=== PATIENT | male | born 1990 | race Caucasian/White ===

== ENCOUNTER 2017-08-06 03:19 | Inpatient (IN) | payer SELFPAY ==
[2017-08-06] MEDS ORDERED: METOPROLOL TARTRATE 5 MG/5 ML INJ IV ONE (04:04)
[2017-08-06] MEDS ORDERED: NA CHLORIDE 0.9% 1,000 ML ONE (04:05)
[2017-08-06 04:20] LABS: Protime INR 1.01
[2017-08-06 04:28] LABS: Potassium 3.9 mEq/L (3.6-5.0)
[2017-08-06 04:34] LABS: Albumin 3.7 g/dL (3.2-5.5); Bilirubin Direct 0.1 mg/dL (0-0.2); Bilirubin Total 0.8 mg/dL (0.3-1.2); Magnesium 2.1 mg/dL (1.8-2.5); Protein, Total 7.2 g/dL (6.0-8.3)
[2017-08-06 04:37] LABS: CKMB Creatine Kinase MB 1.9 ng/ml (0.3-4.0)
[2017-08-06 04:41] LABS: Absolute Lymphocytes (CBC) 1.6 K/uL (0.7-4.9); Absolute Monocytes 0.8 K/uL (0.1-1.3); Absolute Neutrophil 7.6 K/uL (1.8-8.0); Basophils % 0.6 % (0-1.3); Eosinophils % 5.2 % (0-4.4); Hematocrit 36.5 % (39.6-49.0); MCH 26.6 pg (27.0-35.0); MPV 7.9 fL (7.6-11.3); Monocytes % 7.2 % (3.3-12.3); RBC Red Blood Cell Count 4.62 M/uL (4.33-5.43)
--- NOTE | 2017-08-06 05:33 | ER ---
Nurse's Notes [facility] Name: Melvin Maguire Age: 26 yrs Sex: Male : 1990 Arrival Date: 08/06/2017 Time: 03:24 Bed 14 Private MD: Diagnosis: Chest pain. [place] right lung. Acute renal failure. Elevated Troponin Presentation: 08/06 03:50 Presenting complaint: Patient states: "I have been feeling a heaviness in my chest all bs1 day yesterday but about an hour ago I started having chest pain that starts underneath my left breast to the middle of my chest, it was a sharp shooting pain, and I started feeling short of breath.". Transition of care: patient was not received from another setting of care. Onset of symptoms was August 06, 2017 at 02:30. Initial Sepsis Screen: Does the patient meet any 2 criteria? HR > 90 bpm. No. Patient's initial sepsis screen is negative. Does the patient have a suspected source of infection? No. Patient's initial sepsis screen is negative. Care prior to arrival: None. 03:50 Method Of Arrival: Ambulatory bs1 03:50 Acuity: SAKSHI 3 bs1 Triage Assessment: 04:01 General: Appears. bs1 Historical: - Allergies: 03:55 No Known Allergies; bs1 - Home Meds: 03:55 Claritin Oral [Active]; bs1 - PMHx: 03:55 Asthma; blood pressure issues in high school; bs1 - PSHx: 03:55 None; bs1 - Immunization history:: Adult Immunizations up to date. - Social history:: Smoking status: Patient/guardian denies using tobacco. Screenin:57 Abuse screen: Denies threats or abuse. Denies injuries from another. Nutritional bs1 screening: No deficits noted. Tuberculosis screening: No symptoms or risk factors identified. Fall Risk None identified. Assessment: 03:55 General: Appears uncomfortable, Behavior is cooperative, anxious. Pain: Complains of bs1 pain in underneath left breast Pain radiates to center of chest Pain currently is 7 out of 10 on a pain scale. Quality of pain is described as sharp, shooting, Pain began 2 hours ago. Neuro: Level of Consciousness is awake, alert, obeys commands, Oriented to person, place, time, situation, Appropriate for age Marketing Director are equal bilaterally Moves all extremities. Cardiovascular: Reports chest pain, shortness of breath, Heart tones S1 S2 present Capillary refill < 3 seconds Patient's skin is warm and dry. Respiratory: Reports shortness of breath at rest on exertion cough that is non-productive, Airway is patent Trachea midline Respiratory effort is even, unlabored, Respiratory pattern is regular, symmetrical, Breath sounds are clear bilaterally. GI: No deficits noted. No signs and/or symptoms were reported involving the gastrointestinal system. : No deficits noted. No signs and/or symptoms were reported regarding the genitourinary system. EENT: No deficits noted. No signs and/or symptoms were reported regarding the EENT system. Derm: Skin is intact, Skin is pink, warm \\T\\ dry. Musculoskeletal: Circulation, motion, and sensation intact. Capillary refill < 3 seconds, Range of motion: intact in all extremities. 04:30 Reassessment: Patient appears in no apparent distress at this time. Patient and/or bs1 family updated on plan of care and expected duration. Pain level reassessed. Patient is alert, oriented x 3, equal unlabored respirations, skin warm/dry/pink. 05:23 Reassessment: Patient appears in no apparent distress at this time. Patient and/or bs1 family updated on plan of care and expected duration. Pain level reassessed. Patient is alert, oriented x 3, equal unlabored respirations, skin warm/dry/pink. Patient states feeling better. 06:23 Reassessment: Patient appears in no apparent distress at this time. Patient and/or bs1 family updated on plan of care and expected duration. Pain level reassessed. Patient is alert, oriented x 3, equal unlabored respirations, skin warm/dry/pink. Denies chest pain at this time. 06:30 Reassessment: Decreased fluids to 75ml/hr per verbal order from Dr Watkins. bs1 07:00 General: Appears uncomfortable, obese, Behavior is cooperative, anxious. Neuro: Level rb1 of Consciousness is awake, alert, obeys commands, Oriented to person, place, time, situation. Cardiovascular: Capillary refill < 3 seconds is brisk in bilateral fingers. Respiratory: Airway is patent Respiratory effort is even, unlabored, Respiratory pattern is regular, symmetrical. Derm: Skin is pink, warm \\T\\ dry. 07:54 Reassessment: Called Dr. Mcintosh regarding BP 161/123, P 68. Received order for rb1 Hydralazine 10 mg IVP Q8H PRN SBP > 160. 100% telephone read back. 08:00 Reassessment: Patient appears in no apparent distress at this time. No changes from rb1 previously documented assessment. called report to Wade Remy RN. Information from the [facility] was given. All questions asked and answered. Vital Signs: 03:45 BP 167 / 125; Pulse 120; Resp 20; Temp 98.2(O); Pulse Ox 98% on R/A; Weight 136.08 kg; bs1 Height 5 ft. 11 in. (180.34 cm); Pain 7/10; 04:08 BP 185 / 111; Pulse 124; bs1 04:13 BP 144 / 130; Pulse 105; bs1 04:18 BP 153 / 129; Pulse 108; bs1 04:21 BP 159 / 118; Pulse 95; Resp 22; Pulse Ox 100% on R/A; mt 05:22 BP 138 / 85; Pulse 88; Resp 20; Pulse Ox 99% on 3 lpm NC; bs1 05:36 BP 150 / 109; Pulse 98; Resp 20; Pulse Ox 98% on R/A; mt 06:51 BP 157 / 113; Pulse 105; Resp 19; Pulse Ox 99% on R/A; Pain 0/10; bs1 07:50 BP 161 / 123; Pulse 68; Resp 22; Pulse Ox 99% on R/A; rb1 03:45 Body Mass Index 41.84 (136.08 kg, 180.34 cm) bs1 07:[address] Mcintosh. Received order via telephone for Hydralazine 10 mg IVP Q8H PRN for rb1 SBP > 160. ED Course: 03:24 Patient arrived in ED. al2 03:35 Sofy Poon, EVETTE is Primary Nurse. bs1 03:36 Prasanna Watkins MD is Attending Physician. pkl 03:53 Triage completed. bs1 04:01 Inserted saline lock: 20 gauge in left antecubital area, using aseptic technique. bs1 Oxygen administration via nasal cannula \\T\\ 2L/min. 04:24 X-ray completed. Portable x-ray completed in exam room. Patient tolerated procedure kw well. 04:26 XRAY Chest (1 view) In Process Unspecified. EDMS 05:14 Patient has correct armband on for positive identification. Bed in low position. Call bs1 light in reach. Side rails up X 1. quality assurance monitor chassis on. Pulse ox on. NIBP on. 05:14 Arm band placed on placed. EKG completed in triage. Results shown to MD. bs1 05:15 No provider procedures requiring assistance completed. bs1 05:31 Michael Ernst MD is Hospitalizing Provider. pkl 07:00 Report given to EVETTE Wills. bs1 07:14 Patient taken to ultrasound. via wheelchair. hr 08:19 Patient admitted, IV remains in place. rb1 08:22 Ultrasound completed. Patient tolerated well. Patient moved back from ultrasound. hr Administered Medications: 04:08 Drug: NS 0.9% 1000 ml Route: IV; Rate: 125 ml/hr; Site: left antecubital; bs1 04:08 Drug: Metoprolol 5 mg {Note: blood pressure 185/111 heart rate 124 prior blood pressure bs1 144/130 heart rate 105 after med.} Route: IVP; Site: left antecubital; 04:13 Drug: Metoprolol 5 mg {Note: blood pressure 153/129 hear rate 108 prior to 2nd dose bs1 blood pressure 160/115 heart rate 99 after 2nd dose.} Route: IVP; Site: left antecubital; 04:18 Drug: Metoprolol 5 mg {Note: blood pressure 158/118 heart rate 98 prior to 3rd dose bs1 blood pressure 160/117, heart rate 93 after 3rd dose, MD aware.} Route: IVP; Site: left antecubital; 06:21 Follow up: Response: No adverse reaction bs1 Outcome: 05:33 Decision to Hospitalize by Provider. pkl 08:19 Patient left the ED. rb1 08:19 Admitted to Med/surg accompanied by tech, family with patient, via wheelchair, room rb1 221, with chart, Report called to Wade Remy RN. Information from [facility] was given. All questions asked and answered. 08:19 Condition: stable 08:19 Instructed on the need for admit. Signatures: Dispatcher [employer] EDMS Prasanna Watkins MD MD pkl Viki Valle Kimberlee kw Barber, Rebecca, RN RN rb1 Sejal Graham mt, Brittany, RN RN bs1 Nevaeh Diaz Corrections: (The following items were deleted from the chart) 08:40 08:00 Reassessment: Patient appears in no apparent distress at this time. No changes rb1 from previously documented assessment. rb1 08:41 08:28 Patient left the ED. rb1 rb1 08:47 07:54 Reassessment: Called Dr. Mcintosh regarding BP 161/123, P 68. Received order for rb1 Hydralazine 10 mg IVP Q8H PRN. 100% telephone read back. rb1
--- NOTE | 2017-08-06 05:33 | EDPHYS ---
Physician Documentation [facility] Name: Melvin Maguire Age: 26 yrs Sex: Male : 1990 Arrival Date: 08/06/2017 Time: 03:24 Bed 14 Private MD: ED Physician Prasanna Watkins HPI: 08/06 04:02 This 26 yrs old Male presents to ER via Ambulatory with complaints of Chest pkl Pain, Cough. 04:02 The patient or guardian reports chest pain that is located primarily in the substernal pkl area. The pain does not radiate. Associated signs and symptoms: Pertinent positives: cough. The chest pain is described as dull. Historical: - Allergies: 03:55 No Known Allergies; bs1 - Home Meds: 03:55 Claritin Oral [Active]; bs1 - PMHx: 03:55 Asthma; blood pressure issues in high school; bs1 - PSHx: 03:55 None; bs1 - Immunization history:: Adult Immunizations up to date. - Social history:: Smoking status: Patient/guardian denies using tobacco. ROS: 04:02 Eyes: Negative for injury, pain, redness, and discharge, ENT: Negative for injury, pkl pain, and discharge, Neck: Negative for injury, pain, and swelling. 04:02 Cardiovascular: Positive for chest pain, with cough. 04:02 Respiratory: Positive for cough, blood stain. 04:02 Abdomen/GI: Negative for abdominal pain, nausea, vomiting, and diarrhea. 04:02 Back: Negative for acute changes. 04:02 : Negative for urinary symptoms. 04:02 MS/extremity: Negative for acute changes. 04:02 Skin: Negative for rash. 04:02 Neuro: Negative for altered mental status. Exam: 04:02 Head/Face: Normocephalic, atraumatic. pkl 04:02 Head/face: Exam is negative for acute changes. 04:02 Eyes: Exam is negative for acute changes. 04:02 ENT: Exam is negative for acute changes. 04:02 Neck: Exam negative for nuchal rigidity. 04:02 Chest/axilla: Exam negative for acute changes. 04:02 Cardiovascular: Rate: tachycardic, actual rate is 120 bpm, Rhythm: regular. 04:02 ECG was reviewed by the Attending Physician. 04:02 Respiratory: the patient does not display signs of respiratory distress, Respirations: normal, Breath sounds: are clear throughout. 04:02 Abdomen/GI: Exam negative for acute changes. 04:02 Back: Exam negative for acute changes. 04:02 : Exam negative for acute changes. 04:02 Musculoskeletal/extremity: Exam is negative for acute changes. 04:02 Skin: Exam negative for rash. 04:02 Neuro: Orientation: is normal, Mentation: is normal, Cranial nerves: grossly normal, Motor: is normal. Vital Signs: 03:45 BP 167 / 125; Pulse 120; Resp 20; Temp 98.2(O); Pulse Ox 98% on R/A; Weight 136.08 kg; bs1 Height 5 ft. 11 in. (180.34 cm); Pain 7/10; 04:08 BP 185 / 111; Pulse 124; bs1 04:13 BP 144 / 130; Pulse 105; bs1 04:18 BP 153 / 129; Pulse 108; bs1 04:21 BP 159 / 118; Pulse 95; Resp 22; Pulse Ox 100% on R/A; mt 05:22 BP 138 / 85; Pulse 88; Resp 20; Pulse Ox 99% on 3 lpm NC; bs1 05:36 BP 150 / 109; Pulse 98; Resp 20; Pulse Ox 98% on R/A; mt 06:51 BP 157 / 113; Pulse 105; Resp 19; Pulse Ox 99% on R/A; Pain 0/10; bs1 07:50 BP 161 / 123; Pulse 68; Resp 22; Pulse Ox 99% on R/A; rb1 03:45 Body Mass Index 41.84 (136.08 kg, 180.34 cm) bs1 07:[address] Mcintosh. Received order via telephone for Hydralazine 10 mg IVP Q8H PRN for rb1 SBP > 160. MDM: 03:36 Patient medically screened. pkl 05:22 Data reviewed: vital signs, nurses notes, lab test result(s), EKG, radiologic studies, pkl plain films. 08/06 03:59 Order name: Basic Metabolic Panel bs1 08/06 03:59 Order name: BNP; Complete Time: 05:22 bs1 08/06 03:59 Order name: CBC with Diff; Complete Time: 05:22 bs1 08/06 03:59 Order name: Ckmb; Complete Time: 05:22 bs1 08/06 03:59 Order name: CPK; Complete Time: 05:22 bs1 08/06 03:59 Order name: LFT's; Complete Time: 05:22 bs1 08/06 03:59 Order name: Magnesium; Complete Time: 05:22 bs1 08/06 03:59 Order name: PT-INR; Complete Time: 05:22 bs1 08/06 03:59 Order name: Ptt, Activated; Complete Time: 05:22 bs1 08/06 03:59 Order name: Troponin (emerg Dept Use Only); Complete Time: 05:22 bs1 08/06 04:00 Order name: Basic Metabolic Panel; Complete Time: 05:22 EDMS 08/06 04:01 Order name: UDS pkl 08/06 04:34 Order name: D-Dimer; Complete Time: 05:22 EDMS 08/06 03:59 Order name: XRAY Chest (1 view) bs1 08/06 03:59 Order name: EKG; Complete Time: 04:00 bs1 08/06 03:59 Order name: Cardiac monitoring; Complete Time: 04:00 bs1 08/06 03:59 Order name: EKG - Nurse/Tech; Complete Time: 04:00 bs1 08/06 03:59 Order name: IV Saline Lock; Complete Time: 04:00 bs1 08/06 03:59 Order name: Labs collected and sent; Complete Time: 06:50 bs1 08/06 03:59 Order name: O2 Per Protocol; Complete Time: 04:00 bs1 08/06 05:27 Order name: Blood Culture Adult (2) pkl 08/06 05:27 Order name: Lactate; Complete Time: 06:33 pkl 08/06 05:27 Order name: Procalcitonin; Complete Time: 06:33 pkl 08/06 05:39 Order name: ABG; Complete Time: 06:33 pkl 08/06 06:51 Order name: Urine Dipstick--Ancillary (enter results) em1 08/06 07:10 Order name: Urine Dipstick-Ancillary EDMS 08/06 08:23 Order name: VAS EDMS 08/06 03:59 Order name: O2 Sat Monitoring; Complete Time: 04:00 bs1 08/06 03:59 Order name: Urine Dipstick-Ancillary (obtain specimen); Complete Time: 06:49 bs1 Administered Medications: 04:08 Drug: NS 0.9% 1000 ml Route: IV; Rate: 125 ml/hr; Site: left antecubital; bs1 04:08 Drug: Metoprolol 5 mg {Note: blood pressure 185/111 heart rate 124 prior blood pressure bs1 144/130 heart rate 105 after med.} Route: IVP; Site: left antecubital; 04:13 Drug: Metoprolol 5 mg {Note: blood pressure 153/129 hear rate 108 prior to 2nd dose bs1 blood pressure 160/115 heart rate 99 after 2nd dose.} Route: IVP; Site: left antecubital; 04:18 Drug: Metoprolol 5 mg {Note: blood pressure 158/118 heart rate 98 prior to 3rd dose bs1 blood pressure 160/117, heart rate 93 after 3rd dose, aware.} Route: IVP; Site: left antecubital; 06:21 Follow up: Response: No adverse reaction bs1 Disposition: 08/06/17 05:33 Hospitalization ordered by Michael Ernst for Inpatient Admission. Preliminary diagnosis is Chest pain. [place] right lung. Acute renal failure. Elevated Troponin. - Bed requested for Telemetry/MedSurg (Inpatient). - Status is Inpatient Admission. rb1 - Condition is Stable. - Problem is new. - Symptoms are unchanged. UTI on Admission? No Signatures: Dispatcher [employer] EDMS Zonia Salas RN RN mw Lam, Pin, MD MD pkl Barber, Rebecca, RN RN rb1 Sofy Poon RN RN bs1 Corrections: (The following items were deleted from the chart) 04:10 04:06 D-DIMER+COAG.LAB.BRZ ordered. EDMS EDMS
[2017-08-06 06:28] LABS: Arterial Blood Carboxyhemoglob 1.4 % (0-1.5); Blood Gas Oxyhemoglobin 93.6 % (94-97); Blood O2 Saturation 95.5 % (92-98.5)
--- NOTE | 2017-08-06 06:51 | P.HP ---
Certification for Inpatient Patient admitted to: Inpatient With expected LOS: >2 Midnights Practitioner: I am a practitioner with admitting privileges, knowledge of patient current condition, hospital course, and medical plan of care. Services: Services provided to patient in accordance with Admission requirements found in Title 42 Section 412.3 of the Code of Federal Regulations Patient History Date of Service: 08/06/17 Reason for admission: dyspnea, acute renal injury History of Present Illness: Mr Maguire is a 26 years old male with history of obesity, who start about 2 weeks ago with cold symptoms. However, yesterday, he start feeling weakness, SOB , and had cough with bloody secretions. He denied any fever or chills. He also has had chest pain on his left side, come and go, worsening with deep breathing. In ER lab work was significantly abnormal, creatinine 5.06, GFR 14, trop I elevated, D-dimer 3136. He denied any recent trip, but he recognized that some days he only spent time watching TV on the couch for several hours without standing up. At presentation is tachycardic 120bpm, dyspneic, however, O2 Sat is 98% on RA, no fever. Allergies No Known Allergies Allergy (Unverified 03/27/14 02:39) - Past Medical/Surgical History -: obesity Past Surgical History: Reviewed- Non-Contributory - Family History Father -: Heart disease - Social History Smoking Status: Never smoker CD- Drugs: No Place of Residence: Home Review of Systems 10-point ROS is otherwise unremarkable Physical Examination - Physical Exam General: Alert, In no apparent distress HEENT: Atraumatic, PERRLA, Mucous membr. moist/pink, EOMI, Sclerae nonicteric Neck: Supple, 2+ carotid pulse no bruit, No LAD, Without JVD or thyroid abnormality Respiratory: Clear to auscultation bilaterally, Normal air movement Cardiovascular: Regular rate/rhythm, Normal S1 S2 Gastrointestinal: Normal bowel sounds, No tenderness Musculoskeletal: No tenderness Integumentary: No rashes Neurological: Normal speech, Normal strength at 5/5 x4 extr, Normal tone, Normal affect Lymphatics: No axilla or inguinal lymphadenopathy - Studies Laboratory Data (last 24 hrs) 08/06/17 03:45: PT 11.9, INR 1.01, APTT 31.3 08/06/17 03:45: WBC 10.6, Hgb 12.3 L, Hct 36.5 L, Plt Count 331 08/06/17 03:45: B-Natriuretic Peptide 615 H 08/06/17 03:45: Sodium 136, Potassium 3.9, BUN 45 H, Creatinine 5.06 H*, Glucose 104, Magnesium 2.1, Total Bilirubin 0.8, AST 17, ALT 13, Alkaline Phosphatase 46 Assessment and Plan - Problems (Diagnosis) (1) Dyspnea Current Visit: Yes Status: Acute Qualifiers: Dyspnea type: shortness of breath Qualified Code(s): R06.02 - Shortness of breath; R06.00 - Dyspnea, unspecified; R06.01 - Orthopnea (2) Cough with hemoptysis Current Visit: Yes Status: Acute (3) Obesity Current Visit: Yes Status: Acute Qualifiers: Obesity type: unspecified obesity type Obesity classification: unspecified obesity classification Serious obesity comorbidity presence: unspecified whether serious comorbidity present Qualified Code(s): E66.9 - Obesity, unspecified (4) Acute renal injury Current Visit: Yes Status: Acute - Plan #1 dyspnea: due to clinical presentation plus the significant elevation of D- dimre, this is highly suspicious for PE. Will order Lovenox full dose adjusted to his renal function. Order also V/Q scan since he can not have a CTA of chest due to renal failure #2 acute renal injury:possible pre-renal in context of PE if is confirmed. Will consult [facility]. - Advance Directives Does patient have a Living Will: No Does patient have a Durable POA for Healthcare: No - Code Status/Comfort Care Code Status Assessed: Yes Code Status: Full Code
[2017-08-06] MEDS ORDERED: ENOXAPARIN 100 MG/ML SYR SQ SCH (07:00)
[2017-08-06 07:10] LABS: Urine Blood 2+ (NEG); Urine Glucose NEGATIVE (NEG); Urine Protein 3+ (NEG); Urine Specific Gravity 1.025 (1.005-1.030); Urine pH 5.5 (5.0-7.0)
[2017-08-06] MEDS ORDERED: HYDRALAZINE HCL 20 MG/ML VIAL ONE (07:52)
[2017-08-06] MEDS ORDERED: HYDRALAZINE HCL 20 MG/ML VIAL IV PRN ×2 (07:55→14:01)
[2017-08-06 07:58] LABS: Barbiturates NEGATIVE; Benzodiazepines NEGATIVE; Cocaine NEGATIVE; METHAMPHETAM NEGATIVE; Opiates NEGATIVE; Phencyclidine NEGATIVE; THC Cannibis NEGATIVE
[2017-08-06] MEDS ORDERED: ENOXAPARIN 100 MG/ML SYR SQ ONE (08:08)
--- NOTE | 2017-08-06 08:22 | RAD REPORT ---
EXAM DESCRIPTION: VAS - Extrem Venous W Compress Mao - 08/06/2017 7:23 am CLINICAL HISTORY: Elevated D-dimer COMPARISON: None. TECHNIQUE: Real-time sonographic evaluation of the bilateral lower extremity deep venous systems was performed. FINDINGS: Normal compressibility, flow augmentation, phasic flow and spontaneous flow are identified in the left and right lower extremity deep venous systems. No intraluminal filling defects seen. IMPRESSION: No DVT in either lower extremity.
[2017-08-06] MEDS ORDERED: ONDANSETRON 4 MG/2 ML VIAL IV PRN (08:51)
[2017-08-06] MEDS: NA CHLORIDE 0.9% 1,000 ML IV SCH ×2 (08:51→20:31)
--- NOTE | 2017-08-06 09:03 | RAD REPORT ---
EXAM DESCRIPTION: RAD - Chest Single View - 08/06/2017 4:25 am CLINICAL HISTORY: Chest pain, shortness of breath COMPARISON: August 2014 TECHNIQUE: AP portable chest image was obtained 0419 hours . FINDINGS: Interstitial and airspace opacification is present in the right lower lung field and to a lesser degree the left lower lung field. Central vasculature and lung markings increased slightly fro m prior imaging. Trachea is midline. Borderline cardiomegaly is present. No measurable pleural effusi on and no pneumothorax. No gross bony abnormality seen. No acute aortic findings suspected. IMPRESSION: Patient shows a mild CHF/ volume overload pattern. Asymmetric prominence of airspace opacification in the lower right lung field suspicious for concurre nt pneumonia.
[2017-08-06 09:16] VITALS: BMI 41.8
[2017-08-06 09:39] LABS: Potassium 4.2 mEq/L (3.6-5.0)
--- NOTE | 2017-08-06 12:44 | RAD REPORT ---
EXAM DESCRIPTION: NM - Vent Perfusion VQ Scan - 08/06/2017 12:30 pm CLINICAL HISTORY: Chest pain, shortness of breath, possible pulmonary embolism COMPARISON: Portable chest August 06 TECHNIQUE: The patient was administered 20.7 mCi Xenon 133 gas with posterior projection inspiration , equilibrium, and washout views obtained. The patient was then administered 7.6 mCi Tc-99m MAA label ed RBCs followed by standard 8 view protocol. FINDINGS: There is good distribution of the Xenon with no ventilation defects identified. No signifi cant air-trapping seen. Perfusion images show no defects suspicious for pulmonary emboli. IMPRESSION: Normal V/Q Scan.
[2017-08-06 13:43] LABS: Uric Acid 10.3 mg/dL (4.8-8.7)
[2017-08-06 13:44] LABS: Thyroid Stimulating Hormone 7.28 uIU/mL (0.34-5.60)
--- NOTE | 2017-08-06 14:38 | EKG ---
Test Date: 2017-08-06 Test Time: 03:34:43 Hearing Aid Consultant: CARLOS MANUEL MEASUREMENT RESULTS: Intervals: Rate: 127 PA: 150 QRSD: 90 QT: 306 QTc: 444 Bradley: P: 51 PA: 150 QRS: 97 T: 13 INTERPRETIVE STATEMENTS: Sinus tachycardia Possible Left atrial enlargement Rightward axis Borderline ECG No previous ECG available for comparison Electronically Signed On 08-06-17 14:34:16 CDT by Francesco Carias
[2017-08-06] MEDS: AMLODIPINE 10 MG TAB PO SCH (14:55)
[2017-08-06] MEDS: ACETAMINOPHEN 500 MG TAB PO PRN (14:58)
--- NOTE | 2017-08-06 15:18 | RAD REPORT ---
EXAM DESCRIPTION: US - Renal Ultrasound-Complete - 08/06/2017 2:43 pm CLINICAL HISTORY: Renal failure. COMPARISON: None. FINDINGS: Both kidneys demonstrate increased echogenicity. The right kidney measures 11.8 x 4.2 x 4.0 cm. No hydronephrosis. The left kidney measures 12.8 x 4.5 x 3.4 cm.. No hydronephrosis. Small amount of pleural fluid bilaterally. IMPRESSION: Echogenic kidneys are present bilaterally compatible with underlying medical renal disea se.
--- NOTE | 2017-08-06 17:35 | RAD REPORT ---
EXAM DESCRIPTION: CT - Abdomen Pelvis Wo Contrast - 08/06/2017 4:23 pm CLINICAL HISTORY: Abdominal pain. Renal failure COMPARISON: None TECHNIQUE: CT imaging of the abdomen and pelvis was performed without contrast. Solid organ, bowel a nd vascular assessment is limited due to lack of IV and oral contrast. All CT scans are performed using dose optimization technique as appropriate and may include automated exposure control or mA/KV adjustment according to patient size. FINDINGS: Mild linear opacities in both lung bases may represent pneumonia or atelectasis. Small danette ateral pleural effusions. The liver demonstrates no focal lesion or biliary dilatation. The spleen is mildly enlarged. Pancreas , adrenal glands and kidneys are within normal limits for limited noncontrast assessment. No bowel obstruction, free air, free fluid or abscess. The appendix is normal. Moderate fat containi ng ventral hernia is present. The osseous structures are within normal limits. IMPRESSION: Small bilateral pleural effusions with atelectasis versus small infiltrates in both lung bases. Moderate fat containing ventral hernia. Mild splenomegaly. A limited non-contrast examination was performed as detailed.
[2017-08-06] MEDS ORDERED: METOPROLOL TAR 25 MG TAB PO SCH (18:00)
[2017-08-06 21:25] LABS: Urine Appearance CLEAR; Urine Bilirubin NEGATIVE (NEG); Urine Blood 3+ (NEG); Urine Color YELLOW; Urine Glucose TRACE (NEG); Urine Protein 3+ (NEG); Urine Specific Gravity 1.015 (1.005-1.030); Urine Urobilinogen 0.2 mg/dL (0.2-1.0)
[2017-08-06 21:27] LABS: Urine Microscopic Reflex ORDER UMIC
[2017-08-06 21:44] LABS: Urine Bacteria NONE SEEN /HPF (NONE SEEN); Urine Coarse Granular Casts 0-5 /LPF (NONE SEEN); Urine Culture Reflex Order REFLEXED; Urine RBC 20-50 /HPF (NONE SEEN)
[2017-08-06 22:11] LABS: UR CREAT 106.7 mg/dL; Urine Protein/Creatinine Ratio 6.94 (<0.15)
--- NOTE | 2017-08-07 04:31 | CON ---
Date of Consultation: 08/06/2017 History Of Present Illness: This is a pleasant 26-year-old gentleman without any significant past me dical history except hypertension. The patient was in his regular state of health, was sitting, watc arina TV and all of a sudden started having shortness of breath with chest tightness. For that reason , he reported to the emergency room. In the emergency room, primary workup showed cardiomegaly, elev ated BUN and creatinine. For that reason, we have been consulted. According to the patient, the pat esdras has chronic sinusitis, being treated with [id number] medication. The patient has been shay ing Aleve every other day and lately he took consecutive on the last few days. The patient chronical ly taking Excedrin. The patient denied any rash. Denied any mouth ulcer. No joint problems. The p atesdras does not have any hazard exposure. No recent exposure to antibiotics. No IV contrast. Past Medical History: Obesity. Family History: Positive for diabetes. No kidney disease. Social History: Denies smoking, denies drinking, denies drug abuse. Allergies: NO KNOWN DRUG ALLERGIES. Home Medications: Excedrin and Aleve. Past Surgical History: Negative. Review of Systems: Head and Neck: No red eye. No ear pain. GI: No nausea. No vomiting. : No polyuria. No dysuria. No hematuria. Has foamy urine. PHARMACY TECHNICIAN: Not applicable. Respiratory: Has shortness of breath. Cardiovascular: No chest pain. No orthopnea. No leg swelling. Endocrine: No polydipsia. Skin: No rash. Neuro: No weakness. Musculoskeletal: No joint pain. Physical Examination: Vital Signs: When I saw the patient, blood pressure 169/107, pulse of 116, afebrile. The patient st ill have urine output. Chest: Clear to auscultation. Heart: S1, S2. Regular. Abdomen: Soft, nontender. Extremities: No edema. Skin: No rash. No ulcers. Neurological: Alert and oriented x3. Nonfocal. No tremor. Laboratory Data: WBC 10.6, H and H 12.3/36.5, platelets 330. Sodium 138, potassium 4.2, bicarb 21, BUN 44, creatinine 5.2, calcium 8.8. Uric acid of 10.3, CK 203. Troponin negative. TSH 7.2. PTH w as sent. Urinalysis: Specific gravity of 1.016, +3 blood, rbc of 50, wbc of 10, +3 protein. Urine drug screen was negative. Medications: Current medications in the hospital include: 1.IV fluid of normal saline. 2.Hydralazine p.r.n. Assessment And Plan: 1.Acute kidney injury with proteinuric, not quantified proteinuria yet with hematuria. 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 I am going to go ahead and get full workup for the patient including renal ultrasound. Quantify the protein/creatinine. Send for full serology. We will send for PTH to evaluate the chr onicity. I spoke with the Radiology. Plan to get kidney biopsy. Given the finding on the ultrasoun d that his spleen overlying on his kidney, we are going to go ahead and get CT abdomen to evaluate if we can get the kidney biopsy through the CAT scan as we discussed with radiologist. 2.Hypertension. We will start the patient on Norvasc. I will avoid any KIERA inhibitor. I will swit ch his beta-giovanny to carvedilol for better blood pressure control. We will go ahead and give the p atient DDAVP to avoid any complication and we will follow up. 3.Proteinuria, possible nephritis as above. Case discussed with the patient, verbalized understanding. Discussed with the staff. Discussed with Dr. Blank, hospitalist and Dr. Morris, radiologist. Agreed on the plan. Time spent 70 minutes. ANIBAL Voice ID: [id number] Report ID: [id number]
[2017-08-07] MEDS: NA CHLORIDE 0.9% 1,000 ML IV SCH ×2 (04:51→15:45)
[2017-08-07] MEDS: CARVEDILOL 12.5 MG TAB PO SCH ×2 (05:51→18:49)
[2017-08-07 06:11] LABS: Albumin 3.5 g/dL (3.2-5.5); Phosphorus 3.8 mg/dL (2.5-4.3)
[2017-08-07 06:21] LABS: Absolute Monocytes 0.6 K/uL (0.1-1.3); Basophils % 0.4 % (0-1.3); Eosinophils % 1.5 % (0-4.4); Hematocrit 31.8 % (39.6-49.0); MCH 27.1 pg (27.0-35.0); MPV 7.9 fL (7.6-11.3); Monocytes % 5.8 % (3.3-12.3); RBC Red Blood Cell Count 4.02 M/uL (4.33-5.43)
--- NOTE | 2017-08-07 07:52 | ECHO ---
HEIGHT: 5 ft 11 in WEIGHT: 328 lb 14.4 oz DATE OF STUDY: 08/06/[address]: 2-DIMENSIONAL: YES M.MODE: YES DOPPLER: YES COLOR FLOW: YES TDS: NO PORTABLE: NO DEFINITY: NO BUBBLE STUDY: NO DIAGNOSIS: CARDIOMEGALY CARDIAC HISTORY: CATHERIZATION: NO SURGERY: NO PROSTHETIC VALVE: NO PACEMAKER: NO MEASUREMENTS (cm) DIASTOLIC (NORMALS) SYSTOLIC (NORMALS) IVSd 1.3 (0.6-1.2) LA Diam 4.1 (1.9-4.0) LVEF 33% LVIDd 5.7 (3.5-5.7) LVIDs 4.8 (2.0-3.5) %FS 16% LVPWd 1.4 (0.6-1.2) Ao Diam 3.7 (2.0-3.7) 2 DIMENSIONAL ASSESSMENT: RIGHT ATRIUM: NORMAL LEFT ATRIUM: DILATED RIGHT VENTRICLE: NORMAL LEFT VENTRICLE: LEFT VENTRICULAR HYPERTROPHY TRICUSPID VALVE: NORMAL MITRAL VALVE: NORMAL PULMONIC VALVE: NORMAL AORTIC VALVE: NORMAL PERICARDIAL EFFUSION: NONE AORTIC ROOT: NORMAL LEFT VENTRICULAR WALL MOTION: GLOBAL HYPOKINESIS DOPPLER/COLOR FLOW: NORMAL COMMENTS: DEPRESSED LEFT VENTRICULAR EJECTION FRACTION. LEFT VENTRICULAR HYPERTROPHY. DILATED LEFT ATRIUM. TECHNOLOGIST: JERRY PURDY
[2017-08-07] MEDS: AMLODIPINE 10 MG TAB PO SCH (09:03)
[2017-08-07] MEDS ORDERED: FENTANYL CITR 100 MCG/2 ML ONE ×2 (10:17)
[2017-08-07] MEDS ORDERED: MIDAZOLAM HCL 2 MG/2 ML INJ ONE (10:17)
[2017-08-07] MEDS ORDERED: FLUMAZENIL 0.1 MG/ML (5 mL VIAL) IV ONE (10:17)
[2017-08-07] MEDS ORDERED: NALOXONE 0.4 MG/ML VIAL ONE (10:17)
[2017-08-07] MEDS ORDERED: NA CHLORIDE 0.9% 1,000 ML ONE (10:18)
--- NOTE | 2017-08-07 11:50 | RAD REPORT ---
EXAM DESCRIPTION: US - Renal Biopsy - 08/07/2017 11:24 am CLINICAL HISTORY: Acute renal failure COMPARISON: 08/06/2017 FINDINGS: Preoperative diagnosis: Acute renal failure. Post operative diagnosis: Same. Conscious Sedation: IV conscious sedation utilizing fentanyl and midazolam. Fluoroscopy time: None Contrast used: None Estimated blood loss: Minimal Specimens:3 x 18 gauge core biopsies left inferior renal pole. The left posterior flank was prepped and draped in the usual sterile fashion. 1% lidocaine was infilt rated into the subcutaneous tissues for local anesthesia. Real time ultrasound scanning of the left k idney demonstrated a suitable CT window. Under ultrasound guidance, using a 18-gauge, 16 cm long, 2 c m throw core biopsy gun, 3 specimens were obtained of this lesion and sent to pathology for evaluatio n. There were no complications. IMPRESSION: Successful ultrasound-guided left renal biopsy, nonfocal. 45 minutes IV conscious sedation was utilized.
--- NOTE | 2017-08-07 12:02 | P.PN ---
Subjective Date of Service: 08/07/17 Chief Complaint: dyspnea, acute renal injury Subjective: No new changes Physical Examination - Vital Signs Temperature: 98.7 F Blood Pressure: 161/98 Pulse: 110 Respirations: 16 Pulse Ox (%): 97 - Physical Exam General: In no apparent distress, Oriented x3, Other (sleepy but arousable) HEENT: Atraumatic, Normocephalic, PERRLA Neck: Supple, JVD not distended, No Thyromegaly, No LAD Respiratory: Clear to auscultation bilaterally, Normal air movement Cardiovascular: No edema, Normal pulses, Regular rate/rhythm, Normal S1 S2, No gallops, No rubs, No murmurs Gastrointestinal: Normal bowel sounds, Soft and benign, Non-distended, W/out hepatosplenomegaly, No ascites, No tenderness, No masses, No rebound, No guarding Musculoskeletal: No clubbing, No swelling, No contractures, No erythema, No tenderness, No warmth Assessment And Plan - Current Problems (Diagnosis) (1) Hypertension Current Visit: Yes Status: Acute Plan: started on amlodipine hydralazine prn will adjust BP medications as needed (2) Acute renal injury Onset Date: 08/06/17 Current Visit: Yes Status: Acute Plan: Renal consulted s/p biopsy this am f/u biopsy results continue to monitor bun/cr renally dose medications Discharge Plan: Home Physician Review: Patient Assessed, Agree with Above Assessment and Plan Time Spent Managing PTS Care (In Minutes): 25
[2017-08-08] MEDS: NA CHLORIDE 0.9% 1,000 ML IV SCH ×3 (00:40→23:01)
[2017-08-08] MEDS: CARVEDILOL 12.5 MG TAB PO SCH ×2 (05:23→17:22)
[2017-08-08] MEDS: LEVOTHYROXINE SOD 0.075 MG TAB PO SCH (05:24)
--- NOTE | 2017-08-08 05:25 | PN ---
Date of Progress Note: 08/07/2017 Subjective: The patient is status post kidney biopsy. No nausea. No vomiting. No hematuria. Physical Examination: Vital Signs: When I saw the patient, blood pressure 130/85, pulse 107, afebrile. Chest: Clear to auscultation. Heart: S1, S2. Regular. Abdomen: Morbidly obese. Extremities: No edema. Laboratory Data: The patient had WBC 10.8, H and H 10.9/31.8, platelet 285. Sodium 137, potassium 4 , bicarb 19, BUN 42, creatinine 4.7. SPEP is still pending. Triglyceride 201, LDL 167. Hepatitis s erology is still pending. Protein creatinine above more than 3 g. Assessment And Plan: 1.Acute kidney injury with nephrotic range of proteinuria. The differential diagnosis is focal segm ental glomerulosclerosis secondary to obesity. 2.Nephritis, still awaiting the biopsy. Today, we will follow up the results. Continue follow up s erology. The patient is nonoliguric. I do not see any need for renal replacement therapy for the ti me being and we will follow up. 3.Hypertension, controlled, optimal. Continue current medication. We will avoid KIERA inhibitor or A RB for the time being. 4.Nephrotic range of proteinuria as above. Did not add any KIERA inhibitor because of the advanced ki dney disease. ALONZO/STACIA Voice ID: [id number] Report ID: [id number]
[2017-08-08 06:18] LABS: Albumin 2.9 g/dL (3.2-5.5); Phosphorus 4.3 mg/dL (2.5-4.3); Potassium 4.6 mEq/L (3.6-5.0)
[2017-08-08] MEDS: AMLODIPINE 10 MG TAB PO SCH (08:47)
[2017-08-08] MEDS ORDERED: IPRATROPIUM BROM 0.5MG/2.5ML NEB PRN (17:21)
--- NOTE | 2017-08-08 17:21 | P.PN ---
Subjective Date of Service: 08/08/17 Chief Complaint: dyspnea, acute renal injury complaining of some cough Review of Systems 10-point ROS is otherwise unremarkable Physical Examination - Vital Signs Temperature: 98.6 F Blood Pressure: 126/82 Pulse: 107 Respirations: 18 Pulse Ox (%): 97 - Physical Exam General: Alert, In no apparent distress, Oriented x3 HEENT: Atraumatic, Normocephalic, PERRLA Neck: Supple, JVD not distended, No Thyromegaly, No LAD Respiratory: Clear to auscultation bilaterally, Normal air movement Cardiovascular: No edema, Normal pulses, Regular rate/rhythm, Normal S1 S2, No gallops, No rubs, No murmurs Gastrointestinal: Normal bowel sounds, Soft and benign, W/out hepatosplenomegaly , No ascites, No tenderness, No masses, No rebound, No guarding Musculoskeletal: No clubbing, No swelling, No contractures, No erythema, No tenderness, No warmth Neurological: Normal strength at 5/5 x4 extr, Normal tone, Sensation intact Assessment And Plan - Current Problems (Diagnosis) (1) Hypertension Current Visit: Yes Status: Acute Plan: improved. continue on amlodipine hydralazine prn will adjust BP medications as needed (2) Acute renal injury Onset Date: 08/06/17 Current Visit: Yes Status: Acute Plan: Renal consulted s/p biopsy awaiting biopsy results continue to monitor bun/cr renally dose medications Discharge Plan: Home Physician Review: Patient Assessed, Agree with Above Assessment and Plan
[2017-08-08] MEDS ORDERED: ALBUTEROL 2.5 MG/3 ML NEB SOL NEB PRN (17:22)
--- NOTE | 2017-08-09 02:08 | PN ---
Date of Progress Note: 08/08/2017 Chief Complaint: Acute kidney injury. History Of Present Illness: Acute kidney injury is nonoliguric, associated with underlying chronic kidney disease and severe proteinuria. The patient has history of multiple medical problems. He is undergoing treatment with IV fluids for acute on chronic kidney injury. He is awaiting biopsy for possible glomerulonephritis. Hypertension. Blood pressure improving. KIERA inhibitor was stopped because of acute kidney injury. Review of Systems: Denies fever or chills. Physical Examination: Lungs: Few crackles at bases. Heart: S1, S2. Extremities: Slight edema. Vital Signs: Blood pressure 130/85, heart rate 107. Laboratory Data: Sodium 137, potassium 4, bicarbonate 19, BUN 42, creatinine 4.7. Serum protein electrophoresis is pending. Protein creatinine ratio greater than 3. Impression And Plan: 1. Acute kidney injury. The patient has nephrotic-range proteinuria. Differential diagnosis includes glomerulonephritis . The patient may have focal segmental glomerulosclerosis. The patient is awaiting kidney biopsy for further evaluation and management. 2. Hypertension. Continue current medication. Continue low-sodium diet. 3. The patient has acute kidney injury. Monitor electrolytes and fluid balance. Avoid nonsteroidal anti-inflammatory medication. FRANSISCA/MODAma Voice ID: [id number] Report ID: [id number] SHEN
[2017-08-09] MEDS: LEVOTHYROXINE SOD 0.075 MG TAB PO SCH (05:16)
[2017-08-09] MEDS: CARVEDILOL 12.5 MG TAB PO SCH ×2 (05:16→15:54)
[2017-08-09] MEDS: NA CHLORIDE 0.9% 1,000 ML IV SCH (05:19)
[2017-08-09 06:56] LABS: Albumin 2.9 g/dL (3.2-5.5); Magnesium 2.2 mg/dL (1.8-2.5); Phosphorus 4.7 mg/dL (2.5-4.3); Potassium 4.8 mEq/L (3.6-5.0)
[2017-08-09] MEDS: AMLODIPINE 10 MG TAB PO SCH ×2 (09:00→15:54)
[2017-08-09] MEDS ORDERED: ALBUTEROL 2.5 MG/3 ML NEB SOL NEB ONE (12:15)
[2017-08-09] MEDS ORDERED: IPRATROPIUM BROM 0.5MG/2.5ML NEB ONE (12:15)
[2017-08-09 12:35] LABS: HBsAG Nonreactive (Nonreactive)
[2017-08-09 13:16] VITALS: O2SAT 98
[2017-08-09] MEDS ORDERED: IPRATROPIUM BROM 0.5MG/2.5ML NEB SCH (14:00)
[2017-08-09] MEDS ORDERED: ALBUTEROL 2.5 MG/3 ML NEB SOL NEB SCH (14:00)
[2017-08-09 14:43] LABS: Hepatitis C Virus RNA (PCR)log <1.18 log IU/mL
--- NOTE | 2017-08-09 15:32 | P.DS ---
Admission Date: 08/06/17 Discharge Date: 08/10/17 Disposition: ROUTINE DISCHARGE Discharge Condition: FAIR Reason for Admission: dyspnea, acute renal injury - Problems (1) Hypertension Status: Acute Qualifiers: Hypertension type: secondary to other renal disorders Qualified Code(s): I15.1 - Hypertension secondary to other renal disorders; N28.89 - Other specified disorders of kidney and ureter (2) Acute renal injury Onset Date: 08/06/17 Status: Acute Brief History of Present Illness: Mr Maguire is a 26 years old male with history of obesity, who start about 2 weeks ago with cold symptoms. However, yesterday, he start feeling weakness, SOB , and had cough with bloody secretions. He denied any fever or chills. He also has had chest pain on his left side, come and go, worsening with deep breathing. In ER lab work was significantly abnormal, creatinine 5.06, GFR 14, trop I elevated, D-dimer 3136. He denied any recent trip, but he recognized that some days he only spent time watching TV on the couch for several hours without standing up. At presentation is tachycardic 120bpm, dyspneic, however, O2 Sat is 98% on RA, no fever. 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 .His BP medications were adjusted for proper BP control.at this time there is no indication for HD. Patient is to follow up closely with renal team as an outpatient.He was discharged home in a stable condition Vital Signs/Physical Exam: Temp Pulse Resp BP Pulse Ox 98.2 F 101 H 20 128/76 99 08/09/17 12:00 08/09/17 12:00 08/09/17 12:00 08/09/17 12:00 08/09/17 12:00 Laboratory Data at Discharge: WBC 10.8 K/uL (4.3-10.9) 08/07/17 05:00 Hgb 10.9 g/dL (13.6-17.9) L 08/07/17 05:00 Hct 31.8 % (39.6-49.0) L 08/07/17 05:00 Plt Count 288 K/uL (152-406) 08/07/17 05:00 PT 11.9 SECONDS (9.5-12.5) 08/06/17 03:45 INR 1.01 08/06/17 03:45 APTT 31.3 SECONDS (24.3-36.9) 08/06/17 03:45 Sodium 139 mEq/L (135-145) 08/09/17 05:24 Potassium 4.8 mEq/L (3.6-5.0) 08/09/17 05:24 BUN 49 mg/dL (6-20) H 08/09/17 05:24 Creatinine 4.81 mg/dL (0.61-1.24) H 08/09/17 05:24 Glucose 96 mg/dL (65-120) 08/09/17 05:24 Uric Acid 10.3 mg/dL (4.8-8.7) H 08/06/17 12:25 Phosphorus 4.7 mg/dL (2.5-4.3) H 08/09/17 05:24 Magnesium 2.2 mg/dL (1.8-2.5) 08/09/17 05:24 Total Bilirubin 0.8 mg/dL (0.3-1.2) 08/06/17 03:45 AST 17 IU/L (10-42) 08/06/17 03:45 ALT 13 IU/L (10-60) 08/06/17 03:45 Alkaline Phosphatase 46 IU/L (42-121) 08/06/17 03:45 Troponin I 0.14 ng/mL (<0.03) H 08/06/17 16:51 B-Natriuretic Peptide 615 pg/ml (<=100) H 08/06/17 03:45 Triglycerides 201 mg/dL (35-160) H 08/07/17 05:11 Cholesterol 234 mg/dL (<200) H 08/07/17 05:11 HDL Cholesterol 27 mg/dL (27-67) 08/07/17 05:11 Cholesterol/HDL Ratio 8.67 08/07/17 05:11 Home Medications: Albuterol Inhaler [Ventolin Inhaler*] 2 puff IH Q6H PRN #1 hfa.aer.ad 08/09/17 Amlodipine [Norvasc*] 5 mg PO DAILY #30 tab 08/09/17 Atorvastatin Calcium [Lipitor] 40 mg PO DAILY #30 tablet 08/09/17 Carvedilol [Coreg*] 12.5 mg PO BID 6AM 6PM #60 tab 08/09/17 Furosemide [Lasix] 40 mg PO DAILY #30 tab 08/09/17 Levothyroxine [Synthroid*] 0.075 mg PO [id number] #30 tab 08/09/17 Ondansetron [Zofran] 4 mg PO Q6H PRN #30 tab 08/09/17 New Medications: Albuterol Inhaler [Ventolin Inhaler*] 2 puff IH Q6H PRN #1 hfa.aer.ad PRN Reason: Shortness Of Breath Amlodipine [Norvasc*] 5 mg PO DAILY #30 tab Atorvastatin Calcium [Lipitor] 40 mg PO DAILY #30 tablet Carvedilol [Coreg*] 12.5 mg PO BID 6AM 6PM #60 tab Furosemide [Lasix] 40 mg PO DAILY #30 tab Levothyroxine [Synthroid*] 0.075 mg PO [id number] #30 tab Ondansetron [Zofran] 4 mg PO Q6H PRN #30 tab PRN Reason: Nausea / Vomiting Patient Discharge Instructions: Low salt diet. avoid any NSAIDS. follow up with [facility] [facility] Diet: Low sodium Activity: Ad yobany Followup: Sandie Rome MD [ACTIVE - CAN ADMIT] - 1-2 Weeks (Follow up in office in 2 weeks. Call to schedule an appointment.) Physician Review: Patient Assessed, Agree with Above Assessment and Plan Time spent managing pt's care (in minutes): 35
[2017-08-09] MEDS: ACETAMINOPHEN 500 MG TAB PO PRN (15:54)
[2017-08-09 16:23] LABS: HIV 1/2 Antibody Diff Not indicated.; HIV AG/AB 4TH GEN Non-reactive (Non-reactive)
[2017-08-09] MEDS ORDERED: CARVEDILOL 25 MG TAB PO SCH (18:00)
[2017-08-09 18:32] VITALS: BP 127/71
[2017-08-09 20:01] VITALS: TEMP 98.8
[2017-08-09 20:43] LABS: P-ANCA Anti-Myeloperoxidase Ab <1.0 AI (<1.0)
[2017-08-10 00:35] LABS: Albumin, (SPE) 3.3 g/dL (3.8-4.8); Alpha-1-Globulins 0.4 g/dL (0.2-0.3); Alpha-2-Globulins 0.8 g/dL (0.5-0.9); Gamma Globulins 0.7 g/dL (0.8-1.7); INTERPRETATION REPORT
--- NOTE | 2017-08-10 03:27 | PN ---
Date of Progress Note: 08/09/2017 Reason For Visit: The patient admitted with acute kidney injury, nephrotic range of proteinuria. Physical Examination: Vital Signs: Blood pressure 127/71, pulse of 95, afebrile. Chest: Clear to auscultation. Heart: S1, S2. Regular. Abdomen: Soft, nontender. Extremities: +1 edema. Laboratory Data: WBC 10.8, H and H 10.9/31.8, platelet 288. Sodium 139, potassium 4.8, bicarb 19, B UN 49, creatinine 4.8, GFR of 15, calcium 8.5, phos 4.7, magnesium 2.2. Protein creatinine of 6. Ur ine drug screen was negative. Serology HERNANDEZ was negative. ANCA negative, complement within normal li mits. Hepatitis was negative. HIV was negative. Kidney biopsy show IgA nephropathy with secondary FSGS collapsing. Current Medications: The patient on includes albuterol, carvedilol 25 b.i.d., Levaquin. 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 The jimmy ent will need referral for transplant and kidney education. The patient verbalized understanding. 2.Hypertension. Continue current medication. We are not going to challenge with KIERA inhibitor righ t now. We will follow up the patient as outpatient. 3.Nephrotic range of proteinuria secondary to IgA nephropathy. Continue as above. 4.Hyperlipidemia. Start statin. 5.Edema. We will start the patient on Lasix. 6.Hypothyroidism. We will start the patient on levothyroxine. Case discussed with the patient, verbalized understanding. ALONZO/STACIA Voice ID: [id number] Report ID: [id number]
[2017-08-13 09:19] LABS: Beta Globulin 24 HR Urine 14 %; Creatinine 24 Hour Urine 2.48 g/24 h (0.63-2.50); Gamma Globulin, 24hr Urine 12 %; Interpretation: REPORT; Urine Alpha-2-Globulins, 24 Hr 11 %; Urine PEP Abn Protein Band1 REPORT; Urine Protein/Creat Ratio 24Hr 6553 mg/g creat (<=84); Urine Total Volume 24 Hours 2125 mL
== END 2017-08-09 18:24 | disposition home or self-care (01) | DRG 683 ==
LOC: ER 03:19 → ERHOLD 05:35 → 2ND 08:10
PROVIDERS: ADMIT Internal Medicine; ATTEND Internal Medicine
PROC: 0TB13ZX Excision of Left Kidney, Percutaneous Approach, Diagnostic (ICD-10-PCS; principal; 2017-08-07)
DX: N17.9 Acute kidney failure, unspecified (principal); I12.0 Hypertensive chronic kidney disease with stage 5 chronic kidney disease or end stage renal disease; R04.2 Hemoptysis; N18.5 Chronic kidney disease, stage 5; R80.9 Proteinuria, unspecified; E03.9 Hypothyroidism, unspecified; E78.5 Hyperlipidemia, unspecified
CPT/HCPCS: 36415; 50200; 71045; 74176; 76770; 78582; 80048; 80061; 80069; 80076; 80307; 81003; 81015; 82550; 82553; 82570; 82805; 83520; 83605; 83735; 83880; 83970; 84145; 84156; 84165; 84166; 84439; 84443; 84484; 84550; 85025; 85379; 85610; 85730; 86021; 86038; 86160; 86225; 86317; 86704; 86706; 87040; 87086; 87088; 87205; 87340; 87389; 87522; 88300; 93005; 93306; 93970; 94640; 94760; 96374; 99285; A9540; A9558; J0360; J1650; J2250; J2310; J3010; J7030

== ENCOUNTER 2017-08-10 02:15 | Observation (INO) | payer SELFPAY ==
[2017-08-10 03:22] LABS: Absolute Lymphocytes (CBC) 1.3 K/uL (0.7-4.9); Absolute Monocytes 0.8 K/uL (0.1-1.3); Absolute Neutrophil 10.2 K/uL (1.8-8.0); Basophils % 0.8 % (0-1.3); Eosinophils % 2.7 % (0-4.4); Hematocrit 27.8 % (39.6-49.0); Lymphocytes % 10.4 % (15.3-44.8); MCV 80.2 fL (80-100); MPV 8.2 fL (7.6-11.3); Monocytes % 6.2 % (3.3-12.3); RBC Red Blood Cell Count 3.46 M/uL (4.33-5.43)
[2017-08-10 03:26] LABS: Potassium 4.4 mEq/L (3.6-5.0)
--- NOTE | 2017-08-10 03:55 | EDPHYS ---
Physician Documentation [facility] Name: Melvin Maguire Age: 26 yrs Sex: Male : 1990 Arrival Date: 08/10/2017 Time: 02:15 Bed 17 Private MD: ED Physician Jos Canales HPI: 08/10 03:09 This 26 yrs old Male presents to ER via Ambulatory with complaints of gs Shortness Of Breath. 03:09 The patient has shortness of breath at rest. Onset: The symptoms/episode began/occurred gs gradually, 2 day(s) ago. Duration: The symptoms are continuous, and are unchanged since they started. The patient's shortness of breath is aggravated by. Associated signs and symptoms: Pertinent negatives: chest pain, productive cough. Severity of symptoms: At their worst the symptoms were moderate in the emergency department the symptoms are unchanged. The patient has experienced similar episodes in the past, a few times. The patient has been recently been admitted at [facility], was discharged yesterday. Historical: - Allergies: 02:30 No Known Allergies; fc - Home Meds: 02:30 Coreg 12.5 mg Oral tab 1 tab 2 times per day [Active]; Lasix 40 mg Oral tab 1 tab once fc daily [Active]; levothyroxine 75 mcg tab 1 tab once daily [Active]; atorvastatin 40 mg oral tab 1 tab once daily [Active]; amlodipine 5 mg tab 1 tab once daily [Active]; Zofran (as hydrochloride) 4 mg Oral tab as needed [Active]; ProAir HFA 90 mcg/actuation inhalation HFAA 1 puff every 4-6 hours [Active]; - PMHx: 02:30 Asthma; Hypertension; High Cholesterol; Hypothyroidism; kidney failure; fc - PSHx: 02:30 kidney biopsy; fc - Immunization history:: Last tetanus immunization: unknown. - Social history:: Smoking status: Patient/guardian denies using tobacco. ROS: 03:09 All other systems are negative. gs Exam: 03:09 Head/Face: Normocephalic, atraumatic. Eyes: Pupils equal round and reactive to light, gs extra-ocular motions intact. Lids and lashes normal. Conjunctiva and sclera are non-icteric and not injected. Cornea within normal limits. Periorbital areas with no swelling, redness, or edema. ENT: Nares patent. No nasal discharge, no septal abnormalities noted. Tympanic membranes are normal and external auditory canals are clear. Oropharynx with no redness, swelling, or masses, exudates, or evidence of obstruction, uvula midline. Mucous membranes moist. Neck: Trachea midline, no thyromegaly or masses palpated, and no cervical lymphadenopathy. Supple, full range of motion without nuchal rigidity, or vertebral point tenderness. No Meningismus. Chest/axilla: Normal chest wall appearance and motion. Nontender with no deformity. No lesions are appreciated. 03:09 Constitutional: The patient appears alert, awake. 03:09 Cardiovascular: Rate: tachycardic, Rhythm: regular, Pulses: no pulse deficits are appreciated, Edema: 1+ edema to level of left ankle and right ankle. 03:09 ECG was reviewed by the Attending Physician. 03:51 Abdomen/GI: Soft, non-tender, with normal bowel sounds. No distension or tympany. No gs guarding or rebound. No evidence of tenderness throughout. Back: No spinal tenderness. No costovertebral tenderness. Full range of motion. Skin: Warm, dry with normal turgor. Normal color with no rashes, no lesions, and no evidence of cellulitis. MS/ Extremity: Pulses equal, no cyanosis. Neurovascular intact. Full, normal range of motion. Neuro: Awake and alert, GCS 15, oriented to person, place, time, and situation. Cranial nerves II-XII grossly intact. Motor strength 5/5 in all extremities. Sensory grossly intact. Cerebellar exam normal. Normal gait. 03:51 Respiratory: mild respiratory distress is noted, Respirations: tachypnea, Breath sounds: decreased breath sounds, are located in both bases. Vital Signs: 02:22 BP 135 / 95; Pulse 109; Resp 22; Temp 97.7(O); Pulse Ox 97% on R/A; Weight 150.14 kg fc (R); Height 5 ft. 11 in. (180.34 cm) (R); Pain 0/10; 03:55 BP 145 / 98; Pulse 99; Resp 18; Temp 97.7; Pulse Ox 97% on R/A; Pain 0/10; ak1 04:54 BP 134 / 91; Pulse 96; Resp 18; Temp 98; Pulse Ox 100% on R/A; Pain 0/10; ak1 02:22 Body Mass Index 46.16 (150.14 kg, 180.34 cm) fc MDM: 02:50 Patient medically screened. 03:51 Differential diagnosis: CHF exacerbation, pulmonary edema, hyperK, metabolic acidosis. Data reviewed: vital signs, nurses notes, and as a result, I will admit patient. Physician consultation: Sandie Rome MD and will see patient in inpatient room. 08/10 02:50 Order name: Basic Metabolic Panel; Complete Time: 03:35 08/10 02:50 Order name: CBC with Diff; Complete Time: 03:35 08/10 02:50 Order name: Troponin (emerg Dept Use Only); Complete Time: 03:35 08/10 02:50 Order name: XRAY Chest (1 view) 08/10 03:42 Order name: Urine Dipstick--Ancillary (enter results) [facility] 08/10 03:43 Order name: Urine Dipstick-Ancillary EDWA 08/10 02:50 Order name: EKG; Complete Time: 02:51 08/10 02:50 Order name: Cardiac monitoring; Complete Time: 03:16 08/10 02:50 Order name: EKG - Nurse/Tech; Complete Time: 03:16 08/10 02:50 Order name: IV Saline Lock; Complete Time: 02:55 08/10 02:50 Order name: Labs collected and sent; Complete Time: 02:55 08/10 02:50 Order name: O2 Per Protocol; Complete Time: 02:55 08/10 02:50 Order name: O2 Sat Monitoring; Complete Time: 02:55 08/10 02:50 Order name: Urine Dipstick-Ancillary (obtain specimen); Complete Time: 03:16 EC:09 Rate is 106 beats/min. Rhythm is regular. MA interval is normal. QRS interval is gs normal. T waves are Normal. No ST changes noted. Clinical impression: Abnormal EKG without significant change. Interpreted by me. Administered Medications: 04:04 Drug: Lasix 80 mg Route: IVP; Site: right forearm; ak1 04:53 Follow up: Response: No adverse reaction ak1 Disposition: 08/10/17 03:54 Hospitalization ordered by Michael Ernst for Observation. Preliminary diagnosis is Acute pulmonary edema. - Bed requested for Telemetry/MedSurg (observation). - Status is Observation. ak1 - Condition is Stable. - Problem is an acute exacerbation. - Symptoms have improved. UTI on Admission? No Signatures: Dispatcher [employer] EDLaura Mckeon, RN RN Anastasia Mccullough RN RN Jessica Pickens RN RN [facility] Jos Canales MD MD Corrections: (The following items were deleted from the chart) 05:01 03:54 Hospitalization Ordered by Michael Ernst MD for Observation. Preliminary kl diagnosis is Acute pulmonary edema. Bed requested for Telemetry/MedSurg (observation). Status is Observation. Condition is Stable. Problem is an acute exacerbation. Symptoms have improved. UTI on Admission? No. 05:16 05:01 08/10/2017 03:54 Hospitalization Ordered by Michael Ernst MD for Observation. ak1 Preliminary diagnosis is Acute pulmonary edema. Bed requested for Telemetry/MedSurg (observation). Status is Observation. Condition is Stable. Problem is an acute exacerbation. Symptoms have improved. UTI on Admission? No.
--- NOTE | 2017-08-10 03:55 | ER ---
Nurse's Notes [facility] Name: Melvin Maguire Age: 26 yrs Sex: Male : 1990 Arrival Date: 08/10/2017 Time: 02:15 Bed 17 Private MD: Diagnosis: Acute pulmonary edema Presentation: 08/10 02:22 Presenting complaint: Patient states: that he was just discharged from hospital yesterday for kidney failure. Then at 0200 he woke up with coughing and shortness of breath. Denies any pain. Transition of care: patient was not received from another setting of care. Onset of symptoms was August 10, 2017 at 02:00. Initial Sepsis Screen: Does the patient meet any 2 criteria? RR > 20 per min. HR > 90 bpm. Yes Does the patient have a suspected source of infection? Yes: Productive cough/pneumonia. Care prior to arrival: None. 02:22 Method Of Arrival: Ambulatory 02:22 Acuity: SAKSHI 3 Triage Assessment: 02:39 General: Appears uncomfortable, obese, unkempt. General: Appears Behavior is calm, mb3 cooperative, appropriate for age. Respiratory: Onset: The symptoms/episode began/occurred. Respiratory: Reports labored breathing since early evening, woke him up from sleep. Respiratory: the patient has mild shortness of breath. Historical: - Allergies: 02:30 No Known Allergies; fc - Home Meds: 02:30 Coreg 12.5 mg Oral tab 1 tab 2 times per day [Active]; Lasix 40 mg Oral tab 1 tab once fc daily [Active]; levothyroxine 75 mcg tab 1 tab once daily [Active]; atorvastatin 40 mg oral tab 1 tab once daily [Active]; amlodipine 5 mg tab 1 tab once daily [Active]; Zofran (as hydrochloride) 4 mg Oral tab as needed [Active]; ProAir HFA 90 mcg/actuation inhalation HFAA 1 puff every 4-6 hours [Active]; - PMHx: 02:30 Asthma; Hypertension; High Cholesterol; Hypothyroidism; kidney failure; fc - PSHx: 02:30 kidney biopsy; fc - Immunization history:: Last tetanus immunization: unknown. - Social history:: Smoking status: Patient/guardian denies using tobacco. Screenin:27 Abuse screen: Denies threats or abuse. Nutritional screening: No deficits noted. fc Tuberculosis screening: No symptoms or risk factors identified. Fall Risk None identified. Assessment: 02:27 General: Appears distressed, obese, unkempt, Behavior is calm, cooperative, appropriate mb3 for age. Pain: Denies pain. Neuro: No deficits noted. Cardiovascular: Reports shortness of breath, Denies chest pain, Heart tones S1 S2 present Pulses are all present. are 1+ in right radial artery, right posterior tibial artery, right dorsalis pedis artery, left radial artery, left posterior tibial artery and left dorsalis pedis artery. Cardiovascular: Rhythm is regular. Respiratory: Reports labored breathing since this afternoon Airway is patent Respiratory effort is even, labored, Respiratory pattern is regular, symmetrical, Breath sounds are clear bilaterally. Breath sounds are diminished bilaterally. in right middle lobe, left lower lobe, right lower lobe, left posterior lower lobe, right posterior middle lobe and right posterior lower lobe. GI: No signs and/or symptoms were reported involving the gastrointestinal system. Abdomen is round obese, Bowel sounds present X 4 quads. 03:16 Reassessment: Patient appears in no apparent distress at this time. No changes from ak1 previously documented assessment. Patient is alert, oriented x 3, equal unlabored respirations, skin warm/dry/pink. 03:56 Reassessment: Patient appears in no apparent distress at this time. No changes from ak1 previously documented assessment. Patient is alert, oriented x 3, equal unlabored respirations, skin warm/dry/pink. Vital Signs: 02:22 BP 135 / 95; Pulse 109; Resp 22; Temp 97.7(O); Pulse Ox 97% on R/A; Weight 150.14 kg fc (R); Height 5 ft. 11 in. (180.34 cm) (R); Pain 0/10; 03:55 BP 145 / 98; Pulse 99; Resp 18; Temp 97.7; Pulse Ox 97% on R/A; Pain 0/10; ak1 04:54 BP 134 / 91; Pulse 96; Resp 18; Temp 98; Pulse Ox 100% on R/A; Pain 0/10; ak1 02:22 Body Mass Index 46.16 (150.14 kg, 180.34 cm) ED Course: 02:15 Patient arrived in ED. do 02:22 Jos Canales MD is Attending Physician. gs 02:22 Arm band placed on Patient placed in an exam room, on a stretcher. fc 02:26 Triage completed. fc 02:27 Patient has correct armband on for positive identification. Bed in low position. Call light in reach. 02:27 No provider procedures requiring assistance completed. fc 02:33 Inserted saline lock: 22 gauge in right forearm, using aseptic technique. bs1 02:54 Jessica Day, RN is Primary Nurse. ak1 03:08 X-ray completed. Portable x-ray completed in exam room. jr1 03:09 XRAY Chest (1 view) In Process Unspecified. EDMS 03:53 Michael Ernst MD is Hospitalizing Provider. 04:54 Patient admitted, IV remains in place. ak1 Administered Medications: 04:04 Drug: Lasix 80 mg Route: IVP; Site: right forearm; ak1 04:53 Follow up: Response: No adverse reaction ak1 Outcome: 03:54 Decision to Hospitalize by Provider. 04:53 Condition: stable ak1 04:53 Instructed on the need for admit. 05:15 Admitted to Med/surg accompanied by tech, via wheelchair, room 405, with chart, Report ak1 called to ezequiel Rodriguez RN 05:16 Patient left the ED. ak1 Signatures: Dispatcher [employer] EDPA [place] Jolly 1 Anastasia Mccullough, RN RN Jessica Day, RN RN ak1 Shivani Samano Gregory, MD MD Sofy Poon RN RN bs1 Moe Chandra RN RN mb3
[2017-08-10] MEDS ORDERED: FUROSEMIDE 100 MG/10 ML VIAL IV ONE (04:00)
[2017-08-10 04:13] LABS: Urine Blood 2+ (NEG); Urine Glucose NEGATIVE (NEG); Urine Protein 3+ (NEG); Urine pH 5.5 (5.0-7.0)
--- NOTE | 2017-08-10 04:57 | P.HP ---
Certification for Inpatient Patient admitted to: Inpatient With expected LOS: >2 Midnights Practitioner: I am a practitioner with admitting privileges, knowledge of patient current condition, hospital course, and medical plan of care. 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 The patietn was discharged home yesterday. He states that initially was doing ok, he took his medication, had something to eat, and then he start feeling gradually more SOB. He denied any fever or chills. No cough. At arrival to ED he was dyspneic, CXR remarkable for bilateral infiltrate consistent with pulmonary edema, Lab work shows elevated creatinine 4.61, about the same than last in records, with metabolic acidosis. The patient has improved significantly after receive treatment with IV Lasix. Allergies No Known Allergies Allergy (Verified 08/06/17 09:16) Home Medications: Loratadine [Claritin*] 1 tab PO DAILY 08/06/17 Albuterol Inhaler [Ventolin Inhaler*] 2 puff IH Q6H PRN #1 hfa.aer.ad 08/09/17 Amlodipine [Norvasc*] 5 mg PO DAILY #30 tab 08/09/17 Atorvastatin Calcium [Lipitor] 40 mg PO DAILY #30 tablet 08/09/17 Carvedilol [Coreg*] 12.5 mg PO BID 6AM 6PM #60 tab 08/09/17 Furosemide [Lasix] 40 mg PO DAILY #30 tab 08/09/17 Levothyroxine [Synthroid*] 0.075 mg PO [id number] #30 tab 08/09/17 Ondansetron [Zofran] 4 mg PO Q6H PRN #30 tab 08/09/17 - Past Medical/Surgical History Diabetic: No -: obesity -: HTN -: Asthma -: CKD Past Surgical History: Reviewed- Non-Contributory - Family History Father -: Heart disease Notes: Heavy smoker Mother -: Lung disease Notes: COPD - Social History Smoking Status: Never smoker Alcohol use: Yes CD- Drugs: No Caffeine use: Yes Place of Residence: Home Review of Systems 10-point ROS is otherwise unremarkable Physical Examination - Physical Exam General: Alert, In no apparent distress HEENT: Atraumatic, PERRLA, Mucous membr. moist/pink, EOMI, Sclerae nonicteric Neck: Supple, 2+ carotid pulse no bruit, No LAD, Without JVD or thyroid abnormality Respiratory: Diminished, Crackles/rales (bibasilar rales) Cardiovascular: Regular rate/rhythm, Normal S1 S2 Gastrointestinal: Normal bowel sounds, No tenderness Musculoskeletal: No tenderness Integumentary: No rashes Neurological: Normal speech, Normal strength at 5/5 x4 extr, Normal tone, Normal affect Lymphatics: No axilla or inguinal lymphadenopathy - Studies Laboratory Data (last 24 hrs) 08/10/17 02:59: WBC 12.7 H D, Hgb 9.0 L, Hct 27.8 L, Plt Count 353 D 08/10/17 02:59: Sodium 138, Potassium 4.4, BUN 49 H, Creatinine 4.63 H, Glucose 121 H Assessment and Plan - Problems (Diagnosis) (1) Acute on chronic renal failure Current Visit: Yes Status: Acute Qualifiers: Chronic kidney disease stage: stage 4 (severe) (2) Pulmonary edema Current Visit: Yes Status: Acute (3) Hypertension Current Visit: No Status: Acute Qualifiers: Hypertension type: secondary to other renal disorders Qualified Code(s): I15.1 - Hypertension secondary to other renal disorders; N28.89 - Other specified disorders of kidney and ureter (4) Obesity Onset Date: 08/06/17 Current Visit: No Status: Acute Qualifiers: Obesity type: unspecified obesity type Obesity classification: unspecified obesity classification Serious obesity comorbidity presence: unspecified whether serious comorbidity present Qualified Code(s): E66.9 - Obesity, unspecified - Plan Mr Maguire will be admitted to the hospital due to pulmonary edema in context of acute on chronic renal failure. Will continue with IV lasix, call Nephrology team. - Advance Directives Does patient have a Living Will: No Does patient have a Durable POA for Healthcare: No - Code Status/Comfort Care Code Status Assessed: Yes Code Status: Full Code
[2017-08-10] MEDS ORDERED: ACETAMINOPHEN 500 MG TAB PO PRN (05:33)
[2017-08-10] MEDS ORDERED: ZOLPIDEM TARTRATE 5 MG TABLET PO PRN (05:33)
[2017-08-10] MEDS ORDERED: D50W 25 GM/50 ML SYRINGE IV PRN (05:33)
[2017-08-10] MEDS ORDERED: GLUCAGON 1 MG/VIAL IM PRN (05:33)
[2017-08-10] MEDS: INSULIN -REGULAR HUMAN 50 UNIT/0.5 ML ML SQ SCH ×4 (07:30→21:00)
--- NOTE | 2017-08-10 07:38 | EKG ---
Test Date: 2017-08-10 Test Time: 03:08:12 Nuclear Medicine Specialist: CANDI MEASUREMENT RESULTS: Intervals: Rate: 106 AL: 186 QRSD: 92 QT: 342 QTc: [address]: P: 44 AL: 186 QRS: 64 T: 60 INTERPRETIVE STATEMENTS: Sinus tachycardia Possible Left atrial enlargement Nonspecific T wave abnormality Abnormal ECG Compared to ECG 08/06/2017 03:34:43 T-wave abnormality now present Right-axis deviation no longer present Electronically Signed On 08-10-17 07:37:55 CDT by Noe Andersen
[2017-08-10] MEDS: FUROSEMIDE 40 MG/4 ML VIAL IV SCH ×2 (08:46→17:16)
--- NOTE | 2017-08-10 09:51 | RAD REPORT ---
EXAM DESCRIPTION: Eduardo Single View08/10/2017 3:12 am CLINICAL HISTORY: sob COMPARISON: August 06, 2017 FINDINGS: Extensive bilateral alveolar opacities are present which are mostly central. The heart is mildly enlarged. IMPRESSION: Extensive bilateral alveolar pulmonary opacities probably represent pulmonary edema
[2017-08-10 09:58] LABS: A1c Component 0.32 mg/dL
[2017-08-10] MEDS ORDERED: FUROSEMIDE 40 MG/4 ML VIAL IV ONE (15:00)
[2017-08-10] MEDS: CARVEDILOL 6.25 MG TAB PO SCH ×2 (15:43→21:00)
[2017-08-10] MEDS: SODIUM BICARB 325 MG TAB PO SCH (21:08)
--- NOTE | 2017-08-11 01:19 | PN ---
Subjective: The patient left home. Found to have shortness of breath. For that reason, came right away. Over the night, started diuresing. Physical Examination: Vital Signs: Blood pressure of 125/82, pulse of 91. Chest: Clear to auscultation. Heart: S1, S2. Regular. Abdomen: Soft, nontender. Extremities: Has +1 edema. Laboratory Data: WBC 12.7, H and H 9/27.8, platelet of 353. Sodium 138, potassium 4.4, bicarb 17. BUN 49, creatinine 0.6. GFR of 16. Calcium 8.8. Troponin negative. Current Medications: The patient is on include; 1. Carvedilol 6.25. 2. Tylenol. 3. Ambien. 4. Lasix 80 b.i.d. 5. Sodium bicarb oral. 6. Insulin. Assessment And Plan: 1. Acute kidney injury on advanced chronic kidney disease secondary to IgA nephropathy and collapsing FSGS. No indication for any immunosuppressive therapy. We will refer the patient to [facility], and we will discuss regarding the preparation for the WORKERS' COMPENSATION MEDIATOR. 2. 2. Hypertension, controlled, optimal. Continue current medication. 3. Anemia of chronic kidney disease. Continue Epogen. Case discussed with the patient who verbalized understanding. Discussed with the nursing staff. ANIBAL Voice ID: [id number] Report ID: [id number] SHEN
[2017-08-11 05:15] VITALS: BMI 44.6
[2017-08-11 05:22] LABS: Absolute Lymphocytes (CBC) 1.5 K/uL (0.7-4.9); Absolute Monocytes 0.7 K/uL (0.1-1.3); Absolute Neutrophil 5.5 K/uL (1.8-8.0); Basophils % 1.1 % (0-1.3); Eosinophils % 6.5 % (0-4.4); Hematocrit 31.1 % (39.6-49.0); Lymphocytes % 18.1 % (15.3-44.8); MCH 26.2 pg (27.0-35.0); MCV 79.3 fL (80-100); Monocytes % 7.8 % (3.3-12.3); RBC Red Blood Cell Count 3.91 M/uL (4.33-5.43)
[2017-08-11 05:35] LABS: Magnesium 2.3 mg/dL (1.8-2.5); Potassium 4.3 mEq/L (3.6-5.0)
[2017-08-11] MEDS: INSULIN -REGULAR HUMAN 50 UNIT/0.5 ML ML SQ SCH ×2 (07:30→11:30)
[2017-08-11] MEDS: CARVEDILOL 6.25 MG TAB PO SCH (08:53)
[2017-08-11] MEDS: SODIUM BICARB 325 MG TAB PO SCH (08:53)
[2017-08-11] MEDS: FUROSEMIDE 40 MG/4 ML VIAL IV SCH (08:54)
--- NOTE | 2017-08-11 11:49 | P.DS ---
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 The patient was discharged home yesterday. He states that initially was doing ok, he took his medication, had something to eat, and then he start feeling gradually more SOB. He denied any fever or chills. No cough. At arrival to ED he was dyspneic, CXR remarkable for bilateral infiltrate consistent with pulmonary edema, Lab work shows elevated creatinine 4.61, about the same than last in records, with metabolic acidosis. Hospital Course: The patient was started on IV lasix and improved significantly after receive treatment with IV Lasix.He was transitioned back to his po lasix and discharged home in a stable condition. Vital Signs/Physical Exam: Temp Pulse Resp BP Pulse Ox 98.1 F 95 H 18 142/92 H 99 08/11/17 08:00 08/11/17 08:54 08/11/17 08:00 08/11/17 08:54 08/11/17 08:00 General: Alert, In no apparent distress, Oriented x3 HEENT: Atraumatic, Normocephalic, PERRLA Neck: Supple, JVD not distended, No Thyromegaly, No LAD Respiratory: Clear to auscultation bilaterally, Normal air movement Cardiovascular: No edema, Normal pulses, Regular rate/rhythm, Normal S1 S2 Gastrointestinal: Normal bowel sounds, Soft and benign, Non-distended, W/out hepatosplenomegaly, No ascites, No tenderness, No masses, No rebound, No guarding Musculoskeletal: No clubbing, No swelling, No contractures, No erythema, No tenderness, No warmth Neurological: Normal gait, Normal strength at 5/5 x4 extr, Normal tone Laboratory Data at Discharge: WBC 8.3 K/uL (4.3-10.9) D 08/11/17 04:48 Hgb 10.2 g/dL (13.6-17.9) L 08/11/17 04:48 Hct 31.1 % (39.6-49.0) L 08/11/17 04:48 Plt Count 308 K/uL (152-406) 08/11/17 04:48 Sodium 138 mEq/L (135-145) 08/11/17 04:48 Potassium 4.3 mEq/L (3.6-5.0) 08/11/17 04:48 BUN 55 mg/dL (6-20) H 08/11/17 04:48 Creatinine 5.30 mg/dL (0.61-1.24) H* 08/11/17 04:48 Glucose 99 mg/dL (65-120) 08/11/17 04:48 Magnesium 2.3 mg/dL (1.8-2.5) 08/11/17 04:48 Home Medications: Albuterol Inhaler [Ventolin Inhaler*] 2 puff IH Q6H PRN #1 hfa.aer.ad 08/09/17 Amlodipine [Norvasc*] 5 mg PO DAILY #30 tab 08/09/17 Atorvastatin Calcium [Lipitor] 40 mg PO DAILY #30 tablet 08/09/17 Carvedilol [Coreg*] 12.5 mg PO BID 6AM 6PM #60 tab 08/09/17 Furosemide [Lasix*] 40 mg PO DAILY #30 tab 08/09/17 Levothyroxine [Synthroid*] 0.075 mg PO [id number] #30 tab 08/09/17 Ondansetron [Zofran (Odt)*] 4 mg PO Q6H PRN #30 tab 08/09/17 Na Bicarb Tab [Sodium Bicarb 325 MG Tab*] 650 mg PO BID #120 tab 08/11/17 New Medications: Na Bicarb Tab [Sodium Bicarb 325 MG Tab*] 650 mg PO BID #120 tab Diet: Low sodium Activity: Ad yobany Followup: Sandie Rome MD [ACTIVE - CAN ADMIT] - 1-2 Weeks Physician Review: Patient Assessed, Agree with Above Assessment and Plan Time spent managing pt's care (in minutes): 25
[2017-08-11 13:33] VITALS: O2SAT 100
[2017-08-11 16:02] VITALS: BP 152/92; TEMP 98.5
--- NOTE | 2017-08-11 21:46 | PN ---
Date of Progress Note: 08/11/2017 Chief Complaint: Chronic kidney disease stage 4, nephrotic range proteinuria. Subjective: The patient came to the hospital because of shortness of breath. He was started on diuretic and is responding to diuretic. Leg edema somewhat improved. Shortness of breath is gradually resolving. Review of Systems: Denies PND, orthopnea. Denies chest pain, palpitation, cough, syncope. Physical Examination: Lungs: Clear to auscultation bilaterally. Heart: S1, S2. Abdomen: Soft, benign. Extremities: Edema present in both legs. Laboratory Data: Sodium 138, potassium 4.4, bicarbonate 17. BUN 49, creatinine is 6.6. Today creatinine 5.3, BUN 55, sodium 138, potassium 4.3, chloride 106, CO2 of 21. Impression And Plan: 1. Chronic kidney disease, fluid overload. Continue diuretic. Continue low- sodium diet. Avoid nonsteroidal anti-inflammatory medication. 2. Proteinuria. The patient had renal biopsy. He will follow up with Nephrology outpatient for further recommendation. 3. Hypertension. Continue blood pressure medication for target systolic blood pressure 120. 4. Fluid overload. The patient responded to diuretics. The patient will continue maintenance diuretic dose. Continue low-sodium diet. FRANSISCA/STACIA Voice ID: [id number] Report ID: [id number] SHEN
== END 2017-08-11 16:23 | disposition home or self-care (01) ==
LOC: ER 02:15 → 4TH 03:54
PROVIDERS: ADMIT Internal Medicine; ATTEND Internal Medicine
DX: J81.0 Acute pulmonary edema (principal); I12.9 Hypertensive chronic kidney disease with stage 1 through stage 4 chronic kidney disease, or unspecified chronic kidney disease; E11.22 Type 2 diabetes mellitus with diabetic chronic kidney disease; N18.4 Chronic kidney disease, stage 4 (severe); N17.9 Acute kidney failure, unspecified; E66.9 Obesity, unspecified; Z68.41 Body mass index [BMI] 40.0-44.9, adult; D63.1 Anemia in chronic kidney disease; N02.8 Recurrent and persistent hematuria with other morphologic changes
CPT/HCPCS: 36415; 71045; 80048; 81003; 82962; 83036; 83735; 84484; 85025; 87493; 93005; 94760; 96374; 99285; G0378

== ENCOUNTER 2017-10-15 09:50 | Emergency (ER) | payer SELFPAY ==
[2017-10-15] MEDS ORDERED: TRAMADOL HCL 50 MG TAB ONE (10:21)
[2017-10-15] MEDS ORDERED: ONDANSETRON 4 MG (ODT) TAB ONE (10:56)
--- NOTE | 2017-10-15 11:04 | EDPHYS ---
Physician Documentation [facility] Name: Melvin Maguire Age: 27 yrs Sex: Male : 1990 Arrival Date: 10/15/2017 Time: 09:52 Bed 13 Private MD: ED Physician Kosta Alvarez HPI: 10/15 10:15 This 27 yrs old Male presents to ER via Wheelchair with complaints of Knee cp Pain, Toe Pain. 10:15 The patient presents with pain, that is acute, swelling, tenderness. The complaints cp affect the left great toe. Context: resulted from an unknown cause, the patient can fully bear weight, the patient is able to ambulate, with moderate difficulty. 10:15 Onset: The symptoms/episode began/occurred gradually, and became worse today. cp 10:15 Associated signs and symptoms: Pertinent positives: swelling, Pertinent negatives calf cp tenderness, fever, numbness. Treatment prior to arrival includes: no previous treatment. Patient reports pain radiates from foot up to knee and knee pain is minimal. 10:15 Patient reports history of elevated serum uric acid level. cp Historical: - Allergies: 10:00 No Known Allergies; rb1 - Home Meds: 10:00 amlodipine 5 mg cp24 1 tab once daily [Active]; atorvastatin 40 mg Oral cp24 1 tab once rb1 daily [Active]; Lasix 40 mg Oral cp24 1 tab once daily [Active]; levothyroxine 75 mcg cp24 1 tab once daily [Active]; Coreg 25 mg oral tab daily [Active]; - PMHx: 10:00 Asthma; High Cholesterol; Hypertension; Hypothyroidism; kidney failure; rb1 - PSHx: 10:00 kidney biopsy; rb1 - Immunization history:: Adult Immunizations up to date. - Ebola Screening: : Patient negative for fever greater than or equal to 101.5 degrees Fahrenheit, and additional compatible Ebola Virus Disease symptoms. - Social history:: Smoking status: Patient/guardian denies using tobacco. ROS: 10:20 Constitutional: Negative for body aches, chills, fever, poor PO intake. cp 10:20 Eyes: Negative for injury, pain, redness, and discharge. cp 10:20 ENT: Negative for drainage from ear(s), ear pain, sore throat, difficulty swallowing, difficulty handling secretions. 10:20 Cardiovascular: Negative for chest pain, edema. 10:20 Respiratory: Negative for cough, shortness of breath, wheezing. 10:20 Abdomen/GI: Negative for abdominal pain, nausea, vomiting, and diarrhea. 10:20 Back: Negative for pain at rest, pain with movement, radiated pain. 10:20 MS/extremity: Positive for pain, of the left foot, Negative for injury or acute deformity, paresthesias. 10:20 All other systems are negative. Exam: 10:25 Constitutional: The patient appears in no acute distress, alert, awake, cp non-diaphoretic, non-toxic, well developed, well nourished, obese. 10:25 Head/Face: Normocephalic, atraumatic. cp 10:25 Eyes: Periorbital structures: appear normal, Conjunctiva: normal, no exudate, no injection, Sclera: no appreciated abnormality, Lids and lashes: appear normal, bilaterally. 10:25 ENT: External ear(s): are unremarkable, Nose: is normal, Mouth: is normal, Posterior pharynx: is normal, airway is patent, no erythema, no exudate. 10:25 Chest/axilla: Inspection: normal. 10:25 Cardiovascular: Rate: normal, Rhythm: regular, Pulses: Pulses are 2+ in left dorsalis pedis artery. Edema: is not appreciated, JVD: is not appreciated. 10:25 Respiratory: the patient does not display signs of respiratory distress, Respirations: normal, no use of accessory muscles, no retractions, no splinting, no tachypnea, labored breathing, is not present, Breath sounds: are clear throughout, no decreased breath sounds, no stridor, no wheezing. 10:25 Abdomen/GI: Exam negative for discomfort, distension, guarding, Inspection: obese 10:25 Musculoskeletal/extremity: Extremities: grossly normal except: noted in the left metatarsal phalangeal joint: pain, swelling, tenderness, mild erythema, There is no evidence of injury, Severe pain noted. 10:25 Skin: cellulitis, is not appreciated, no rash present. 10:25 Musculoskeletal/extremity: Joints: the left knee displays minimal pain to palpation cp noted, full AROM. Vital Signs: 10:00 BP 156 / 99; Pulse 99; Resp 19; Temp 98.4(O); Pulse Ox 98% on R/A; Weight 138.35 kg rb1 (R); Height 5 ft. 11 in. (180.34 cm) (R); Pain 10/10; 11:00 BP 110 / 73; Pulse 88; Resp 20; Pulse Ox 99% on R/A; Pain 6/10; rb1 10:00 Body Mass Index 42.54 (138.35 kg, 180.34 cm) rb1 MDM: 10:00 Patient medically screened. cp 10:30 Differential diagnosis: closed fracture, gout, cellulitis. cp 11:02 Data reviewed: vital signs, nurses notes, radiologic studies, plain films. cp 11:02 Test interpretation: by ED physician or midlevel provider: plain radiologic studies. cp 11:02 Counseling: I had a detailed discussion with the patient and/or guardian regarding: the cp historical points, exam findings, and any diagnostic results supporting the discharge/admit diagnosis, radiology results, the need for outpatient follow up, a family practitioner, to return to the emergency department if symptoms worsen or persist or if there are any questions or concerns that arise at home. Response to treatment: the patient's symptoms have mildly improved after treatment, and as a result, I will discharge patient. 10/15 10:04 Order name: XRAY Foot LEFT 3 View cp 10/15 11:06 Order name: Crutches; Complete Time: 11:22 cp 10/15 11:06 Order name: Post-op shoe; Complete Time: 11:22 cp Administered Medications: 10:19 Drug: traMADol 50 mg Route: PO; rb1 10:40 Follow up: Response: No adverse reaction; Pain is decreased rb1 10:54 Drug: Zofran 4 mg Route: PO; ss 11:22 Follow up: Response: No adverse reaction; Nausea is decreased rb1 Disposition: 13:05 Co-signature as Attending Physician, Kosta Alvarez MD. rn Disposition: 10/15/17 11:03 Discharged to Home. Impression: Pain in left foot - Left First metatarsal phalangeal joint. - Condition is Stable. - Discharge Instructions: Gout, Musculoskeletal Pain. - Prescriptions for Ultram 50 mg Oral Tablet - take 1 tablet by ORAL route every 6 hours As needed; 15 tablet. Medrol (Edgar) 4 mg Oral Tablets, Dose Pack - take 1 tablet by ORAL route as directed - follow package instructions; 1 packet. - Medication Reconciliation Form, Thank You Letter, Antibiotic Education, Prescription Opioid Use form. - Follow up: Private Physician; When: 2 - 3 days; Reason: Recheck today's complaints. - Problem is new. - Symptoms have improved. Signatures: Dispatcher [employer] EDKosta Gutierrez MD MD rn Smirch, Shelby, RN RN Rob Darling PA PA cp Barber, Rebecca RN RN rb1 Corrections: (The following items were deleted from the chart) 11:25 11:03 10/15/2017 11:03 Discharged to Home. Impression: Pain in left foot - Left First rb1 metatarsal phalangeal joint. Condition is Stable. Forms are Medication Reconciliation Form, Thank You Letter, Antibiotic Education, Prescription Opioid Use. Follow up: Private Physician; When: 2 - 3 days; Reason: Recheck today's complaints. Problem is new. Symptoms have improved. cp
--- NOTE | 2017-10-15 11:04 | ER ---
Nurse's Notes [facility] Name: Melvin Maguire Age: 27 yrs Sex: Male : 1990 Arrival Date: 10/15/2017 Time: 09:52 Bed 13 Private MD: Diagnosis: Pain in left foot-Left First metatarsal phalangeal joint Presentation: 10/15 10:00 Presenting complaint: Patient states: "I have renal failure and I have been having pain rb1 in my left big toe, it's a throbbing pain and it is moving up to my knee.". Transition of care: patient was not received from another setting of care. Onset of symptoms is unknown. Risk Assessment: Do you want to hurt yourself or someone else? Patient reports no desire to harm self or others. Initial Sepsis Screen: Does the patient meet any 2 criteria? No. Patient's initial sepsis screen is negative. Does the patient have a suspected source of infection? No. Patient's initial sepsis screen is negative. Care prior to arrival: None. 10:00 Method Of Arrival: Wheelchair rb1 10:00 Acuity: SAKSHI 3 rb1 Triage Assessment: 10:00 General: Appears in no apparent distress. comfortable, obese, Behavior is calm, rb1 cooperative, Denies fever. Pain: Complains of pain in left great toe Pain radiates to left knee Pain currently is 10 out of 10 on a pain scale. Neuro: Level of Consciousness is awake, alert, obeys commands, Oriented to person, place, time, situation. Cardiovascular: Capillary refill < 3 seconds is brisk in bilateral fingers. Respiratory: Airway is patent Respiratory effort is even, unlabored, Respiratory pattern is regular, symmetrical. GI: No signs and/or symptoms were reported involving the gastrointestinal system. : No signs and/or symptoms were reported regarding the genitourinary system. Derm: Skin is pink, warm \\T\\ dry. Historical: - Allergies: 10:00 No Known Allergies; rb1 - Home Meds: 10:00 amlodipine 5 mg cp24 1 tab once daily [Active]; atorvastatin 40 mg Oral cp24 1 tab once rb1 daily [Active]; Lasix 40 mg Oral cp24 1 tab once daily [Active]; levothyroxine 75 mcg cp24 1 tab once daily [Active]; Coreg 25 mg oral tab daily [Active]; - PMHx: 10:00 Asthma; High Cholesterol; Hypertension; Hypothyroidism; kidney failure; rb1 - PSHx: 10:00 kidney biopsy; rb1 - Immunization history:: Adult Immunizations up to date. - Ebola Screening: : Patient negative for fever greater than or equal to 101.5 degrees Fahrenheit, and additional compatible Ebola Virus Disease symptoms. - Social history:: Smoking status: Patient/guardian denies using tobacco. Screenin:00 Abuse screen: Denies threats or abuse. Nutritional screening: No deficits noted. rb1 Tuberculosis screening: No symptoms or risk factors identified. Fall Risk None identified. Assessment: 10:00 General: See triage assessment. rb1 11:00 Reassessment: Patient appears in no apparent distress at this time. Patient and/or rb1 family updated on plan of care and expected duration. Pain level reassessed. Patient is alert, oriented x 3, equal unlabored respirations, skin warm/dry/pink. Vital Signs: 10:00 BP 156 / 99; Pulse 99; Resp 19; Temp 98.4(O); Pulse Ox 98% on R/A; Weight 138.35 kg rb1 (R); Height 5 ft. 11 in. (180.34 cm) (R); Pain 10/10; 11:00 BP 110 / 73; Pulse 88; Resp 20; Pulse Ox 99% on R/A; Pain 6/10; rb1 10:00 Body Mass Index 42.54 (138.35 kg, 180.34 cm) rb1 ED Course: 09:52 Patient arrived in ED. as 10:00 Rob Han PA is PHCP. cp 10:00 Kosta Alvarez MD is Attending Physician. cp 10:00 Arm band placed on right wrist. rb1 10:00 Patient has correct armband on for positive identification. Bed in low position. Call rb1 light in reach. Side rails up X 1. Pulse ox on. NIBP on. 10:02 Elma Romano, RN is Primary Nurse. rb1 10:04 Triage completed. rb1 10:21 X-ray completed. Portable x-ray completed in exam room. Patient tolerated procedure jb2 well. 10:21 XRAY Foot LEFT 3 View In Process Unspecified. EDMS 11:24 No provider procedures requiring assistance completed. Patient did not have IV access rb1 during this emergency room visit. Administered Medications: 10:19 Drug: traMADol 50 mg Route: PO; rb1 10:40 Follow up: Response: No adverse reaction; Pain is decreased rb1 10:54 Drug: Zofran 4 mg Route: PO; ss 11:22 Follow up: Response: No adverse reaction; Nausea is decreased rb1 Outcome: 11:03 Discharge ordered by . cp 11:24 Discharged to home with crutches, with family. rb1 11:24 Condition: stable 11:24 Discharge instructions given to patient, Instructed on discharge instructions, follow up and referral plans. medication usage, Demonstrated understanding of instructions, follow-up care, medications, Prescriptions given X 2. 11:25 Patient left the ED. rb1 Signatures: Dispatcher [employer] EDMS Taurus Bass Amelia as Smirch, Shelby, RN RN Rob Darling PA PA cp Barber, Rebecca, RN RN rb1
--- NOTE | 2017-10-15 11:26 | RAD REPORT ---
EXAM DESCRIPTION: RAD - Foot Left 3 View - 10/15/2017 10:23 am CLINICAL HISTORY: left great toe pain COMPARISON: No comparisons FINDINGS: Soft tissue swelling is seen about the great toe. No fracture or dislocation seen. No aggr essive marrow pattern. Tiny posterior calcaneal spur seen.
[2017-10-15 11:29] VITALS: TEMP 98.4
[2017-10-15 11:30] VITALS: BP 110/73; O2SAT 99
== END 2017-10-15 11:25 | disposition home or self-care (01) ==
LOC: ER 09:50
DX: M79.672 Pain in left foot (principal); I10 Essential (primary) hypertension; E78.00 Pure hypercholesterolemia, unspecified; E03.9 Hypothyroidism, unspecified
CPT/HCPCS: 99284

== ENCOUNTER 2018-04-13 20:52 | Inpatient (IN) | payer OTHER, SELFPAY ==
[2018-04-13] MEDS ORDERED: FAMOTIDINE 20 MG/2 ML VIAL IV ONE (22:21)
[2018-04-13] MEDS ORDERED: ONDANSETRON 4 MG/2 ML VIAL ONE (22:21)
[2018-04-13 22:51] LABS: Absolute Lymphocytes (CBC) 1.1 K/uL (0.7-4.9); Absolute Monocytes 0.7 K/uL (0.1-1.3); Absolute Neutrophil 6.8 K/uL (1.8-8.0); Basophils % 0.9 % (0-1.3); Eosinophils % 7.8 % (0-4.4); Hematocrit 24.4 % (39.6-49.0); Lymphocytes % 11.7 % (15.3-44.8); MPV 7.6 fL (7.6-11.3); Monocytes % 7.7 % (3.3-12.3); RBC Red Blood Cell Count 2.92 M/uL (4.33-5.43)
[2018-04-13 23:46] LABS: BUN Blood Urea Nitrogen 135 mg/dL (7-18); Bicarbonate 17 mmol/L (21-32); Glucose Level 93 mg/dL (74-106); Magnesium 1.9 mg/dL (1.8-2.4); Sodium Level 139 mmol/L (136-145)
[2018-04-13 23:47] LABS: Potassium 5.9 mmol/L (3.5-5.1)
[2018-04-14] MEDS ORDERED: ALBUTEROL 2.5 MG/3 ML NEB SOL ONE (00:18)
[2018-04-14] MEDS ORDERED: SODIUM BICARB 50 MEQ/50ML VIAL ONE (00:18)
[2018-04-14] MEDS ORDERED: D50W 25 GM/50 ML SYRINGE IV ONE (00:22)
[2018-04-14 00:31] LABS: Urine Blood 2+ (NEG); Urine Glucose TRACE (NEG); Urine Protein 3+ (NEG); Urine pH 5.5 (5.0-7.0)
[2018-04-14 00:33] LABS: Urine Coarse Granular Casts 0-5 /LPF (NONE SEEN); Urine Waxy Casts 0-5 /LPF (NONE SEEN)
[2018-04-14 00:35] LABS: Urine Culture Reflex Order REFLEXED
--- NOTE | 2018-04-14 00:35 | EDPHYS ---
Physician Documentation [facility] Name: Melvin Maguire Age: 27 yrs Sex: Male : 1990 Arrival Date: 04/13/2018 Time: 20:56 Bed 20 Private MD: ED Physician Prasanna Watkins HPI: 04/13 22:00 This 27 yrs old Male presents to ER via Ambulatory with complaints of Nausea, cp Weakness. 22:00 The patient presents to the emergency department with nausea, that is mild, vomiting, 1 cp times today, diarrhea, 5 times today. Onset: The symptoms/episode began/occurred today. Associated signs and symptoms: Pertinent negatives: abdominal pain, constipation, dysuria, fever, GI bleeding, active vomiting. Severity of symptoms: in the emergency department the symptoms are unchanged despite home interventions. 22:00 Patient reports history of chronic kidney disease and appt next week with DR Maribel marley to discuss possible need for dialysis. Historical: - Allergies: 21:05 No Known Allergies; lp1 - Home Meds: 21:05 Coreg 25 mg Oral tab 2 times per day [Active]; amlodipine 10 mg oral tab once daily lp1 [Active]; Lasix 40 mg Oral cp24 1 tab once daily [Active]; - PMHx: 21:05 Asthma; High Cholesterol; Hypertension; Hypothyroidism; kidney failure; lp1 - PSHx: 21:05 None; lp1 - Immunization history:: Adult Immunizations up to date, Flu vaccine is not up to date. - Social history:: Smoking status: Patient/guardian denies using tobacco. - Ebola Screening: : No symptoms or risks identified at this time. ROS: 22:05 Constitutional: Positive for poor PO intake, Negative for body aches, chills, fever. cp 22:05 Eyes: Negative for injury, pain, redness, and discharge. cp 22:05 ENT: Negative for drainage from ear(s), ear pain, sore throat, difficulty swallowing, difficulty handling secretions. 22:05 Cardiovascular: Negative for chest pain, edema, palpitations. 22:05 Respiratory: Negative for cough, shortness of breath, wheezing. 22:05 Abdomen/GI: Positive for nausea, vomiting, diarrhea, Negative for abdominal pain, constipation, black/tarry stool, rectal bleeding. 22:05 Back: Negative for pain at rest, pain with movement, radiated pain. 22:05 : Positive for urinary frequency, Negative for burning with urination. 22:05 Skin: Negative for cellulitis, rash. 22:05 Neuro: Positive for general weakness, Negative for altered mental status, dizziness, headache. 22:05 All other systems are negative. Exam: 22:10 Constitutional: The patient appears in no acute distress, alert, awake, cp non-diaphoretic, non-toxic, well developed, well nourished. 22:10 Head/Face: Normocephalic, atraumatic. cp 22:10 Eyes: Pupils equal round and reactive to light, extra-ocular motions intact. Lids and lashes normal. Conjunctiva and sclera are non-icteric and not injected. Cornea within normal limits. Periorbital areas with no swelling, redness, or edema. ENT: Nares patent. No nasal discharge, no septal abnormalities noted. Tympanic membranes are normal and external auditory canals are clear. Oropharynx with no redness, swelling, or masses, exudates, or evidence of obstruction, uvula midline. Mucous membranes moist. Neck: Trachea midline, no thyromegaly or masses palpated, and no cervical lymphadenopathy. Supple, full range of motion without nuchal rigidity, or vertebral point tenderness. No Meningismus. Chest/axilla: Normal chest wall appearance and motion. Nontender with no deformity. No lesions are appreciated. 22:10 Constitutional: The patient appears obese. 22:10 Cardiovascular: Rate: normal, Rhythm: regular, Heart sounds: murmur, not appreciated, Edema: is not appreciated, JVD: is not appreciated. 22:10 Respiratory: the patient does not display signs of respiratory distress, Respirations: normal, no use of accessory muscles, no retractions, no splinting, no tachypnea, labored breathing, is not present, Breath sounds: are clear throughout, no decreased breath sounds, no stridor, no wheezing. 22:10 Abdomen/GI: Inspection: obese Bowel sounds: active, all quadrants, Palpation: abdomen is soft and non-tender, in all quadrants. 22:10 Back: CVA tenderness, is absent. 22:10 Skin: cellulitis, is not appreciated, no rash present. 22:10 Neuro: Orientation: to person, place \T\ time. Mentation: is normal, Cerebellar function: is grossly normal, Motor: moves all fours, strength is normal, Sensation: is normal. Vital Signs: 21:05 BP 131 / 95; Pulse 83; Resp 16; Temp 97.7; Pulse Ox 99% on R/A; Weight 130.63 kg; lp1 Height 5 ft. 10 in. (177.80 cm); Pain 2/10; 22:10 BP 135 / 80 LA Supine; Pulse 78; Resp 16; Pulse Ox 99% ; rr5 22:11 BP 110 / 81 Sitting; Pulse 81; Resp 19; Pulse Ox 100% ; rr5 22:12 BP 129 / 81 Standing; Pulse 81; Resp 17; Pulse Ox 99% ; rr5 23:30 BP 135 / 75; Pulse 99; Resp 17; Pulse Ox 99% ; rr5 04/14 00:00 BP 145 / 82; Pulse 86; Resp 19; Pulse Ox 98% ; rr5 00:50 BP 137 / 83; Pulse 86; Resp 18; Pulse Ox 99% ; rr5 01:27 BP 130 / 75; Pulse 80; Resp 17; Pulse Ox 99% ; rr5 02:00 rr5 04/13 21:05 Body Mass Index 41.32 (130.63 kg, 177.80 cm) lp1 02:00 see [employer] for succeeding vital signs rr5 MDM: 04/13 21:08 Patient medically screened. cp 22:00 Differential diagnosis: gastritis, viral gastroenteritis, gastroenteritis, electrolyte cp abnormality. 04/14 00:10 Physician consultation: was contacted at 00:05, regarding consult, patient's condition, cp on-call physician for DR López requests patient be admitted to hospitalist, keep npo, renal US and will schedule for dialysis . 00:15 Data reviewed: vital signs, nurses notes, lab test result(s), EKG, and as a result, I cp will admit patient. 00:15 Test interpretation: by ED physician or midlevel provider: ECG. Counseling: I had a cp detailed discussion with the patient and/or guardian regarding: the historical points, exam findings, and any diagnostic results supporting the discharge/admit diagnosis, lab results, the need for further work-up and treatment in the hospital. 00:32 Physician consultation: Kimberly Jones MD was called at 00:33, was contacted at 00:33, cp regarding admission, to the telemetry unit. patient's condition, would like consultation with Dr. DR Healy. 04/13 21:57 Order name: CBC with Diff; Complete Time: 23:31 cp 04/13 23:59 Interpretation: Normal except: RBC 2.92; HGB 8.4; HCT 24.4; MCV 83.7; LYM% 11.7; cp EOSINOPHIL % 7.8; EOSA 0.7. 04/13 21:57 Order name: BMP; Complete Time: 01:36 cp 04/14 00:11 Interpretation: Normal except: K 5.9; CO2 17; BUN 135; CRE 19.80; GFR 3; CA 6.6. cp 04/13 21:57 Order name: Magnesium; Complete Time: 01:36 cp 04/13 23:34 Order name: Urine Microscopic Only; Complete Time: 01:36 cp 04/14 01:37 Interpretation: Normal except: UWBC 5-10; URBC 5-10. cp 04/14 00:02 Order name: Urine Dipstick--Ancillary (enter results); Complete Time: 00:32 em1 04/14 01:37 Interpretation: Normal except: UBLD 2+; UPROT 3+. cp 04/14 00:34 Order name: Liver (Hepatic) Function; Complete Time: 01:36 EDMS 04/14 00:39 Order name: Urine Culture EDMS 04/14 00:49 Order name: Urinalysis EDMS 04/14 00:49 Order name: CBC with Automated Diff EDMS 04/14 00:49 Order name: CBC with Automated Diff EDMS 04/14 00:49 Order name: Comprehensive Metabolic Panel EDMS 04/14 00:49 Order name: Comprehensive Metabolic Panel EDMS 04/14 00:49 Order name: Magnesium EDMS 04/13 23:48 Order name: EKG; Complete Time: 23:48 cp 04/14 00:32 Order name: XRAY Chest (1 view); Complete Time: 09:15 cp 04/14 00:49 Order name: CONS Physician Consult EDMS 04/14 00:49 Order name: CONS Physician Consult EDMS 04/14 00:49 Order name: Magnesium EDMS 04/14 00:49 Order name: Phosphorus EDMS 04/14 00:49 Order name: Phosphorus EDMS 04/14 09:30 Order name: US EDMS 04/13 21:57 Order name: Orthostatics; Complete Time: 22:43 cp 04/13 21:57 Order name: IV; Complete Time: 22:43 cp 04/13 23:34 Order name: Urine Dipstick-Ancillary (obtain specimen); Complete Time: 00:00 cp 04/13 23:48 Order name: EKG - Nurse/Tech; Complete Time: 00:48 cp 04/14 00:14 Order name: NPO; Complete Time: 00:48 cp 04/14 00:49 Order name: NPO EDMS Administered Medications: 04/13 22:28 Drug: Pepcid 20 mg Route: IVP; Site: right antecubital; rr5 04/14 02:25 Follow up: Response: No adverse reaction rr5 04/13 22:30 Drug: Zofran 4 mg Route: IVP; Site: right antecubital; rr5 04/14 02:25 Follow up: Response: No adverse reaction rr5 00:05 Drug: Albuterol 2.5 mg Route: Inhalation; rr5 00:25 Drug: Albuterol 2.5 mg Route: Inhalation; rr5 00:30 Drug: Sodium Bicarbonate 1 amp Route: IVP; Site: right antecubital; rr5 02:25 Follow up: Response: No adverse reaction rr5 00:40 Drug: D50W 50 ml Route: IVP; Site: right antecubital; rr5 02:24 Follow up: Response: No adverse reaction rr5 00:46 Drug: Insulin Regular Human 5 units {Co-Signature: [email or web address] (Danyelle Dacosta).} Route: IVP; rr5 Site: right antecubital; 02:24 Follow up: Response: No adverse reaction rr5 00:50 Drug: Albuterol 2.5 mg Route: Inhalation; rr5 01:51 Drug: Kayexalate 15 grams Route: PO; rr5 02:24 Follow up: Response: No adverse reaction rr5 02:23 Not Given (Other Intervention Used): Kayexalate 30 grams PO once rr5 Disposition: 06:24 Co-signature as Attending Physician, Prasanna Watkins MD. pkl Disposition: 04/14/18 00:34 Hospitalization ordered by Kimberly Jones for Observation. Preliminary diagnosis are Hyperkalemia, Unspecified kidney failure. - Bed requested for [facility] ER HOLD. - Status is Observation. tw2 - Condition is Stable. - Problem is new. - Symptoms have improved. UTI on Admission? No Signatures: Dispatcher [employer] EDNH Zonia Salas RN RN mw Prasanna Watkins MD MD pkl Therrien, Shelly, HOTEL OFFICE MANAGER-C HOTEL OFFICE MANAGER-Csnw Guera Jara, RN RN lp1 Rob Han PA PA cp Candis Pacheco RN RN tw2 Misael Richardson RN RN rr5 Danyelle Dacosta cc3 Corrections: (The following items were deleted from the chart) 04/13 23:59 23:32 Normal except: RBC 2.92; HGB 8.4; HCT 24.4; MCV 83.7; LYM% 11.7; EOSINOPHIL % cp 7.8. cp 04/14 00:11 04/13 23:59 Normal except: K 5.9; CO2 17; BUN 135; CRE 19.80; GFR 3. cp cp 04/14 00:34 00:32 HEPATIC FUNCTION+C.LAB.BRZ ordered. EDNH EDMS 00:35 00:34 Hospitalization Ordered by Kimberly Jones MD for Observation. Preliminary cp diagnosis is Hyperkalemia; End stage renal disease. Bed requested for Telemetry/MedSurg (observation). Status is Observation. Condition is Stable. Problem is new. Symptoms have improved. UTI on Admission? No. cp 00:47 00:35 04/14/2018 00:34 Hospitalization Ordered by Kimberly Jones MD for Observation. Preliminary diagnosis is Hyperkalemia; Unspecified kidney failure. Bed requested for Telemetry/MedSurg (observation). Status is Observation. Condition is Stable. Problem is new. Symptoms have improved. UTI on Admission? No. cp 09:53 00:47 04/14/2018 00:34 Hospitalization Ordered by Kimberly Jones MD for Observation. tw2 Preliminary diagnosis is Hyperkalemia; Unspecified kidney failure. Bed requested for [facility] ER HOLD. Status is Observation. Condition is Stable. Problem is new. Symptoms have improved. UTI on Admission? No. mw
--- NOTE | 2018-04-14 00:35 | ER ---
Nurse's Notes [facility] Name: Melvin Maguire Age: 27 yrs Sex: Male : 1990 Arrival Date: 04/13/2018 Time: 20:56 Bed 20 Private MD: Diagnosis: Hyperkalemia;Unspecified kidney failure Presentation: 04/13 21:01 Presenting complaint: Patient states: Nausea and "weird feelings in my legs and arms"; lp1 began this afternoon; vomited x 1 today, diarrhea x 5. Transition of care: patient was not received from another setting of care. Onset of symptoms was April 13, 2018. Risk Assessment: Do you want to hurt yourself or someone else? Patient reports no desire to harm self or others. Initial Sepsis Screen: Does the patient meet any 2 criteria? No. Patient's initial sepsis screen is negative. Does the patient have a suspected source of infection? No. Patient's initial sepsis screen is negative. Care prior to arrival: None. 21:01 Method Of Arrival: Ambulatory lp1 21:01 Acuity: SAKSHI 3 lp1 Historical: - Allergies: 21:05 No Known Allergies; lp1 - Home Meds: 21:05 Coreg 25 mg Oral tab 2 times per day [Active]; amlodipine 10 mg oral tab once daily lp1 [Active]; Lasix 40 mg Oral cp24 1 tab once daily [Active]; - PMHx: 21:05 Asthma; High Cholesterol; Hypertension; Hypothyroidism; kidney failure; lp1 - PSHx: 21:05 None; lp1 - Immunization history:: Adult Immunizations up to date, Flu vaccine is not up to date. - Social history:: Smoking status: Patient/guardian denies using tobacco. - Ebola Screening: : No symptoms or risks identified at this time. Screenin:43 Abuse screen: Denies threats or abuse. Denies injuries from another. Nutritional rr5 screening: No deficits noted. Tuberculosis screening: No symptoms or risk factors identified. Fall Risk IV access (20 points). Total Suraez Fall Scale indicates No Risk (0-24 pts). Assessment: 21:15 General: Appears in no apparent distress. comfortable, Behavior is calm, cooperative, rr5 appropriate for age. 21:15 Pain: Denies pain. Neuro: Level of Consciousness is awake, alert, obeys commands, rr5 Oriented to person, place, time, situation, Appropriate for age Reports numbness weakness in right arm, left arm, right leg and left leg. Cardiovascular: Capillary refill < 3 seconds Patient's skin is warm and dry. Respiratory: Airway is patent Respiratory effort is even, unlabored, Respiratory pattern is regular, symmetrical. GI: Abdomen is round Reports diarrhea, vomiting. : No signs and/or symptoms were reported regarding the genitourinary system. EENT: No signs and/or symptoms were reported regarding the EENT system. Derm: Skin is intact, Skin temperature is warm. Musculoskeletal: Capillary refill < 3 seconds, Range of motion: intact in all extremities. 22:40 Reassessment: Patient appears in no apparent distress at this time. Patient and/or rr5 family updated on plan of care and expected duration. Pain level reassessed. awaiting for report, no complaints made. 23:40 Reassessment: Patient appears in no apparent distress at this time. Patient and/or rr5 family updated on plan of care and expected duration. Pain level reassessed. Patient states feeling better. Patient states symptoms have improved. 04/14 00:05 Reassessment: Patient appears in no apparent distress at this time. critical laboratory rr5 result reviewed with order made and carried out by the ED provider. Patient states feeling better. Patient states symptoms have improved. 01:28 Reassessment: Patient appears in no apparent distress at this time. Patient and/or rr5 family updated on plan of care and expected duration. Pain level reassessed. update for the plan of admission.no complaints made Patient states feeling better. Patient states symptoms have improved. 02:15 Reassessment: Patient appears in no apparent distress at this time. Patient and/or rr5 family updated on plan of care and expected duration. Pain level reassessed. seen and examined by dr. romero. admitted under er hold see [facility] documentation. Vital Signs: 04/13 21:05 BP 131 / 95; Pulse 83; Resp 16; Temp 97.7; Pulse Ox 99% on R/A; Weight 130.63 kg; lp1 Height 5 ft. 10 in. (177.80 cm); Pain 2/10; 22:10 BP 135 / 80 LA Supine; Pulse 78; Resp 16; Pulse Ox 99% ; rr5 22:11 BP 110 / 81 Sitting; Pulse 81; Resp 19; Pulse Ox 100% ; rr5 22:12 BP 129 / 81 Standing; Pulse 81; Resp 17; Pulse Ox 99% ; rr5 23:30 BP 135 / 75; Pulse 99; Resp 17; Pulse Ox 99% ; rr5 04/14 00:00 BP 145 / 82; Pulse 86; Resp 19; Pulse Ox 98% ; rr5 00:50 BP 137 / 83; Pulse 86; Resp 18; Pulse Ox 99% ; rr5 01:27 BP 130 / 75; Pulse 80; Resp 17; Pulse Ox 99% ; rr5 02:00 rr5 04/13 21:05 Body Mass Index 41.32 (130.63 kg, 177.80 cm) lp1 02:00 see [facility] for succeeding vital signs rr5 ED Course: 04/13 20:56 Patient arrived in ED. mr 21:03 Triage completed. lp1 21:05 Arm band placed on left wrist. lp1 21:07 Rob Han PA is PHCP. cp 21:07 Prasanna Watkins MD is Attending Physician. cp 21:15 Patient has correct armband on for positive identification. Pulse ox on. NIBP on. rr5 22:10 Misael Richardson, EVETTE is Primary Nurse. rr5 22:25 Inserted saline lock: 20 gauge in right antecubital area, using aseptic technique. rr5 Blood collected. 22:25 No provider procedures requiring assistance completed. rr5 04/14 00:34 Kimberly Romero MD is Hospitalizing Provider. cp 00:50 XRAY Chest (1 view) In Process Unspecified. EDMS 02:14 Patient admitted, IV remains in place. intact, No redness/swelling at site. rr5 Administered Medications: 04/13 22:28 Drug: Pepcid 20 mg Route: IVP; Site: right antecubital; rr5 04/14 02:25 Follow up: Response: No adverse reaction rr5 04/13 22:30 Drug: Zofran 4 mg Route: IVP; Site: right antecubital; rr5 04/14 02:25 Follow up: Response: No adverse reaction rr5 00:05 Drug: Albuterol 2.5 mg Route: Inhalation; rr5 00:25 Drug: Albuterol 2.5 mg Route: Inhalation; rr5 00:30 Drug: Sodium Bicarbonate 1 amp Route: IVP; Site: right antecubital; rr5 02:25 Follow up: Response: No adverse reaction rr5 00:40 Drug: D50W 50 ml Route: IVP; Site: right antecubital; rr5 02:24 Follow up: Response: No adverse reaction rr5 00:46 Drug: Insulin Regular Human 5 units {Co-Signature: cc3 (Danyelle Dacosta).} Route: IVP; rr5 Site: right antecubital; 02:24 Follow up: Response: No adverse reaction rr5 00:50 Drug: Albuterol 2.5 mg Route: Inhalation; rr5 01:51 Drug: Kayexalate 15 grams Route: PO; rr5 02:24 Follow up: Response: No adverse reaction rr5 02:23 Not Given (Other Intervention Used): Kayexalate 30 grams PO once rr5 Outcome: 00:34 Decision to Hospitalize by Provider. cp 02:14 Admitted to ER Hold. Please see [facility] for further documentation. rr5 02:14 Condition: stable 02:14 Instructed on the need for admit. 09:53 Patient left the ED. tw2 Signatures: Dispatcher [employer] [facility] MartinesLynda mr Guera Jara, RN RN lp1 Rob Han PA PA cp Candis Pacheco RN RN tw2 Misael Richardson RN RN rr5 Danyelle Dacosta cc3 Corrections: (The following items were deleted from the chart) 02:23 01:51 Kayexalate 30 grams PO rr5 rr5
[2018-04-14 00:36] LABS: Urine Bacteria <20 /HPF (NONE SEEN)
[2018-04-14] MEDS ORDERED: INSULIN -REGULAR HUMAN 50 UNIT/0.5 ML ML ONE (00:43)
[2018-04-14] MEDS ORDERED: MAGNESIUM HYDROXIDE 8% 30 ML PO PRN (00:44)
[2018-04-14] MEDS ORDERED: ONDANSETRON 4 MG/2 ML VIAL IV PRN (00:44)
[2018-04-14 00:51] LABS: ALT/SGPT 21 U/L (12-78); AST/SGOT 6 U/L (15-37); Albumin 3.5 g/dL (3.4-5.0); Alkaline Phosphatase 44 U/L (45-117); Bilirubin Direct < 0.1 mg/dL (0-0.2); Bilirubin Total 0.3 mg/dL (0.2-1.0)
[2018-04-14] MEDS ORDERED: SOD POLYSTYREN SUL 15 GM/60 ML UCUP ONE (01:37)
[2018-04-14] MEDS: NA CHLORIDE 0.9% 1,000 ML IV SCH ×2 (02:30→20:58)
[2018-04-14] MEDS ORDERED: NA CHLORIDE 0.9% 1,000 ML ONE (02:47)
--- NOTE | 2018-04-14 06:25 | EKG ---
Test Date: 2018-04-13 Test Time: 23:59:22 Cotton Breeder: RR MEASUREMENT RESULTS: Intervals: Rate: 74 AL: 212 QRSD: 90 QT: 428 QTc: 475 [place]: P: 15 AL: 212 QRS: 61 T: 20 INTERPRETIVE STATEMENTS: Sinus rhythm with 1st degree AV block Otherwise normal ECG Compared to ECG 08/10/2017 03:08:12 First degree AV block now present Sinus tachycardia no longer present T-wave abnormality no longer present Electronically Signed On 04-14-18 06:16:51 [employer]ILROOM SUPERVISOR by Noe Andersen
[2018-04-14] MEDS ORDERED: FUROSEMIDE 40 MG/4 ML VIAL IV ONE (07:02)
--- NOTE | 2018-04-14 07:14 | P.HP ---
Certification for Inpatient Patient admitted to: Inpatient With expected LOS: >2 Midnights Patient will require the following post-hospital care: None Practitioner: I am a practitioner with admitting privileges, knowledge of patient current condition, hospital course, and medical plan of care. Services: Services provided to patient in accordance with Admission requirements found in Title 42 Section 412.3 of the Code of Federal Regulations Patient History Date of Service: 04/14/18 Reason for admission: hyperkalemia; ESRD History of Present Illness: Patient is a 27yo with sclerosing IgA nephropathy, hypertensive nephrosclerosis , and end-stage renal disease who presents to the hospital with hyperkalemia. Patient has been told by his pediatric oncologist a couple months ago that he may need hemodialysis. However, he did not have insurance. He recently was able to get health insurance. He was scheduled to meet with Nephrology on Saturday to get hemodialysis access. However, he was not feeling well, and his symptoms worsened. He came into the ER and he was found have hyperkalemia get metabolic acidosis. His BUN and creatinine were severely elevated. We spoke to Nephrology and decision was made to admit the patient to get him ready for hemodialysis on this admission. Allergies No Known Allergies Allergy (Verified 08/06/17 09:16) Home Medications: Furosemide [Lasix*] 40 mg PO DAILY #30 tab 08/09/17 Amlodipine [Norvasc*] 10 mg PO DAILY 04/14/18 Carvedilol [Coreg*] 25 mg PO BID 6AM 6PM 04/14/18 - Past Medical/Surgical History Has patient received pneumonia vaccine in the past: No Diabetic: No -: obesity -: HTN -: Asthma -: CKD -: Asthma -: HLD -: Hypothyroidism -: kidney biopsy - Family History Father Medical History: Heart disease, Diabetes Notes: Heavy smoker Mother Medical History: Lung disease Notes: COPD - Social History Smoking Status: Never smoker Alcohol use: No CD- Drugs: No Caffeine use: No Place of Residence: Home Review of Systems 10-point ROS is otherwise unremarkable Physical Examination - Vital Signs Temperature: 97.9 F Blood Pressure: 136/84 Pulse: 81 Respirations: 18 Pulse Ox (%): 100 - Physical Exam General: Alert, In no apparent distress, Oriented x3 HEENT: Atraumatic, PERRLA, Mucous membr. moist/pink, EOMI, Sclerae nonicteric Neck: Supple, 2+ carotid pulse no bruit, No LAD, Without JVD or thyroid abnormality Respiratory: Clear to auscultation bilaterally, Normal air movement Cardiovascular: Regular rate/rhythm, Normal S1 S2, No murmurs Gastrointestinal: Normal bowel sounds, Soft and benign, Non-distended, No tenderness Musculoskeletal: No clubbing, No tenderness, Swelling (Minimal) Integumentary: No rashes Neurological: Normal gait, Normal speech, Normal strength at 5/5 x4 extr, Normal tone, Sensation intact, Cranial nerves 3-12 intact, Normal affect Lymphatics: No axilla or inguinal lymphadenopathy - Studies Laboratory Data (last 24 hrs) 04/14/18 00:31: Total Bilirubin Cancelled, AST Cancelled, ALT Cancelled, Alkaline Phosphatase Cancelled 04/13/18 22:35: Sodium 139, Potassium 5.9 H*, BUN 135 H, Creatinine 19.80 H*, Glucose 93, Magnesium 1.9, Total Bilirubin 0.3, AST 6 L, ALT 21, Alkaline Phosphatase 44 L 04/13/18 22:35: WBC 9.5, Hgb 8.4 L, Hct 24.4 L, Plt Count 242 Assessment & Plan - Problems (Diagnosis) (1) End stage renal disease Current Visit: Yes Status: Acute (2) Hyperkalemia Current Visit: Yes Status: Acute (3) Metabolic acidosis Current Visit: Yes Status: Acute (4) IgA nephropathy Current Visit: Yes Status: Acute (5) Malignant hypertension Current Visit: Yes Status: Acute (6) Hypertensive nephrosclerosis Current Visit: Yes Status: Acute - Plan Plan: 1. Gentle hydration 2. Kayexalate 3. Bicarb supplementation 4. Correct calcium with supplementation 5. Check phosphorus level 6. Nephrology and surgery consultation 7. NPO for possible Tessio catheter placement 8. GI and DVT prophylaxis Discharge Plan: Home Plan to discharge in: Greater than 2 days - Advance Directives Does patient have a Living Will: No Does patient have a Durable POA for Healthcare: No - Code Status/Comfort Care Code Status Assessed: Yes Code Status: Full Code Critical Care: No Time Spent Managing PTS Care (In Minutes): 55
[2018-04-14] MEDS ORDERED: FUROSEMIDE 40 MG/4 ML VIAL ONE ×2 (07:49→08:48)
[2018-04-14] MEDS ORDERED: INFLUENZA VACCINE (for 3y+) 0.5 ML DOSE IMVAC ONE ×2 (08:00→08:51)
--- NOTE | 2018-04-14 08:39 | RAD REPORT ---
EXAM DESCRIPTION: Eduardo Single View04/14/2018 12:51 am CLINICAL HISTORY: Chest pain COMPARISON: August 2017 FINDINGS: The lungs appear clear of acute infiltrate. The heart is mildly enlarged IMPRESSION: No acute abnormalities displayed
[2018-04-14] MEDS ORDERED: HEPARIN 5000 UNIT/ML 1 ML VIAL ONE ×2 (08:47→10:03)
[2018-04-14] MEDS ORDERED: AMLODIPINE 5 MG TAB ONE (08:48)
[2018-04-14] MEDS: FUROSEMIDE 40 MG TABLET PO SCH (09:00)
[2018-04-14] MEDS: SODIUM BICARB 325 MG TAB PO SCH ×2 (09:00→22:46)
[2018-04-14] MEDS: CALCIUM CARB 500MG/VIT D 200 IU TAB PO SCH ×2 (09:00→20:59)
[2018-04-14] MEDS: HEPARIN 5000 UNIT/ML 1 ML VIAL SQ SCH ×2 (09:00→21:00)
[2018-04-14] MEDS: AMLODIPINE 5 MG TAB PO SCH (09:00)
[2018-04-14] MEDS ORDERED: FUROSEMIDE 40 MG TABLET ONE (09:20)
--- NOTE | 2018-04-14 09:29 | RAD REPORT ---
EXAM DESCRIPTION: US - Renal Ultrasound-Complete - 04/14/2018 7:06 am CLINICAL HISTORY: Acute renal insufficiency COMPARISON: August 2017 FINDINGS: The right kidney measures 10 cm with an increased echotexture. The left kidney measures 11 cm with an increased echotexture. Hydronephrosis is not seen. No gross abnormality of bladder is seen IMPRESSION: Increased renal echotexture consistent with parenchymal disease
[2018-04-14] MEDS ORDERED: BUPIVACA 0.25%/EPI 0.0005% MDV 50 ML VIAL ONE (10:04)
[2018-04-14] MEDS ORDERED: NA CHLORIDE 0.9% 50 ML ONE (10:05)
[2018-04-14] MEDS ORDERED: PROPOFOL 200 MG/20 ML VIAL IV ONE (10:07)
[2018-04-14] MEDS ORDERED: LIDOCAINE 2% MPF 5 ML VIAL ONE (10:07)
[2018-04-14] MEDS ORDERED: FENTANYL CITR 100 MCG/2 ML ONE (10:07)
[2018-04-14] MEDS ORDERED: MIDAZOLAM HCL 2 MG/2 ML INJ ONE (10:07)
[2018-04-14] MEDS ORDERED: NA CHLORIDE 0.9% 500 ML ONE (10:10)
--- NOTE | 2018-04-14 11:15 | P.OP ---
Preoperative diagnosis: End Stage Renal Disease Postoperative diagnosis: End Stage Renal Disease Primary procedure: Placement of Right Internal Jugular Tunnelled Hemodialysis catheter Secondary procedure: ultrasound, flouroscopy and micro introducer used Anesthesia: MAC + Local Estimated blood loss: <10cc Specimen: None Findings: Dark, Non pulsatile blood returned Complications: None Implants: 24 cm tunnelled hemosplit catheter Transferred to: Recovery Room Condition: Good
[2018-04-14] MEDS: MORPHINE 4 MG/ML SYR ONE ×2 (11:48→12:18)
--- NOTE | 2018-04-14 12:10 | RAD REPORT ---
EXAM DESCRIPTION: RAD - Chest Single View - 04/14/2018 12:01 pm CLINICAL HISTORY: s/p dialysis catheter placement Chest pain. COMPARISON: Chest Single View dated 04/14/2018; Chest Single View dated 08/10/2017; Chest Single View da isidra 08/06/2017; CHEST PA AND LAT 2 VIEW dated 09/04/2014 FINDINGS: Portable technique limits examination quality. Right-sided venous catheter is in place with tip in the SVC. No pneumothorax. The heart is normal in size. No displaced fractures. IMPRESSION: No postprocedure pneumothorax.
[2018-04-14 12:26] LABS: Absolute Lymphocytes (CBC) 1.3 K/uL (0.7-4.9); Absolute Monocytes 0.8 K/uL (0.1-1.3); Absolute Neutrophil 7.1 K/uL (1.8-8.0); Basophils % 0.9 % (0-1.3); Eosinophils % 7.5 % (0-4.4); Hematocrit 23.6 % (39.6-49.0); Monocytes % 7.7 % (3.3-12.3)
[2018-04-14] MEDS ORDERED: CARVEDILOL 6.25 MG TAB PO ONE (12:48)
[2018-04-14] MEDS ORDERED: ACETAMINOPHEN 500 MG TAB ONE (13:00)
[2018-04-14 13:10] LABS: Magnesium 1.8 mg/dL (1.8-2.4); Potassium 5.1 mmol/L (3.5-5.1)
[2018-04-14 13:12] LABS: Phosphorus 9.4 mg/dL (2.5-4.9)
--- NOTE | 2018-04-14 14:06 | CON ---
Date of Consultation: 04/14/2018 Brief History Of Present Illness: The patient is a 27-year-old male with sclerosing IgA ne phropathy, hypertensive nephrosclerosis and end-stage renal disease, who presents to the hospital wit h hyperkalemia. He had been seen by chemistry laboratory technician a couple months ago and told he may need to initiat e dialysis at that time. He was considering peritoneal dialysis, but did not have insurance at that time and as such he had difficulty maintaining his renal regimen. He had not felt well as of late. He came to the ER and found to have hyperkalemia and metabolic acidosis, BUN and creatinine well elev ated, and Dr. Rome had decided to initiate hemodialysis with discussion of transition to peritone al dialysis, but with him having significant hyperkalemia, it was decided that he would likely benefi t from at least a short course of hemodialysis. Past Medical History: Significant for obesity, hypertension, asthma, chronic kidney disease, hyperli pidemia, hyperthyroidism, and as above, sclerosing IgA nephropathy, hypertensive nephrosclerosis. Past Surgical History: Includes kidney biopsies. Allergies: NO KNOWN DRUG ALLERGIES. Medications: At home include Lasix, Norvasc, and Coreg. Social History: He denies smoking, alcohol, or recreational drug use. His father was a heavy smoker with heart disease and diabetes. His mother had lung disease/COPD. Review of Systems: A 10-point review of systems other than HPI, denies. Physical Examination: Vital Signs: At the time of examination his BMI is 41.3, blood pressure 147/86, pulse is 90, respira tory rate 17, temperature 97.9. General: He is awake, alert, oriented. Psychiatric: Appropriate. Conversive. HEENT: Normocephalic. Sclerae anicteric. Mucous membranes moist. Oropharynx clear. Neck: Supple. No JVD. Chest: Normal expansion and excursion. Cardiovascular: Regular rate and rhythm. Pulmonary: Clear to auscultation bilaterally. Abdomen: Soft, nontender, nondistended. No rebound or guarding. No focal peritonitis. Extremities: No clubbing, cyanosis, edema. Skin is warm and dry. Laboratory Data: His white blood cell count 9.5, hemoglobin 8.4, hematocrit 24.4, platelet count is 242. His neutrophils are normal at 71%. His sodium is 139, potassium 5.9, chloride 107, carbon diox rhiannon 17, BUN 135, creatinine 19.8. His GFR estimated is 3, glucose is 93, calcium 6.6, magnesium 1.9, total bilirubin 0.3, direct component 0.1, AST 6, ALT 21, alkaline phosphatase 44. His albumin is 3. 5. His UA showed 5-10 red blood cells and white blood cells. He had imaging performed which include d a chest x-ray, officially read as no acute abnormalities displayed. Assessment And Plan: This is a 27-year-old male who presents with end-stage renal disease, likely se condary to the above stated IgA nephropathy and nephrosclerosis due to hypertension. 1.Continue medical management per Dr. Fitch and Dr. Rome. 2.I have explicitly discussed the risks, benefits, and alternatives of placement of a tunneled hemod ialysis catheter including but not limited to bleeding, infection, damage to surrounding tissues, pne umothorax, need for further operation procedures. He agrees to proceed as indicated. 3.I have discussed the case with Dr. Rome and with Dr. Fitch. They agree the patient would bene fit from this bridging hemodialysis and as such we will proceed as indicated. 4.Thank you for this interesting consult. HANNY/STACIA Voice ID: [id number] Report ID: [id number]
[2018-04-14] MEDS ORDERED: NA CHLORIDE 0.9% 1,000 ML IV PRN (16:25)
[2018-04-14] MEDS ORDERED: ALBUMIN HUMAN 25% 50 ML IV SCH (17:00)
[2018-04-14] MEDS: CARVEDILOL 12.5 MG TAB PO SCH ×3 (17:44→21:22)
--- NOTE | 2018-04-14 22:33 | OP ---
Date of Procedure: 04/14/2018 Surgeon: Luis Carlos Healy MD, Preoperative Diagnosis: End-stage renal disease. Preoperative Diagnosis: End-stage renal disease. Procedure Performed: Placement of right internal jugular tunneled hemodialysis catheter using ultras ound, fluoroscopy, and micro introducer set. Anesthesia: MAC plus local with 0.25% Marcaine. Estimated Blood Loss: Less than 10 cc. Specimen: None. Findings: Dark, nonpulsatile blood return. Complications: None. Implants: A 24-cm tunneled HemoSplit catheter. Disposition: Transferred to recovery room in good condition. Procedure In Detail: After informed consent was obtained, the patient was brought to the operating r oom and prepped and draped in the usual sterile fashion. After adequate anesthesia was achieved, the area of the right internal jugular vein was ultrasound, and the jugular vein was found to be amenabl e to access. Therefore, I used the microintroducer set under ultrasound guidance to place the microi ntroducer needle into the jugular vein on the first attempt. A micro wire was advanced. Fluoroscopy confirmed position at this time, and the small yevgeniy incision was made over the introduction site, an d the microintroducer sheath was introduced using Seldinger technique without evidence of complicatio n. The micro wire was removed. A standard wire was then placed at this time, and once again positio n was confirmed with fluoroscopy at this time and found to be in good anatomic position in the SVC. I then anesthetized a tunneling tract below the collarbone approximately 4 or 5 cm below the collarbo ne on the chest wall with a 0.25% Marcaine and anesthetized the entire tunnel tract to the insertion site. I then made an incision in the chest wall and using the tunneling device, passed the catheter including cuff in through the tract out through the insertion site without evidence of complication. I then sequentially dilated up the insertion site at the jugular vein using Seldinger technique; and once this was completed, the introducer sheath was placed. The catheter was then placed through the introducer sheath without evidence of complication; and once again, position was confirmed using flu oroscopy after being appropriately positioned and secured. Both ports flushed quite easily and were then flushed with saline and then finally flushed with 2 cc of Super Flush per port. The skin incisi ons were then copiously irrigated and dried and closed with a 3-0 nylon suture, and the catheter was secured to the chest wall with 3-0 nylon suture as well. The patient was then taken out of Trendelen binh position, and the sterile dressing was placed overtop. The patient tolerated the procedure well without evidence of complications, transferred to the PACU in good condition. All counts were corre ct at the end of the case. A stat chest x-ray will be performed in PACU. ERIK Voice ID: [id number] Report ID: [id number]
[2018-04-14] MEDS: ALPRAZOLAM 0.25 MG TABLET PO PRN (23:55)
[2018-04-14] MEDS: ACETAMINOPHEN 500 MG TAB PO PRN (23:55)
--- NOTE | 2018-04-15 02:49 | CON ---
Date of Consultation: 04/14/2018 Chief Complaint: Fluid overload, hyperkalemia, end-stage renal disease. History Of Present Illness: The patient has multiple medical problems including history of chronic kidney disease stage 4, advancing to stage 5. Recently, he was found to have worsening of the renal function. He was referred to the hospital to start dialysis. The patient was found to have hyperkalemia and he was treated for hyperkalemia medically. Subsequently, he had a tunneled dialysis catheter placed today and dialysis was ordered to obtain metabolic clearance. The patient received stat dialysis to control severe hyperazotemia and to control electrolytes primarily. He was treated for hyperkalemia medically and subsequently he had a tunneled dialysis catheter placed and was initiated on dialysis. The patient is a 27-year-old with history of IgA nephropathy, hypertensive nephrosclerosis, and end-stage renal disease. He presented to the hospital because of weakness. He was found to have hyperkalemia. Review of Systems: Constitutional: Denies fever or chills. Eyes: Denies vision changes. Ears, Nose, Mouth, and Throat: Denies sore throat or earache. Respiratory: Denies PND or orthopnea. He is complaining of dyspnea on exertion. Gastrointestinal: Denies nausea, vomiting, melena, or hematemesis. Genitourinary: Denies dysuria, hematuria, or incomplete voiding. Extremities: He has swelling. Denies extremity weakness. All other systems reviewed and all are negative. Past Medical History: Obesity; hypertension; asthma; CKD stage 4, advancing to stage 5; kidney biopsy; hypothyroidism; hyperlipidemia. Family History: Father, heart disease and diabetes. Mother, lung disease and COPD. Social History: Never smoked. Denies alcohol or illicit drugs. Physical Examination: Vital Signs: Blood pressure is 176/80, temperature 97.1, respiratory rate is 18 , and heart rate 81. Eyes: Anicteric sclerae. EOMI. Ears, Nose, Mouth and Throat: Oral mucosa moist. No pallor. Neck: Supple. No JVD. No bruits. Lungs: Diminished breath sounds at bases. Few rhonchi. Heart: S1, S2. No pericardial friction rub. Abdomen: Soft, obese, nontender. Extremities: Edema present in both legs. No cyanosis SKIN : warm and dry , no cellulitis Laboratory Data: Hemoglobin 8.0, WBC 10, platelet count 249,000. Sodium is 139 , potassium 5.9, chloride is 107, CO2 of 17, BUN 135, creatinine 19.8, calcium 6.6, and phosphorus is 9.4. Impression And Plan: 1. End-stage renal disease due to IgA nephropathy and hypertensive kidney disease. The patient has elevated blood pressure. The patient will resume carvedilol. Monitor blood pressure closely. The patient has fluid overload. Ultrafiltration will be obtained with dialysis. 2. Hyperkalemia, treated medically, improved. Continue low-potassium diet and adjust dialysis parameters. 3. Renal osteodystrophy. Continue renal diet. Monitor phosphorus level and start binders. 4. Hypertension. Blood pressure fluctuating. Continue carvedilol and calcium channel giovanny. When the patient is stable on dialysis, KIERA inhibitor will be resumed. FRANSISCA/STACIA Voice ID: [id number] Report ID: [id number] [place]
[2018-04-15 06:02] LABS: Absolute Lymphocytes (CBC) 0.8 K/uL (0.7-4.9); Absolute Neutrophil 6.6 K/uL (1.8-8.0); Basophils % 0.7 % (0-1.3); Hematocrit 22.4 % (39.6-49.0); Lymphocytes % 8.5 % (15.3-44.8); MPV 7.4 fL (7.6-11.3); RBC Red Blood Cell Count 2.67 M/uL (4.33-5.43)
[2018-04-15 06:54] LABS: Bilirubin Total 0.4 mg/dL (0.2-1.0); Magnesium 1.8 mg/dL (1.8-2.4); Phosphorus 8.4 mg/dL (2.5-4.9); Potassium 4.5 mmol/L (3.5-5.1); Protein, Total 6.4 g/dL (6.4-8.2)
[2018-04-15] MEDS: AMLODIPINE 5 MG TAB PO SCH (09:30)
[2018-04-15] MEDS: SODIUM BICARB 325 MG TAB PO SCH (09:30)
[2018-04-15] MEDS: FUROSEMIDE 40 MG TABLET PO SCH (09:31)
[2018-04-15] MEDS: CALCIUM CARB 500MG/VIT D 200 IU TAB PO SCH ×2 (09:31→22:35)
[2018-04-15] MEDS: HEPARIN 5000 UNIT/ML 1 ML VIAL SQ SCH ×2 (09:37→22:35)
[2018-04-15] MEDS: ACETAMINOPHEN 500 MG TAB PO PRN (09:40)
--- NOTE | 2018-04-15 13:31 | P.PN ---
Subjective Date of Service: 04/15/18 Chief Complaint: hyperkalemia; ESRD Patient seen and examined at bedside with RN. Chart reviewed. Case discussed with nephrology at this time. Patient received his 1st hemodialysis session yesterday. Doing well overall. No complaints to offer. Review of Systems 10-point ROS is otherwise unremarkable Physical Examination - Vital Signs Temperature: 98.7 F Blood Pressure: 169/92 Pulse: 95 Respirations: 20 Pulse Ox (%): 98 - Physical Exam General: Alert, In no apparent distress, Oriented x3, Obese, Other (HD catheter in place and the right IJ) HEENT: Atraumatic, PERRLA, EOMI Neck: Supple, JVD not distended Respiratory: Clear to auscultation bilaterally, Normal air movement Cardiovascular: Regular rate/rhythm, Normal S1 S2 Gastrointestinal: Normal bowel sounds, No tenderness Musculoskeletal: No tenderness Integumentary: No rashes Neurological: Normal speech, Normal tone, Normal affect Lymphatics: No axilla or inguinal lymphadenopathy - Studies Microbiology Data (last 24 hrs): 04/13/18 23:50 Clean Catch Urine [place] Count - Final <10,000 CFU/ML. 04/13/18 23:50 Clean Catch Urine - Final Medications List Reviewed: Yes Assessment And Plan - Current Problems (Diagnosis) (1) Acute on chronic renal failure Current Visit: No Status: Acute Plan: Acute on chronic kidney disease. Now end-stage renal disease on dialysis. Most likely secondary to IgA nephropathy and worsening diabetes -nephrology has been consulted. Appreciated recommendations at this time -status post HD catheter placement. Patient received his 1st dialysis session yesterday. -patient wishes to have peritoneal dialysis. -Will discuss the case with nephrology regarding peritoneal dialysis. -will continue with current care until improvement Qualifiers: Acute renal failure type: unspecified Chronic kidney disease stage: stage 5 , not on chronic dialysis Qualified Code(s): N17.9 - Acute kidney failure, unspecified; N18.5 - Chronic kidney disease, stage 5 (2) End stage renal disease Onset Date: 04/15/18 Current Visit: Yes Status: Chronic (3) IgA nephropathy Onset Date: 04/15/18 Current Visit: Yes Status: Chronic (4) Hyperkalemia Onset Date: 04/15/18 Current Visit: Yes Status: Acute Plan: Hyperkalemia most likely secondary to end-stage renal disease -started on hemodialysis. -potassium within normal limits (5) Diabetes mellitus Current Visit: No Status: Chronic Qualifiers: Diabetes mellitus type: type 2 Diabetes mellitus banquet attendant insulin use: with banquet attendant use Diabetes mellitus complication status: with kidney complications Diabetes mellitus complication detail: with chronic kidney disease Chronic kidney disease stage: stage 5, not on chronic dialysis Qualified Code(s): E11.22 - Type 2 diabetes mellitus with diabetic chronic kidney disease; N18.5 - Chronic kidney disease, stage 5; Z79.4 - supervising architect ( current) use of insulin (6) Hypertension Current Visit: No Status: Chronic Qualifiers: Hypertension type: essential hypertension Qualified Code(s): I10 - Essential (primary) hypertension (7) Obesity Onset Date: 08/06/17 Current Visit: No Status: Chronic Qualifiers: Obesity type: unspecified obesity type Obesity classification: unspecified obesity classification Serious obesity comorbidity presence: unspecified whether serious comorbidity present Qualified Code(s): E66.9 - Obesity, unspecified - Plan Patient currently pending clinical improvement at this time. Started on hemodialysis. However wish to to do peritoneal dialysis at home. Will discuss the case with nephrology at this time. Hepatitis panel has been ordered. All the lab work is in place at this time to arrange for outpatient hemodialysis versus peritoneal dialysis. Case management consulted as well. Discharge Plan: Home Plan to discharge in: 48 Hours - Code Status/Comfort Care Code Status Assessed: Yes Critical Care: No
--- NOTE | 2018-04-15 14:15 | RAD REPORT ---
EXAM DESCRIPTION: RAD - Fluoroscopy <1 Hour - 04/15/2018 2:05 pm CLINICAL HISTORY: Device placement central venous catheter placement FINDINGS: A central venous catheter was placed into the superior vena cava. Multiple fluoroscopic sp ot images are submitted. The examination was performed by DR HINKLE. FLUORO TIME 0.2 MINUTES. A fluo roscopic spot images obtained
[2018-04-15] MEDS: FUROSEMIDE 40 MG/4 ML VIAL IV SCH (17:00)
[2018-04-15] MEDS: SEVELAMER CARBONATE 800 MG TABLET PO SCH (17:24)
[2018-04-15] MEDS: CARVEDILOL 12.5 MG TAB PO SCH (18:00)
--- NOTE | 2018-04-15 20:13 | PN ---
Date of Progress Note: 04/15/2018 Subjective: The patient was admitted with chronic kidney disease progression to end-stage renal dise ase, started on dialysis and finished 1 session yesterday. Physical Examination: Vital Signs: Blood pressure 169/92, pulse of 95, afebrile. Chest: Faint crackles on the right base. Heart: S1, S2. Systolic murmur. Abdomen: Soft and nontender. Extremities: Plus edema. Laboratory Data: WBC 8.9, H and H 7.5/22.4, platelet of 200. Sodium 141, potassium 4.5, bicarb 22, BUN 104, creatinine still 16.3, GFR of 4, calcium 7.1, phosphorus 8.4, magnesium of 1.8. Current Medications: Include: 1.Calcium carbonate. 2.Norvasc 10. 3.Amlodipine. 4.Carvedilol 25 b.i.d. 5.Lasix 40 p.o. 6.Zofran. Assessment And Plan: 1.End-stage renal disease. Initiate dialysis. We will continue dialysis Saturday, Saturday, Saturday. 2.Secondary . I am going to start the patient on [facility] 3.Anemia of chronic kidney disease. We will start the patient on Epogen. I am going to go ahead an d send for anemia workup. 4.Hypertension, not controlled. We will utilize the blood pressure for more ultrafiltration. I am going to change Lasix to IV and we will monitor the patient. I am going to go ahead and add lisinopril for the patient. ANIBAL Voice ID: [id number] Report ID: [id number]
[2018-04-15 22:39] LABS: Urine Bilirubin NEGATIVE (NEG); Urine Blood NEGATIVE (NEG); Urine Color YELLOW; Urine Glucose NEGATIVE (NEG); Urine Protein NEGATIVE (NEG); Urine Urobilinogen 0.2 mg/dL (0.2-1.0)
[2018-04-15 22:43] LABS: Urine Appearance CLEAR; Urine Microscopic Reflex NO UMIC
[2018-04-15] MEDS: HYDRALAZINE HCL 20 MG/ML VIAL IV PRN (23:35)
[2018-04-15] MEDS: ALPRAZOLAM 0.25 MG TABLET PO PRN (23:35)
[2018-04-16] MEDS: ACETAMINOPHEN 500 MG TAB PO PRN ×2 (02:19→14:46)
[2018-04-16] MEDS: CARVEDILOL 12.5 MG TAB PO SCH ×2 (05:40→17:25)
[2018-04-16 06:42] LABS: RBC Red Blood Cell Count 2.75 M/uL (4.33-5.43)
[2018-04-16 08:29] LABS: Ferritin 251.3 ng/mL (26-388); Folic Acid, (Folate) 16.4 ng/mL (3.1-17.5); Phosphorus 7.4 mg/dL (2.5-4.9)
[2018-04-16] MEDS ORDERED: LISINOPRIL 10 MG TAB PO SCH (09:00)
[2018-04-16] MEDS: CALCIUM CARB 500MG/VIT D 200 IU TAB PO SCH ×2 (11:50→20:17)
[2018-04-16] MEDS: AMLODIPINE 5 MG TAB PO SCH (11:51)
[2018-04-16] MEDS: HEPARIN 5000 UNIT/ML 1 ML VIAL SQ SCH ×2 (11:52→20:17)
[2018-04-16] MEDS: SEVELAMER CARBONATE 800 MG TABLET PO SCH ×3 (11:52→17:24)
[2018-04-16] MEDS: FUROSEMIDE 40 MG/4 ML VIAL IV SCH ×2 (11:52→17:24)
[2018-04-16] MEDS: CALCITROL 0.25 MCG CAP PO SCH (12:17)
[2018-04-16] MEDS: HYDRALAZINE HCL 20 MG/ML VIAL IV PRN (14:55)
[2018-04-16] MEDS: ALPRAZOLAM 0.25 MG TABLET PO PRN (20:17)
[2018-04-17] MEDS: ACETAMINOPHEN 500 MG TAB PO PRN (00:31)
--- NOTE | 2018-04-17 02:47 | PN ---
Date of Progress Note: 04/16/2018 Subjective: The patient is feeling better status post dialysis today. Managed to remove 2200. Bloo d pressure been stabilized. Physical Examination: Vital Signs: Blood pressure of 169/70, pulse of 87. Chest: Clear to auscultation. Heart: S1, S2 regular. Abdomen: Soft, nontender. Extremities: Trace edema. Laboratory Data: H and H 7.5/22.4. Sodium 140; potassium 4; bicarb 26; BUN 74; creatinine 12.9; byron cium 7.9; phosphorus 7.4, trending down. TSAT of 19. Ferritin of 251. Hepatitis panel is still pen ding. Assessment And Plan: 1.End-stage renal disease. Continue the patient on dialysis. We will switch the patient to the constance lysis; Saturday, Saturday, Saturday. We will skip dialysis tomorrow. 2.Hypertension, controlled, not optimal. I am going to go ahead and increase his lisinopril to 20 m g and we will follow up the patient. 3.Iron deficiency anemia. Continue Epogen. We will start the patient on IV iron. 4.Secondary . Phosphorus trending down. We will continue binder. 5.Diabetes by primary. Patient awaiting for accepting from [facility] for discharge planning. ANIBAL Voice ID: [id number] Report ID: [id number]
[2018-04-17 03:28] LABS: HBsAG Nonreactive (Nonreactive); Hepatitis A IgM Antibody Nonreactive
[2018-04-17] MEDS: CARVEDILOL 12.5 MG TAB PO SCH ×2 (05:24→17:01)
[2018-04-17 07:28] LABS: Albumin 3.1 g/dL (3.4-5.0); Phosphorus 7.3 mg/dL (2.5-4.9); Potassium 4.1 mmol/L (3.5-5.1)
[2018-04-17 08:28] LABS: Absolute Lymphocytes (CBC) 1.3 K/uL (0.7-4.9); Absolute Monocytes 0.8 K/uL (0.1-1.3); Absolute Neutrophil 5.3 K/uL (1.8-8.0); Basophils % 0.8 % (0-1.3); Hematocrit 23.4 % (39.6-49.0); Lymphocytes % 15.4 % (15.3-44.8); MPV 7.3 fL (7.6-11.3); Monocytes % 9.9 % (3.3-12.3)
[2018-04-17] MEDS ORDERED: LISINOPRIL 10 MG TAB PO SCH (09:00)
[2018-04-17] MEDS: FUROSEMIDE 40 MG/4 ML VIAL IV SCH ×2 (09:01→16:48)
[2018-04-17] MEDS: SEVELAMER CARBONATE 800 MG TABLET PO SCH ×3 (09:01→16:47)
[2018-04-17] MEDS: AMLODIPINE 5 MG TAB PO SCH (09:02)
[2018-04-17] MEDS: HEPARIN 5000 UNIT/ML 1 ML VIAL SQ SCH ×2 (09:02→20:47)
[2018-04-17] MEDS: CALCIUM CARB 500MG/VIT D 200 IU TAB PO SCH ×2 (09:02→20:47)
--- NOTE | 2018-04-17 11:01 | P.PN ---
Subjective Date of Service: 04/17/18 Primary Care Provider: none, Nephrology-Dr. Rome Chief Complaint: hyperkalemia; ESRD Subjective: Doing well Physical Examination - Vital Signs Temperature: 98.2 F Blood Pressure: 148/80 Pulse: 86 Respirations: 18 Pulse Ox (%): 98 - Physical Exam General: Alert, In no apparent distress, Oriented x3, Cooperative HEENT: Atraumatic Neck: Supple Respiratory: Clear to auscultation bilaterally, Normal air movement Cardiovascular: Normal pulses, Regular rate/rhythm Gastrointestinal: Normal bowel sounds, Soft and benign, Non-distended, No tenderness, No masses, No rebound, No guarding Musculoskeletal: No erythema, No tenderness, No warmth Integumentary: No tenderness/swelling, No erythema, No warmth, No cyanosis Neurological: Normal speech, Normal strength at 5/5 x4 extr, Normal tone, Normal affect - Studies Medications List Reviewed: Yes Assessment & Plan Discharge Plan: Home Plan to discharge in: 24 Hours Physician Review Additional Text: Impression: Acute on chronic renal disease now end-stage renal disease requiring hemodialysis Hypertension Iron deficiency anemia Diabetes mellitus type 2 Obesity, BMI 43 Plan: Acute on chronic renal disease now end-stage renal disease requiring hemodialysis: Patient continues to improve on hemodialysis. Arrangements for outpatient dialysis to be finalized. Once finalize patient can be discharged. Anticipate possible discharge in the next 24 hr. Will discuss with nephrology. Hypertension: Blood pressure better controlled with medication. Adjustments in medication have been done. Iron deficiency anemia: Continue with IV iron. Will monitor closely. Diabetes mellitus type 2: Patient on sliding scale. Will check A1c. Obesity, BMI 43: Continue to address lifestyle modification education. Time Spent Managing Pts Care (In Minutes): 55
--- NOTE | 2018-04-18 02:04 | PN ---
Date of Progress Note: 04/17/2018 Subjective: The patient is doing better, blood pressure being controlled. Physical Examination: Vital Signs: Blood pressure of 137/73, pulse of 91. Chest: Clear to auscultation. Heart: S1, S2. Regular. Abdomen: Soft, nontender. Extremities: Trace edema. Current Medications: Include lisinopril 20 mg daily, calcium carbonate, amlodipine 10 mg, carvedilol 25 mg, Tylenol, Lasix 40 b.i.d., and Renvela 3 tablets with each meal. Laboratory Data: WBC 8.2, H and H 7.9/23.4, and platelets 237. Sodium 139, potassium 4.1, bicarb 25 , BUN 59, creatinine down to 11.3, calcium 8.1, phosphorus 7.3, albumin 3.1, and PTH 385. Assessment And Plan: 1.End-stage renal disease. We will continue the patient on dialysis Saturday, Saturday, and Saturday. The patient is going to be scheduled for dialysis tomorrow. 2.Secondary hyperparathyroid. Continue binder. Continue calcitriol. 3.Iron-deficiency anemia. Continue IV iron. Continue Epogen. 4.Hypertension, controlled, optimal. Continue current medication. 5.Hyperkalemia, resolved. The patient is cleared from the renal standpoint for discharge planning whenever chair time being sec ured with the outpatient setting. ANIBAL Voice ID: [id number] Report ID: [id number]
[2018-04-18 04:43] LABS: Absolute Lymphocytes (CBC) 1.3 K/uL (0.7-4.9); Absolute Monocytes 0.6 K/uL (0.1-1.3); Absolute Neutrophil 5.8 K/uL (1.8-8.0); Basophils % 1.1 % (0-1.3); Hematocrit 24.6 % (39.6-49.0); Lymphocytes % 15.3 % (15.3-44.8); MPV 7.6 fL (7.6-11.3); Monocytes % 7.5 % (3.3-12.3); RBC Red Blood Cell Count 2.94 M/uL (4.33-5.43)
[2018-04-18 05:02] LABS: Albumin 3.3 g/dL (3.4-5.0); Magnesium 2.5 mg/dL (1.8-2.4); Potassium 4.6 mmol/L (3.5-5.1)
[2018-04-18] MEDS: CARVEDILOL 12.5 MG TAB PO SCH ×2 (05:40→18:15)
[2018-04-18] MEDS: SEVELAMER CARBONATE 800 MG TABLET PO SCH ×3 (08:03→17:10)
[2018-04-18] MEDS: AMLODIPINE 5 MG TAB PO SCH (08:03)
[2018-04-18] MEDS: HEPARIN 5000 UNIT/ML 1 ML VIAL SQ SCH ×2 (08:04→20:33)
[2018-04-18] MEDS: CALCIUM CARB 500MG/VIT D 200 IU TAB PO SCH ×2 (08:04→20:32)
[2018-04-18] MEDS: FUROSEMIDE 40 MG/4 ML VIAL IV SCH ×2 (08:04→17:00)
[2018-04-18] MEDS: LISINOPRIL 10 MG TAB PO SCH ×2 (08:14→20:33)
[2018-04-18] MEDS: EPOETIN ALFA 10,000 UNIT/ML VIAL IV SCH (11:46)
[2018-04-18] MEDS: SOD FERRIC GLUC COMPLX/SUCROSE 125 MG in NA CHLORIDE 0.9% 100 ML IV SCH (11:47)
[2018-04-18] MEDS: CALCITROL 0.25 MCG CAP PO SCH (12:00)
[2018-04-18] MEDS: ACETAMINOPHEN 500 MG TAB PO PRN (13:49)
--- NOTE | 2018-04-18 14:51 | P.DS ---
Admission Date: 04/14/18 Discharge Date: 04/18/18 Primary Care Provider: none, Nephrology-Dr. Rome Disposition: ROUTINE DISCHARGE Discharge Condition: GOOD Reason for Admission: hyperkalemia; ESRD Consultations: Nephrology-Dr. Rome Surgery-Dr. Healy Procedures: Renal US: COMPARISON: August 2017 FINDINGS: The right kidney measures 10 cm with an increased echotexture. The left kidney measures 11 cm with an increased echotexture. Hydronephrosis is not seen. No gross abnormality of bladder is seen IMPRESSION: Increased renal echotexture consistent with parenchymal disease Surgery: Date of Procedure: 04/14/2018 Surgeon: Luis Carlos Healy MD Preoperative Diagnosis: End-stage renal disease. Preoperative Diagnosis: End-stage renal disease. Procedure Performed: Placement of right internal jugular tunneled hemodialysis catheter using ultrasound, fluoroscopy, and micro introducer set. Anesthesia: MAC plus local with 0.25% Marcaine. Estimated Blood Loss: Less than 10 cc. Specimen: None. Findings: Dark, nonpulsatile blood return. Complications: None. Implants: A 24-cm tunneled HemoSplit catheter. Medical problem list: Acute on chronic renal disease secondary to IgA nephropathy, hypertensive nephrosclerosis now end-stage renal disease requiring hemodialysis Hyperkalemia resolved Hypertension Iron deficiency anemia Diabetes mellitus type 2, diet controlled Obesity, BMI 43 Brief History of Present Illness: 27-year-old male with history of IgA nephropathy, hypertensive nephrosclerosis and chronic renal disease. Patient came into the emergency room with increasing fatigue. Patient also had worsening renal function along with hyperkalemia. Patient was admitted for further evaluation. Nephrology consulted to initiate dialysis. Hospital Course: Patient presented to emergency room with worsening renal function and hyperkalemia. Patient with acute on chronic renal disease secondary to IgA nephropathy and hypertensive nephrosclerosis. Patient had been seen by Nephrology as an outpatient. Patient was admitted and required initiation of chronic dialysis. Patient now with end-stage renal disease requiring hemodialysis. Patient tolerated the procedure well. Patient received dialysis. Patient continue to improve. At discharge outpatient dialysis has been arranged for the patient. He will continue with dialysis every Saturday, Wednesdays and Fridays. At discharge he will continue with calcitriol 0.25 mcg every 48 hr, Oscal 1 pill twice daily, Renvela 2400 mg 3 times a day. Patient will also continue with Lasix 40 mg daily. Patient will continue with a 1500 cc per day fluid restriction. Further adjustment in medication can be done by nephrology. Patient with hypertension. Medications adjusted during his stay. At discharge he will continue with carvedilol 25 mg 1 pill twice daily, Norvasc 10 mg daily, and lisinopril 20 mg 1 pill twice daily. Recommendation is to maintain blood pressures less 150/80. Further adjustment can be done by his PCP or nephrology. Patient has iron deficiency anemia. Patient will continue with iron 325 mg 1 pill twice daily. Recommendation to recheck CBC in 2-4 weeks to monitor his progress. Patient with diabetes type 2. A1c well controlled. Patient will continue with diet control intervention. Recommendation is to maintain blood sugars less 140 fasting and less than 200 after meals. Further adjustment can be done by his PCP. Patient with obesity. BMI 43. Lifestyle modification education will be provided. Patient may benefit in evaluation for sleep apnea. This can be done as an outpatient. Patient plans to establish care with a local PCP in the area to further assess and monitor his condition. Vital Signs/Physical Exam: Temp Pulse Resp BP Pulse Ox 97.8 F 78 18 124/66 98 04/18/18 12:00 04/18/18 12:00 04/18/18 12:00 04/18/18 12:00 04/18/18 12:00 General: Alert, In no apparent distress, Oriented x3, Cooperative HEENT: Atraumatic Neck: Supple Respiratory: Clear to auscultation bilaterally, Normal air movement Cardiovascular: Normal pulses, Regular rate/rhythm Gastrointestinal: Normal bowel sounds, Soft and benign, Non-distended, No tenderness, No masses, No rebound, No guarding Musculoskeletal: No erythema, No tenderness, No warmth Integumentary: No tenderness/swelling, No erythema, No warmth, No cyanosis Neurological: Normal speech, Normal strength at 5/5 x4 extr, Normal tone, Normal affect Lymphatics: No axilla or inguinal lymphadenopathy Laboratory Data at Discharge: WBC 8.7 K/uL (4.3-10.9) 04/18/18 04:16 Hgb 8.3 g/dL (13.6-17.9) L 04/18/18 04:16 Hct 24.6 % (39.6-49.0) L 04/18/18 04:16 Plt Count 238 K/uL (152-406) 04/18/18 04:16 Sodium 140 mmol/L (136-145) 04/18/18 04:16 Potassium 4.6 mmol/L (3.5-5.1) 04/18/18 04:16 BUN 73 mg/dL (7-18) H 04/18/18 04:16 Creatinine 13.80 mg/dL (0.55-1.3) H* D 04/18/18 04:16 Glucose 81 mg/dL (74-106) 04/18/18 04:16 Phosphorus 8.0 mg/dL (2.5-4.9) H 04/18/18 04:16 Magnesium 2.5 mg/dL (1.8-2.4) H D 04/18/18 04:16 Total Bilirubin 0.4 mg/dL (0.2-1.0) 04/15/18 05:18 AST 7 U/L (15-37) L 04/15/18 05:18 ALT 21 U/L (12-78) 04/15/18 05:18 Alkaline Phosphatase 45 U/L (45-117) 04/15/18 05:18 Home Medications: Furosemide [Lasix*] 40 mg PO DAILY #30 tab 08/09/17 Loratadine [Claritin*] 10 mg PO PRN 04/14/18 Amlodipine Besylate [Norvasc] 10 mg PO DAILY #90 tablet 04/18/18 Calcitrol [Rocaltrol*] 0.25 mcg PO Q48H #15 cap 04/18/18 Calcium Carbonate/Vitamin D3 [Oscal 500 + Vit D 200 Iu Tab*] 1 tab PO BID #60 tab 04/18/18 Carvedilol [Coreg] 25 mg PO BID #60 tab 04/18/18 Lisinopril 20 mg PO BID #60 tablet 04/18/18 Sevelamer Carbonate [Renvela*] 2,400 mg PO TIDWM #270 tablet 04/18/18 New Medications: Amlodipine Besylate [Norvasc] 10 mg PO DAILY #90 tablet Calcitrol [Rocaltrol*] 0.25 mcg PO Q48H #15 cap Calcium Carbonate/Vitamin D3 [Oscal 500 + Vit D 200 Iu Tab*] 1 tab PO BID #60 tab Carvedilol [Coreg] 25 mg PO BID #60 tab Lisinopril 20 mg PO BID #60 tablet Sevelamer Carbonate [Renvela*] 2,400 mg PO TIDWM #270 tablet Patient Discharge Instructions: 1. Patient will follow up with a PCP in 1 week to follow up this hospitalization. 2. Patient presented to emergency room with worsening renal function and hyperkalemia. Patient with acute on chronic renal disease secondary to IgA nephropathy and hypertensive nephrosclerosis. Patient had been seen by Nephrology as an outpatient. Patient was admitted and required initiation of chronic dialysis. Patient now with end-stage renal disease requiring hemodialysis. Patient tolerated the procedure well. Patient received dialysis. Patient continue to improve. At discharge outpatient dialysis has been arranged for the patient. He will continue with dialysis every Saturday, Wednesdays and Fridays. At discharge he will continue with calcitriol 0.25 mcg every 48 hr, Oscal 1 pill twice daily, Renvela 2400 mg 3 times a day. Patient will also continue with Lasix 40 mg daily. Patient will continue with a 1500 cc per day fluid restriction. Further adjustment in medication can be done by nephrology. 3. Patient with hypertension. Medications adjusted during his stay. At discharge he will continue with carvedilol 25 mg 1 pill twice daily, Norvasc 10 mg daily, and lisinopril 20 mg 1 pill twice daily. Recommendation is to maintain blood pressures less 150/80. Further adjustment can be done by his PCP or nephrology. 4. Patient has iron deficiency anemia. Patient will continue with iron 325 mg 1 pill twice daily. Recommendation to recheck CBC in 2-4 weeks to monitor his progress. 5. Patient with diabetes type 2. A1c well controlled. Patient will continue with diet control intervention. Recommendation is to maintain blood sugars less 140 fasting and less than 200 after meals. Further adjustment can be done by his PCP. 6. Patient with obesity. BMI 43. Lifestyle modification education will be provided. Patient may benefit in evaluation for sleep apnea. This can be done as an outpatient. Patient plans to establish care with a local PCP in the area to further assess and monitor his condition. Diet: Renal Activity: Ad yobany Time spent managing pt's care (in minutes): 55
--- NOTE | 2018-04-18 23:53 | P.PN ---
Subjective Date of Service: 04/21/18 Primary Care Provider: none, Nephrology-Dr. Rome Chief Complaint: hyperkalemia; ESRD Subjective: No new changes seen and examined during HD pending Op HD chair assignment Physical Examination - Vital Signs Temperature: 98.6 F Blood Pressure: 139/74 Pulse: 90 Respirations: 17 Pulse Ox (%): 97 - Physical Exam General: In no apparent distress, Oriented x3 HEENT: Atraumatic Neck: Supple, Without JVD or thyroid abnormality Respiratory: Clear to auscultation bilaterally, Normal air movement Cardiovascular: No edema, Regular rate/rhythm, Normal S1 S2 Gastrointestinal: Normal bowel sounds, Soft and benign - Studies Medications List Reviewed: Yes Assessment And Plan - Current Problems (Diagnosis) (1) Hypertensive nephrosclerosis Onset Date: 04/15/18 Current Visit: Yes Status: Acute (2) End stage renal disease Onset Date: 04/15/18 Current Visit: Yes Status: Chronic - Plan End-stage renal disease. HD MWF Secondary hyperparathyroid. Continue binder. Continue calcitriol. Anemia Cont Epo and IV iron HTN controlled Physician Review Additional Text: =
[2018-04-19 05:32] LABS: Absolute Lymphocytes (CBC) 1.7 K/uL (0.7-4.9); Absolute Monocytes 0.8 K/uL (0.1-1.3); Absolute Neutrophil 5.3 K/uL (1.8-8.0); Basophils % 0.9 % (0-1.3); Eosinophils % 7.9 % (0-4.4); Hematocrit 23.3 % (39.6-49.0); Lymphocytes % 19.8 % (15.3-44.8); MPV 7.4 fL (7.6-11.3); Monocytes % 9.7 % (3.3-12.3); RBC Red Blood Cell Count 2.78 M/uL (4.33-5.43)
[2018-04-19 05:59] LABS: Albumin 3.2 g/dL (3.4-5.0); Magnesium 2.2 mg/dL (1.8-2.4); Phosphorus 5.9 mg/dL (2.5-4.9); Potassium 4.2 mmol/L (3.5-5.1)
[2018-04-19] MEDS: CARVEDILOL 12.5 MG TAB PO SCH ×2 (06:00→17:16)
[2018-04-19 06:55] VITALS: BMI 42.6
[2018-04-19] MEDS: FUROSEMIDE 40 MG/4 ML VIAL IV SCH (09:00)
[2018-04-19] MEDS: SEVELAMER CARBONATE 800 MG TABLET PO SCH ×3 (09:05→17:16)
[2018-04-19] MEDS: CALCIUM CARB 500MG/VIT D 200 IU TAB PO SCH ×2 (09:34→17:16)
[2018-04-19] MEDS: AMLODIPINE 5 MG TAB PO SCH (09:34)
[2018-04-19] MEDS: LISINOPRIL 10 MG TAB PO SCH ×2 (09:35→21:40)
[2018-04-19] MEDS: HEPARIN 5000 UNIT/ML 1 ML VIAL SQ SCH ×2 (09:38→21:41)
[2018-04-19] MEDS: FUROSEMIDE 40 MG TABLET PO SCH (13:28)
--- NOTE | 2018-04-19 16:32 | PN ---
Date of Progress Note: 04/19/2018 Subjective: The patient is status post dialysis yesterday. Tolerated the dialysis very well. We ma naged to remove 1800. Objective: VITAL SIGNS: Blood pressure 148/91, pulse of 97. Afebrile. Chest: Clear to auscultation. Heart: S1, S2. Regular. Abdomen: Soft, nontender. Extremities: Trace edema. Laboratory Data: WBC 8.6, H and H 8/23.3, platelets 231. Sodium 141, potassium 4.2, bicarb 25, BUN 54, creatinine down to 11, calcium 8.3, phosphorus down to 5.9, magnesium 2.2. Current Medications: The patient on its include: 1.Albumin. 2.Epogen 10,000. 3.IV iron with each treatment. 4.Norvasc 10. 5.Carvedilol 25. 6.Lisinopril 20 mg b.i.d. 7.Lasix 40 mg daily. 8.Renvela 3 tablets with each meal. 9.Calcitriol. Assessment And Plan: 1.End-stage renal disease. We will continue the patient on dialysis. 2.Iron-deficiency anemia. Continue IV iron and Epogen. 3.Diabetes, as by primary. 4.Hypertension, controlled, optimal. Continue current medication. 5.Secondary hyperpara. I am going to go ahead and increase calcium carbonate. Hopefully we can tap nieves [place]. ANIBAL Voice ID: [id number] Report ID: [id number]
[2018-04-19] MEDS: ACETAMINOPHEN 500 MG TAB PO PRN (21:41)
[2018-04-20] MEDS: CARVEDILOL 12.5 MG TAB PO SCH ×2 (06:29→17:46)
[2018-04-20 06:46] LABS: Absolute Lymphocytes (CBC) 1.6 K/uL (0.7-4.9); Absolute Monocytes 0.8 K/uL (0.1-1.3); Absolute Neutrophil 6.1 K/uL (1.8-8.0); Basophils % 0.8 % (0-1.3); Eosinophils % 7.4 % (0-4.4); Hematocrit 23.7 % (39.6-49.0); Lymphocytes % 17.1 % (15.3-44.8); MPV 7.5 fL (7.6-11.3); Monocytes % 8.1 % (3.3-12.3)
[2018-04-20 07:17] LABS: Albumin 3.3 g/dL (3.4-5.0); Magnesium 2.3 mg/dL (1.8-2.4); Phosphorus 6.1 mg/dL (2.5-4.9); Potassium 4.2 mmol/L (3.5-5.1)
[2018-04-20] MEDS: HEPARIN 5000 UNIT/ML 1 ML VIAL SQ SCH ×2 (09:08→22:32)
[2018-04-20] MEDS: SEVELAMER CARBONATE 800 MG TABLET PO SCH ×3 (09:08→17:45)
[2018-04-20] MEDS: FUROSEMIDE 40 MG TABLET PO SCH (09:09)
[2018-04-20] MEDS: AMLODIPINE 5 MG TAB PO SCH (09:09)
[2018-04-20] MEDS: CALCIUM CARB 500MG/VIT D 200 IU TAB PO SCH ×3 (09:09→17:46)
[2018-04-20] MEDS: LISINOPRIL 10 MG TAB PO SCH ×2 (09:10→22:31)
[2018-04-20] MEDS: CALCITROL 0.25 MCG CAP PO SCH (13:14)
--- NOTE | 2018-04-20 14:01 | P.PN ---
Subjective Date of Service: 04/20/18 Primary Care Provider: none, Nephrology-Dr. Rome Chief Complaint: hyperkalemia; ESRD Patient seen and examined at bedside with RN. Chart reviewed. Case discussed with nephrology at this time. No complaints to offer overnight. Doing well overall Review of Systems 10-point ROS is otherwise unremarkable Physical Examination - Vital Signs Temperature: 98.9 F Blood Pressure: 151/80 Pulse: 87 Respirations: 20 Pulse Ox (%): 97 - Physical Exam General: Alert, In no apparent distress HEENT: Atraumatic, PERRLA, EOMI Neck: Supple, JVD not distended Respiratory: Clear to auscultation bilaterally, Normal air movement Cardiovascular: Regular rate/rhythm, Normal S1 S2 Gastrointestinal: Normal bowel sounds, No tenderness Musculoskeletal: No tenderness Integumentary: No rashes Neurological: Normal speech, Normal tone, Normal affect Lymphatics: No axilla or inguinal lymphadenopathy - Studies Medications List Reviewed: Yes Assessment And Plan - Current Problems (Diagnosis) (1) Acute on chronic renal failure Current Visit: No Status: Acute Plan: Acute on chronic kidney disease. Now end-stage renal disease on dialysis. Most likely secondary to IgA nephropathy and worsening diabetes -nephrology has been consulted. Appreciated recommendations at this time -status post HD catheter placement. Now started on HD -patient awaiting chair time at this time. Qualifiers: Acute renal failure type: unspecified Chronic kidney disease stage: stage 5 , not on chronic dialysis Qualified Code(s): N17.9 - Acute kidney failure, unspecified; N18.5 - Chronic kidney disease, stage 5 (2) End stage renal disease Onset Date: 04/15/18 Current Visit: Yes Status: Chronic (3) IgA nephropathy Onset Date: 04/15/18 Current Visit: Yes Status: Chronic (4) Hyperkalemia Onset Date: 04/15/18 Current Visit: Yes Status: Acute Plan: Hyperkalemia most likely secondary to end-stage renal disease -started on hemodialysis. 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 use Diabetes mellitus complication status: with kidney complications Diabetes mellitus complication detail: with chronic kidney disease Chronic kidney disease stage: stage 5, not on chronic dialysis Qualified Code(s): E11.22 - Type 2 diabetes mellitus with diabetic chronic kidney disease; N18.5 - Chronic kidney disease, stage 5; Z79.4 - watermelon inspector ( current) use of insulin (6) Hypertension Current Visit: No Status: Chronic Qualifiers: Hypertension type: essential hypertension Qualified Code(s): I10 - Essential (primary) hypertension (7) Obesity Onset Date: 08/06/17 Current Visit: No Status: Chronic Qualifiers: Obesity type: unspecified obesity type Obesity classification: unspecified obesity classification Serious obesity comorbidity presence: unspecified whether serious comorbidity present Qualified Code(s): E66.9 - Obesity, unspecified - Plan Patient currently pending clinical improvement at this time. Started on hemodialysis. Awaiting Chair time at this time. Discharge Plan: Home Plan to discharge in: 48 Hours - Code Status/Comfort Care Code Status Assessed: Yes Critical Care: No
--- NOTE | 2018-04-20 19:30 | PN ---
Date of Progress Note: 04/20/2018 NEPHROLOGY FOLLOWUP Subjective: The patient is feeling better. No nausea. No vomiting. Physical Examination: Vital Signs: Blood pressure 153/81, pulse of 87. The patient had good urine output, had been tolera ting dialysis. Chest: Clear to auscultation. Heart: S1, S2. Regular. Abdomen: Soft, nontender. Extremities: No edema. Laboratory Data: WBC 9.2, H and H 8.1/23.7, platelets 236. Sodium 140, potassium 4.2, bicarb 24, BU N 67, creatinine 14, calcium 8.6, phosphorus 6.1, magnesium 2.3. Current Medications: The patient on include calcium carbonate 1 tablet with each meal, amlodipine 10 mg, carvedilol 25 b.i.d., lisinopril 20 b.i.d., Lasix 40 mg, Renvela 3 tablets with each meal, magne sium hydroxide, and calcitriol 0.25 every other day. Assessment And Plan: 1.End-stage renal disease. We will continue the patient on dialysis Saturday, Saturday, Saturday. The patient is waiting for outpatient setup. 2.Secondary hyperparathyroidism. Continue calcitriol. We will increase calcium carbonate to 2 tabl ets. Continue Renvela. 3.Anemia of chronic kidney disease with iron deficiency anemia. Continue IV iron and Epogen. 4.Hypertension, controlled, not optimal. I will adjust his lisinopril. I am going to follow up the blood pressure after dialysis tomorrow and we will follow up. 5.Diabetes, as by primary. ALONZO/STACIA Voice ID: [id number] Report ID: [id number]
[2018-04-21] MEDS: CARVEDILOL 12.5 MG TAB PO SCH ×2 (06:08→17:44)
[2018-04-21] MEDS: AMLODIPINE 5 MG TAB PO SCH (09:11)
[2018-04-21] MEDS: SEVELAMER CARBONATE 800 MG TABLET PO SCH ×4 (09:12→17:43)
[2018-04-21] MEDS: CALCIUM CARB 500MG/VIT D 200 IU TAB PO SCH ×4 (09:12→17:44)
[2018-04-21] MEDS: FUROSEMIDE 40 MG TABLET PO SCH (09:13)
[2018-04-21] MEDS: LISINOPRIL 10 MG TAB PO SCH ×2 (09:13→20:20)
[2018-04-21] MEDS: HEPARIN 5000 UNIT/ML 1 ML VIAL SQ SCH ×2 (09:13→20:20)
--- NOTE | 2018-04-21 10:56 | P.PN ---
Subjective Date of Service: 04/21/18 Primary Care Provider: none, Nephrology-Dr. Rome Chief Complaint: hyperkalemia; ESRD Patient seen and examined at bedside with RN. Chart reviewed. Case discussed with nephrology at this time. No complaints to offer overnight. Doing well overall. Will DC once Chair Time confirmed Review of Systems 10-point ROS is otherwise unremarkable Physical Examination - Vital Signs Temperature: 98.5 F Blood Pressure: 153/84 Pulse: 77 Respirations: 18 Pulse Ox (%): 98 - Physical Exam General: Alert, In no apparent distress HEENT: Atraumatic, PERRLA, EOMI Neck: Supple, JVD not distended Respiratory: Clear to auscultation bilaterally, Normal air movement Cardiovascular: Regular rate/rhythm, Normal S1 S2 Gastrointestinal: Normal bowel sounds, No tenderness Musculoskeletal: No tenderness Integumentary: No rashes Neurological: Normal speech, Normal tone, Normal affect Lymphatics: No axilla or inguinal lymphadenopathy - Studies Medications List Reviewed: Yes Assessment And Plan - Current Problems (Diagnosis) (1) Acute on chronic renal failure Current Visit: No Status: Acute Plan: Acute on chronic kidney disease. Now end-stage renal disease on dialysis. Most likely secondary to IgA nephropathy and worsening diabetes -nephrology has been consulted. Appreciated recommendations at this time -status post HD catheter placement. Now started on HD -DC when Chair Time confirmed Qualifiers: Acute renal failure type: unspecified Chronic kidney disease stage: stage 5 , not on chronic dialysis Qualified Code(s): N17.9 - Acute kidney failure, unspecified; N18.5 - Chronic kidney disease, stage 5 (2) End stage renal disease Onset Date: 04/15/18 Current Visit: Yes Status: Chronic (3) IgA nephropathy Onset Date: 04/15/18 Current Visit: Yes Status: Chronic (4) Hyperkalemia Onset Date: 04/15/18 Current Visit: Yes Status: Acute Plan: Hyperkalemia most likely secondary to end-stage renal disease -started on hemodialysis. -potassium within normal limits (5) Diabetes mellitus Current Visit: No Status: Chronic Qualifiers: Diabetes mellitus type: type 2 Diabetes mellitus moth exterminator insulin use: with moth exterminator use Diabetes mellitus complication status: with kidney complications Diabetes mellitus complication detail: with chronic kidney disease Chronic kidney disease stage: stage 5, not on chronic dialysis Qualified Code(s): E11.22 - Type 2 diabetes mellitus with diabetic chronic kidney disease; N18.5 - Chronic kidney disease, stage 5; Z79.4 - senior living ( current) use of insulin (6) Hypertension Current Visit: No Status: Chronic Qualifiers: Hypertension type: essential hypertension Qualified Code(s): I10 - Essential (primary) hypertension (7) Obesity Onset Date: 08/06/17 Current Visit: No Status: Chronic Qualifiers: Obesity type: unspecified obesity type Obesity classification: unspecified obesity classification Serious obesity comorbidity presence: unspecified whether serious comorbidity present Qualified Code(s): E66.9 - Obesity, unspecified - Plan Patient currently pending clinical improvement at this time. Started on hemodialysis. DC when Chair time Confirmed today.
[2018-04-21] MEDS: EPOETIN ALFA 10,000 UNIT/ML VIAL IV SCH (13:07)
[2018-04-21] MEDS: SOD FERRIC GLUC COMPLX/SUCROSE 125 MG in NA CHLORIDE 0.9% 100 ML IV SCH (13:08)
--- NOTE | 2018-04-22 03:11 | PN ---
Date of Progress Note: 04/21/2018 Chief Complaint: End-stage renal disease, new onset. The patient was started on dialysis. The patient has history of IgA nephropathy with proteinuria. T he patient is advancing on p.o. intake and blood pressure is in better control. The patient is on bl ood pressure medication. Fluid overload is gradually resolving with dialysis. Review of Systems: Denies fever, chills. Denies nausea, vomiting. Physical Examination: Lungs: Diminished breath sounds at bases. Heart: S1, S2. Abdomen: Soft, benign. Extremities: No edema. Impression And Plan: 1.Continue dialysis 3 times per week. Monitor albumin level, advance p.o. protein intake. 2.Hyperphosphatemia is controlled. Continue to monitor phosphorus level and adjust binders as candy GONGORA/STACIA Voice ID: [id number] Report ID: [id number]
[2018-04-22] MEDS: CARVEDILOL 12.5 MG TAB PO SCH ×2 (05:21→16:58)
[2018-04-22] MEDS: CALCIUM CARB 500MG/VIT D 200 IU TAB PO SCH ×3 (08:23→16:58)
[2018-04-22] MEDS: AMLODIPINE 5 MG TAB PO SCH (08:24)
[2018-04-22] MEDS: SEVELAMER CARBONATE 800 MG TABLET PO SCH ×3 (08:24→16:57)
[2018-04-22] MEDS: HEPARIN 5000 UNIT/ML 1 ML VIAL SQ SCH ×2 (08:24→20:29)
[2018-04-22] MEDS: FUROSEMIDE 40 MG TABLET PO SCH (08:24)
[2018-04-22] MEDS: LISINOPRIL 10 MG TAB PO SCH ×2 (08:25→20:28)
--- NOTE | 2018-04-22 11:06 | P.PN ---
Subjective Date of Service: 04/22/18 Primary Care Provider: none, Nephrology-Dr. Rome Chief Complaint: hyperkalemia; ESRD Patient seen and examined at bedside with RN. Chart reviewed. Case discussed with nephrology at this time. No complaints to offer overnight. Doing well overall. Will DC once HD setup Review of Systems 10-point ROS is otherwise unremarkable Physical Examination - Vital Signs Temperature: 97.6 F Blood Pressure: 171/90 Pulse: 82 Respirations: 17 Pulse Ox (%): 91 - Physical Exam General: Alert, In no apparent distress HEENT: Atraumatic, PERRLA, EOMI Neck: Supple, JVD not distended Respiratory: Clear to auscultation bilaterally, Normal air movement Cardiovascular: Regular rate/rhythm, Normal S1 S2 Gastrointestinal: Normal bowel sounds, No tenderness Musculoskeletal: No tenderness Integumentary: No rashes Neurological: Normal speech, Normal tone, Normal affect Lymphatics: No axilla or inguinal lymphadenopathy - Studies Medications List Reviewed: Yes Assessment And Plan - Current Problems (Diagnosis) (1) Acute on chronic renal failure Current Visit: No Status: Acute Plan: Acute on chronic kidney disease. Now end-stage renal disease on dialysis. Most likely secondary to IgA nephropathy and worsening diabetes -nephrology has been consulted. Appreciated recommendations at this time -status post HD catheter placement. Now started on HD -DC when HD confirmed. Qualifiers: Acute renal failure type: unspecified Chronic kidney disease stage: stage 5 , not on chronic dialysis Qualified Code(s): N17.9 - Acute kidney failure, unspecified; N18.5 - Chronic kidney disease, stage 5 (2) End stage renal disease Onset Date: 04/15/18 Current Visit: Yes Status: Chronic (3) IgA nephropathy Onset Date: 04/15/18 Current Visit: Yes Status: Chronic (4) Hyperkalemia Onset Date: 04/15/18 Current Visit: Yes Status: Acute Plan: Hyperkalemia most likely secondary to end-stage renal disease -started on hemodialysis. -potassium within normal limits (5) Diabetes mellitus Current Visit: No Status: Chronic Qualifiers: Diabetes mellitus type: type 2 Diabetes mellitus meterman insulin use: with snf use Diabetes mellitus complication status: with kidney complications Diabetes mellitus complication detail: with chronic kidney disease Chronic kidney disease stage: stage 5, not on chronic dialysis Qualified Code(s): E11.22 - Type 2 diabetes mellitus with diabetic chronic kidney disease; N18.5 - Chronic kidney disease, stage 5; Z79.4 - rn long term care ( current) use of insulin (6) Hypertension Current Visit: No Status: Chronic Qualifiers: Hypertension type: essential hypertension Qualified Code(s): I10 - Essential (primary) hypertension (7) Obesity Onset Date: 08/06/17 Current Visit: No Status: Chronic Qualifiers: Obesity type: unspecified obesity type Obesity classification: unspecified obesity classification Serious obesity comorbidity presence: unspecified whether serious comorbidity present Qualified Code(s): E66.9 - Obesity, unspecified - Plan Patient currently pending clinical improvement at this time. Started on hemodialysis. DC when Chair time Confirmed. Discharge Plan: Home Plan to discharge in: 48 Hours - Code Status/Comfort Care Code Status Assessed: Yes Critical Care: No
--- NOTE | 2018-04-22 12:29 | P.PN ---
Subjective Date of Service: 04/22/18 Primary Care Provider: none, Nephrology-Dr. Rome Chief Complaint: hyperkalemia; ESRD Subjective: Improving no new complaints pending Op HD chair assignment will add hydralazine HD tomorrow Physical Examination - Vital Signs Temperature: 97.6 F Blood Pressure: 171/90 Pulse: 82 Respirations: 17 Pulse Ox (%): 91 - Physical Exam General: In no apparent distress, Oriented x3 Neck: Supple, Without JVD or thyroid abnormality Respiratory: Clear to auscultation bilaterally, Normal air movement Cardiovascular: No edema, Regular rate/rhythm, Normal S1 S2 Gastrointestinal: Normal bowel sounds, Soft and benign - Studies Medications List Reviewed: Yes Assessment And Plan - Current Problems (Diagnosis) (1) Hypertensive nephrosclerosis Onset Date: 04/15/18 Current Visit: Yes Status: Acute (2) End stage renal disease Onset Date: 04/15/18 Current Visit: Yes Status: Chronic - Plan End-stage renal disease HD MWF Secondary hyperparathyroid. Continue binder. Continue calcitriol. Anemia Cont Epo and IV iron HTN will add hydralazine Physician Review Additional Text: =
[2018-04-22] MEDS: CALCITROL 0.25 MCG CAP PO SCH (12:42)
[2018-04-22] MEDS: HYDRALAZINE HCL 25 MG TABLET PO SCH ×2 (15:24→20:28)
[2018-04-23] MEDS: CARVEDILOL 12.5 MG TAB PO SCH ×2 (06:03→16:30)
[2018-04-23] MEDS: CALCIUM CARB 500MG/VIT D 200 IU TAB PO SCH ×3 (08:36→16:31)
[2018-04-23] MEDS: SEVELAMER CARBONATE 800 MG TABLET PO SCH ×3 (08:37→16:30)
[2018-04-23] MEDS: HEPARIN 5000 UNIT/ML 1 ML VIAL SQ SCH ×2 (08:41→22:15)
[2018-04-23] MEDS: LISINOPRIL 10 MG TAB PO SCH ×2 (09:00→22:14)
[2018-04-23] MEDS: FUROSEMIDE 40 MG TABLET PO SCH (09:00)
[2018-04-23] MEDS: HYDRALAZINE HCL 25 MG TABLET PO SCH ×3 (09:00→22:14)
[2018-04-23] MEDS: AMLODIPINE 5 MG TAB PO SCH (09:00)
--- NOTE | 2018-04-23 11:33 | P.PN ---
Subjective Date of Service: 04/23/18 Primary Care Provider: none, Nephrology-Dr. Rome Chief Complaint: hyperkalemia; ESRD Patient seen and examined at bedside with RN. Chart reviewed. Case discussed with nephrology at this time. No complaints to offer overnight. Doing well overall. Denied by the insurance company to do hemodialysis at [facility] Patient in network provider are in [facility]. Case management had a conversation with insurance company as patient does not have any reliable transportation to travel to [facility] for 3 times a week for his hemodialysis. Insurance notified the CM that up to 75 miles travel distance is accepted within the plan that the patient has elected. However at this time patient is not able to travel that far and would like to continue his dialysis at [facility] with his fashion buying internship which he has established care with for a long time. I agree with the patient's plan as traveling to [place] is not feasible and thus raising issues of Noncompliance and missed dialysis for the patient. Patient can develop serious complications such as ME, CVA and even from missing dialysis due to his chronic kidney disease. Patient will also have to reestablish care with a new fashion buying internship which is not advisable for the patient and his complicated History of IgA induced ESRD. At this time it is advisable for patient to continue the care with the current nephrology group that he has been seen for a long time. Patient at this time working with the insurance company to appeal the decision and provide coverage at the local [facility] for HD. Review of Systems 10-point ROS is otherwise unremarkable Physical Examination - Vital Signs Temperature: 98.5 F Blood Pressure: 140/60 Pulse: 74 Respirations: 15 Pulse Ox (%): 97 - Physical Exam General: Alert, In no apparent distress HEENT: Atraumatic, PERRLA, EOMI Neck: Supple, JVD not distended Respiratory: Clear to auscultation bilaterally, Normal air movement Cardiovascular: Regular rate/rhythm, Normal S1 S2 Gastrointestinal: Normal bowel sounds, No tenderness Musculoskeletal: No tenderness Integumentary: No rashes Neurological: Normal speech, Normal tone, Normal affect Lymphatics: No axilla or inguinal lymphadenopathy - Studies Medications List Reviewed: Yes Assessment And Plan - Current Problems (Diagnosis) (1) Acute on chronic renal failure Current Visit: No Status: Acute Plan: Acute on chronic kidney disease. Now end-stage renal disease on dialysis. Most likely secondary to IgA nephropathy and worsening diabetes -nephrology has been consulted. Appreciated recommendations at this time -status post HD catheter placement. Now started on HD -DC when HD setup Qualifiers: Acute renal failure type: unspecified Chronic kidney disease stage: stage 5 , not on chronic dialysis Qualified Code(s): N17.9 - Acute kidney failure, unspecified; N18.5 - Chronic kidney disease, stage 5 (2) End stage renal disease Onset Date: 04/15/18 Current Visit: Yes Status: Chronic (3) IgA nephropathy Onset Date: 04/15/18 Current Visit: Yes Status: Chronic (4) Hyperkalemia Onset Date: 04/15/18 Current Visit: Yes Status: Acute Plan: Hyperkalemia most likely secondary to end-stage renal disease -started on hemodialysis. -potassium within normal limits (5) Diabetes mellitus Current Visit: No Status: Chronic Qualifiers: Diabetes mellitus type: type 2 Diabetes mellitus assisted insulin use: with assisted use Diabetes mellitus complication status: with kidney complications Diabetes mellitus complication detail: with chronic kidney disease Chronic kidney disease stage: stage 5, not on chronic dialysis Qualified Code(s): E11.22 - Type 2 diabetes mellitus with diabetic chronic kidney disease; N18.5 - Chronic kidney disease, stage 5; Z79.4 - [facility] ( current) use of insulin (6) Hypertension Current Visit: No Status: Chronic Qualifiers: Hypertension type: essential hypertension Qualified Code(s): I10 - Essential (primary) hypertension (7) Obesity Onset Date: 08/06/17 Current Visit: No Status: Chronic Qualifiers: Obesity type: unspecified obesity type Obesity classification: unspecified obesity classification Serious obesity comorbidity presence: unspecified whether serious comorbidity present Qualified Code(s): E66.9 - Obesity, unspecified - Plan Patient currently pending clinical improvement at this time. Started on hemodialysis. Denied by the insurance company to do hemodialysis at [facility] Patient in network provider are in [facility]. Case management had a conversation with insurance company as patient does not have any reliable transportation to travel to [facility] for 3 times a week for his hemodialysis. Insurance notified the CM that up to 75 miles travel distance is accepted within the plan that the patient has elected. However at this time patient is not able to travel that far and would like to continue his dialysis at [facility] with his fashion buying internship which he has established care with for a long time. I agree with the patient's plan as traveling to [place] is not feasible and thus raising issues of Noncompliance and missed dialysis for the patient. Patient can develop serious complications such as ME, CVA and even from missing dialysis due to his chronic kidney disease. Patient will also have to reestablish care with a new fashion buying internship which is not advisable for the patient and his complicated History of IgA induced ESRD. At this time it is advisable for patient to continue the care with the current nephrology group that he has been seen for a long time. Patient at this time working with the insurance company to appeal the decision and provide coverage at the local [facility] for HD. Discharge Plan: Home Plan to discharge in: 48 Hours - Code Status/Comfort Care Code Status Assessed: Yes Critical Care: No
[2018-04-23] MEDS: EPOETIN ALFA 10,000 UNIT/ML VIAL IV SCH (13:04)
[2018-04-23] MEDS: SOD FERRIC GLUC COMPLX/SUCROSE 125 MG in NA CHLORIDE 0.9% 100 ML IV SCH (13:05)
--- NOTE | 2018-04-23 16:30 | PN ---
Date of Progress Note: 04/23/2018 Subjective: The patient is doing better. Unfortunately, patient could not accept to commute to [place] as it is farther for him to do dialysis there and he is out of network. The patient can explor e changing insurance. Physical Examination: Vital Signs: Blood pressure 140/60, pulse of 74. Chest: Clear to auscultation. Heart: S1, S2. Regular. Abdomen: Soft. Nontender. Extremity: Plus edema. Laboratory Data: H and H 8.1/32.7. Sodium 142, potassium 4.2, bicarb 24, BUN 67, creatinine 14, byron cium 8.6, phosphorus 6.1, magnesium 2.3. Current Medications: The patient on include Epogen, IV iron, calcium carbonate, amlodipine, carvedil ol 25 b.i.d., hydralazine 25 t.i.d., lisinopril 20 b.i.d., Renvela 3 tablets with each meal, Lasix, a nd calcitriol. Assessment And Plan: 1.End-stage renal disease. We will continue dialysis on Saturday, Saturday, Saturday. Waiting for vinh cement as outpatient. 2.Secondary hyperparathyroid. Continue current treatment. We will monitor. 3.Hypertension, controlled, optimal, continue current treatment. 4.Diabetes, as by primary. ALONZO/STACIA Voice ID: [id number] Report ID: [id number]
[2018-04-23] MEDS: ACETAMINOPHEN 500 MG TAB PO PRN (16:31)
[2018-04-24] MEDS: CARVEDILOL 12.5 MG TAB PO SCH ×2 (05:52→17:03)
[2018-04-24] MEDS: SEVELAMER CARBONATE 800 MG TABLET PO SCH ×3 (09:33→17:03)
[2018-04-24] MEDS: CALCIUM CARB 500MG/VIT D 200 IU TAB PO SCH ×3 (09:33→17:03)
[2018-04-24] MEDS: LISINOPRIL 10 MG TAB PO SCH ×2 (09:34→21:00)
[2018-04-24] MEDS: AMLODIPINE 5 MG TAB PO SCH (09:34)
[2018-04-24] MEDS: FUROSEMIDE 40 MG TABLET PO SCH (09:35)
[2018-04-24] MEDS: HYDRALAZINE HCL 25 MG TABLET PO SCH ×3 (09:35→20:59)
[2018-04-24] MEDS: HEPARIN 5000 UNIT/ML 1 ML VIAL SQ SCH ×2 (09:35→20:59)
--- NOTE | 2018-04-24 09:57 | P.PN ---
Subjective Date of Service: 04/24/18 Primary Care Provider: none, Nephrology-Dr. Rome Chief Complaint: hyperkalemia; ESRD Subjective: No new changes no new complaints Stable vitals pending discharge due to out patient dialysis arrangement, as pt insurance didint approve for [place] dialysis, and pt refused to go to [place] for dialysis HD tomorrow Physical Examination - Vital Signs Temperature: 99.9 F Blood Pressure: 127/74 Pulse: 81 Respirations: 20 Pulse Ox (%): 98 - Physical Exam General: In no apparent distress, Oriented x3 HEENT: Atraumatic Neck: Supple, Without JVD or thyroid abnormality Respiratory: Clear to auscultation bilaterally, Normal air movement Cardiovascular: No edema, Regular rate/rhythm, Normal S1 S2 - Studies Medications List Reviewed: Yes Assessment And Plan - Current Problems (Diagnosis) (1) Hypertensive nephrosclerosis Onset Date: 04/15/18 Current Visit: Yes Status: Acute (2) End stage renal disease Onset Date: 04/15/18 Current Visit: Yes Status: Chronic - Plan End-stage renal disease HD MWF renal dose meds Secondary hyperparathyroid. Continue binder. Continue calcitriol. Anemia Cont Epo and IV iron HTN controlled
[2018-04-24] MEDS: CALCITROL 0.25 MCG CAP PO SCH (11:41)
--- NOTE | 2018-04-24 11:47 | P.PN ---
Subjective Date of Service: 04/24/18 Primary Care Provider: none, Nephrology-Dr. Rome Chief Complaint: hyperkalemia; ESRD Patient seen and examined at bedside with RN. Chart reviewed. Case discussed with nephrology at this time. No complaints to offer overnight. Doing well overall. Denied by the insurance company to do hemodialysis at [facility][1] Patient in network provider are in [facility]. Case management had a conversation with insurance company as patient does not have any reliable transportation to travel to [facility] for 3 times a week for his hemodialysis. Insurance notified the CM that up to 75 miles travel distance is accepted within the plan that the patient has elected. However at this time patient is not able to travel that far and would like to continue his dialysis at [facility] with his research computing specialist which he has established care with for a long time. I agree with the patient's plan as traveling to [place] is not feasible and thus raising issues of Noncompliance and missed dialysis for the patient. Patient can develop serious complications such as AK, CVA and even from missing dialysis due to his chronic kidney disease. Patient will also have to reestablish care with a new research computing specialist which is not advisable for the patient and his complicated History of IgA induced ESRD. At this time it is advisable for patient to continue the care with the current nephrology group that he has been seen for a long time. Patient at this time working with the insurance company to appeal the decision and provide coverage at the local [facility][1] for HD. Review of Systems 10-point ROS is otherwise unremarkable Physical Examination - Vital Signs Temperature: 99.9 F Blood Pressure: 127/74 Pulse: 81 Respirations: 20 Pulse Ox (%): 98 - Physical Exam General: Alert, In no apparent distress HEENT: Atraumatic, PERRLA, EOMI Neck: Supple, JVD not distended Respiratory: Clear to auscultation bilaterally, Normal air movement Cardiovascular: Regular rate/rhythm, Normal S1 S2 Gastrointestinal: Normal bowel sounds, No tenderness Musculoskeletal: No tenderness Integumentary: No rashes Neurological: Normal speech, Normal tone, Normal affect Lymphatics: No axilla or inguinal lymphadenopathy - Studies Medications List Reviewed: Yes Assessment And Plan - Current Problems (Diagnosis) (1) Acute on chronic renal failure Current Visit: No Status: Acute Plan: Acute on chronic kidney disease. Now end-stage renal disease on dialysis. Most likely secondary to IgA nephropathy and worsening diabetes -nephrology has been consulted. Appreciated recommendations at this time -status post HD catheter placement. Now started on HD -DC when HD setup Qualifiers: Acute renal failure type: unspecified Chronic kidney disease stage: stage 5 , not on chronic dialysis Qualified Code(s): N17.9 - Acute kidney failure, unspecified; N18.5 - Chronic kidney disease, stage 5 (2) End stage renal disease Onset Date: 04/15/18 Current Visit: Yes Status: Chronic (3) IgA nephropathy Onset Date: 04/15/18 Current Visit: Yes Status: Chronic (4) Hyperkalemia Onset Date: 04/15/18 Current Visit: Yes Status: Acute Plan: Hyperkalemia most likely secondary to end-stage renal disease -started on hemodialysis. -potassium within normal limits (5) Diabetes mellitus Current Visit: No Status: Chronic Qualifiers: Diabetes mellitus type: type 2 Diabetes mellitus detention insulin use: with detention use Diabetes mellitus complication status: with kidney complications Diabetes mellitus complication detail: with chronic kidney disease Chronic kidney disease stage: stage 5, not on chronic dialysis Qualified Code(s): E11.22 - Type 2 diabetes mellitus with diabetic chronic kidney disease; N18.5 - Chronic kidney disease, stage 5; Z79.4 - continuous churn buttermaker ( current) use of insulin (6) Hypertension Current Visit: No Status: Chronic Qualifiers: Hypertension type: essential hypertension Qualified Code(s): I10 - Essential (primary) hypertension (7) Obesity Onset Date: 08/06/17 Current Visit: No Status: Chronic Qualifiers: Obesity type: unspecified obesity type Obesity classification: unspecified obesity classification Serious obesity comorbidity presence: unspecified whether serious comorbidity present Qualified Code(s): E66.9 - Obesity, unspecified - Plan Patient currently pending clinical improvement at this time. Started on hemodialysis. Denied by the insurance company to do hemodialysis at [facility][1] Patient in network provider are in [facility]. Case management had a conversation with insurance company as patient does not have any reliable transportation to travel to [facility] for 3 times a week for his hemodialysis. Insurance notified the CM that up to 75 miles travel distance is accepted within the plan that the patient has elected. However at this time patient is not able to travel that far and would like to continue his dialysis at [facility] with his research computing specialist which he has established care with for a long time. I agree with the patient's plan as traveling to [place] is not feasible and thus raising issues of Noncompliance and missed dialysis for the patient. Patient can develop serious complications such as AK, CVA and even from missing dialysis due to his chronic kidney disease. Patient will also have to reestablish care with a new research computing specialist which is not advisable for the patient and his complicated History of IgA induced ESRD. At this time it is advisable for patient to continue the care with the current nephrology group that he has been seen for a long time. Patient at this time working with the insurance company to appeal the decision and provide coverage at the local [facility] for HD. Physician Review Additional Text: =
[2018-04-25] MEDS: CARVEDILOL 12.5 MG TAB PO SCH ×2 (05:21→16:38)
[2018-04-25] MEDS ORDERED: LOPERAMIDE HCL 2 MG CAPSULE PO ONE (06:11)
[2018-04-25] MEDS: AMLODIPINE 5 MG TAB PO SCH (08:16)
[2018-04-25] MEDS: HYDRALAZINE HCL 25 MG TABLET PO SCH ×3 (08:17→21:53)
[2018-04-25] MEDS: FUROSEMIDE 40 MG TABLET PO SCH (08:17)
[2018-04-25] MEDS: CALCIUM CARB 500MG/VIT D 200 IU TAB PO SCH ×3 (08:17→16:37)
[2018-04-25] MEDS: LISINOPRIL 10 MG TAB PO SCH ×2 (08:17→21:53)
[2018-04-25] MEDS: SEVELAMER CARBONATE 800 MG TABLET PO SCH ×3 (08:17→16:36)
[2018-04-25] MEDS: HEPARIN 5000 UNIT/ML 1 ML VIAL SQ SCH (08:18)
--- NOTE | 2018-04-25 10:35 | P.PN ---
Subjective Date of Service: 04/25/18 Primary Care Provider: none, Nephrology-Dr. Rome Chief Complaint: hyperkalemia; ESRD Subjective: No new changes seen and examined during HD today no new complaints Stable vitals pending discharge due to out patient dialysis arrangement, as pt insurance didint approve for dialysis, and [place] x[place]ilt cont HD mwf Physical Examination - Vital Signs Temperature: 98.4 F Blood Pressure: 130/63 Pulse: 75 Respirations: 16 Pulse Ox (%): 96 - Physical Exam General: In no apparent distress, Oriented x3 HEENT: Atraumatic Neck: Supple, Without JVD or thyroid abnormality Respiratory: Clear to auscultation bilaterally, Normal air movement Cardiovascular: No edema, Regular rate/rhythm, Normal S1 S2 - Studies Medications List Reviewed: Yes Assessment And Plan - Current Problems (Diagnosis) (1) Hypertensive nephrosclerosis Onset Date: 04/15/18 Current Visit: Yes Status: Acute (2) End stage renal disease Onset Date: 04/15/18 Current Visit: Yes Status: Chronic - Plan End-stage renal disease HD MWF renal dose meds Secondary hyperparathyroid. Continue binder. Continue calcitriol. Anemia Cont Epo and IV iron HTN controlled Physician Review Additional Text: =
[2018-04-25] MEDS: SOD FERRIC GLUC COMPLX/SUCROSE 125 MG in NA CHLORIDE 0.9% 100 ML IV SCH (10:43)
[2018-04-25] MEDS: EPOETIN ALFA 10,000 UNIT/ML VIAL IV SCH (10:43)
--- NOTE | 2018-04-25 12:08 | P.PN ---
Subjective Date of Service: 04/25/18 Primary Care Provider: none, Nephrology-Dr. Rome Chief Complaint: hyperkalemia; ESRD Patient seen and examined at bedside with RN. Chart reviewed. Case discussed with nephrology at this time. No complaints to offer overnight. Doing well overall. Denied by the insurance company to do hemodialysis at [facility] Patient in network provider are in [facility]. Case management had a conversation with insurance company as patient does not have any reliable transportation to travel to [facility] for 3 times a week for his hemodialysis. Insurance notified the CM that up to 75 miles travel distance is accepted within the plan that the patient has elected. However at this time patient is not able to travel that far and would like to continue his dialysis at [facility] with his cleaning maid which he has established care with for a long time. I agree with the patient's plan as traveling to [place] is not feasible and thus raising issues of Noncompliance and missed dialysis for the patient. Patient can develop serious complications such as [place], CVA and even from missing dialysis due to his chronic kidney disease. Patient will also have to reestablish care with a new cleaning maid which is not advisable for the patient and his complicated History of IgA induced ESRD. At this time it is advisable for patient to continue the care with the current nephrology group that he has been seen for a long time. Patient at this time working with the insurance company to appeal the decision and provide coverage at the local [facility] for HD. Patient has currently canceled his current insurance and is trying to get onto new insurance. Review of Systems 10-point ROS is otherwise unremarkable Physical Examination - Vital Signs Temperature: 98.4 F Blood Pressure: 130/63 Pulse: 75 Respirations: 16 Pulse Ox (%): 96 - Physical Exam General: Alert, In no apparent distress HEENT: Atraumatic, PERRLA, EOMI Neck: Supple, JVD not distended Respiratory: Clear to auscultation bilaterally, Normal air movement Cardiovascular: Regular rate/rhythm, Normal S1 S2 Gastrointestinal: Normal bowel sounds, No tenderness Musculoskeletal: No tenderness Integumentary: No rashes Neurological: Normal speech, Normal tone, Normal affect Lymphatics: No axilla or inguinal lymphadenopathy - Studies Medications List Reviewed: Yes Assessment And Plan - Current Problems (Diagnosis) (1) Acute on chronic renal failure Current Visit: No Status: Acute Plan: Acute on chronic kidney disease. Now end-stage renal disease on dialysis. Most likely secondary to IgA nephropathy and worsening diabetes -nephrology has been consulted. Appreciated recommendations at this time -status post HD catheter placement. Now started on HD -DC when HD setup Qualifiers: Acute renal failure type: unspecified Chronic kidney disease stage: stage 5 , not on chronic dialysis Qualified Code(s): N17.9 - Acute kidney failure, unspecified; N18.5 - Chronic kidney disease, stage 5 (2) End stage renal disease Onset Date: 04/15/18 Current Visit: Yes Status: Chronic (3) IgA nephropathy Onset Date: 04/15/18 Current Visit: Yes Status: Chronic (4) Hyperkalemia Onset Date: 04/15/18 Current Visit: Yes Status: Acute Plan: Hyperkalemia most likely secondary to end-stage renal disease -started on hemodialysis. -potassium within normal limits (5) Diabetes mellitus Current Visit: No Status: Chronic Qualifiers: Diabetes mellitus type: type 2 Diabetes mellitus long term care social worker insulin use: with alf use Diabetes mellitus complication status: with kidney complications Diabetes mellitus complication detail: with chronic kidney disease Chronic kidney disease stage: stage 5, not on chronic dialysis Qualified Code(s): E11.22 - Type 2 diabetes mellitus with diabetic chronic kidney disease; N18.5 - Chronic kidney disease, stage 5; Z79.4 - terminal superintendent ( current) use of insulin (6) Hypertension Current Visit: No Status: Chronic Qualifiers: Hypertension type: essential hypertension Qualified Code(s): I10 - Essential (primary) hypertension (7) Obesity Onset Date: 08/06/17 Current Visit: No Status: Chronic Qualifiers: Obesity type: unspecified obesity type Obesity classification: unspecified obesity classification Serious obesity comorbidity presence: unspecified whether serious comorbidity present Qualified Code(s): E66.9 - Obesity, unspecified - Plan Patient currently pending clinical improvement at this time. Started on hemodialysis. Denied by the insurance company to do hemodialysis at [facility] Patient in network provider are in [facility]. Case management had a conversation with insurance company as patient does not have any reliable transportation to travel to [facility] for 3 times a week for his hemodialysis. Insurance notified the CM that up to 75 miles travel distance is accepted within the plan that the patient has elected. However at this time patient is not able to travel that far and would like to continue his dialysis at [facility] with his cleaning maid which he has established care with for a long time. I agree with the patient's plan as traveling to [place] is not feasible and thus raising issues of Noncompliance and missed dialysis for the patient. Patient can develop serious complications such as [place], CVA and even from missing dialysis due to his chronic kidney disease. Patient will also have to reestablish care with a new cleaning maid which is not advisable for the patient and his complicated History of IgA induced ESRD. At this time it is advisable for patient to continue the care with the current nephrology group that he has been seen for a long time. Patient at this time working with the insurance company to appeal the decision and provide coverage at the local [facility] center for HD. Patient currently has canceled his health insurance and is looking for another insurance that has [employer] in network Discharge Plan: Home Plan to discharge in: 48 Hours - Code Status/Comfort Care Code Status Assessed: Yes Critical Care: No
[2018-04-25] MEDS: ACETAMINOPHEN 500 MG TAB PO PRN (12:39)
[2018-04-26] MEDS: CARVEDILOL 12.5 MG TAB PO SCH ×2 (05:20→16:53)
[2018-04-26 05:53] LABS: Absolute Lymphocytes (CBC) 2.2 K/uL (0.7-4.9); Absolute Monocytes 1.2 K/uL (0.1-1.3); Absolute Neutrophil 6.4 K/uL (1.8-8.0); Basophils % 0.9 % (0-1.3); Eosinophils % 6.4 % (0-4.4); Hematocrit 27.4 % (39.6-49.0); Lymphocytes % 20.7 % (15.3-44.8); MPV 7.4 fL (7.6-11.3); Monocytes % 11.4 % (3.3-12.3); RBC Red Blood Cell Count 3.18 M/uL (4.33-5.43)
[2018-04-26 06:04] LABS: Albumin 3.7 g/dL (3.4-5.0); Bilirubin Total 0.4 mg/dL (0.2-1.0); Potassium 3.9 mmol/L (3.5-5.1); Protein, Total 7.3 g/dL (6.4-8.2)
[2018-04-26 07:34] LABS: Hematocrit 26.1 % (39.6-49.0); MPV 7.4 fL (7.6-11.3); RBC Red Blood Cell Count 3.03 M/uL (4.33-5.43)
[2018-04-26] MEDS: CALCIUM CARB 500MG/VIT D 200 IU TAB PO SCH ×3 (08:19→16:53)
[2018-04-26] MEDS: SEVELAMER CARBONATE 800 MG TABLET PO SCH ×3 (08:19→16:52)
[2018-04-26] MEDS: AMLODIPINE 5 MG TAB PO SCH (08:20)
[2018-04-26] MEDS: LISINOPRIL 10 MG TAB PO SCH ×2 (08:20→21:27)
[2018-04-26] MEDS: FUROSEMIDE 40 MG TABLET PO SCH (08:21)
[2018-04-26] MEDS: HYDRALAZINE HCL 25 MG TABLET PO SCH ×3 (08:21→21:26)
[2018-04-26] MEDS: CALCITROL 0.25 MCG CAP PO SCH (11:48)
--- NOTE | 2018-04-26 12:32 | P.PN ---
Subjective Date of Service: 04/26/18 Primary Care Provider: none, Nephrology-Dr. Rome Chief Complaint: hyperkalemia; ESRD Subjective: Doing well Physical Examination - Vital Signs Temperature: 98.3 F Blood Pressure: 145/82 Pulse: 81 Respirations: 18 Pulse Ox (%): 96 - Physical Exam General: Alert, In no apparent distress, Oriented x3, Cooperative HEENT: Atraumatic Neck: Supple Respiratory: Clear to auscultation bilaterally, Normal air movement Cardiovascular: Normal pulses, Regular rate/rhythm Gastrointestinal: Normal bowel sounds, Soft and benign, Non-distended, No tenderness, No masses, No rebound, No guarding Musculoskeletal: No erythema, No tenderness, No warmth Integumentary: No erythema, No warmth, No cyanosis Neurological: Normal speech, Normal strength at 5/5 x4 extr, Normal tone, Normal affect - Studies Medications List Reviewed: Yes Assessment & Plan Discharge Plan: Home Plan to discharge in: 48 Hours Physician Review Additional Text: Impression: Acute on chronic renal disease now end-stage renal disease requiring hemodialysis Hypertension Iron deficiency anemia Diabetes mellitus type 2 Obesity, BMI 43 Plan: Acute on chronic renal disease now end-stage renal disease requiring hemodialysis: Patient doing well at this time. Arrangements for outpatient dialysis still in process. Hopefully this will be finalized by Saturday. Continue to hold discharge until outpatient dialysis is set up. Hypertension: Blood pressure better controlled with medication. Adjustments in medication have been done. Iron deficiency anemia: Will monitor closely Time Spent Managing Pts Care (In Minutes): 55
--- NOTE | 2018-04-26 15:09 | PN ---
Date of Progress Note: 04/26/2018 Chief Complaint: End-stage renal disease, new onset. The patient has history of IgA nephropathy. The patient is undergoing dialysis 3 times per week. He is awaiting dialysis outpatient unit. Review of Systems: Denies fever or chills. Physical Examination: Lungs: Clear to auscultation bilaterally. Heart: S1, S2. Abdomen: Soft, benign. Extremities: No edema. Vital signs: Blood pressure 130/60. Impression And Plan: 1.End-stage renal disease. Dialysis will be done on Saturday. The patient is awaiting outpatient constance lysis set up. 2.Hypertension, controlled. 3.Fluid overload, responding to dialysis with ultrafiltration. And edema is resolving. 4.Anemia of chronic kidney disease. Hemoglobin level is improving up to 9.2. Monitor and adjust ES A. 5.Renal osteodystrophy. Continue renal diet and binders. EB/MODL Voice ID: [id number] Report ID: [id number]
[2018-04-26] MEDS: HEPARIN 5000 UNIT/ML 1 ML VIAL SQ SCH (21:24)
[2018-04-27] MEDS: CARVEDILOL 12.5 MG TAB PO SCH ×2 (05:10→17:41)
[2018-04-27 05:44] LABS: Absolute Lymphocytes (CBC) 1.9 K/uL (0.7-4.9); Basophils % 1.1 % (0-1.3); Eosinophils % 7.1 % (0-4.4); Hematocrit 30.2 % (39.6-49.0); Lymphocytes % 17.8 % (15.3-44.8); MPV 7.2 fL (7.6-11.3); Monocytes % 9.7 % (3.3-12.3)
[2018-04-27 06:05] LABS: Bilirubin Total 0.4 mg/dL (0.2-1.0); Magnesium 2.4 mg/dL (1.8-2.4); Potassium 4.2 mmol/L (3.5-5.1); Protein, Total 7.6 g/dL (6.4-8.2)
--- NOTE | 2018-04-27 07:11 | P.PN ---
Date of Service: 04/26/18 Subjective: Went in to see Mr. Maguire. Patient had a sinus pause which lasted for about 4- 5 seconds. Patient has a history of obstructive sleep apnea but he does not use a CPAP. We placed him on oxygen but apparently he has taken the oxygen off as well. Physical Examination Vitals: Afebrile vital signs are stable Physical exam is unchanged; patient with morbid obesity ASST: 1. End-stage renal disease 2. Morbid obesity 3. Obesity hypoventilation syndrome. 4. Sinus pause PLAN: 1. Continue with current plan of care 2. Will monitor his oxygen level closely; may need to do ABGs 3. Recheck electrolytes 4. Follow with Cardiology; 5. Echocardiogram from about a year ago with findings as below will repeat echocardiogram. MEASUREMENTS (cm) DIASTOLIC (NORMALS) SYSTOLIC (NORMALS) IVSd 1.3 (0.6-1.2) LA Diam 4.1 (1.9-4.0) LVEF 33% LVIDd 5.7 (3.5-5.7) LVIDs 4.8 (2.0-3.5) %FS 16% LVPWd 1.4 (0.6-1.2) Ao Diam 3.7 (2.0-3.7) 2 DIMENSIONAL ASSESSMENT: RIGHT ATRIUM: NORMAL LEFT ATRIUM: DILATED RIGHT VENTRICLE: NORMAL LEFT VENTRICLE: LEFT VENTRICULAR HYPERTROPHY TRICUSPID VALVE: NORMAL MITRAL VALVE: NORMAL PULMONIC VALVE: NORMAL AORTIC VALVE: NORMAL PERICARDIAL EFFUSION: NONE AORTIC ROOT: NORMAL LEFT VENTRICULAR WALL MOTION: GLOBAL HYPOKINESIS DOPPLER/COLOR FLOW: NORMAL COMMENTS: DEPRESSED LEFT VENTRICULAR EJECTION FRACTION. LEFT VENTRICULAR HYPERTROPHY. DILATED LEFT ATRIUM.
[2018-04-27] MEDS: FUROSEMIDE 40 MG TABLET PO SCH (09:18)
[2018-04-27] MEDS: HEPARIN 5000 UNIT/ML 1 ML VIAL SQ SCH ×2 (09:18→19:51)
[2018-04-27] MEDS: CALCIUM CARB 500MG/VIT D 200 IU TAB PO SCH ×3 (09:18→17:41)
[2018-04-27] MEDS: LISINOPRIL 10 MG TAB PO SCH ×2 (09:18→20:12)
[2018-04-27] MEDS: HYDRALAZINE HCL 25 MG TABLET PO SCH ×2 (09:18→20:12)
[2018-04-27] MEDS: AMLODIPINE 5 MG TAB PO SCH (09:18)
[2018-04-27] MEDS: SEVELAMER CARBONATE 800 MG TABLET PO SCH ×3 (09:18→17:41)
--- NOTE | 2018-04-27 10:48 | P.PN ---
Subjective Date of Service: 04/27/18 Primary Care Provider: none, Nephrology-Dr. Rome Chief Complaint: hyperkalemia; ESRD Subjective: Doing well, Other (Patient had asymptomatic sinus pause last night) Physical Examination - Vital Signs Temperature: 98.2 F Blood Pressure: 150/85 Pulse: 88 Respirations: 17 Pulse Ox (%): 98 - Physical Exam General: Alert, In no apparent distress, Oriented x3, Cooperative HEENT: Atraumatic Neck: Supple Respiratory: Clear to auscultation bilaterally, Normal air movement Cardiovascular: Normal pulses, Regular rate/rhythm Gastrointestinal: Normal bowel sounds, Soft and benign, Non-distended, No tenderness, No masses, No rebound, No guarding Musculoskeletal: No erythema, No tenderness, No warmth Integumentary: No tenderness/swelling, No erythema, No warmth, No cyanosis Neurological: Normal speech, Normal strength at 5/5 x4 extr, Normal tone, Normal affect - Studies Medications List Reviewed: Yes Assessment & Plan Discharge Plan: Home Plan to discharge in: 24 Hours Physician Review Additional Text: Impression: Acute on chronic renal disease now end-stage renal disease requiring hemodialysis Hypertension Iron deficiency anemia Asymptomatic sinus pause likely related to underlying obstructive sleep apnea Obesity, BMI 43 Plan: Acute on chronic renal disease now end-stage renal disease requiring hemodialysis: Patient doing well at this time. No complaints. Arrangements for outpatient dialysis still in process. Hopefully this will be finalized by Saturday. Continue to hold discharge until outpatient dialysis is set up. Hypertension: Hydralazine adjusted for better blood pressure control. Continue with other medication. Asymptomatic sinus pause likely related to underlying obstructive sleep apnea: Patient has evidence of sleep apnea. Patient will need sleep study done as an outpatient. Will recommend pulmonology evaluation as an outpatient for possible treatment. Obesity, BMI 43: Continue to address lifestyle modification education. Iron deficiency anemia: Will monitor closely Time Spent Managing Pts Care (In Minutes): 55
--- NOTE | 2018-04-28 02:14 | PN ---
Date of Progress Note: 04/27/2018 Chief Complaint: End-stage renal disease, on dialysis. The patient is awaiting dialysis arrangement for outpatient. The patient has multiple medical problems. He was found to have new onset of end-s tage renal disease. He presented to the hospital with fluid overload, severe azotemia, electrolytes abnormalities. He started on dialysis 3 times per week via the tunneled dialysis catheter. Review of Systems: Denies fever, chills, cough. Physical Examination: Lungs: Clear to auscultation bilaterally. Heart: S1, S2. Abdomen: Soft, benign. Extremities: No edema. Vital Signs: Blood pressure 143/92, heart rate 80, Laboratory Data: Hemoglobin 10.3, WBC 10.8, platelet count 313,000. Sodium 140, potassium 4.2, chlo ride 105, CO2 24, BUN 53, creatinine 14.9, calcium 9.3. Impression And Plan: 1.End-stage renal disease. Next dialysis tomorrow. Continue renal diet and p.o. fluid restrictions . 2.Mild fluid overload. Ultrafiltration will be done to control volemia. 3.Hypertension. Blood pressure in acceptable control. Continue his current blood pressure medicati on. 4.Anemia of chronic kidney disease. Monitor his hemoglobin level, adjust SAMARA. EB/MODL Voice ID: [id number] Report ID: [id number]
[2018-04-28] MEDS: CARVEDILOL 12.5 MG TAB PO SCH ×2 (05:05→18:26)
[2018-04-28 06:08] LABS: Absolute Lymphocytes (CBC) 1.9 K/uL (0.7-4.9); Absolute Neutrophil 6.2 K/uL (1.8-8.0); Eosinophils % 6.8 % (0-4.4); Hematocrit 27.6 % (39.6-49.0); Lymphocytes % 19.2 % (15.3-44.8); MPV 7.2 fL (7.6-11.3); Monocytes % 9.9 % (3.3-12.3); RBC Red Blood Cell Count 3.19 M/uL (4.33-5.43)
[2018-04-28 06:29] LABS: Albumin 3.8 g/dL (3.4-5.0); Bilirubin Total 0.4 mg/dL (0.2-1.0); Potassium 4.3 mmol/L (3.5-5.1)
[2018-04-28] MEDS: SEVELAMER CARBONATE 800 MG TABLET PO SCH ×3 (08:00→18:26)
[2018-04-28] MEDS: CALCIUM CARB 500MG/VIT D 200 IU TAB PO SCH ×3 (08:00→18:27)
[2018-04-28] MEDS: SOD FERRIC GLUC COMPLX/SUCROSE 125 MG in NA CHLORIDE 0.9% 100 ML IV SCH (08:58)
[2018-04-28] MEDS: EPOETIN ALFA 10,000 UNIT/ML VIAL IV SCH (08:58)
[2018-04-28] MEDS: AMLODIPINE 5 MG TAB PO SCH (09:00)
[2018-04-28] MEDS: LISINOPRIL 10 MG TAB PO SCH ×2 (09:00→21:54)
[2018-04-28] MEDS: HYDRALAZINE HCL 25 MG TABLET PO SCH ×2 (09:00→21:54)
--- NOTE | 2018-04-28 11:02 | P.PN ---
Subjective Date of Service: 04/28/18 Primary Care Provider: none, Nephrology-Dr. Rome Chief Complaint: hyperkalemia; ESRD Subjective: Doing well Physical Examination - Vital Signs Temperature: 98.9 F Blood Pressure: 140/85 Pulse: 81 Respirations: 20 Pulse Ox (%): 96 - Physical Exam General: Alert, In no apparent distress, Cooperative HEENT: Atraumatic Neck: Supple Respiratory: Clear to auscultation bilaterally, Normal air movement Cardiovascular: Normal pulses, Regular rate/rhythm Gastrointestinal: Normal bowel sounds, Soft and benign, Non-distended Neurological: Normal speech, Normal strength at 5/5 x4 extr, Normal tone - Studies Medications List Reviewed: Yes Assessment & Plan Discharge Plan: Home Plan to discharge in: 24 Hours Physician Review Additional Text: Impression: Acute on chronic renal disease now end-stage renal disease requiring hemodialysis Hypertension Iron deficiency anemia Asymptomatic sinus pause likely related to underlying obstructive sleep apnea Obesity, BMI 43 Plan: Acute on chronic renal disease now end-stage renal disease requiring hemodialysis: Patient doing well at this time. Patient getting dialysis. Spoke with social work associate about arrangements for outpatient dialysis. Still in process of getting insurance. Will discuss with nephrology to see if this can be expedited so the patient can be discharged and continue dialysis as an outpatient. Hypertension: Hydralazine adjusted yesterday for better blood pressure control. Blood pressure improved. Continue with other medication. Asymptomatic sinus pause likely related to underlying obstructive sleep apnea: Patient has evidence of sleep apnea. Patient will need sleep study done as an outpatient. Will recommend pulmonology evaluation as an outpatient for possible treatment. Obesity, BMI 43: Continue to address lifestyle modification education. Iron deficiency anemia: Will monitor closely Time Spent Managing Pts Care (In Minutes): 55
[2018-04-28] MEDS: CALCITROL 0.25 MCG CAP PO SCH (13:00)
[2018-04-28] MEDS: FUROSEMIDE 40 MG TABLET PO SCH (13:00)
[2018-04-28] MEDS: HEPARIN 5000 UNIT/ML 1 ML VIAL SQ SCH ×2 (13:00→21:55)
--- NOTE | 2018-04-28 17:40 | ECHO ---
HEIGHT: 5 ft 10 in WEIGHT: 289 lb 8 oz DATE OF STUDY: 04/28/[address]: Kimberly Jones MD 2-DIMENSIONAL: YES M.MODE: YES DOPPLER: YES COLOR FLOW: YES TDS: PORTABLE: DEFINITY: BUBBLE STUDY: DIAGNOSIS: SINUS PAUSE, HISTORY OF CARDIOMYOPATHY. CARDIAC HISTORY: CATHERIZATION: NO SURGERY: NO PROSTHETIC VALVE: NO PACEMAKER: NO MEASUREMENTS (cm) DIASTOLIC (NORMALS) SYSTOLIC (NORMALS) IVSd 1.4 (0.6-1.2) LA Diam 3.5 (1.9-4.0) LVEF 67% LVIDd 4.9 (3.5-5.7) LVIDs 3.1 (2.0-3.5) %FS 37% LVPWd 1.3 (0.6-1.2) Ao Diam 3.7 (2.0-3.7) 2 DIMENSIONAL ASSESSMENT: RIGHT ATRIUM: NORMAL LEFT ATRIUM: NORMAL RIGHT VENTRICLE: NORMAL LEFT VENTRICLE: NORMAL TRICUSPID VALVE: NORMAL MITRAL VALVE: NORMAL PULMONIC VALVE: NORMAL AORTIC VALVE: NORMAL PERICARDIAL EFFUSION: NONE AORTIC ROOT: NORMAL LEFT VENTRICULAR WALL MOTION: NORMAL DOPPLER/COLOR FLOW: MILD TRICUSPID REGURGITATION. NORMAL RIGH VENTRICULAR SYSTOLIC PRESSURE. COMMENTS: NORMAL TWO DIMENSIONAL ECHOCARDIOGRAM WITH DOPPLER. NO WALL MOTION ABNORMALITY. NO EFFUSION. TECHNOLOGIST: NIKHIL THAPA
--- NOTE | 2018-04-29 03:35 | PN ---
Date of Progress Note: 04/28/2018 Chief Complaint: End-stage renal disease, history of IgA nephropathy. Subjective: The patient was started on dialysis for new onset of end-stage renal disease. The patie nt is undergoing treatment 3 times per week. He received dialysis today with ultrafiltration. Volem ia, azotemia have been in good control with current dialysis prescription. Review of Systems: Denies fever, chills. Physical Examination: Lungs: Clear to auscultation bilaterally. Heart: S1, S2. Abdomen: Soft, benign. Extremities: Minimal edema. Laboratory Data: Potassium 4.2, BUN 53, creatinine 14.9, and calcium 9.3. Impression And Plan: 1.End-stage renal disease. Continue dialysis 3 times per week. Next dialysis on Saturday. 2.Hypertension. Blood pressure controlled. 3.Anemia in CKD. Hemoglobin level is satisfactory. Adjust SAMARA as needed. 4.Hypertension. Blood pressure, on low-sodium diet. We will monitor volemia and adjust ultrafiltra tion with dialysis. 5.Renal osteodystrophy. Monitor phosphorus level. Adjust binders. EB/MODL Voice ID: [id number] Report ID: [id number]
[2018-04-29] MEDS: CARVEDILOL 12.5 MG TAB PO SCH ×2 (05:44→16:41)
[2018-04-29] MEDS: FUROSEMIDE 40 MG TABLET PO SCH (08:47)
[2018-04-29] MEDS: CALCIUM CARB 500MG/VIT D 200 IU TAB PO SCH ×3 (08:48→16:41)
[2018-04-29] MEDS: HEPARIN 5000 UNIT/ML 1 ML VIAL SQ SCH ×2 (08:49→20:14)
[2018-04-29] MEDS: LISINOPRIL 10 MG TAB PO SCH ×2 (08:49→20:15)
[2018-04-29] MEDS: AMLODIPINE 5 MG TAB PO SCH (08:50)
[2018-04-29] MEDS: HYDRALAZINE HCL 25 MG TABLET PO SCH ×2 (08:50→20:14)
[2018-04-29] MEDS: SEVELAMER CARBONATE 800 MG TABLET PO SCH ×3 (08:50→16:41)
--- NOTE | 2018-04-29 13:43 | P.PN ---
Subjective Date of Service: 04/29/18 Primary Care Provider: none, Nephrology-Dr. Rome Chief Complaint: hyperkalemia; ESRD Subjective: Doing well Physical Examination - Vital Signs Temperature: 98.2 F Blood Pressure: 126/75 Pulse: 76 Respirations: 20 Pulse Ox (%): 96 - Physical Exam General: Alert, In no apparent distress, Oriented x3, Cooperative HEENT: Atraumatic Neck: Supple Respiratory: Clear to auscultation bilaterally, Normal air movement Cardiovascular: Normal pulses, Regular rate/rhythm Gastrointestinal: Normal bowel sounds, Soft and benign, Non-distended Musculoskeletal: No erythema, No tenderness, No warmth Integumentary: No erythema, No warmth, No cyanosis Neurological: Normal speech, Normal strength at 5/5 x4 extr, Normal tone, Normal affect - Studies Medications List Reviewed: Yes Assessment & Plan Discharge Plan: Home Plan to discharge in: Unknown Physician Review Additional Text: Impression: Acute on chronic renal disease now end-stage renal disease requiring hemodialysis Hypertension Iron deficiency anemia Asymptomatic sinus pause likely related to underlying obstructive sleep apnea Obesity, BMI 43 Plan: Acute on chronic renal disease now end-stage renal disease requiring hemodialysis: Patient doing well at this time. Patient getting dialysis. Spoke with hospice social worker again today about arrangements for outpatient dialysis. Still in process of getting insurance. Will discuss with nephrology to see if this can be expedited so the patient can be discharged and continue dialysis as an outpatient. Hypertension: Continue to monitor. Asymptomatic sinus pause likely related to underlying obstructive sleep apnea: Patient has evidence of sleep apnea. Patient will need sleep study done as an outpatient. Will recommend pulmonology evaluation as an outpatient for possible treatment. Obesity, BMI 43: Continue to address lifestyle modification education. Iron deficiency anemia: Will monitor closely Time Spent Managing Pts Care (In Minutes): 55
--- NOTE | 2018-04-29 19:53 | PN ---
Date of Progress Note: 04/29/2018 Subjective: The patient still does not have any luck in obtaining insurance or placement of chair ti nm. Objective: Vital Signs: Blood pressure 126/75, pulse of 75. Afebrile. The patient had dialysis ye sterday, we managed to remove 800. Chest: Clear to auscultation. Heart: S1, S2. Regular. Abdomen: Soft, nontender. Extremity: Trace edema. Laboratory Data: WBC 9.5, H and H 9.1/27.6, platelet 253. Sodium 140, potassium 4.3, bicarb 22, BUN 67, creatinine 17, calcium 8.2. Current Medications: The patient on its include: 1.Epogen. 2.IV iron. 3.Calcium carbonate. 4.Amlodipine 10 mg. 5.Carvedilol 25 b.i.d. 6.Hydralazine 50 b.i.d. 7.Lisinopril. 8.Lasix 40 mg. 9.Renvela 3 tablets with each meal. 10.Calcitriol 0.25 every 48 hours. Current medications the patient on include as above. Assessment And Plan: 1.End-stage renal disease. We will continue dialysis Saturday, Saturday, and Saturday, and we will mon itor the patient. The patient waiting for placement for outpatient dialysis. 2.Hypertension. Controlled, optimal. Continue current medication. 3.Anemia of chronic kidney disease, iron deficiency anemia. Continue IV iron. 4.Diabetes, as by primary. ANIBAL Voice ID: [id number] Report ID: [id number]
[2018-04-30] MEDS: CARVEDILOL 12.5 MG TAB PO SCH ×2 (05:26→17:11)
[2018-04-30] MEDS: FUROSEMIDE 40 MG TABLET PO SCH (08:52)
[2018-04-30] MEDS: SEVELAMER CARBONATE 800 MG TABLET PO SCH ×3 (08:53→17:10)
[2018-04-30] MEDS: AMLODIPINE 5 MG TAB PO SCH (08:54)
[2018-04-30] MEDS: LISINOPRIL 10 MG TAB PO SCH ×2 (08:54→20:46)
[2018-04-30] MEDS: CALCIUM CARB 500MG/VIT D 200 IU TAB PO SCH ×3 (08:55→17:11)
[2018-04-30] MEDS: HYDRALAZINE HCL 25 MG TABLET PO SCH ×2 (08:55→20:43)
[2018-04-30] MEDS: HEPARIN 5000 UNIT/ML 1 ML VIAL SQ SCH ×2 (08:56→20:42)
[2018-04-30] MEDS: EPOETIN ALFA 10,000 UNIT/ML VIAL IV SCH (11:19)
[2018-04-30] MEDS: SOD FERRIC GLUC COMPLX/SUCROSE 125 MG in NA CHLORIDE 0.9% 100 ML IV SCH (11:19)
--- NOTE | 2018-04-30 11:30 | P.PN ---
Subjective Date of Service: 04/30/18 Primary Care Provider: none, Nephrology-Dr. Rome Chief Complaint: hyperkalemia; ESRD Subjective: Doing well Physical Examination - Vital Signs Temperature: 97.6 F Blood Pressure: 143/75 Pulse: 85 Respirations: 14 Pulse Ox (%): 97 - Physical Exam General: Alert, In no apparent distress, Oriented x3, Cooperative HEENT: Atraumatic Neck: Supple Respiratory: Clear to auscultation bilaterally, Normal air movement Cardiovascular: Normal pulses, Regular rate/rhythm Gastrointestinal: Normal bowel sounds, Soft and benign, Non-distended Neurological: Normal speech, Normal strength at 5/5 x4 extr, Normal tone, Normal affect - Studies Medications List Reviewed: Yes Assessment & Plan Discharge Plan: Home Plan to discharge in: 24 Hours Physician Review Additional Text: Impression: Acute on chronic renal disease now end-stage renal disease requiring hemodialysis Hypertension Iron deficiency anemia Asymptomatic sinus pause likely related to underlying obstructive sleep apnea Obesity, BMI 43 Plan: Acute on chronic renal disease now end-stage renal disease requiring hemodialysis: Patient doing well at this time. Spoke with member services representative and nephrology about arrangements for outpatient dialysis. Outpatient dialysis center reviewing insurance. It appears insurance may go through. If patient is eligible then the patient can be discharged. I will wait on eligibility. Hopefully this will occur in the next 48 hr. Hypertension: Continue to monitor. Asymptomatic sinus pause likely related to underlying obstructive sleep apnea: Patient has evidence of sleep apnea. Patient will need sleep study done as an outpatient. Will recommend pulmonology evaluation as an outpatient for possible treatment. Obesity, BMI 43: Continue to address lifestyle modification education. Iron deficiency anemia: Will monitor closely Time Spent Managing Pts Care (In Minutes): 55
[2018-04-30] MEDS: CALCITROL 0.25 MCG CAP PO SCH (12:00)
[2018-04-30] MEDS: ACETAMINOPHEN 500 MG TAB PO PRN (17:10)
--- NOTE | 2018-04-30 17:13 | PN ---
Date of Progress Note: 04/30/2018 NEPHROLOGY FOLLOWUP Subjective: The patient is doing better, blood pressure has been controlled, seen on dialysis. Physical Examination: Vital Signs: Blood pressure 121/65, pulse of 88. Chest: Clear to auscultation. Heart: S1 and S2 regular. Abdomen: Soft, nontender. Extremities: No edema. Laboratory Data: WBC 9.9, H and H of 9.1 and 27.6, platelets 253. Sodium 140, potassium 4.3, bicarb 22, BUN 67, creatinine 17, and calcium 8.8. Current Medications: The patient on it includes, 1.Epogen. 2.IV iron. 3.Calcium carbonate. 4.Norvasc 10. 5.Amlodipine. 6.Carvedilol 25. 7.Hydralazine 50 b.i.d. 8.Lisinopril. 9.Renvela 3 tablets with each meal. Assessment And Plan: 1.End-stage renal disease. Continue dialysis Saturday, Saturday, and Saturday. Waiting for outpatient placement. Discuss with social work msw at [facility] and admission in [facility]. The patient to be s tarted insurance eligibility for Medicare, Medicaid. We will follow up with the social work msw. 2.Hypertension, controlled, optimal. Continue current medication. 3.Secondary hyperparathyroidism. Continue calcium carbonate and Renvela. 4.Anemia, iron-deficiency anemia, chronic kidney disease. Continue Epogen. 5.Diabetes, as by primary. ALONZO/STACIA Voice ID: [id number] Report ID: [id number]
[2018-04-30 20:52] VITALS: O2SAT 99
[2018-05-01] MEDS: CARVEDILOL 12.5 MG TAB PO SCH (05:25)
[2018-05-01] MEDS: CALCIUM CARB 500MG/VIT D 200 IU TAB PO SCH ×2 (08:41→12:07)
[2018-05-01] MEDS: AMLODIPINE 5 MG TAB PO SCH (08:42)
[2018-05-01] MEDS: SEVELAMER CARBONATE 800 MG TABLET PO SCH ×2 (08:42→12:07)
[2018-05-01] MEDS: FUROSEMIDE 40 MG TABLET PO SCH (08:42)
[2018-05-01] MEDS: LISINOPRIL 10 MG TAB PO SCH (08:43)
[2018-05-01] MEDS: HYDRALAZINE HCL 25 MG TABLET PO SCH (08:43)
[2018-05-01] MEDS: HEPARIN 5000 UNIT/ML 1 ML VIAL SQ SCH (08:46)
--- NOTE | 2018-05-01 11:31 | P.DS ---
Admission Date: 04/14/18 Discharge Date: 05/01/18 Primary Care Provider: none, Nephrology-Dr. Rome Disposition: ROUTINE DISCHARGE Discharge Condition: GOOD Reason for Admission: hyperkalemia; ESRD Consultations: Nephrology-Dr. Rome Surgery-Dr. Healy Procedures: Renal ultrasound: Impression-increased renal echotexture consistent with parenchymal disease Surgery data procedure 04/14/2018 Surgeon: Valeria Donovan MD Preop diagnosis: End-stage renal disease Postop diagnosis end-stage renal disease Procedure: Placement of right internal jugular tunneled hemodialysis catheter Medical problem list Acute on chronic renal disease now end-stage renal disease requiring hemodialysis Hypertension Iron deficiency anemia Asymptomatic sinus pause likely related to underlying obstructive sleep apnea Obesity, BMI 43 Brief History of Present Illness: 27-year-old male with history of IgA nephropathy, hypertensive nephrosclerosis and chronic renal disease. Patient came into the emergency room with increasing fatigue. Patient also had worsening renal function along with hyperkalemia. Patient was admitted for further evaluation. Nephrology consulted to initiate dialysis. Hospital Course: Patient presented to emergency room with worsening renal function and hyperkalemia. Patient with acute on chronic renal disease secondary to IgA nephropathy and hypertensive nephrosclerosis. Patient had been seen by Nephrology as an outpatient. Patient was admitted and required initiation of chronic dialysis. Patient now with end-stage renal disease requiring hemodialysis. Patient tolerated the procedure well. Patient received dialysis. Patient continue to improve. His discharge was delayed as arrangements for outpatient dialysis was prolonged. Patient was set up for outpatient dialysis. He is dialysis eligible. At discharge patient will have dialysis tomorrow at 11:00 a.m.. Thereafter patient will continue with dialysis every Tuesdays, and Saturdays. At discharge he will continue with calcitriol 0.25 mcg every 48 hr, Oscal 1 pill twice daily, Renvela 2400 mg 3 times a day. Patient will also continue with Lasix 40 mg daily. Patient will continue with a 1500 cc per day fluid restriction. Further adjustment in medication can be done by nephrology. Patient with hypertension. Medications adjusted during his stay. At discharge he will continue with carvedilol 25 mg 1 pill twice daily, Norvasc 10 mg daily, hydralazine 50 mg 1 pill twice daily and lisinopril 20 mg 1 pill twice daily. Recommendation is to maintain blood pressures less 150/80. Further adjustment can be done by his PCP or nephrology. Patient has iron deficiency anemia. Patient will continue with iron 325 mg 1 pill twice daily. Recommendation to recheck CBC in 2-4 weeks to monitor his progress. Patient with obesity. BMI 43. Lifestyle modification education will be provided. Patient may benefit in evaluation for sleep apnea. This can be done as an outpatient. Patient plans to establish care with a local PCP in the area to further assess and monitor his condition. Vital Signs/Physical Exam: Temp Pulse Resp BP Pulse Ox 97.9 F 80 16 124/73 95 05/01/18 08:00 05/01/18 08:43 05/01/18 08:00 05/01/18 08:43 05/01/18 08:00 General: Alert, In no apparent distress, Oriented x3, Cooperative HEENT: Atraumatic, Normocephalic Neck: Supple Respiratory: Clear to auscultation bilaterally, Normal air movement Cardiovascular: Normal pulses, Regular rate/rhythm Gastrointestinal: Normal bowel sounds, Soft and benign, Non-distended, No tenderness, No masses, No rebound, No guarding Musculoskeletal: No erythema, No tenderness, No warmth Integumentary: No tenderness/swelling, No erythema, No warmth, No cyanosis Neurological: Normal speech, Normal strength at 5/5 x4 extr, Normal tone, Normal affect Lymphatics: No axilla or inguinal lymphadenopathy Laboratory Data at Discharge: WBC 9.9 K/uL (4.3-10.9) 04/28/18 05:47 Hgb 9.1 g/dL (13.6-17.9) L 04/28/18 05:47 Hct 27.6 % (39.6-49.0) L 04/28/18 05:47 Plt Count 253 K/uL (152-406) 04/28/18 05:47 Sodium 140 mmol/L (136-145) 04/28/18 05:47 Potassium 4.3 mmol/L (3.5-5.1) 04/28/18 05:47 BUN 67 mg/dL (7-18) H 04/28/18 05:47 Creatinine 17.30 mg/dL (0.55-1.3) H* D 04/28/18 05:47 Glucose 79 mg/dL (74-106) 04/28/18 05:47 Phosphorus 6.1 mg/dL (2.5-4.9) H 04/20/18 05:40 Magnesium 2.4 mg/dL (1.8-2.4) 04/27/18 05:16 Total Bilirubin 0.4 mg/dL (0.2-1.0) 04/28/18 05:47 AST 6 U/L (15-37) L 04/28/18 05:47 ALT 22 U/L (12-78) 04/28/18 05:47 Alkaline Phosphatase 50 U/L (45-117) 04/28/18 05:47 Home Medications: Furosemide [Lasix*] 40 mg PO DAILY #30 tab 08/09/17 Loratadine [Claritin*] 10 mg PO PRN 04/14/18 Amlodipine Besylate [Norvasc] 10 mg PO DAILY #90 tablet 04/18/18 Calcitrol [Rocaltrol*] 0.25 mcg PO Q48H #15 cap 04/18/18 Calcium Carbonate/Vitamin D3 [Oscal 500 + Vit D 200 Iu Tab*] 1 tab PO BID #60 tab 04/18/18 Carvedilol [Coreg] 25 mg PO BID #60 tab 04/18/18 Lisinopril 20 mg PO BID #60 tablet 04/18/18 Sevelamer Carbonate [Renvela*] 2,400 mg PO TIDWM #270 tablet 04/18/18 Hydralazine [Apresoline*] 50 mg PO BID #120 tab 05/01/18 New Medications: Amlodipine Besylate [Norvasc] 10 mg PO DAILY #90 tablet Calcitrol [Rocaltrol*] 0.25 mcg PO Q48H #15 cap Calcium Carbonate/Vitamin D3 [Oscal 500 + Vit D 200 Iu Tab*] 1 tab PO BID #60 tab Carvedilol [Coreg] 25 mg PO BID #60 tab Hydralazine [Apresoline*] 50 mg PO BID #120 tab Lisinopril 20 mg PO BID #60 tablet Sevelamer Carbonate [Renvela*] 2,400 mg PO TIDWM #270 tablet Patient Discharge Instructions: 1. Patient will follow up with a PCP in 1 week to follow up this hospitalization. 2. Patient presented to emergency room with worsening renal function and hyperkalemia. Patient with acute on chronic renal disease secondary to IgA nephropathy and hypertensive nephrosclerosis. Patient had been seen by Nephrology as an outpatient. Patient was admitted and required initiation of chronic dialysis. Patient now with end-stage renal disease requiring hemodialysis. Patient tolerated the procedure well. Patient received dialysis. Patient continue to improve. His discharge was delayed as arrangements for outpatient dialysis was prolonged. Patient was set up for outpatient dialysis. He is dialysis eligible. At discharge patient will have dialysis tomorrow at 11:00 a.m.. Thereafter patient will continue with dialysis every Tuesdays, and Saturdays. At discharge he will continue with calcitriol 0.25 mcg every 48 hr, Oscal 1 pill twice daily, Renvela 2400 mg 3 times a day. Patient will also continue with Lasix 40 mg daily. Patient will continue with a 1500 cc per day fluid restriction. Further adjustment in medication can be done by nephrology. 3. Patient with hypertension. Medications adjusted during his stay. At discharge he will continue with carvedilol 25 mg 1 pill twice daily, Norvasc 10 mg daily, hydralazine 50 mg 1 pill twice daily and lisinopril 20 mg 1 pill twice daily. Recommendation is to maintain blood pressures less 150/80. Further adjustment can be done by his PCP or nephrology. 4. Patient has iron deficiency anemia. Patient will continue with iron 325 mg 1 pill twice daily. Recommendation to recheck CBC in 2-4 weeks to monitor his progress. 5. Patient with obesity. BMI 43. Lifestyle modification education will be provided. Patient may benefit in evaluation for sleep apnea. This can be done as an outpatient. Patient plans to establish care with a local PCP in the area to further assess and monitor his condition. . Diet: Renal Activity: Ad yobany Followup: Sandie Rome MD [ACTIVE - CAN ADMIT] - Time spent managing pt's care (in minutes): 55
--- NOTE | 2018-05-01 13:11 | PN ---
Date of Progress Note: 05/01/2018 NEPHROLOGY FOLLOWUP Subjective: The patient doing well, tolerating the dialysis very well. Physical Examination: Vital Signs: Blood pressure 124/73, pulse of 80. The patient had dialysis yesterday. We managed to remove 1500. Chest: Clear to auscultation. Heart: S1, S2 regular. Abdomen: Soft, nontender. Extremities: No edema. Laboratory Data: WBC 9.9, H and H 9.1/27.6, platelets 253. Sodium 140, potassium 4.3, bicarb 22, BU N 67, creatinine 17, calcium 8.2. Current Medications: The patient on include: 1.Epogen. 2.IV iron. 3.Calcium carbonate. 4.Carvedilol 25 b.i.d. 5.Amlodipine 10 mg daily. 6.Hydralazine 50 b.i.d. 7.Lisinopril 20 b.i.d. 8.Renvela 3 tablets with each meal. 9.Lasix 40 daily. 10.Zofran. 11.Calcitriol 0.25 every 48 hours. Assessment And Plan: 1.End-stage renal disease. We will continue the patient on dialysis. The [facility] already [facility], but for this week he is going to do tomorrow at 11:30. I communicated th at to the patient and to the charge nurse. The patient ready for discharge. 2.Hypertension, controlled, optimal. Continue current medication. 3.Iron-deficiency anemia, chronic kidney disease, anemia. Continue Epogen and IV iron. 4.Secondary hyperparathyroidism. Continue calcium carbonate and Renvela. 5.Diabetes, as by primary. Case was discussed with Dr. Mcintosh, and the staff agreed on the plan. Discussed with the patient, ve rbalized understanding. ALONZO/STACIA Voice ID: [id number] Report ID: [id number]
[2018-05-01 13:23] VITALS: BP 129/68; TEMP 98
== END 2018-05-01 13:30 | disposition home or self-care (01) | DRG 673 ==
LOC: ER 20:52 → ERHOLD 04-14 01:01 → 2ND 04-14 15:24
PROVIDERS: ADMIT Hospitalist; ATTEND Family Medicine
PROC: 02HV33Z Insertion of Infusion Device into Superior Vena Cava, Percutaneous Approach (ICD-10-PCS; 2018-04-14)
PROC: B548ZZA Ultrasonography of Superior Vena Cava, Guidance (ICD-10-PCS; 2018-04-14)
PROC: 5A1D70Z Performance of Urinary Filtration, Intermittent, Less than 6 Hours Per Day (ICD-10-PCS; 2018-04-14)
PROC: 0JH63XZ Insertion of Tunneled Vascular Access Device into Chest Subcutaneous Tissue and Fascia, Percutaneous Approach (ICD-10-PCS; principal; 2018-04-14 10:00)
PROC: 5A1D70Z Performance of Urinary Filtration, Intermittent, Less than 6 Hours Per Day (ICD-10-PCS; 2018-04-15)
PROC: 5A1D70Z Performance of Urinary Filtration, Intermittent, Less than 6 Hours Per Day (ICD-10-PCS; 2018-04-16)
PROC: 5A1D70Z Performance of Urinary Filtration, Intermittent, Less than 6 Hours Per Day (ICD-10-PCS; 2018-04-18)
PROC: 5A1D70Z Performance of Urinary Filtration, Intermittent, Less than 6 Hours Per Day (ICD-10-PCS; 2018-04-21)
PROC: 5A1D70Z Performance of Urinary Filtration, Intermittent, Less than 6 Hours Per Day (ICD-10-PCS; 2018-04-23)
PROC: 5A1D70Z Performance of Urinary Filtration, Intermittent, Less than 6 Hours Per Day (ICD-10-PCS; 2018-04-25)
PROC: 5A1D70Z Performance of Urinary Filtration, Intermittent, Less than 6 Hours Per Day (ICD-10-PCS; 2018-04-26)
PROC: 5A1D70Z Performance of Urinary Filtration, Intermittent, Less than 6 Hours Per Day (ICD-10-PCS; 2018-04-28)
PROC: 5A1D70Z Performance of Urinary Filtration, Intermittent, Less than 6 Hours Per Day (ICD-10-PCS; 2018-04-30)
DX: I12.0 Hypertensive chronic kidney disease with stage 5 chronic kidney disease or end stage renal disease (principal); N18.6 End stage renal disease; N17.9 Acute kidney failure, unspecified; Z68.41 Body mass index [BMI] 40.0-44.9, adult; E87.2 Acidosis; E66.2 Morbid (severe) obesity with alveolar hypoventilation; N02.8 Recurrent and persistent hematuria with other morphologic changes; N25.81 Secondary hyperparathyroidism of renal origin; E78.00 Pure hypercholesterolemia, unspecified; E03.9 Hypothyroidism, unspecified; E87.5 Hyperkalemia; N25.0 Renal osteodystrophy; E11.22 Type 2 diabetes mellitus with diabetic chronic kidney disease; Z99.2 Dependence on renal dialysis; Z79.4 Long term (current) use of insulin; D63.1 Anemia in chronic kidney disease; D50.9 Iron deficiency anemia, unspecified; R80.9 Proteinuria, unspecified; E83.39 Other disorders of phosphorus metabolism; E87.70 Fluid overload, unspecified; I45.5 Other specified heart block
CPT/HCPCS: 36415; 71045; 76000; 76770; 80048; 80053; 80069; 80074; 80076; 81003; 81015; 82607; 82728; 82746; 83036; 83540; 83735; 83970; 84100; 84466; 85025; 85027; 85044; 86317; 86704; 86706; 87086; 87088; 90935; 93005; 93306; 96374; 96375; 99285; C1752; G0008; J0360; J1644; J1940; J2250; J2405; J2704; J2916; J3010; J7030; Q2035; Q4081

== ENCOUNTER 2018-05-12 20:44 | Inpatient (IN) | payer OTHER, SELFPAY ==
[2018-05-12 22:54] LABS: Absolute Lymphocytes (CBC) 1.3 K/uL (0.7-4.9); Absolute Monocytes 0.9 K/uL (0.1-1.3); Absolute Neutrophil 8.5 K/uL (1.8-8.0); Basophils % 0.5 % (0-1.3); Hematocrit 31.8 % (39.6-49.0); Lymphocytes % 11.4 % (15.3-44.8); MPV 7.1 fL (7.6-11.3); Monocytes % 8.2 % (3.3-12.3); RBC Red Blood Cell Count 3.62 M/uL (4.33-5.43)
[2018-05-12 23:51] LABS: ALT/SGPT 15 U/L (12-78); Alkaline Phosphatase 53 U/L (45-117); BUN Blood Urea Nitrogen 65 mg/dL (7-18); Bicarbonate 23 mmol/L (21-32); Bilirubin Direct 0.1 mg/dL (0-0.2); Bilirubin Total 0.5 mg/dL (0.2-1.0); Glucose Level 98 mg/dL (74-106); Lipase 102 U/L (73-393); Potassium 4.3 mmol/L (3.5-5.1); Protein, Total 7.3 g/dL (6.4-8.2); Sodium Level 142 mmol/L (136-145)
[2018-05-12 23:52] LABS: AST/SGOT < 3 U/L (15-37)
--- NOTE | 2018-05-13 00:06 | ER ---
Nurse's Notes [facility] Name: Melvin Maguire Age: 27 yrs Sex: Male : 1990 Arrival Date: 05/12/2018 Time: 20:53 Bed 15 Private MD: Diagnosis: Other intestinal obstruction;Upper abdominal pain, unspecified Presentation: 05/12 21:29 Presenting complaint: Patient states: that he is having upper abd pain and epigastric fc pain that comes and goes. Positive for nausea and constipation. Started yesterday at 1700. Transition of care: patient was not received from another setting of care. Onset of symptoms was May 11, 2018 at 17:00. Risk Assessment: Do you want to hurt yourself or someone else? Patient reports no desire to harm self or others. Initial Sepsis Screen: Does the patient meet any 2 criteria? No. Patient's initial sepsis screen is negative. Does the patient have a suspected source of infection? No. Patient's initial sepsis screen is negative. Care prior to arrival: Medication(s) given: Exlax and Gas X both with no relief. 21:29 Method Of Arrival: Ambulatory fc 21:29 Acuity: SAKSHI 3 fc Triage Assessment: 21:33 General: Appears comfortable, obese, Behavior is calm, cooperative, appropriate for age. Pain: Complains of pain in epigastric area, right upper quadrant and left upper quadrant Pain currently is 2 out of 10 on a pain scale. at worst was 10 out of 10 on a pain scale. Quality of pain is described as sharp, Pain began 1 day ago. Is intermittent. EENT: No deficits noted. Neuro: Level of Consciousness is awake, alert, obeys commands, Oriented to person, place, time, situation, Appropriate for age. Cardiovascular: No deficits noted. Respiratory: No deficits noted. GI: Reports upper abdominal pain, epigastric pain. : Parent/caregiver report the patient having has tessio cath to right chest. Derm: Skin is pink, warm \T\ dry. Musculoskeletal: Circulation, motion, and sensation intact. Capillary refill < 3 seconds, Range of motion: intact in all extremities. Historical: - Allergies: 21:33 No Known Allergies; fc - Home Meds: 21:33 amlodipine 10 mg tab once daily [Active]; calcitriol 0.25 mcg oral cap 1 cap every fc other day [Active]; lisinopril 20 mg Oral tab 1 tab twice a day [Active]; Coreg 25 mg Oral tab 1 tab 2 times per day [Active]; hydralazine 25 mg Oral tab 2 tab 2 times per day [Active]; Lasix 40 mg Oral cp24 1 tab once daily [Active]; - PMHx: 21:33 Asthma; Hypertension; Hypothyroidism; kidney failure; High Cholesterol; Dialysis on fc T/Th/Sat; - PSHx: 21:33 Tessio Cath for dialysis; fc - Immunization history:: Last tetanus immunization: up to date Flu vaccine is up to date. - Social history:: Smoking status: Patient/guardian denies using tobacco. - Ebola Screening: : Patient negative for fever greater than or equal to 101.5 degrees Fahrenheit, and additional compatible Ebola Virus Disease symptoms Patient denies exposure to infectious person Patient denies travel to an Ebola-affected area in the 21 days before illness onset. Screenin:45 Abuse screen: Denies threats or abuse. Denies injuries from another. Nutritional aa1 screening: No deficits noted. Tuberculosis screening: No symptoms or risk factors identified. Fall Risk None identified. Assessment: 21:45 General: Appears in no apparent distress. comfortable, Behavior is calm, cooperative, aa1 appropriate for age. Pain: Complains of pain in left upper quadrant and right upper quadrant and epigastric area Pain began 1 day ago. Is continuous. Neuro: Level of Consciousness is awake, alert, obeys commands, Oriented to person, place, time, situation, Moves all extremities. Full function Gait is steady, Speech is normal. Cardiovascular: Denies chest pain, palpitations, shortness of breath, Heart tones S1 S2 present Rhythm is regular. Respiratory: Airway is patent Respiratory effort is even, unlabored, Respiratory pattern is regular, symmetrical. GI: Abdomen is obese, Bowel sounds present X 4 quads. Abd is soft X 4 quads Reports upper abdominal pain, epigastric pain. : No signs and/or symptoms were reported regarding the genitourinary system. EENT: No signs and/or symptoms were reported regarding the EENT system. Derm: Skin is intact, is healthy with good turgor, Skin is pink, warm \T\ dry. Musculoskeletal: Circulation, motion, and sensation intact. Capillary refill < 3 seconds. 22:45 Reassessment: Patient appears in no apparent distress at this time. Patient and/or aa1 family updated on plan of care and expected duration. Pain level reassessed. Patient is alert, oriented x 3, equal unlabored respirations, skin warm/dry/pink. Awaiting lab \T\ CT results. 05/13 00:14 Reassessment: Patient appears in no apparent distress at this time. Patient and/or aa1 family updated on plan of care and expected duration. Pain level reassessed. Patient is alert, oriented x 3, equal unlabored respirations, skin warm/dry/pink. Pt to be admitted, awaiting admission assessment from Dr. Mixon. 01:15 Reassessment: Patient appears in no apparent distress at this time. Patient and/or aa1 family updated on plan of care and expected duration. Pain level reassessed. Patient is alert, oriented x 3, equal unlabored respirations, skin warm/dry/pink. Pt to be placed in ER hold at this time. 07:44 Reassessment: Called report to EVETTE Garcia. Information from the SBAR was given. All rb1 questions asked and answered. Vital Signs: 05/12 21:33 BP 151 / 94; Pulse 87; Resp 18; Temp 98.2(O); Pulse Ox 99% on R/A; Weight 129.73 kg fc (R); Height 5 ft. 10 in. (177.80 cm) (R); Pain 2/10; 22:42 BP 128 / 87; Pulse 85; Resp 18; Pulse Ox 98% on R/A; Pain 2/10; aa1 23:35 BP 128 / 76; Pulse 82; Resp 16; Pulse Ox 97% on R/A; mt 05/13 00:14 BP 116 / 64; Pulse 84; Resp 18; Pulse Ox 97% on R/A; Pain 0/10; aa1 01:15 BP 140 / 69; Pulse 73; Resp 16; Temp 98.0; Pulse Ox 97% on R/A; Pain 0/10; aa1 07:47 BP 126 / 78; Pulse 82; Resp 16; Pulse Ox 95% on R/A; rb1 05/12 21:33 Body Mass Index 41.04 (129.73 kg, 177.80 cm) ED Course: 05/12 20:53 Patient arrived in ED. es 21:31 Triage completed. fc 21:36 Arm band placed on Patient placed in an exam room, on a stretcher. 21:41 Bouchra Bell F[facility]-C [facility]. kb 21:41 Jos Canales MD is Attending Physician. kb 21:45 Patient has correct armband on for positive identification. Bed in low position. Call aa1 light in reach. Pulse ox on. NIBP on. 22:01 Jewell Gan, RN is Primary Nurse. aa1 22:25 Warm blanket given. aa1 22:25 Initial lab(s) drawn, by tx, sent to lab. Inserted saline lock: 20 gauge in right aa1 forearm, using aseptic technique. Blood collected. 22:39 CT Stone Protocol In Process Unspecified. EDMS 23:56 Notified Nurse Practitioner and/or Physician [employer] Worker of a critical lab result(s), creat 16.8. 0205 00:01 Michael Ernst MD is Hospitalizing Provider. kb 01:15 No provider procedures requiring assistance completed. Patient admitted, IV remains in aa1 place. 08:10 No provider procedures requiring assistance completed. Patient admitted, IV remains in rb1 place. Administered Medications: No medications were administered Outcome: 00:01 Decision to Hospitalize by Provider. kb 01:15 Admitted to ER Hold. Please see [facility] for further documentation. aa1 01:15 Condition: stable 01:15 Discharge instructions given to patient, Instructed on the need for admit, Demonstrated understanding of instructions. 08:10 Patient left the ED. rb1 08:10 Admitted to Med/surg accompanied by tech, via wheelchair, room 416, with chart, Report rb1 called to EVETTE Garcia 08:10 Condition: stable 08:10 Instructed on the need for admit. Signatures: Dispatcher [employer] EDMS Bouchra Bell FNP-C FNP-Jewell Mera, RN RN aa Mireya Matute Felicia RN RN Elma Romano, EVETTE RN rb1 Sejal Graham tn
--- NOTE | 2018-05-13 00:06 | EDPHYS ---
Physician Documentation [facility] Name: Melvin Maguire Age: 27 yrs Sex: Male : 1990 Arrival Date: 05/12/2018 Time: 20:53 Bed 15 Private MD: ED Physician Jos Canales HPI: 05/13 00:03 This 27 yrs old Male presents to ER via Ambulatory with complaints of kb Abdominal Pain. 00:03 The patient presents with abdominal pain in the upper abdomen. Onset: The kb symptoms/episode began/occurred today. The symptoms do not radiate. Associated signs and symptoms: Pertinent positives: nausea, vomiting, and diarrhea. The symptoms are described as constant. Modifying factors: The symptoms are alleviated by nothing, the symptoms are aggravated by nothing. Severity of pain: At its worst the pain was moderate in the emergency department the pain is unchanged. The patient has not experienced similar symptoms in the past. The patient has not recently seen a physician. Pt reports diarrhea for a couple of days, nausea, vomiting and abd pain started last night. Historical: - Allergies: 05/12 21:33 No Known Allergies; fc - Home Meds: 21:33 amlodipine 10 mg tab once daily [Active]; calcitriol 0.25 mcg oral cap 1 cap every fc other day [Active]; lisinopril 20 mg Oral tab 1 tab twice a day [Active]; Coreg 25 mg Oral tab 1 tab 2 times per day [Active]; hydralazine 25 mg Oral tab 2 tab 2 times per day [Active]; Lasix 40 mg Oral cp24 1 tab once daily [Active]; - PMHx: 21:33 Asthma; Hypertension; Hypothyroidism; kidney failure; High Cholesterol; Dialysis on fc //Sat; - PSHx: 21:33 Tessio Cath for dialysis; fc - Immunization history:: Last tetanus immunization: up to date Flu vaccine is up to date. - Social history:: Smoking status: Patient/guardian denies using tobacco. - Ebola Screening: : Patient negative for fever greater than or equal to 101.5 degrees Fahrenheit, and additional compatible Ebola Virus Disease symptoms Patient denies exposure to infectious person Patient denies travel to an Ebola-affected area in the 21 days before illness onset. ROS: 05/13 00:02 Constitutional: Negative for fever, chills, and weight loss, Cardiovascular: Negative kb for chest pain, palpitations, and edema, Respiratory: Negative for shortness of breath, cough, wheezing, and pleuritic chest pain, Back: Negative for injury and pain, : Negative for injury, bleeding, discharge, and swelling, MS/Extremity: Negative for injury and deformity, Skin: Negative for injury, rash, and discoloration, Neuro: Negative for headache, weakness, numbness, tingling, and seizure. Abdomen/GI: Positive for abdominal pain, nausea, vomiting, and diarrhea, Negative for constipation, abdominal cramps, abdominal distension, anorexia. Exam: 00:02 Constitutional: This is a well developed, well nourished patient who is awake, alert, kb and in no acute distress. Head/Face: Normocephalic, atraumatic. Chest/axilla: Normal chest wall appearance and motion. Nontender with no deformity. No lesions are appreciated. Cardiovascular: Regular rate and rhythm with a normal S1 and S2. No gallops, murmurs, or rubs. Normal PMI, no JVD. No pulse deficits. Respiratory: Lungs have equal breath sounds bilaterally, clear to auscultation and percussion. No rales, rhonchi or wheezes noted. No increased work of breathing, no retractions or nasal flaring. Back: No spinal tenderness. No costovertebral tenderness. Full range of motion. Skin: Warm, dry with normal turgor. Normal color with no rashes, no lesions, and no evidence of cellulitis. MS/ Extremity: Pulses equal, no cyanosis. Neurovascular intact. Full, normal range of motion. Neuro: Awake and alert, GCS 15, oriented to person, place, time, and situation. Cranial nerves II-XII grossly intact. Motor strength 5/5 in all extremities. Sensory grossly intact. Cerebellar exam normal. Normal gait. 00:02 Abdomen/GI: Inspection: obese Bowel sounds: normal, Palpation: soft, in all quadrants, moderate abdominal tenderness, in the right upper quadrant and left upper quadrant, Hernia: noted in the epigastric area. Vital Signs: 05/12 21:33 BP 151 / 94; Pulse 87; Resp 18; Temp 98.2(O); Pulse Ox 99% on R/A; Weight 129.73 kg fc (R); Height 5 ft. 10 in. (177.80 cm) (R); Pain 2/10; 22:42 BP 128 / 87; Pulse 85; Resp 18; Pulse Ox 98% on R/A; Pain 2/10; aa1 23:35 BP 128 / 76; Pulse 82; Resp 16; Pulse Ox 97% on R/A; mt 05/13 00:14 BP 116 / 64; Pulse 84; Resp 18; Pulse Ox 97% on R/A; Pain 0/10; aa1 01:15 BP 140 / 69; Pulse 73; Resp 16; Temp 98.0; Pulse Ox 97% on R/A; Pain 0/10; aa1 07:47 BP 126 / 78; Pulse 82; Resp 16; Pulse Ox 95% on R/A; rb1 05/12 21:33 Body Mass Index 41.04 (129.73 kg, 177.80 cm) fc MDM: 05/12 21:42 Patient medically screened. kb 05/13 00:00 Data reviewed: vital signs, nurses notes. Data interpreted: Pulse oximetry: on room air kb is 97 %. Interpretation: normal. Counseling: I had a detailed discussion with the patient and/or guardian regarding: the historical points, exam findings, and any diagnostic results supporting the discharge/admit diagnosis, lab results, radiology results, the need for further work-up and treatment in the hospital. Physician consultation: Michael Ernst MD was contacted at 00:00, regarding admission, to the medical/surgical unit. patient's condition, and will see patient in ED, shortly. 00:03 ED course: Reduced hernia after CT scan. kb 05/12 22:02 Order name: Basic Metabolic Panel; Complete Time: 23:59 kb 05/12 22:02 Order name: CBC with Diff; Complete Time: 22:57 kb 05/12 22:02 Order name: Hepatic Function; Complete Time: 23:59 kb 05/12 22:02 Order name: Lipase; Complete Time: 23:59 kb 05/13 06:38 Order name: CBC with Automated Diff EDKY 05/13 06:57 Order name: Basic Metabolic Panel EDKY 05/12 22:02 Order name: IV Saline Lock; Complete Time: 22:44 kb 05/12 22:02 Order name: Labs collected and sent; Complete Time: 22:44 kb 05/12 22:02 Order name: CT Stone Protocol kb Administered Medications: No medications were administered Disposition: 05/13/18 00:01 Hospitalization ordered by Michael Ernst for Observation. Preliminary diagnosis are Other intestinal obstruction, Upper abdominal pain, unspecified. - Bed requested for Telemetry/MedSurg (observation). - Status is Observation. rb1 - Condition is Stable. - Problem is new. - Symptoms have improved. UTI on Admission? No Addendum: 05/19/2018 07:23 Co-signature as Attending Physician, Jos Canales MD. g s Signatures: Dispatcher [employer] EDMS Bouchra Bell, STRIPPER [employer]PAQUER APPRENTICE-C [employer]IPPER [employer]PAQUER APPRENTICE-Ckb Zonia Salas RN RN Anastasia Garcia, RN RN Caro Wynn, RN RN Elma Bailey, RN RN rb1 Jos Canales MD MD gs Corrections: (The following items were deleted from the chart) 05/13 01:11 00:01 Hospitalization Ordered by Michael Ernst MD for Observation. Preliminary bb diagnosis is Other intestinal obstruction; Upper abdominal pain, unspecified. Bed requested for Telemetry/MedSurg (observation). Status is Observation. Condition is Stable. Problem is new. Symptoms have improved. UTI on Admission? No. kb 05:32 01:11 05/13/2018 00:01 Hospitalization Ordered by Michael Ernst MD for Observation. mw Preliminary diagnosis is Other intestinal obstruction; Upper abdominal pain, unspecified. Bed requested for [facility] ER HOLD. Status is Observation. Condition is Stable. Problem is new. Symptoms have improved. UTI on Admission? No. bb 08:10 05:32 05/13/2018 00:01 Hospitalization Ordered by Michael Ernst MD for Observation. rb1 Preliminary diagnosis is Other intestinal obstruction; Upper abdominal pain, unspecified. Bed requested for Telemetry/MedSurg (observation). Status is Observation. Condition is Stable. Problem is new. Symptoms have improved. UTI on Admission? No. mw
[2018-05-13 04:41] VITALS: BMI 40.8
--- NOTE | 2018-05-13 04:59 | P.HP ---
Certification for Inpatient Patient admitted to: Observation With expected LOS: <2 Midnights Practitioner: I am a practitioner with admitting privileges, knowledge of patient current condition, hospital course, and medical plan of care. Services: Services provided to patient in accordance with Admission requirements found in Title 42 Section 412.3 of the Code of Federal Regulations Patient History Date of Service: 05/13/18 Reason for admission: incarcerated ventral hernia History of Present Illness: Mr Maguire is a 27 years old male with history of IgA nephropathy, Hypertensive nephrosclerosis leading with ESRD on HD, obesity, hypothyroidism, who came to ED complaining of severe abdominal pain. The pain was in periumbilical area, 10/ 10 of intensity, associated with nausea and vomiting. No history of fever or chills. The patient has history of a ventral wall hernia. Lab work shows 11.2 K WBC, CT abdomen remarkable for a ventral hernia containing large bowel with fat stranding. In ED, the hernia was able to be reduced. The patient symptoms improved, but not resolved. Afebrile. Allergies No Known Allergies Allergy (Verified 08/06/17 09:16) Home medications list reviewed: Yes Home Medications: Furosemide [Lasix*] 40 mg PO DAILY #30 tab 08/09/17 Loratadine [Claritin*] 10 mg PO PRN 04/14/18 Amlodipine Besylate [Norvasc] 10 mg PO DAILY #90 tablet 04/18/18 Calcitrol [Rocaltrol*] 0.25 mcg PO Q48H #15 cap 04/18/18 Calcium Carbonate/Vitamin D3 [Oscal 500 + Vit D 200 Iu Tab*] 1 tab PO BID #60 tab 04/18/18 Carvedilol [Coreg] 25 mg PO BID #60 tab 04/18/18 Lisinopril 20 mg PO BID #60 tablet 04/18/18 Sevelamer Carbonate [Renvela*] 2,400 mg PO TIDWM #270 tablet 04/18/18 Hydralazine [Apresoline*] 50 mg PO BID #120 tab 05/01/18 - Past Medical/Surgical History Diabetic: No -: obesity -: HTN -: Asthma -: CKD -: Asthma -: HLD -: Hypothyroidism -: kidney biopsy - Family History Father -: Heart disease, Diabetes Notes: Heavy smoker Mother -: Lung disease Notes: COPD - Social History Smoking Status: Never smoker Alcohol use: No CD- Drugs: No Caffeine use: No Place of Residence: Home Review of Systems 10-point ROS is otherwise unremarkable Physical Examination - Physical Exam General: Alert, In no apparent distress HEENT: Atraumatic, PERRLA, Mucous membr. moist/pink, EOMI, Sclerae nonicteric Neck: Supple, 2+ carotid pulse no bruit, No LAD, Without JVD or thyroid abnormality Respiratory: Clear to auscultation bilaterally, Normal air movement Cardiovascular: Regular rate/rhythm, Normal S1 S2 Gastrointestinal: Normal bowel sounds, Tenderness (diffuse tender to palpation, more periumbilical area.) Musculoskeletal: No tenderness Integumentary: No rashes Neurological: Normal speech, Normal strength at 5/5 x4 extr, Normal tone, Normal affect Lymphatics: No axilla or inguinal lymphadenopathy - Studies Laboratory Data (last 24 hrs) 05/12/18 22:25: WBC 11.2 H, Hgb 10.6 L, Hct 31.8 L, Plt Count 238 05/12/18 22:25: Sodium 142, Potassium 4.3, BUN 65 H, Creatinine 16.80 H*, Glucose 98, Total Bilirubin 0.5, AST < 3 L, ALT 15, Alkaline Phosphatase 53, Lipase 102 Assessment and Plan - Problems (Diagnosis) (1) Incarcerated ventral hernia Current Visit: Yes Status: Acute (2) Hypertensive nephrosclerosis Onset Date: 04/15/18 Current Visit: No Status: Acute (3) End stage renal disease Onset Date: 04/15/18 Current Visit: No Status: Chronic (4) Hypertension Current Visit: No Status: Chronic Qualifiers: Hypertension type: essential hypertension Qualified Code(s): I10 - Essential (primary) hypertension (5) IgA nephropathy Onset Date: 04/15/18 Current Visit: No Status: Chronic (6) Obesity Onset Date: 08/06/17 Current Visit: No Status: Chronic Qualifiers: Obesity type: unspecified obesity type Obesity classification: unspecified obesity classification Serious obesity comorbidity presence: unspecified whether serious comorbidity present Qualified Code(s): E66.9 - Obesity, unspecified - Plan Will consult Dr Block for evaluation and recommendations. Also consult Dr Rome for HD orders. Continue empiric entibiotic treatment, IV fluids, NPO. - Advance Directives Does patient have a Living Will: No Does patient have a Durable POA for Healthcare: No - Code Status/Comfort Care Code Status Assessed: Yes Code Status: Full Code
[2018-05-13] MEDS: ONDANSETRON 4 MG/2 ML VIAL IV PRN (05:02)
[2018-05-13] MEDS: MORPHINE 2 MG/ML SYR IV PRN ×3 (05:02→22:57)
[2018-05-13] MEDS ORDERED: ONDANSETRON 4 MG/2 ML VIAL ONE ×2 (05:08→14:56)
[2018-05-13 06:30] LABS: Absolute Lymphocytes (CBC) 1.4 K/uL (0.7-4.9); Absolute Monocytes 0.7 K/uL (0.1-1.3); Absolute Neutrophil 6.9 K/uL (1.8-8.0); Basophils % 0.5 % (0-1.3); Eosinophils % 5.5 % (0-4.4); Hematocrit 30.2 % (39.6-49.0); Lymphocytes % 14.4 % (15.3-44.8); MPV 7.1 fL (7.6-11.3); Monocytes % 7.4 % (3.3-12.3); RBC Red Blood Cell Count 3.44 M/uL (4.33-5.43)
[2018-05-13 06:53] LABS: Potassium 4.8 mmol/L (3.5-5.1)
[2018-05-13] MEDS: METRONIDAZOLE 500mg IVPB 500 MG/100 ML BAG IV SCH ×2 (08:45→16:48)
[2018-05-13] MEDS: AMLODIPINE 10 MG TAB PO SCH (08:46)
[2018-05-13] MEDS: LISINOPRIL 20 MG TAB PO SCH ×2 (08:46→21:00)
[2018-05-13] MEDS: HYDRALAZINE HCL 25 MG TABLET PO SCH ×2 (08:46→21:00)
[2018-05-13] MEDS: CALCITROL 0.25 MCG CAP PO SCH (08:46)
[2018-05-13] MEDS: FUROSEMIDE 40 MG TABLET PO SCH (08:47)
[2018-05-13] MEDS: CARVEDILOL 25 MG TAB PO SCH ×2 (08:47→21:00)
[2018-05-13] MEDS: CIPROFLOXACIN 400mg IV 400 MG/200 ML BAG IV SCH (08:48)
[2018-05-13] MEDS: TRAMADOL HCL 50 MG TAB PO PRN (09:17)
--- NOTE | 2018-05-13 11:02 | RAD REPORT ---
EXAM DESCRIPTION: CT - Stone Protocol CLINICAL HISTORY: The patient is 27 years old and is Male; ABD PAIN. TECHNIQUE: Axial computed tomography images of the abdomen and pelvis without intravenous contrast. Sagittal and coronal reformatted images were created and reviewed. This CT exam was performed using one or more o f the following dose reduction techniques: Automated exposure control, adjustment of the mA and/or kV according to patient size, and/or use of iterative reconstruction technique. COMPARISON: CT abdomen and pelvis without contrast dated 08/06/2017. FINDINGS: LUNG BASES: Lung bases are clear. MEDIASTINUM: Small hiatal hernia is present. ABDOMEN: LIVER: Unremarkable. GALLBLADDER AND BILE DUCTS: Unremarkable. No calcified stones. No ductal dilation. PANCREAS: Unremarkable. No ductal dilation. SPLEEN: Unremarkable. No splenomegaly ADRENALS: Unremarkable. No mass. KIDNEYS AND URETERS: STOMACH AND BOWEL: There is thickening of the wall of the herniated transverse colon with fat strandi ng liver and surrounding the ventral hernia. There is mild fluid distention of the colon proximal to this finding measuring up to 4.8 cm at the hepatic flexure. PELVIS: APPENDIX: The appendix is seen and is within normal limits BLADDER: The bladder is decompressed. No stones. REPRODUCTIVE: Unremarkable as visualized. ABDOMEN and PELVIS: INTRAPERITONEAL SPACE: Unremarkable. No free air. No significant fluid collection. BONE/JOINTS: No acute fracture. No dislocation. SOFT TISSUES: Diastasis of the rectus abdominis with large bowel containing ventral hernia with abdom inal defect measuring approximately 4.7 cm VASCULATURE: Unremarkable. No abdominal aortic aneurysm. LYMPH NODES: Unremarkable. No enlarged lymph nodes. IMPRESSION: 1. Large bowel containing ventral hernia with herniated thickened transverse colon as we ll as intrahernial/perihernia fat stranding. 2. Fluid distention of the proximal colon concerning for partial obstruction. Electronically signed by: Tereso Adams DO 05/12/2018 10:45 PM [facility] Due to temporary technical issues with the PACS/Fluency reporting system, reports are being signed by the in house radiologist as a courtesy to ensure prompt reporting. The interpreting radiologist is f ully responsible for the content of the report.
[2018-05-13] MEDS ORDERED: PROPOFOL 200 MG/20 ML VIAL IV ONE (14:21)
[2018-05-13] MEDS ORDERED: ROCURONIUM 50 MG/5 ML VIAL IV ONE (14:22)
[2018-05-13] MEDS ORDERED: LIDOCAINE 2% MPF 5 ML VIAL ONE (14:22)
[2018-05-13] MEDS ORDERED: GLYCOPYRROLATE 0.2 MG/ML SYR ONE ×2 (14:22)
[2018-05-13] MEDS ORDERED: FENTANYL CITR 250 MCG/5 ML ONE (14:23)
[2018-05-13] MEDS ORDERED: MIDAZOLAM HCL 2 MG/2 ML INJ ONE (14:24)
[2018-05-13] MEDS ORDERED: NA CHLORIDE 0.9% 1,000 ML ONE (14:27)
[2018-05-13] MEDS ORDERED: NEOSTIGMINE 1 MG/ML -10 ML VIAL ONE (14:56)
[2018-05-13] MEDS ORDERED: BUPIVACAINE 0.5% PF 10 ML VIAL ONE (15:36)
--- NOTE | 2018-05-13 15:42 | P.BOP ---
Preoperative diagnosis: incarcerated ventral hernia, bowel obstruction Postoperative diagnosis: same plus extensive intrabdominal adhesions Primary procedure: 1. Emergent Exploratory laparotomy, 2. lysis of adhesions Secondary procedure: 3. Repair of incarcerated ventral hernia Drapery Rod Assembler: Vita Hagen) Estimated blood loss: <50cc Specimen: hernia sac Findings: incarcerated transverse colon Anesthesia: General Complications: None Transferred to: Recovery Room Condition: Good
[2018-05-13] MEDS ORDERED: MORPHINE 4 MG/ML SYR IV PRN (15:44)
[2018-05-13] MEDS: HYDROMORPHONE HCL 1 MG/ML INJ ONE ×4 (15:56→16:27)
[2018-05-13 16:05] VITALS: O2SAT 100
--- NOTE | 2018-05-13 16:29 | CON ---
Date of Consultation: 05/13/2018 NEPHROLOGY CONSULTATION Consulting Physician: Vlad Mcintosh DO Reason For Consultation: Elevated BUN and creatinine, hypertension, end-stage renal disease, dialysi s management. History Of Present Illness: This is a pleasant, unfortunate 27-year-old gentleman, well known to me from the office and dialysis with significant past medical history of end-stage renal disease seconda ry to diabetic nephropathy, recently started on dialysis, TTS at [facility] throu PermCath, hypertension, diabetes, the patient came to the hospital complaining of abdominal pain, right lower quadrant, without any fever, any chills. Primary workup showed incarcerated hernia and h ypertension with marginal overload. For that reason, we have been consulted. Past Medical History: Include 1.Obesity. 2.Hypertension. 3.Hyperlipidemia. 4.Diabetes. 5.IgA nephropathy with segmental sclerosis. Family History: Positive for diabetes and hypertension. Social History: Denies smoking. Denies drinking. Denies drug abuse. Allergies: NO KNOWN DRUG ALLERGIES. Past Surgical History: Includes PermCath placement, kidney biopsy. Home Medications: Include carvedilol 25 b.i.d., calcitriol 0.5 every 48 hours, amlodipine, lisinopri l 20 b.i.d., hydralazine 50 b.i.d., and Lasix. Current Medication In The Hospital: Include calcitriol, amlodipine, ciprofloxacin, lisinopril, morph ine, and tramadol. Review of Systems: Head and Neck: No red eye. No ear pain. GI: No nausea. No vomiting. : No polyuria. No dysuria. No hematuria. It Business Process Architect: Not applicable. Respiratory: No shortness of breath. Cardiovascular: No chest pain. Endocrine: No polydipsia. Skin: No rash. Neuro: No neuropathy. Musculoskeletal: Has abdomi nal pain. Physical Examination: Vital Signs: When I saw the patient, the patient lying in bed with abdominal pain. Blood pressure 1 41/85, pulse of 84. Chest: Crackles bilateral bases. Heart: S1, S2. Regular. No murmur. Abdomen: Soft, tender. Extremity: Trace edema. Neuro: Alert and oriented. Nonfocal. No tremor. Laboratory Data: WBC 9.6, H and H 10.2/30.2, platelets 222. Sodium 142, potassium 4.8, bicarb 22, B UN 70, creatinine 18, calcium 9.3. Assessment And Plan: 1.End-stage renal disease, over volume. We will dialyze the patient today. We will challenge the kelsea cerrato. We will dialyze the patient without heparin given the plan for surgery. 2.Hypertension, controlled, optimal, utilize the blood pressure for ultrafiltration. Continue home medication. 3.Over volume. The patient is going to be challenged on the fluid today. 4.Anemia of chronic kidney disease. We will start the patient on Epogen. 5.Secondary hyperparathyroidism. Continue calcitriol. Thank you, Dr. Mcintosh, for allowing us to pa javierate in the care of your patient. Case was discussed with Dr. Mcintosh and with the patient. The patient agreed on the plan. ANIBAL Voice ID: [id number] Report ID: [id number]
--- NOTE | 2018-05-13 16:34 | P.PN ---
Subjective Date of Service: 05/13/18 Primary Care Provider: Unknown, Nephrology-Dr. Rome Chief Complaint: incarcerated ventral hernia Subjective: Other (Patient with pain to the periumbilical region) Physical Examination - Vital Signs Temperature: 99.0 F Blood Pressure: 139/89 Pulse: 72 Respirations: 24 Pulse Ox (%): 95 - Physical Exam General: Alert, In no apparent distress, Oriented x3, Cooperative HEENT: Atraumatic Neck: Supple Respiratory: Clear to auscultation bilaterally, Normal air movement Cardiovascular: Normal pulses, Regular rate/rhythm Gastrointestinal: Other (Pain to periumbilical region) Integumentary: No erythema, No warmth, No cyanosis Neurological: Normal speech, Normal strength at 5/5 x4 extr, Normal tone, Normal affect - Studies Laboratory Data (last 24 hrs) 05/12/18 22:25: WBC 11.2 H, Hgb 10.6 L, Hct 31.8 L, Plt Count 238 05/12/18 22:25: Sodium 142, Potassium 4.3, BUN 65 H, Creatinine 16.80 H*, Glucose 98, Total Bilirubin 0.5, AST < 3 L, ALT 15, Alkaline Phosphatase 53, Lipase 102 Medications List Reviewed: Yes Assessment & Plan Discharge Plan: Home Plan to discharge in: 72 Hours Physician Review Additional Text: Impression: Abdominal pain secondary to Incarcerated Ventral hernia with large bowel ESRD on Hemodialysis HTN Obesity, BMI 40.9 Plan: Abdominal pain secondary to Incarcerated Ventral hernia with large bowel: Spoke with surgery. Patient was taking back for surgical intervention for ventral hernia repair. No need for colectomy for colostomy in noted. Patient will be monitored closely. Will keep the patient NPO Overnite. Will consider starting clear liquids tomorrow. Will continue with IV antibiotic therapy. Will monitor closely. ESRD on Hemodialysis: Nephrology consulted. Patient gets dialysis every Saturday, and Saturdays. HTN: Continue the medication Obesity, BMI 40.9: Address lifestyle modification education. Time Spent Managing Pts Care (In Minutes): 55
[2018-05-13] MEDS ORDERED: HYDRALAZINE HCL 20 MG/ML VIAL IV PRN (16:35)
[2018-05-13] MEDS ORDERED: NA CHLORIDE 0.9% 1,000 ML IV PRN (20:56)
--- NOTE | 2018-05-13 20:56 | CON ---
Date of Consultation: 05/13/2018 Diagnosis: Incarcerated ventral hernia. History Of Present Illness: This is the case of a 27-year-old patient with a history of renal failur e and hemodialysis and came this morning with a ventral pain. The patient was seen in the ER. Appar ently, we have a hernia that they were trying to reduce and in fact it was mentioned as reduced. The patient was admitted to the hospital. I was consulted. I saw the patient. This hernia is still th ere. He does not remember any trauma, any coughing, any sneezy, or anything out of the usual. He is still have some ventral tenderness and that is new for him. He denies any dysuria, hematuria, hemat ochezia, or melena. He denies any recent traveling out of the country. He denies any family member sick at home. Once again, he is on hemodialysis. Review of Systems: Ten points otherwise unremarkable. Past Medical History: As above plus, 1.Obesity. 2.Hypertension. 3.Asthma. 4.Hypothyroidism. Family History: Includes diabetes and heart disease. Mother with COPD. Social History: He does not smoke. He does not drink alcohol. Physical Examination: General: Patient is awake and alert. No distress. HEENT: Pupils are equal and reactive. Neck: Supple. Chest: Clear. Heart: S1, S2. ABDOMEN: Soft and depressible. There is epigastric tenderness with a bulging present consistent wit h incarcerated hernia with bowel sounds there. Rectal: Deferred. Extremities: Good capillary refill. Good peripheral pulses. Neurologic: Cranial nerve 2 through 12 grossly within normal limits. Laboratory Data: Blood work shows a WBC count of 9.6, hemoglobin of 10.2, and platelets of 222. Pot assium 4.8 and creatinine is 18.1. CAT scan of the abdomen and pelvis interpreted by Dr. Barnes as incarcerated ventral hernia with lar ge bowel component on it. There is some thickening of the large bowel and on coughing some proximal bowel distention consistent with partial obstruction, per radiologist. Assessment And Plan: This is a 27-year-old patient with a history of renal failure, on hemodialysis, obesity with an incarcerated ventral hernia with incarcerated large bowel with thickening of the bow el, thickening of the mesentery, cannot rule out strangulation. For that reason, I offered the patie nt emergent exploratory laparotomy, possible resection, possible ostomy, repair of an incarcerated po ssibly strangulated ventral hernia. The benefits, alternatives, and risks including, but not limited to infection, bleeding, damage to adjacent structures, anesthesia complication, [place], and even . He also understands this may not relieve any symptoms. He might need more than one surgical interve ntion. He is due to receive dialysis today most likely after the surgery. He might have to do so, i t depends on how clinically he improves and how the renal doctors believe he is needed. The OR was i mmediately called. MANUEL/MODL Voice ID: [id number] Report ID: [id number]
[2018-05-13] MEDS ORDERED: ALBUMIN HUMAN 25% 50 ML IV SCH (21:00)
[2018-05-13] MEDS: EPOETIN ALFA 10,000 UNIT/ML VIAL IV SCH (21:05)
[2018-05-14] MEDS: TRAMADOL HCL 50 MG TAB PO PRN ×2 (01:11→08:41)
[2018-05-14] MEDS: METRONIDAZOLE 500mg IVPB 500 MG/100 ML BAG IV SCH ×3 (01:36→16:49)
[2018-05-14] MEDS: MORPHINE 2 MG/ML SYR IV PRN (03:28)
[2018-05-14 04:17] LABS: Absolute Lymphocytes (CBC) 0.8 K/uL (0.7-4.9); Absolute Monocytes 1.1 K/uL (0.1-1.3); Absolute Neutrophil 7.5 K/uL (1.8-8.0); Basophils % 0.4 % (0-1.3); Eosinophils % 2.3 % (0-4.4); Hematocrit 30.3 % (39.6-49.0); Lymphocytes % 8.2 % (15.3-44.8); Monocytes % 11.3 % (3.3-12.3); RBC Red Blood Cell Count 3.48 M/uL (4.33-5.43)
[2018-05-14 04:46] LABS: Albumin 3.6 g/dL (3.4-5.0); Phosphorus 6.8 mg/dL (2.5-4.9); Potassium 4.7 mmol/L (3.5-5.1)
[2018-05-14] MEDS ORDERED: ACETAMINOPHEN 500 MG TAB PO PRN (08:35)
[2018-05-14] MEDS: AMLODIPINE 10 MG TAB PO SCH (08:41)
[2018-05-14] MEDS: HYDRALAZINE HCL 25 MG TABLET PO SCH ×2 (08:42→21:00)
[2018-05-14] MEDS: CARVEDILOL 25 MG TAB PO SCH ×2 (08:42→21:00)
[2018-05-14] MEDS: FUROSEMIDE 40 MG TABLET PO SCH (08:42)
[2018-05-14] MEDS: LISINOPRIL 20 MG TAB PO SCH ×2 (08:42→21:00)
--- NOTE | 2018-05-14 11:58 | P.PN ---
Subjective Date of Service: 05/14/18 Primary Care Provider: Unknown, Nephrology-Dr. Rome Chief Complaint: incarcerated ventral hernia Subjective: Other (Patient doing well this morning.) Physical Examination - Vital Signs Temperature: 99.7 F Blood Pressure: 137/78 Pulse: 109 Respirations: 20 Pulse Ox (%): 98 - Physical Exam General: Alert, In no apparent distress, Oriented x3, Cooperative HEENT: Atraumatic Neck: Supple Respiratory: Clear to auscultation bilaterally, Normal air movement Cardiovascular: Normal pulses, Regular rate/rhythm Gastrointestinal: Normal bowel sounds, Soft and benign, Non-distended, Other ( Postop changes noted.) Musculoskeletal: No erythema, No tenderness, No warmth Integumentary: No tenderness/swelling, No erythema, No warmth, No cyanosis Neurological: Normal speech, Normal strength at 5/5 x4 extr, Normal tone, Normal affect - Studies Medications List Reviewed: Yes Assessment & Plan Discharge Plan: Home Plan to discharge in: 48 Hours Physician Review Additional Text: Impression: Abdominal pain secondary to Incarcerated Ventral hernia with large bowel status post lysis of adhesions and repair of ventral hernia, postop day 1 ESRD on Hemodialysis HTN Anemia of chronic disease Obesity, BMI 40.9 Plan: Abdominal pain secondary to Incarcerated Ventral hernia with large bowel status post lysis of adhesions and repair of ventral hernia, postop day 1: Patient doing well. Surgery has advanced diet to full liquid. Will continue to monitor and advance. Anticipate discharge in the next 2 days with improvement. Continue with antibiotic therapy. ESRD on Hemodialysis: Nephrology consulted. Patient did get dialysis yesterday. Patient will continue with dialysis every Saturday, and Saturdays. HTN: Continue the medication Anemia of chronic disease: Continue to monitor closely Obesity, BMI 40.9: Address lifestyle modification education. Time Spent Managing Pts Care (In Minutes): 55
[2018-05-14] MEDS ORDERED: HYDROCODONE/APAP 7.5/325 MG TAB PO PRN (12:09)
[2018-05-14] MEDS ORDERED: NA CHLORIDE 0.9% 250 ML IV ONE (12:24)
[2018-05-14] MEDS ORDERED: D50W 25 GM/50 ML SYRINGE IV ONE (12:28)
[2018-05-14] MEDS ORDERED: NA CHLORIDE 0.9% 250 ML ONE (12:33)
--- NOTE | 2018-05-14 14:45 | RAD REPORT ---
EXAM DESCRIPTION: RAD - Chest Single View - 05/14/2018 2:39 pm CLINICAL HISTORY: sob Chest pain. COMPARISON: Chest Single View dated 04/14/2018; Chest Single View dated 04/14/2018; Chest Single View da isidra 08/10/2017; Chest Single View dated 08/06/2017 FINDINGS: Portable technique limits examination quality. The lungs are grossly clear. The heart is normal in size. No displaced fractures.Right-sided venous c atheter tip in the SVC. IMPRESSION: No acute intrathoracic process suspected.
[2018-05-14] MEDS: CIPROFLOXACIN 400mg IV 400 MG/200 ML BAG IV SCH (16:49)
--- NOTE | 2018-05-14 17:09 | PN ---
Date of Progress Note: 05/14/2018 NEPHROLOGY FOLLOWUP Subjective: The patient is doing better. The patient is status post hernia repair yesterday, starte d on liquid diet, tolerated, status post dialysis yesterday. Physical Examination: Vital Signs: Blood pressure 137/78, pulse of 109, afebrile. Chest: Clear to auscultation. Heart: S1 and S2, regular. Abdomen: Mild tenderness. No guarding. Extremities: Trace edema. Laboratory Data: H and H of 10.4 and 30.3. Sodium 140, potassium 4.7, bicarb 27, BUN 43, creatinine 12, calcium 8.5, and phosphorus 6.8. Current Medications: The patient on it includes ciprofloxacin 400 daily, metronidazole 500 t.i.d., E pogen, amlodipine 10 mg, carvedilol 25 b.i.d., hydralazine p.r.n., hydralazine 50 b.i.d., lisinopril 20 b.i.d., Tylenol, Zofran, Lasix 40. Assessment And Plan: 1.End-stage renal disease, normal volume, we will continue dialysis. The patient is going to be sachi eduled for dialysis tomorrow and we will monitor. 2.Hypertension, controlled, optimal. Continue current medication. 3.Hernia, incarcerated, status post repair. Follow up with Surgery. 4.Diabetes as by primary. 5.Secondary hyperparathyroidism. Continue binder. 6.Anemia, stable. ALONZO/STACIA Voice ID: [id number] Report ID: [id number]
[2018-05-14] MEDS: ONDANSETRON 4 MG/2 ML VIAL IV PRN (17:41)
[2018-05-15] MEDS: TRAMADOL HCL 50 MG TAB PO PRN (02:38)
[2018-05-15] MEDS: METRONIDAZOLE 500mg IVPB 500 MG/100 ML BAG IV SCH ×2 (02:41→08:35)
[2018-05-15 05:23] LABS: Albumin 3.3 g/dL (3.4-5.0); Potassium 4.5 mmol/L (3.5-5.1)
[2018-05-15 05:26] LABS: Phosphorus 8.9 mg/dL (2.5-4.9)
[2018-05-15] MEDS: HYDRALAZINE HCL 25 MG TABLET PO SCH (08:36)
[2018-05-15] MEDS: CARVEDILOL 25 MG TAB PO SCH (08:36)
[2018-05-15] MEDS: CALCITROL 0.25 MCG CAP PO SCH (08:37)
[2018-05-15] MEDS: AMLODIPINE 10 MG TAB PO SCH (08:37)
[2018-05-15] MEDS: LISINOPRIL 20 MG TAB PO SCH (08:37)
[2018-05-15] MEDS: SEVELAMER CARBONATE 800 MG TABLET PO SCH ×3 (08:37→16:25)
[2018-05-15] MEDS ORDERED: ONDANSETRON 4 MG (ODT) TAB PO PRN (09:23)
[2018-05-15] MEDS: EPOETIN ALFA 10,000 UNIT/ML VIAL IV SCH (11:09)
--- NOTE | 2018-05-15 11:33 | P.PN ---
Subjective Date of Service: 05/15/18 Primary Care Provider: Unknown, Nephrology-Dr. Rome Chief Complaint: incarcerated ventral hernia Subjective: Improving Pt admitted for hernia repair tolerating diet BP improved after holding BP meds HD today can be discharged after HD from nephrology point of view Physical Examination - Vital Signs Temperature: 99.1 F Blood Pressure: 108/53 Pulse: 97 Respirations: 16 Pulse Ox (%): 91 - Physical Exam General: In no apparent distress, Oriented x3 HEENT: Atraumatic Neck: Supple, Without JVD or thyroid abnormality Respiratory: Clear to auscultation bilaterally, Normal air movement Cardiovascular: No edema, Regular rate/rhythm, Normal S1 S2 Gastrointestinal: Normal bowel sounds, Soft and benign - Studies Laboratory Data (last 24 hrs) 05/15/18 03:48: Sodium 136, Potassium 4.5, BUN 62 H, Creatinine 16.80 H* D, Glucose 96, Phosphorus 8.9 H* Medications List Reviewed: Yes Assessment And Plan - Current Problems (Diagnosis) (1) Incarcerated ventral hernia Onset Date: 05/14/18 Current Visit: Yes Status: Acute (2) End stage renal disease Onset Date: 04/15/18 Current Visit: No Status: Chronic - Plan End-stage renal disease vir permcath TTsat from HD today renal diet renal dose meds Hypertension, Bp was on the low side agree to hold BP meds incarcerated ventral Hernia, S/P repair Diabetes as by primary. Secondary hyperparathyroidism. Continue binder. Anemia, stable.
[2018-05-15] MEDS ORDERED: metroNIDAZOLE 500 MG TABLET PO SCH (14:00)
--- NOTE | 2018-05-15 14:10 | P.PN ---
Subjective Date of Service: 05/15/18 Primary Care Provider: Unknown, Nephrology-Dr. Rome Chief Complaint: incarcerated ventral hernia Subjective: Improving Physical Examination - Vital Signs Temperature: 99.1 F Blood Pressure: 108/53 Pulse: 97 Respirations: 16 Pulse Ox (%): 91 - Physical Exam General: Alert, In no apparent distress, Oriented x3, Cooperative HEENT: Atraumatic Neck: Supple Respiratory: Clear to auscultation bilaterally, Normal air movement Cardiovascular: Normal pulses, Regular rate/rhythm Gastrointestinal: Normal bowel sounds, Soft and benign, Non-distended, No tenderness, No masses, No rebound, No guarding Musculoskeletal: No erythema, No tenderness, No warmth Integumentary: No tenderness/swelling, No erythema, No warmth, No cyanosis Neurological: Normal speech, Normal strength at 5/5 x4 extr, Normal tone - Studies Laboratory Data (last 24 hrs) 05/15/18 03:48: Sodium 136, Potassium 4.5, BUN 62 H, Creatinine 16.80 H* D, Glucose 96, Phosphorus 8.9 H* Medications List Reviewed: Yes Assessment & Plan Discharge Plan: Home Plan to discharge in: 24 Hours Physician Review Additional Text: Impression: Abdominal pain secondary to Incarcerated Ventral hernia with large bowel status post lysis of adhesions and repair of ventral hernia, postop day 2 ESRD on Hemodialysis HTN Anemia of chronic disease Obesity, BMI 40.9 Plan: Abdominal pain secondary to Incarcerated Ventral hernia with large bowel status post lysis of adhesions and repair of ventral hernia, postop day 2: Patient doing well. Will advance diet. Encourage ambulation. Possible discharge later today if significantly improved. Case discussed with surgery. Patient will need to continue with antibiotic therapy at discharge. ESRD on Hemodialysis: Nephrology consulted. Patient did get dialysis yesterday. Patient will continue with dialysis every Saturday, and Saturdays. HTN: Patient off blood pressure medication. Likely at discharge will likely not require any medication. Anemia of chronic disease: Continue to monitor closely Obesity, BMI 40.9: Address lifestyle modification education. Time Spent Managing Pts Care (In Minutes): 55
--- NOTE | 2018-05-15 15:23 | P.DS ---
Admission Date: 05/15/18 Discharge Date: 05/15/18 Primary Care Provider: Unknown, Nephrology-Dr. Rome Disposition: ROUTINE DISCHARGE Discharge Condition: GOOD Reason for Admission: incarcerated ventral hernia Consultations: Nephrology-Dr. Rome Surgery-Dr. Block Procedures: CT scan: TECHNIQUE: Axial computed tomography images of the abdomen and pelvis without intravenous contrast. Sagittal and coronal reformatted images were created and reviewed. This CT exam was performed using one or more of the following dose reduction techniques: Automated exposure control, adjustment of the mA and/or kV according to patient size, and/or use of iterative reconstruction technique. COMPARISON: CT abdomen and pelvis without contrast dated 08/06/2017. FINDINGS: LUNG BASES: Lung bases are clear. MEDIASTINUM: Small hiatal hernia is present. ABDOMEN: LIVER: Unremarkable. GALLBLADDER AND BILE DUCTS: Unremarkable. No calcified stones. No ductal dilation. PANCREAS: Unremarkable. No ductal dilation. SPLEEN: Unremarkable. No splenomegaly ADRENALS: Unremarkable. No mass. KIDNEYS AND URETERS: STOMACH AND BOWEL: There is thickening of the wall of the herniated transverse colon with fat stranding liver and surrounding the ventral hernia. There is mild fluid distention of the colon proximal to this finding measuring up to 4.8 cm at the hepatic flexure. PELVIS: APPENDIX: The appendix is seen and is within normal limits BLADDER: The bladder is decompressed. No stones. REPRODUCTIVE: Unremarkable as visualized. ABDOMEN and PELVIS: INTRAPERITONEAL SPACE: Unremarkable. No free air. No significant fluid collection. BONE/JOINTS: No acute fracture. No dislocation. SOFT TISSUES: Diastasis of the rectus abdominis with large bowel containing ventral hernia with abdominal defect measuring approximately 4.7 cm VASCULATURE: Unremarkable. No abdominal aortic aneurysm. LYMPH NODES: Unremarkable. No enlarged lymph nodes. IMPRESSION: 1. Large bowel containing ventral hernia with herniated thickened transverse colon as well as intrahernial/perihernia fat stranding. 2. Fluid distention of the proximal colon concerning for partial obstruction. Surgery: Date: 05/13/18 Preoperative diagnosis: incarcerated ventral hernia, bowel obstruction Postoperative diagnosis: same plus extensive intrabdominal adhesions Primary procedure: 1. Emergent Exploratory laparotomy, 2. lysis of adhesions Secondary procedure: 3. Repair of incarcerated ventral hernia Bacon Skin Lifter: Vita Hagen ([place]) Estimated blood loss: <50cc Specimen: hernia sac Findings: incarcerated transverse colon Anesthesia: General Complications: None Medical Problem List: Abdominal pain secondary to Incarcerated Ventral hernia with large bowel status emergent exploratory laparotomy, lysis of adhesions, repair of incarcerated ventral hernia , postop day 2 ESRD on Hemodialysis HTN Anemia of chronic disease Obesity, BMI 40.9 Suspect obstructive sleep apnea Brief History of Present Illness: 27-year-old male presented emergency room with periumbilical pain. Patient found to have incarcerated hernia of large bowel. Patient was admitted for treatment Hospital Course: Patient presented with abdominal pain secondary to incarcerated ventral hernia with large bowel. Patient had emergent laparotomy with lysis of adhesions and repair of incarcerated hernia. Patient did well post operatively. At discharge patient without significant pain. Patient able to tolerate food. At discharge patient will continue with Cipro 250 mg 1 pill every day and Flagyl 500 mg 3 times a day for 7 days. No heavy lifting, pushing or pulling is recommended. Patient may follow up with surgery in 1 week. Patient with end-stage renal disease on hemodialysis. Patient received dialysis during his stay. Patient will continue with dialysis as outpatient. Patient to continue dialysis on Tuesdays, and Saturdays. Lasix has been discontinued. Patient to continue with a 1500 cc per day fluid restriction. Future medications will need to be renally dosed. Recommend no nonsteroidal anti-inflammatories. Patient with history of hypertension. During the course of his stay, patient did not require any of his blood pressure medications. At discharge medications have been discontinued. This includes: Norvasc 10 mg daily, carvedilol 25 mg 1 pill twice daily, hydralazine 50 mg 1 pill twice daily, and lisinopril 20 mg 1 pill twice daily. Recommend to monitor blood pressure closely at least once daily. If his blood pressure starts to increase above 150 /90 consistently the patient may need to restart medication. This can be further addressed and monitored by nephrology. Patient with anemia of chronic disease. This can be monitored by nephrology as an outpatient. As recommended from a prior hospitalization, patient likely has underlying obstructive sleep apnea. Patient will need to follow up with pulmonology to further evaluate. Vital Signs/Physical Exam: Temp Pulse Resp BP Pulse Ox 99.1 F 97 H 16 108/53 L 91 05/15/18 14:10 05/15/18 14:10 05/15/18 14:10 05/15/18 14:10 05/15/18 14:10 General: Alert, In no apparent distress, Oriented x3, Cooperative HEENT: Atraumatic Neck: Supple Respiratory: Clear to auscultation bilaterally Cardiovascular: Normal pulses, Regular rate/rhythm Gastrointestinal: Normal bowel sounds, Soft and benign, Non-distended, Other ( Postoperative changes noted) Integumentary: No erythema, No warmth, No cyanosis Neurological: Normal speech, Normal strength at 5/5 x4 extr, Normal tone, Normal affect Laboratory Data at Discharge: WBC 9.6 K/uL (4.3-10.9) 05/14/18 03:43 Hgb 10.4 g/dL (13.6-17.9) L 05/14/18 03:43 Hct 30.3 % (39.6-49.0) L 05/14/18 03:43 Plt Count 186 K/uL (152-406) 05/14/18 03:43 Sodium 136 mmol/L (136-145) 05/15/18 03:48 Potassium 4.5 mmol/L (3.5-5.1) 05/15/18 03:48 BUN 62 mg/dL (7-18) H 05/15/18 03:48 Creatinine 16.80 mg/dL (0.55-1.3) H* D 05/15/18 03:48 Glucose 96 mg/dL (74-106) 05/15/18 03:48 Phosphorus 8.9 mg/dL (2.5-4.9) H* 05/15/18 03:48 Total Bilirubin 0.5 mg/dL (0.2-1.0) 05/12/18 22:25 AST < 3 U/L (15-37) L 05/12/18 22:25 ALT 15 U/L (12-78) 05/12/18 22:25 Alkaline Phosphatase 53 U/L (45-117) 05/12/18 22:25 Lipase 102 U/L (73-393) 05/12/18 22:25 Home Medications: Calcitrol [Rocaltrol*] 0.25 mcg PO Q48H #15 cap 04/18/18 Ciprofloxacin HCl [Cipro 250 MG Tablet*] 250 mg PO DAILY #7 tab 05/15/18 Tramadol HCl [Ultram] 50 mg PO BID PRN #10 tablet 05/15/18 metroNIDAZOLE [Flagyl] 500 mg PO Q8H #21 tablet 05/15/18 New Medications: Ciprofloxacin HCl [Cipro 250 MG Tablet*] 250 mg PO DAILY #7 tab metroNIDAZOLE [Flagyl] 500 mg PO Q8H #21 tablet Tramadol HCl [Ultram] 50 mg PO BID PRN #10 tablet PRN Reason: Pain Scale 5-7 (Moderate) Patient Discharge Instructions: 1. Patient will need a follow up with his PCP within 1 week to follow up this hospitalization. 2. Patient presented with abdominal pain secondary to incarcerated ventral hernia with large bowel. Patient had emergent laparotomy with lysis of adhesions and repair of incarcerated hernia. Patient did well post operatively. At discharge patient without significant pain. Patient able to tolerate food. At discharge patient will continue with Cipro 250 mg 1 pill every day and Flagyl 500 mg 3 times a day for 7 days. No heavy lifting, pushing or pulling is recommended. Patient may follow up with surgery in 1 week. A limited supply of tramadol 50 mg 1 pill twice daily as needed for pain will be provided. 3. Patient with end- stage renal disease on hemodialysis. Patient received dialysis during his stay. Patient will continue with dialysis as outpatient. Patient to continue dialysis on Tuesdays, and Saturdays. Lasix has been discontinued. Patient to continue with a 1500 cc per day fluid restriction. Future medications will need to be renally dosed. Recommend no nonsteroidal anti- inflammatories. 4. Patient with history of hypertension. During the course of his stay, patient did not require any of his blood pressure medications. At discharge medications have been discontinued. This includes: Norvasc 10 mg daily, carvedilol 25 mg 1 pill twice daily, hydralazine 50 mg 1 pill twice daily , and lisinopril 20 mg 1 pill twice daily. Recommend to monitor blood pressure closely at least once daily. If his blood pressure starts to increase above 150 /90 consistently the patient may need to restart medication. This can be further addressed and monitored by nephrology. 5. Patient with anemia of chronic disease. This can be monitored by nephrology as an outpatient. 6. As recommended from a prior hospitalization, patient likely has underlying obstructive sleep apnea. Patient will need to follow up with pulmonology to further evaluate. Diet: GI soft diet Activity: No lifting more than 10 lbs Time spent managing pt's care (in minutes): 55
[2018-05-15 16:30] VITALS: BP 106/55; TEMP 99.9
[2018-05-15] MEDS ORDERED: CIPROFLOXACIN HCL 250 MG TAB PO SCH (21:00)
== END 2018-05-15 18:11 | disposition home or self-care (01) | DRG 335 ==
LOC: ER 20:44 → ERHOLD 05-13 01:14 → 4TH 05-13 07:54 → OBSVTOIN 05-15 07:05
PROVIDERS: ADMIT Internal Medicine; ATTEND Family Medicine
PROC: 0WQF0ZZ Repair Abdominal Wall, Open Approach (ICD-10-PCS; principal; 2018-05-13 15:00)
PROC: 0DNW0ZZ Release Peritoneum, Open Approach (ICD-10-PCS; 2018-05-13 15:00)
PROC: 5A1D70Z Performance of Urinary Filtration, Intermittent, Less than 6 Hours Per Day (ICD-10-PCS; 2018-05-15)
PROC: 5A1D70Z Performance of Urinary Filtration, Intermittent, Less than 6 Hours Per Day (ICD-10-PCS; 2018-05-15)
DX: K43.6 Other and unspecified ventral hernia with obstruction, without gangrene (principal); N18.6 End stage renal disease; I12.0 Hypertensive chronic kidney disease with stage 5 chronic kidney disease or end stage renal disease; N02.8 Recurrent and persistent hematuria with other morphologic changes; Z68.41 Body mass index [BMI] 40.0-44.9, adult; N25.81 Secondary hyperparathyroidism of renal origin; K66.0 Peritoneal adhesions (postprocedural) (postinfection); G47.33 Obstructive sleep apnea (adult) (pediatric); J45.909 Unspecified asthma, uncomplicated; E78.5 Hyperlipidemia, unspecified; E03.9 Hypothyroidism, unspecified; D63.1 Anemia in chronic kidney disease; E66.9 Obesity, unspecified; Z99.2 Dependence on renal dialysis
CPT/HCPCS: 36415; 71045; 74176; 76377; 80048; 80069; 80076; 82962; 83690; 85025; 88302; 90935; 99285; G0378; J0744; J1170; J1644; J2250; J2270; J2405; J2704; J2710; J3010; J7030; Q4081

== ENCOUNTER 2018-12-03 11:57 | Emergency (ER) | payer OTHER ==
--- OUTSIDE RECORDS SUMMARY | 2018-12-03 11:59 | XMS REPORT | Clinical Summary ---
:1990 Author Organization [facility] Address [address] [place] [address] Care Team Providers Name Role Phone Asked, No Pcp Primary Care Provider Unavailable Allergies No Known Allergies Medications No known medications Active Problems Problem Noted Date End-stage renal disease 11/20/2018 Overview: Added automatically from request for surgery [id number] Encounters Date Type Specialty Care Team Description 11/20/2018 Office Visit General Surgery Charles Jose End-stage renal MD Mason disease (HCC) (Primary Dx) 11/20/2018 Transcribe Orders General Surgery Charles Jose End-stage renal MD Mason disease (HCC) (Primary Dx) after 12/02/2017 Family History Medical History Relation Name Comments Diabetes Father Heart disease Father COPD Mother Relation Name Status Comments Father Mother Social History Tobacco Use Types Packs/Day Years Used Date Never Smoker Smokeless Tobacco: Never Used Alcohol Use Drinks/Week oz/Week Comments Not Currently Sex Assigned at Date Recorded Not on file Job Start Date Occupation Industry Not on file Not on file Not on file Travel History Travel Start Travel End No recent travel history available. Last Filed Vital Signs Vital Sign Reading Time Taken Comments Blood Pressure 149/78 11/20/2018 2:56 PM CDT Pulse 121 11/20/2018 2:56 PM CDT Temperature - - Respiratory Rate - - Oxygen Saturation - - Inhaled Oxygen Concentration - - Weight 130 kg (286 lb) 11/20/2018 2:56 PM CDT Height 177.8 cm (5' 10") 11/20/2018 2:56 PM CDT Body Mass Index 41.04 11/20/2018 2:56 PM CDT Plan of Treatment Date Type Specialty Care Team Description 12/11/2018 Pre-Admit Testing Pre-Admission Appointment Testing 12/18/2018 Hospital [place]counter [place] [id number] [facility] [address] [place], [place] [id number] 12/18/2018 Surgery General Surgery Ari Jose MD peritoneal dialysis [id number] [facility] catheter placement. [facility] [address] [place], [place] [id number] Health Maintenance Due Date Last Done Comments INFLUENZA VACCINE 11/06/2018 Results Not on fileafter 12/02/2017 Insurance Payer Benefit Plan / Subscriber ID Effective Dates Phone Address Type Group MEDICARE MEDICARE PART A xxxxxxxxxxx 2018-Present [place], [place] Medicare AND B MEDICAID MEDICAID xxxxxxxxx 2018-Present Medicaid Advance Directives For more information, please contact: [phone] Type Date Recorded Patient Fibre Technologist Explanation Advance Directives, Living Will and Medical Power of Butadiene Compressor Operator
[2018-12-03] MEDS ORDERED: NA CHLORIDE 0.9% 250 ML ONE (12:43)
[2018-12-03 13:11] LABS: Absolute Lymphocytes (CBC) 1.5 K/uL (0.7-4.9); Basophils % 0.5 % (0-1.3); Hematocrit 40.8 % (39.6-49.0); Lymphocytes % 15.7 % (15.3-44.8); MPV 7.7 fL (7.6-11.3)
[2018-12-03 13:17] LABS: Protime INR 1.03
[2018-12-03 13:40] LABS: ALT/SGPT 36 U/L (12-78); AST/SGOT 21 U/L (15-37); Albumin 4.1 g/dL (3.4-5.0); Alkaline Phosphatase 38 U/L (45-117); BUN Blood Urea Nitrogen 17 mg/dL (7-18); Bicarbonate 28 mmol/L (21-32); Bilirubin Direct 0.1 mg/dL (0-0.2); Bilirubin Total 0.7 mg/dL (0.2-1.0); Glucose Level 84 mg/dL (74-106); Magnesium 1.8 mg/dL (1.8-2.4); NT PRO-BNP 899 pg/mL (<125); Potassium 3.9 mmol/L (3.5-5.1); Protein, Total 8.5 g/dL (6.4-8.2); Sodium Level 137 mmol/L (136-145); Troponin (Emerg Dept Use Only) < 0.02 ng/mL (0.0-0.045)
--- NOTE | 2018-12-03 14:37 | RAD REPORT ---
EXAM DESCRIPTION: Eduardo Single View12/03/2018 2:22 pm CLINICAL HISTORY: Sepsis COMPARISON: May 2018 FINDINGS: The lungs appear clear of acute infiltrate. The heart is normal size. A central venous ca theter remains in place IMPRESSION: No acute abnormalities displayed
[2018-12-03 14:50] LABS: Urine Blood 1+ (NEG); Urine Glucose TRACE (NEG); Urine Protein 3+ (NEG); Urine Specific Gravity 1.015 (1.005-1.030)
[2018-12-03 14:54] LABS: Urine Amorphous Sediment 2+ /HPF (NONE SEEN); Urine Bacteria <20 /HPF (NONE SEEN); Urine Culture Reflex Order NOT NEEDED; Urine RBC <5 /HPF (NONE SEEN)
--- NOTE | 2018-12-03 15:29 | EKG ---
Test Date: 2018-12-03 Test Time: 12:09:34 Ribbon Sweatband Operator: CONNER MEASUREMENT RESULTS: Intervals: Rate: 126 SC: 152 QRSD: 92 QT: 308 QTc: 446 [place]: P: 49 SC: 152 QRS: 106 T: 12 INTERPRETIVE STATEMENTS: Sinus tachycardia Rightward axis Borderline ECG Compared to ECG 04/13/2018 23:59:22 Right-axis deviation now present Sinus rhythm no longer present First degree AV block no longer present Electronically Signed On 12-03-18 15:28:33 CDT by Noe Andersen
--- NOTE | 2018-12-03 15:51 | EDPHYS ---
Physician Documentation [facility] Name: Melvin Maguire Age: 28 yrs Sex: Male : 1990 Arrival Date: 12/03/2018 Time: 12:00 Bed 25 Private MD: ED Physician Kimberly Garcia HPI: 12/03 12:30 This 28 yrs old Male presents to ER via Ambulatory with complaints of High cp Heart rate. 12:30 The patient presents with a history of heart racing. cp 12:30 Context: The symptoms occur at rest. Onset: The symptoms/episode began/occurred today. cp Duration: The patient or guardian reports a single episode, that is still ongoing, but improving. Associated signs and symptoms: Pertinent negatives: chest pain, cough, fever, lightheadedness, SOB, syncope, vomiting. Severity of symptoms: in the emergency department the symptoms have improved mildly. Patient reports he was at dialysis today when he was observed to have elevated heart rate as high as 160s. Patient was given 250 mL NS after completing dialysis and referred to ED for evaluation. Historical: - Allergies: 12:27 No Known Allergies; mg2 - Home Meds: 13:01 amlodipine 10 mg tab once daily [Active]; calcitriol 0.25 mcg Oral cap 1 cap Every mg2 other day [Active]; Coreg 25 mg Oral tab 1 tab 2 times per day [Active]; hydralazine 25 mg Oral tab 2 tab 2 times per day [Active]; Lasix 40 mg Oral cp24 1 tab once daily [Active]; lisinopril 20 mg Oral tab 1 tab twice a day [Active]; - PMHx: 12:27 Asthma; High Cholesterol; Hypertension; Hypothyroidism; kidney failure; dialysis; mg2 - PSHx: 12:27 Hernia repair; mg2 - Immunization history:: Flu vaccine is up to date. - Social history:: Smoking status: Patient/guardian denies using tobacco, Patient/guardian denies using alcohol, street drugs, IV drugs. - Ebola Screening: : No symptoms or risks identified at this time. ROS: 12:35 Constitutional: Negative for body aches, chills, fever, poor PO intake. cp 12:35 Eyes: Negative for injury, pain, redness, and discharge. cp 12:35 Cardiovascular: Positive for palpitations, Negative for chest pain, edema. cp 12:35 ENT: Negative for drainage from ear(s), ear pain, sore throat, difficulty swallowing, cp difficulty handling secretions. 12:35 Respiratory: Negative for cough, shortness of breath, wheezing. 12:35 Abdomen/GI: Negative for abdominal pain, nausea, vomiting, and diarrhea, constipation, anorexia, black/tarry stool, rectal bleeding. 12:35 Back: Negative for pain at rest, pain with movement. 12:35 : Positive for decreased urinary output, Negative for flank pain. 12:35 Skin: Negative for cellulitis, rash. 12:35 Neuro: Negative for altered mental status, dizziness, syncope, weakness. 12:35 All other systems are negative. Exam: 12:20 ECG was reviewed by the Attending Physician. cp 12:40 Constitutional: The patient appears in no acute distress, alert, awake, cp non-diaphoretic, non-toxic, well developed, well nourished, obese. 12:40 Head/Face: Normocephalic, atraumatic. cp 12:40 Eyes: Periorbital structures: appear normal, Conjunctiva: normal, no exudate, no cp injection, Sclera: no appreciated abnormality, Lids and lashes: appear normal, bilaterally. 12:40 ENT: External ear(s): are unremarkable, Ear canal(s): are normal, clear, TM's: bulging, cp is not appreciated, bilaterally, dullness, bilaterally, erythema, is not appreciated, bilaterally, Nose: is normal, Mouth: Lips: moist, Oral mucosa: pink and intact, moist, Posterior pharynx: is normal, airway is patent, no erythema, no exudate. 12:40 Chest/axilla: Inspection: normal, Palpation: is normal, no crepitus, no tenderness. 12:40 Cardiovascular: Rate: tachycardic, actual rate is 128 bpm, Rhythm: regular, Edema: is not appreciated, JVD: is not appreciated. 12:40 Respiratory: the patient does not display signs of respiratory distress, Respirations: normal, no use of accessory muscles, no retractions, no splinting, no tachypnea, labored breathing, is not present, Breath sounds: are clear throughout, no decreased breath sounds, no stridor, no wheezing. 12:40 Abdomen/GI: Inspection: abdomen appears normal, Bowel sounds: active, all quadrants, Palpation: abdomen is soft and non-tender, in all quadrants, rebound tenderness, is not appreciated, voluntary guarding, is not appreciated, involuntary guarding, is not appreciated. 12:40 Back: pain, is absent, ROM is normal. 12:40 Skin: no rash present. 12:40 Neuro: Orientation: to person, place \T\ time. Mentation: is normal, Cerebellar function: is grossly normal, Motor: moves all fours, strength is normal, Sensation: is normal. Vital Signs: 12:24 BP 106 / 78; Pulse 128; Resp 18; Temp 98.7; Pulse Ox 100% on R/A; Pain 0/10; mg2 13:38 BP 108 / 71; Pulse 103; Resp 17; Pulse Ox 97% on R/A; mg2 15:18 BP 102 / 85; Pulse 114; Resp 17; Pulse Ox 100% on R/A; mg2 MDM: 12:10 Patient medically screened. 14:10 Physician consultation: Yanet Sánchez MD was called at 14:10, regarding patient's cp condition, wants urine sample given and reviewed, hold off on antibiotics at this time and call back with urine results. 15:05 Physician consultation: Yanet Sánchez MD was called at 15:05, was contacted at 15:05, and will see patient in ED, shortly. 15:37 Physician consultation: Yanet Sánchez MD in the emergency department to see patient at 15:37, recommends discharge to home for continued monitoring and to return to ED if fever, chest pain. Patient to resume daily meds as prescribed. 15:48 Data reviewed: vital signs, nurses notes, lab test result(s), EKG, radiologic studies, cp plain films, and as a result, I will discharge patient. 15:48 Test interpretation: by ED physician or midlevel provider: ECG, plain radiologic cp studies. Counseling: I had a detailed discussion with the patient and/or guardian regarding: the historical points, exam findings, and any diagnostic results supporting the discharge/admit diagnosis, lab results, radiology results, to return to the emergency department if symptoms worsen or persist or if there are any questions or concerns that arise at home. 12/03 12:20 Order name: Basic Metabolic Panel; Complete Time: 13:59 cp 12/03 12:20 Order name: CBC with Diff; Complete Time: 13:22 cp 08/28 13:22 Interpretation: Normal except: HGB 13.4; MCV 92.9; PLT 132. cp 08/28 12:20 Order name: LFT's; Complete Time: 13:59 cp 08/28 13:59 Interpretation: Normal except: ALK 38; TP 8.5; GLOB 4.4; A/G 0.9. cp 08/28 12:20 Order name: Magnesium; Complete Time: 13:59 cp 08/28 12:20 Order name: NT PRO-BNP; Complete Time: 13:59 cp 08/28 12:20 Order name: PT-INR; Complete Time: 13:59 cp 08/28 12:20 Order name: Troponin (emerg Dept Use Only); Complete Time: 13:59 cp 08/28 12:20 Order name: Lactate; Complete Time: 13:22 cp 08/ 12:20 Order name: Procalcitonin; Complete Time: 13:59 cp 08/28 13:59 Interpretation: Abnormal: Procalcitonin 3.70. cp 08/ 12:20 Order name: TSH; Complete Time: 13:59 cp 08 12:20 Order name: T3 Free; Complete Time: 13:59 cp 0828 12:20 Order name: Blood Culture Adult (2) cp / 14:03 Order name: Urine Microscopic Only; Complete Time: 14:57 cp 08/28 14:57 Interpretation: Normal except: AMORPH 2+. cp 08/28 14:30 Order name: Urine Dipstick--Ancillary (enter results); Complete Time: 14:53 eb 12/03 12:20 Order name: EKG; Complete Time: 12:22 cp 08/28 12:20 Order name: Cardiac monitoring; Complete Time: 12:41 cp 08/ 12:20 Order name: EKG - Nurse/Tech; Complete Time: 12:41 cp 08/ 12:20 Order name: IV Saline Lock; Complete Time: 12:41 cp 08/28 12:20 Order name: Labs collected and sent; Complete Time: 12:41 cp 08/ 12:20 Order name: O2 Per Protocol; Complete Time: 12:42 cp 12/03 12:20 Order name: O2 Sat Monitoring; Complete Time: 12:42 cp 12/03 14:03 Order name: Urine Dipstick-Ancillary (obtain specimen); Complete Time: 14:26 12/03 14:03 Order name: XRAY Chest (1 view); Complete Time: 14:53 12/03 14:53 Interpretation: Report review. EC:20 Rate is 126 beats/min. Rhythm is regular. MO interval is normal. QRS interval is cp normal. QT interval is normal. T waves are Inverted in lead III. Interpreted by me. Reviewed by me. Administered Medications: 12:42 Drug: NS 0.9% 250 ml Route: IV; Rate: bolus; Site: right antecubital; mg2 13:38 Follow up: Response: No adverse reaction; IV Status: Completed infusion; IV Intake: mg2 250ml 14:12 Not Given (Physician Discretion): Cefepime 1 grams IVPB at 200 ml/hr once over 30 mins; cp (mix in NS 100 mL) Disposition: 12/03/18 15:49 Discharged to Home. Impression: Tachycardia, unspecified. - Condition is Stable. - Discharge Instructions: Sinus Tachycardia. - Medication Reconciliation Form, Thank You Letter, Antibiotic Education, Prescription Opioid Use form. - Follow up: Private Physician; When: 1 - 2 days; Reason: Recheck today's complaints. - Problem is new. - Symptoms have improved. Signatures: Dispatcher [employer] EDMS Rob Han PA PA cp Mike Hyman RN RN mg2 Corrections: (The following items were deleted from the chart) 15:56 15:49 12/03/2018 15:49 Discharged to Home. Impression: Tachycardia, unspecified. mg2 Condition is Stable. Forms are Medication Reconciliation Form, Thank You Letter, Antibiotic Education, Prescription Opioid Use. Follow up: Private Physician; When: 1 - 2 days; Reason: Recheck today's complaints. Problem is new. Symptoms have improved. cp 12/04 15:50 12/03 15:48 Data reviewed: vital signs, nurses notes, lab test result(s), EKG, cp radiologic studies, plain films, and as a result, I will continue to observe the patient, cp
--- NOTE | 2018-12-03 15:51 | ER ---
Nurse's Notes [facility] Name: Melvin Maguire Age: 28 yrs Sex: Male : 1990 Arrival Date: 12/03/2018 Time: 12:00 Bed 25 Private MD: Diagnosis: Tachycardia, unspecified Presentation: 12/03 12:22 Presenting complaint: Patient states: after i completed my dialysis today at [facility] [place] the nurse noted that my heart rate was up to 160 bpm. i was also having shortness of breath after the session. i do my dialysis MWF. they gave me 250 ml of NS bolus. Transition of care: patient was not received from another setting of care. Onset of symptoms was December 03, 2018. Risk Assessment: Do you want to hurt yourself or someone else? Patient reports no desire to harm self or others. Initial Sepsis Screen: Does the patient meet any 2 criteria? No. Patient's initial sepsis screen is negative. Does the patient have a suspected source of infection? No. Patient's initial sepsis screen is negative. Care prior to arrival: None. 12:22 Method Of Arrival: Ambulatory mg2 12:22 Acuity: SAKSHI 3 mg2 Historical: - Allergies: 12:27 No Known Allergies; mg2 - Home Meds: 13:01 amlodipine 10 mg tab once daily [Active]; calcitriol 0.25 mcg Oral cap 1 cap Every mg2 other day [Active]; Coreg 25 mg Oral tab 1 tab 2 times per day [Active]; hydralazine 25 mg Oral tab 2 tab 2 times per day [Active]; Lasix 40 mg Oral cp24 1 tab once daily [Active]; lisinopril 20 mg Oral tab 1 tab twice a day [Active]; - PMHx: 12:27 Asthma; High Cholesterol; Hypertension; Hypothyroidism; kidney failure; dialysis; mg2 - PSHx: 12:27 Hernia repair; mg2 - Immunization history:: Flu vaccine is up to date. - Social history:: Smoking status: Patient/guardian denies using tobacco, Patient/guardian denies using alcohol, street drugs, IV drugs. - Ebola Screening: : No symptoms or risks identified at this time. Screenin:58 Abuse screen: Denies threats or abuse. Denies injuries from another. Nutritional mg2 screening: No deficits noted. Tuberculosis screening: No symptoms or risk factors identified. Fall Risk IV access (20 points). Assessment: 12:57 General: Appears in no apparent distress. comfortable, Behavior is calm, cooperative. mg2 Pain: Denies pain. Neuro: Level of Consciousness is awake, alert, obeys commands, Oriented to person, place, time, situation. Cardiovascular: Capillary refill < 3 seconds Patient's skin is warm and dry. Respiratory: Airway is patent Respiratory effort is even, unlabored, Respiratory pattern is regular, symmetrical. Respiratory: Reports shortness of breath. GI: No signs and/or symptoms were reported involving the gastrointestinal system. : No signs and/or symptoms were reported regarding the genitourinary system. EENT: No signs and/or symptoms were reported regarding the EENT system. Derm: Skin is intact, is healthy with good turgor, Skin is pink, warm \T\ dry. normal. Musculoskeletal: Circulation, motion, and sensation intact. Capillary refill < 3 seconds. 15:55 Reassessment: Patient appears in no apparent distress at this time. Patient and/or mg2 family updated on plan of care and expected duration. Pain level reassessed. Patient is alert, oriented x 3, equal unlabored respirations, skin warm/dry/pink. Vital Signs: 12:24 BP 106 / 78; Pulse 128; Resp 18; Temp 98.7; Pulse Ox 100% on R/A; Pain 0/10; mg2 13:38 BP 108 / 71; Pulse 103; Resp 17; Pulse Ox 97% on R/A; mg2 15:18 BP 102 / 85; Pulse 114; Resp 17; Pulse Ox 100% on R/A; mg2 ED Course: 12:00 Patient arrived in ED. mr 12:05 Mike Hyman, EVETTE is Primary Nurse. mg2 12:09 Rob Han PA is PHCP. cp 12:09 Kimberly Garcia MD is Attending Physician. cp 12:24 Triage completed. mg2 12:25 EKG done, by motorsports technician. reviewed by Rob TO. jp3 12:26 Arm band placed on. mg2 12:35 Inserted saline lock: 20 gauge in right antecubital area, using aseptic technique. jp3 Blood collected. by Elliott draw end hand. 12:35 Initial lab(s) drawn, by oh, sent to lab. First set of blood cultures drawn by me. jp3 Patient maintains SpO2 saturation greater than 95% on room air. 12:59 No provider procedures requiring assistance completed. mg2 13:00 Patient has correct armband on for positive identification. monitoring manager on. Pulse mg2 ox on. NIBP on. Door closed. 13:00 Second set of blood cultures drawn by me. jp3 13:04 Warm blanket given. Verbal reassurance given. jp3 14:20 X-ray completed. Portable x-ray completed in exam room. Patient tolerated procedure mh1 well. 14:34 XRAY Chest (1 view) In Process Unspecified. EDMS 15:55 IV discontinued, intact, bleeding controlled, No redness/swelling at site. Pressure mg2 dressing applied. Administered Medications: 12:42 Drug: NS 0.9% 250 ml Route: IV; Rate: bolus; Site: right antecubital; mg2 13:38 Follow up: Response: No adverse reaction; IV Status: Completed infusion; IV Intake: mg2 250ml 14:12 Not Given (Physician Discretion): Cefepime 1 grams IVPB at 200 ml/hr once over 30 mins; cp (mix in NS 100 mL) Intake: 13:38 IV: 250ml; Total: 250ml. mg2 Outcome: 15:49 Discharge ordered by MD. cp 15:55 Discharged to home ambulatory, with family. mg2 15:55 Condition: stable 15:55 Discharge instructions given to patient, family, Instructed on discharge instructions, follow up and referral plans. Demonstrated understanding of instructions, follow-up care. 15:56 Patient left the ED. mg2 Signatures: Dispatcher [employer] EDMI Lynda Martines Martha 1 Rob Han PA PA cp Mike Hyman RN RN mg2 Jose Garrido jp3 Corrections: (The following items were deleted from the chart) 13:04 12:59 Inserted saline lock: 20 gauge in right antecubital area, using aseptic jp3 technique. Blood collected. by Elliott draw end hand mg2 15:44 15:18 Pulse 114bpm; Resp 17bpm; Pulse Ox 100% RA; mg2 mg2
[2018-12-03 16:25] VITALS: TEMP 98.7
[2018-12-03 16:28] VITALS: BP 102/85; O2SAT 100
--- NOTE | 2018-12-03 17:33 | P.CNS ---
Date of Consult: 12/03/18 Reason for Consult: Tachycardia Requesting Physician: Rob Han Primary Care Provider: None Chief Complaint: Tachycardia History of Present Illness: This is a 38-year-old male with history of hypertension, ESRD on hemodialysis Saturday, Saturday, Saturday, who was sent from dialysis clinic for tachycardia. In the dialysis center, patient was with heart rate in the 150s to 160. The patient denied any symptoms of chest pain, palpitations, shortness of breath, headache, vision changes, dizziness, GI or complaints. We were consulted to evaluate the patient for tachycardia. In the ER, his heart rate initially was in the 150s. He was provided with IV fluids bolus and his heart rate responded well and came down to 85-110s. Patient states that his normal heart rate ranges anywhere between 90-105. He normally takes Coreg 3.125 mg daily which she had not taken today. He also had diarrhea over the past week and for which she was provided with antibiotics. It seemed that he had too much fluid on and therefore he was provided with an extra session of dialysis on Saturday as well. Patient is labs were fairly unremarkable. He did not have any elevation WBC counts, his lactic acid was normal, urine analysis was normal, chest x-ray without any evidence of infection. His procalcitonin was elevated to to 3.70, otherwise his labs were fairly stable. His EKG showed sinus tachycardia. He did not have any fevers in the ER or at home recently. At the time of my exam, he was alert oriented x3, in no acute distress and hemodynamically stable with his heart rate down in the 100's. He continued to deny any symptoms. Allergies No Known Allergies Allergy (Verified 08/06/17 09:16) Home medications list reviewed: Yes Home Medications: Calcitrol [Rocaltrol*] 0.25 mcg PO Q48H #15 cap 04/18/18 Ciprofloxacin HCl [Cipro 250 MG Tablet*] 250 mg PO DAILY #7 tab 05/15/18 Tramadol HCl [Ultram] 50 mg PO BID PRN #10 tablet 05/15/18 metroNIDAZOLE [Flagyl] 500 mg PO Q8H #21 tablet 05/15/18 - Past Medical/Surgical History Diabetic: No -: obesity -: HTN -: Asthma -: CKD -: Asthma -: HLD -: Hypothyroidism -: kidney biopsy - Family History Father Medical History: Heart disease, Diabetes Notes: Heavy smoker Mother Medical History: Lung disease Notes: COPD - Social History Smoking Status: Never smoker Alcohol use: No CD- Drugs: No Caffeine use: No Review of Systems 10-point ROS is otherwise unremarkable Physical Examination Temp Pulse Resp BP Pulse Ox 98.7 F 114 H 17 102/85 12/03/18 12:24 12/03/18 15:18 12/03/18 15:18 12/03/18 15:18 General: Alert, In no apparent distress, Obese HEENT: Atraumatic, PERRLA, Mucous membr. moist/pink, EOMI, Sclerae nonicteric Neck: Supple, 2+ carotid pulse no bruit, No LAD, Without JVD or thyroid abnormality Respiratory: Clear to auscultation bilaterally, Normal air movement Cardiovascular: Normal S1 S2, Irregular heart rate/rhythm (Sinus tachycardia) Gastrointestinal: Normal bowel sounds, No tenderness Musculoskeletal: No tenderness Integumentary: No rashes Neurological: Normal gait, Normal speech, Normal tone, Normal affect Lymphatics: No axilla or inguinal lymphadenopathy Laboratory Data (last 24 hrs) 12/03/18 12:35: PT 12.1, INR 1.03 12/03/18 12:35: WBC 9.6, Hgb 13.4 L, Hct 40.8, Plt Count 132 L 12/03/18 12:35: Sodium 137, Potassium 3.9, BUN 17, Creatinine 6.34 H*, Glucose 84, Magnesium 1.8 D, Total Bilirubin 0.7, AST 21, ALT 36, Alkaline Phosphatase 38 L Conclusions/Impression: This is a 28-year-old male with history of ESRD on hemodialysis who was sent from dialysis clinic for tachycardia. This tachycardia is likely secondary to dehydration as patient did receive an extra dialysis session. clinically, tachycardia is improved after fluid bolus. Patient continues remain symptom free. No evidence of infection found on labs. Patient was recommended to continue taking his normal dose of Coreg as he had not taken it today. It is recommended that patient be discharged home as no evidence of infection and hemodynamics improvement after IV fluids along with clinical stability. Return to ER precautions were provided to the patient as well. Time Spent Managing Pts care (In Minutes): 45
== END 2018-12-03 15:56 | disposition home or self-care (01) ==
LOC: ER 11:57
DX: R00.0 Tachycardia, unspecified (principal); I12.0 Hypertensive chronic kidney disease with stage 5 chronic kidney disease or end stage renal disease; N18.6 End stage renal disease; E78.00 Pure hypercholesterolemia, unspecified
CPT/HCPCS: 36415; 71045; 80048; 80076; 81003; 81015; 83605; 83735; 83880; 84145; 84443; 84481; 84484; 85025; 85610; 87040; 93005; 96365; 99285

== ENCOUNTER 2019-01-11 16:37 | Emergency (ER) | payer OTHER ==
[2019-01-11 19:14] LABS: Absolute Lymphocytes (CBC) 1.6 K/uL (0.7-4.9); Basophils % 0.7 % (0-1.3); Hematocrit 30.8 % (39.6-49.0); Lymphocytes % 26.2 % (15.3-44.8); MPV 7.3 fL (7.6-11.3); RBC Red Blood Cell Count 3.44 M/uL (4.33-5.43)
[2019-01-11 19:36] LABS: ALT/SGPT 14 U/L (12-78); AST/SGOT 8 U/L (15-37); Alkaline Phosphatase 49 U/L (45-117); BUN Blood Urea Nitrogen 89 mg/dL (7-18); Bicarbonate 19 mmol/L (21-32); Bilirubin Direct < 0.1 mg/dL (0-0.2); Bilirubin Total 0.3 mg/dL (0.2-1.0); Glucose Level 91 mg/dL (74-106); Lipase 244 U/L (73-393); Potassium 4.9 mmol/L (3.5-5.1); Protein, Total 7.1 g/dL (6.4-8.2); Sodium Level 143 mmol/L (136-145)
--- NOTE | 2019-01-11 20:18 | RAD REPORT ---
EXAM DESCRIPTION: CT - Stone Protocol - 01/11/2019 7:59 pm CLINICAL HISTORY: Abdominal pain, history of recent peritoneal dialysis catheter placement COMPARISON: CT May 2018 TECHNIQUE: Axial 5 mm thick images were obtained without oral or IV contrast. The [id number] span s the entirety of the system partially obscuring uppermost abdomen and lung bases. All CT scans are performed using dose optimization technique as appropriate and may include automated exposure control or mA/KV adjustment according to patient size. FINDINGS: Small bilateral kidneys show no hydronephrosis. No obstructing or nonobstructing calculus. No renal function assessment can be made. Isodense masses and pyelonephritis are not excluded. No re nal mass suspected. Contracted urinary bladder shows no suspicious finding. No significant adrenal fi nding. Imaged portions of the liver, spleen and pancreas show no suspicious findings on non-contrast imaging . Gallbladder is contracted. No biliary tree dilatation. No dilated bowel loops. May study showed a periumbilical hernia containing bowel loops. Postsurg ical changes are present at the supraumbilical hernia site. There is a small remnant right lateral as pect. Bowel remains within the peritoneal cavity. Peritoneal dialysis catheter is in place. Minimal a mount of soft tissue attenuation is seen along the course of the catheter from skin surface to the ab dominal wall. This is not unexpected. No abscess, air or inflammatory type stranding. No bulky lymphadenopathy or mass. No free air or pneumatosis. No abnormal free fluid collection. No significant bony abnormality. IMPRESSION: Minimal amount of soft tissue surrounds the peritoneal dialysis catheter from skin surfa ce to abdominal wall. This is not unexpected. No air, abscess or other worrisome finding. Postsurgical changes to the supraumbilical hernia. Small remnant of hernia remains. All bowel loops a re retained within the peritoneal cavity. Isodense masses and pyelonephritis are not excluded on stone protocol technique.
--- NOTE | 2019-01-11 20:38 | EDPHYS ---
Physician Documentation [facility] Name: Melvin Maguire Age: 28 yrs Sex: Male : 1990 Arrival Date: 01/11/2019 Time: 16:38 Bed 23 Private MD: Sandie Rome ED Physician Kosta Alvarez HPI: 01/11 18:51 This 28 yrs old Male presents to ER via Wheelchair with complaints of Post [facility] Surgical Pain, High Blood Pressure. 18:51 The patient presents with abdominal pain. Onset: The symptoms/episode began/occurred jmm gradually, today. The symptoms do not radiate. Associated signs and symptoms: Pertinent negatives: fever, vomiting. This is a 28 year old male with with a history of ESRD presents to the ED with complaints of abdominal pain. Dialysis catheter installed dec 18. Patient states having no issues with flow today. Denies fever denies vomiting. . Historical: - Allergies: 17:00 No Known Allergies; aj1 - Home Meds: 17:00 amlodipine 10 mg tab once daily [Active]; lisinopril 5 mg oral tab once daily [Active]; aj1 Coreg 3.125 mg oral tab 2 times per day [Active]; Lasix 40 mg Oral cp24 1 tab once daily [Active]; Auryxia 210 mg iron oral tab 4 tabs with meals [Active]; - PMHx: 17:00 Asthma; Dialysis; High Cholesterol; Hypertension; Hypothyroidism; kidney failure; aj1 - Immunization history:: Flu vaccine is not up to date. - Social history:: Smoking status: Patient/guardian denies using tobacco. - Ebola Screening: : Patient denies travel to an Ebola-affected area in the 21 days before illness onset. ROS: 18:51 Constitutional: Negative for fever, chills, and weight loss, Cardiovascular: Negative jmm for chest pain, palpitations, and edema, Respiratory: Negative for shortness of breath, cough, wheezing, and pleuritic chest pain. 18:51 Abdomen/GI: Positive for abdominal pain, Negative for vomiting, diarrhea. 18:51 All other systems are negative. Exam: 18:51 Constitutional: This is a well developed, well nourished patient who is awake, alert, jmm and in no acute distress. Head/Face: atraumatic. Eyes: EOMI, no conjunctival erythema appreciated ENT: Moist Mucus Membranes Neck: Trachea midline, Supple Chest/axilla: Normal chest wall appearance and motion. Cardiovascular: Regular rate and rhythm. No edema appreciated Respiratory: Normal respirations, no respiratory distress appreciated 18:51 Back: Normal ROM Skin: General appearance color normal MS/ Extremity: Moves all extremities, no obvious deformities appreciated, no edema noted to the lower extremities Neuro: Awake and alert, normal gait Psych: Behavior is normal, Mood is normal, Patient is cooperative and pleasant 18:51 Abdomen/GI: Inspection: obese Bowel sounds: normal, catheter noted, no erythema around the side, mild tenderness medial to the catheter. Vital Signs: 17:00 BP 150 / 102; Pulse 99; Resp 18; Temp 98.4; Pulse Ox 100% on R/A; Weight 129 kg (R); aj1 Height 5 ft. 10 in. (177.80 cm) (R); 18:39 BP 146 / 93; Pulse 93; Resp 18; Pulse Ox 100% on R/A; mg2 20:36 BP 139 / 87; Pulse 85; Resp 18; Pulse Ox 97% on R/A; mg2 17:00 Body Mass Index 40.81 (129.00 kg, 177.80 cm) aj1 MDM: 18:41 Patient medically screened. [facility] 20:36 Data reviewed: vital signs, nurses notes. Counseling: I had a detailed discussion with miriam the patient and/or guardian regarding: the historical points, exam findings, and any diagnostic results supporting the discharge/admit diagnosis, radiology results, the need for outpatient follow up, to return to the emergency department if symptoms worsen or persist or if there are any questions or concerns that arise at home. ED course: Patient is alert and non toxic in appearance in the ED. Patient advised to follow up with nephrology and otherwise given strict return precautions. Patient understood and agrees with the plan of care. . 01/11 18:41 Order name: Basic Metabolic Panel; Complete Time: 19:40 [facility] 01/11 18:41 Order name: CBC with Diff; Complete Time: 19:35 [facility] 01/11 18:41 Order name: Creatinine for Radiology; Complete Time: 19:40 [facility] 01/11 18:41 Order name: Hepatic Function; Complete Time: 19:40 [facility] 01/11 18:41 Order name: Lipase; Complete Time: 19:40 [facility] 01/11 18:41 Order name: CT Stone Protocol; Complete Time: 20:24 [facility] 01/11 18:41 Order name: IV Saline Lock; Complete Time: 19:00 [facility] 01/11 18:41 Order name: Labs collected and sent; Complete Time: 19:00 [facility] Administered Medications: No medications were administered Disposition: 01/11/19 20:38 Discharged to Home. Impression: Generalized abdominal pain. - Condition is Stable. - Discharge Instructions: Abdominal Pain, Adult, Peritoneal Dialysis, Peritoneal Dialysis Catheter Placement. - Medication Reconciliation Form, Thank You Letter, Antibiotic Education, Prescription Opioid Use form. - Follow up: Sandie Rome MD; When: 1 - 2 days; Reason: Recheck today's complaints, Continuance of care, Re-evaluation by your physician. Addendum: 01/15/2019 20:25 Co-signature as Attending Physician, Kosta Alvarez MD. r n Signatures: Dispatcher [employer] EDMS Cecy Baig RN RN aj1 Tha Byers PA PA [facility] Kosta Alvarez MD MD rn Gardose, Michele, RN RN mg2 Corrections: (The following items were deleted from the chart) 01/11 20:45 20:38 01/11/2019 20:38 Discharged to Home. Impression: Generalized abdominal pain. mg2 Condition is Stable. Forms are Medication Reconciliation Form, Thank You Letter, Antibiotic Education, Prescription Opioid Use. Follow up: Sandie Rome; When: 1 - 2 days; Reason: Recheck today's complaints, Continuance of care, Re-evaluation by your physician. [facility]
--- NOTE | 2019-01-11 20:38 | ER ---
Nurse's Notes [facility] Name: Melvin Maguire Age: 28 yrs Sex: Male : 1990 Arrival Date: 01/11/2019 Time: 16:38 Bed 23 Private MD: Sandie Rome Diagnosis: Generalized abdominal pain Presentation: 01/11 16:55 Presenting complaint: Patient states: "I just had surgery December 18, I had a aj1 peritoneal catheter put in for dialysis and one of the areas next to the surgery site is starting to hurt." Denies redness, swelling, or drainage from surgical site. States that they have been able to use his catheter for dialysis with no problems. Denies fever. Transition of care: patient was not received from another setting of care. Onset of symptoms was January 11, 2019. Risk Assessment: Do you want to hurt yourself or someone else? Patient reports no desire to harm self or others. Initial Sepsis Screen: Does the patient meet any 2 criteria? No. Patient's initial sepsis screen is negative. Does the patient have a suspected source of infection? No. Patient's initial sepsis screen is negative. Care prior to arrival: None. 16:55 Method Of Arrival: Wheelchair aj1 16:55 Acuity: SAKSHI 3 aj1 Triage Assessment: 17:00 General: Appears in no apparent distress. comfortable, Behavior is calm, cooperative, aj1 appropriate for age. Pain: Pain currently is 6 out of 10 on a pain scale. Neuro: Level of Consciousness is awake, alert, obeys commands. Cardiovascular: Patient's skin is warm and dry. Respiratory: Airway is patent Respiratory effort is even, unlabored, Respiratory pattern is regular, symmetrical. Historical: - Allergies: 17:00 No Known Allergies; aj1 - Home Meds: 17:00 amlodipine 10 mg tab once daily [Active]; lisinopril 5 mg oral tab once daily [Active]; aj1 Coreg 3.125 mg oral tab 2 times per day [Active]; Lasix 40 mg Oral cp24 1 tab once daily [Active]; Auryxia 210 mg iron oral tab 4 tabs with meals [Active]; - PMHx: 17:00 Asthma; Dialysis; High Cholesterol; Hypertension; Hypothyroidism; kidney failure; aj1 - Immunization history:: Flu vaccine is not up to date. - Social history:: Smoking status: Patient/guardian denies using tobacco. - Ebola Screening: : Patient denies travel to an Ebola-affected area in the 21 days before illness onset. Screenin:38 Abuse screen: Denies threats or abuse. Denies injuries from another. Nutritional mg2 screening: No deficits noted. Tuberculosis screening: No symptoms or risk factors identified. Fall Risk None identified. Assessment: 18:35 General: Appears in no apparent distress. comfortable, Behavior is calm, cooperative. mg2 Pain: Complains of pain in abdomen Pain does not radiate. Pain currently is 3 out of 10 on a pain scale. Quality of pain is described as burning, aching, Pain began gradually. Neuro: Level of Consciousness is awake, alert, obeys commands, Oriented to person, place, time, situation. Neuro: Reports headache. Cardiovascular: Capillary refill < 3 seconds Patient's skin is warm and dry. Respiratory: Airway is patent Respiratory effort is even, unlabored, Respiratory pattern is regular, symmetrical. GI: No signs and/or symptoms were reported involving the gastrointestinal system. : No signs and/or symptoms were reported regarding the genitourinary system. EENT: No signs and/or symptoms were reported regarding the EENT system. Derm: Skin is intact, is healthy with good turgor, Skin is pink, warm \\T\\ dry. normal. Musculoskeletal: Circulation, motion, and sensation intact. Capillary refill < 3 seconds. 20:44 Reassessment: Patient appears in no apparent distress at this time. mg2 Vital Signs: 17:00 BP 150 / 102; Pulse 99; Resp 18; Temp 98.4; Pulse Ox 100% on R/A; Weight 129 kg (R); aj1 Height 5 ft. 10 in. (177.80 cm) (R); 18:39 BP 146 / 93; Pulse 93; Resp 18; Pulse Ox 100% on R/A; mg2 20:36 BP 139 / 87; Pulse 85; Resp 18; Pulse Ox 97% on R/A; mg2 17:00 Body Mass Index 40.81 (129.00 kg, 177.80 cm) aj1 ED Course: 16:38 Patient arrived in ED. as 16:39 Sandie Rome MD is Private Physician. as 16:59 Triage completed. aj1 17:00 Arm band placed on Patient placed in waiting room, Patient notified of wait time. aj1 18:26 Tha Byers PA is PHCP. [facility] 18:26 Kosta Alvarez MD is Attending Physician. [facility] 18:32 Mike Hyman, RN is Primary Nurse. mg2 18:39 No provider procedures requiring assistance completed. mg2 19:00 Initial lab(s) drawn, by me, sent to lab. Inserted saline lock: 20 gauge in right lt1 antecubital area, using aseptic technique. 19:58 CT completed. Patient tolerated procedure well. Patient moved back from CT. mw3 19:59 CT Stone Protocol In Process Unspecified. EDMS 20:37 Sandie Rome MD is Referral Physician. [facility] 20:45 Patient has correct armband on for positive identification. mg2 20:45 IV discontinued, intact, bleeding controlled, No redness/swelling at site. Pressure mg2 dressing applied. Administered Medications: No medications were administered Outcome: 20:38 Discharge ordered by MD. [facility] 20:45 Discharged to home ambulatory. mg2 20:45 Condition: stable 20:45 Discharge instructions given to patient, Instructed on discharge instructions, follow up and referral plans. Demonstrated understanding of instructions, follow-up care. 20:45 Patient left the ED. mg2 Signatures: Dispatcher [employer] EDMS Cecy Baig RN RN aj1 Tha Byers PA PA Mell Ortega as Mike Hyman, EVETTE RN mg2 Alie High mw3 Dianne Gutierrez lt1 Corrections: (The following items were deleted from the chart) 20:45 18:39 Patient did not have IV access during this emergency room visit. mg2 mg2
[2019-01-11 21:51] VITALS: TEMP 98.4
[2019-01-11 21:52] VITALS: BP 139/87; O2SAT 97
== END 2019-01-11 20:45 | disposition home or self-care (01) ==
LOC: ER 16:37
DX: R10.84 Generalized abdominal pain (principal); I10 Essential (primary) hypertension; E78.00 Pure hypercholesterolemia, unspecified; E03.9 Hypothyroidism, unspecified; N19 Unspecified kidney failure; Z99.2 Dependence on renal dialysis
CPT/HCPCS: 36415; 74176; 76377; 80048; 80076; 83690; 85025; 99284

== ENCOUNTER 2019-01-28 05:28 | Inpatient (IN) | payer OTHER ==
[2019-01-28] MEDS ORDERED: ONDANSETRON 4 MG/2 ML VIAL ONE (06:29)
[2019-01-28 06:41] LABS: Absolute Lymphocytes (CBC) 1.7 K/uL (0.7-4.9); Basophils % 0.9 % (0-1.3); Hematocrit 28.3 % (39.6-49.0); Lymphocytes % 20.5 % (15.3-44.8); MPV 7.7 fL (7.6-11.3); RBC Red Blood Cell Count 3.25 M/uL (4.33-5.43)
[2019-01-28 07:28] LABS: Albumin 4.1 g/dL (3.4-5.0); Bilirubin Direct 0.1 mg/dL (0-0.2); Bilirubin Total 0.3 mg/dL (0.2-1.0); Protein, Total 7.4 g/dL (6.4-8.2)
[2019-01-28 07:29] LABS: Thyroid Stimulating Hormone 4.41 uIU/mL (0.360-3.740)
[2019-01-28 07:31] LABS: Potassium 6.5 mmol/L (3.5-5.1)
[2019-01-28] MEDS ORDERED: INSULIN -REGULAR HUMAN 50 UNIT/0.5 ML ML ONE (07:54)
[2019-01-28] MEDS ORDERED: ALBUTEROL 2.5 MG/3 ML NEB SOL ONE (07:54)
[2019-01-28] MEDS ORDERED: SOD POLYSTYREN SUL 15 GM/60 ML UCUP ONE (07:55)
[2019-01-28] MEDS ORDERED: D50W 25 GM/50 ML SYRINGE IV ONE (07:55)
[2019-01-28] MEDS ORDERED: CALCIUM GLUCONATE 1gm/100 ML NS (4.65 mEq/100mL) IV ONE ×2 (08:00)
--- NOTE | 2019-01-28 08:18 | EDPHYS ---
Physician Documentation [facility] Name: Melvin Maguire Age: 28 yrs Sex: Male : 1990 Arrival Date: 01/28/2019 Time: 05:45 Bed 8 Private MD: ED Physician Isaac Bernal HPI: 01/28 06:54 This 28 yrs old Male presents to ER via EMS with complaints of Nausea, pm1 Dizziness. 06:54 The patient presents to the emergency department with nausea. Onset: The pm1 symptoms/episode began/occurred 5-7 days ago. Possible causes: unknown. 06:54 The symptoms are aggravated by nothing. The symptoms are alleviated by nothing. pm1 Associated signs and symptoms: Pertinent positives: nausea, vomiting, Pertinent negatives: constipation, diarrhea, dysuria, fever, chest pain, headache. Severity of symptoms: in the emergency department the symptoms are worse Pain is currently a 0 / 10. Patient without PCP. Currently only seeing Dr. Rome . Patient presents with complaints of nausea for 5-7 days. Came to the ER today due to vomiting this AM with dizziness. Reports generalized weakness and to all extremities. 08:07 . Patient reports that the last time that he felt like this he had hyperkalemia. pm1 Patient started hemodialysis in April 2018 and changed over to peritoneal dialysis in December 2018. Patient saw dietitian yesterday and was told that he is consuming too much potassium rich food. Historical: - Allergies: 05:50 No Known Allergies; ea - Home Meds: 05:50 amlodipine 10 mg tab once daily [Active]; lisinopril 5 mg Oral tab once daily [Active]; ea Coreg 3.125 mg Oral tab 2 times per day [Active]; Lasix 40 mg Oral cp24 1 tab once daily [Active]; Auryxia 210 mg iron Oral tab 4 tabs with meals [Active]; - PMHx: 05:50 Asthma; Dialysis; High Cholesterol; Hypertension; Hypothyroidism; kidney failure; ea - Immunization history:: Adult Immunizations up to date. - Social history:: Smoking status: Patient/guardian denies using tobacco. - Ebola Screening: : No symptoms or risks identified at this time. ROS: 06:57 Constitutional: Negative for fever, chills, and weight loss, Eyes: Negative for injury, pm1 pain, redness, and discharge, ENT: Negative for injury, pain, and discharge, Neck: Negative for injury, pain, and swelling, Cardiovascular: Negative for chest pain, palpitations, and edema, Respiratory: Negative for shortness of breath, cough, wheezing, and pleuritic chest pain. 06:57 Back: Negative for injury and pain, : Negative for injury, bleeding, discharge, and swelling, MS/Extremity: Negative for injury and deformity, Skin: Negative for injury, rash, and discoloration. 06:57 Abdomen/GI: Positive for nausea and vomiting, Negative for abdominal pain, diarrhea, constipation. 06:57 Neuro: Positive for dizziness, generalized weakness, Negative for headache, numbness, tingling. Exam: 06:57 Constitutional: This is a well developed, well nourished patient who is awake, alert, pm1 and in no acute distress. Head/Face: Normocephalic, atraumatic. Eyes: Pupils equal round and reactive to light, extra-ocular motions intact. Lids and lashes normal. Conjunctiva and sclera are non-icteric and not injected. Cornea within normal limits. Periorbital areas with no swelling, redness, or edema. Neck: Trachea midline, no thyromegaly or masses palpated, and no cervical lymphadenopathy. Supple, full range of motion without nuchal rigidity, or vertebral point tenderness. No Meningismus. Chest/axilla: Normal chest wall appearance and motion. Nontender with no deformity. No lesions are appreciated. Cardiovascular: Regular rate and rhythm with a normal S1 and S2. No gallops, murmurs, or rubs. No pulse deficits. Respiratory: Lungs have equal breath sounds bilaterally, clear to auscultation and percussion. No rales, rhonchi or wheezes noted. No increased work of breathing, no retractions or nasal flaring. Abdomen/GI: Soft, non-tender, with normal bowel sounds. No distension or tympany. No guarding or rebound. No evidence of tenderness throughout. Back: No spinal tenderness. No costovertebral tenderness. Full range of motion. Skin: Warm, dry with normal turgor. Normal color with no rashes, no lesions, and no evidence of cellulitis. MS/ Extremity: Pulses equal, no cyanosis. Neurovascular intact. Full, normal range of motion. 06:57 Neuro: Orientation: is normal, Motor: is normal, moves all fours, strength is normal, strength is 5/5 in all extremities, Sensation: is normal, no obvious gross deficits. Vital Signs: 05:46 BP 141 / 91; Pulse 94; Resp 18; Temp 97.6(TE); Pulse Ox 100% on R/A; Weight 130.18 kg; ea Height 5 ft. 10 in. (177.80 cm); 07:28 BP 148 / 86; Pulse 89; Resp 16 S; Pulse Ox 98% on R/A; Pain 0/10; jl7 08:06 BP 135 / 76; Pulse 94; Resp 16 S; Pulse Ox 98% on R/A; jl7 09:30 BP 149 / 50; Pulse 105; Resp 16 S; Pulse Ox 100% on R/A; jl7 10:30 BP 129 / 57; Pulse 115; Resp 15 S; Pulse Ox 98% on R/A; jl7 05:46 Body Mass Index 41.18 (130.18 kg, 177.80 cm) ea MDM: 06:21 Patient medically screened. pm1 08:01 Data reviewed: vital signs. Data interpreted: Pulse oximetry: on room air is 98 %. pm1 Interpretation: normal. Counseling: I had a detailed discussion with the patient and/or guardian regarding: the historical points, exam findings, and any diagnostic results supporting the discharge/admit diagnosis, lab results, the need for further work-up and treatment in the hospital. 08:03 Physician consultation: Sandie Rome MD was called at 08:00, was contacted at 08:03, pm1 regarding admission, consult, patient's condition, would like admission per Dr. Vlad Mcintosh DO After medications given in the ER, give NS 1L IV and Lasix 40 mg IV. 09:13 Physician consultation: Vlad Mcintosh DO in the emergency department to see patient at pm1 09:13, place patient in observation. 01/28 06:24 Order name: TSH pm1 01/28 06:24 Order name: Flu; Complete Time: 07:31 pm1 01/28 06:24 Order name: Strep; Complete Time: 07:21 pm1 01/28 06:24 Order name: Basic Metabolic Panel; Complete Time: 07:57 pm1 01/28 06:24 Order name: CBC with Diff; Complete Time: 06:54 pm1 01/28 06:24 Order name: Hepatic Function; Complete Time: 07:57 pm1 01/28 05:58 Order name: CT Head C Spine; Complete Time: 10:49 tw4 01/28 06:24 Order name: Thyroid Stimulating Hormone; Complete Time: 07:57 EDMS 01/28 06:31 Order name: Urine Dipstick--Ancillary (enter results); Complete Time: 08:45 mt 01/28 07:22 Order name: Throat Culture EDMS 01/28 07:38 Order name: T4 Free; Complete Time: 07:57 EDMS 01/28 06:24 Order name: EKG; Complete Time: 06:25 pm1 01/28 06:24 Order name: EKG - Nurse/Tech; Complete Time: 06:57 pm1 01/28 06:24 Order name: IV Saline Lock; Complete Time: 06:35 pm1 01/28 06:24 Order name: Labs collected and sent; Complete Time: 06:35 pm1 Administered Medications: 06:41 Drug: Zofran 4 mg Route: IVP; Site: right antecubital; ea 06:57 Follow up: Response: No adverse reaction; Nausea is decreased ea 09:05 Drug: Calcium Gluconate 1 grams {Note: Administering over 30 min per anna Collier DOCTORATE OF CHIROPRACTIC.} Route: IVPB; Infused Over: 60 mins; Site: right antecubital; 09:35 Follow up: Response: No adverse reaction; IV Status: Completed infusion 09:10 Drug: D50W 50 ml Route: IVP; Site: right hand; jl7 10:03 Follow up: Response: No adverse reaction 09:20 Drug: Insulin Regular Human 10 units {Co-Signature: ph (Augustina Rivera RN).} Route: IVP; Site: right hand; 10:03 Follow up: Response: No adverse reaction 7 09:27 Drug: Kayexalate 30 grams Route: PO; jl7 10:03 Follow up: Response: No adverse reaction 09:28 Drug: Albuterol 7.5 mg Route: Inhalation; jl7 10:03 Follow up: Response: No adverse reaction jl7 09:35 Drug: NS 0.9% 1000 ml Route: IV; Rate: 1000 ml; Site: right hand; jl7 10:50 Follow up: IV Status: Completed infusion; IV Intake: 1000ml [facility] 09:35 Drug: Lasix 40 mg Route: IVP; Site: right hand; [facility] 10:04 Follow up: Response: No adverse reaction jl7 Disposition: 01/28/19 08:17 Hospitalization ordered by Vlad Mcintosh for Observation. Preliminary diagnosis is Hyperkalemia. - Bed requested for Telemetry/MedSurg (observation). - Status is Observation. ss - Condition is Stable. - Problem is new. - Symptoms have improved. UTI on Admission? No Addendum: 01/30/2019 15:35 Co-signature as Attending Physician, Isaac Bernal MD I agree with the assessment and t w4 plan of care. Signatures: Dispatcher [employer] EDNJ Zarina Bailey, RN RN ss Robert Jimenez, DOCTORATE OF CHIROPRACTIC [employer] pm1 Olvin Johnston, RN RN jl7 Isi Mejia, RN Paul Hawkins ea RN RN ja1 Isaac Bernal MD MD tw4 Augustina Rivera RN ph Corrections: (The following items were deleted from the chart) 01/28 06:37 06:25 Head Brain Wo Cont+CT.RAD.BRZ ordered. EDNJ EDMS 09:52 08:17 Hospitalization Ordered by Vlad Mcintosh DO for Observation. Preliminary [facility] diagnosis is Hyperkalemia. Bed requested for Telemetry/MedSurg (observation). Status is Observation. Condition is Stable. Problem is new. Symptoms have improved. UTI on Admission? No. pm1 10:56 09:52 01/28/2019 08:17 Hospitalization Ordered by Vlad Mcintosh DO for Observation. ss Preliminary diagnosis is Hyperkalemia. Bed requested for Telemetry/MedSurg (observation). Status is Observation. Condition is Stable. Problem is new. Symptoms have improved. UTI on Admission? No. ja1
--- NOTE | 2019-01-28 08:18 | ER ---
Nurse's Notes [facility] Name: Melvin Maguire Age: 28 yrs Sex: Male : 1990 Arrival Date: 01/28/2019 Time: 05:45 Bed 8 Private MD: Diagnosis: Hyperkalemia Presentation: 01/28 05:30 Presenting complaint: EMS states: Reports pt started feeling nausea, dizziness and ea weakness, has been feeling like this for a couple days but has worsened this AM. Pt is on retroperitoneal dialysis which he does at home. EKG was NSR. Transition of care: patient was not received from another setting of care. Onset of symptoms was January 28, 2019. Risk Assessment: Do you want to hurt yourself or someone else? Patient reports no desire to harm self or others. Initial Sepsis Screen: Does the patient meet any 2 criteria? No. Patient's initial sepsis screen is negative. Does the patient have a suspected source of infection? No. Patient's initial sepsis screen is negative. Care prior to arrival: None. 05:30 Method Of Arrival: EMS: [facility] ea 05:30 Acuity: SAKSHI 3 ea Triage Assessment: 05:52 General: Appears uncomfortable, Behavior is calm, cooperative, appropriate for age. ea Pain: Denies pain. Neuro: Level of Consciousness is awake, alert, obeys commands, Oriented to person, place, time, situation. Cardiovascular: Patient's skin is warm and dry. Cardiovascular: Parent/caregiver reports patient has had pt reports being on peritoneal dialysis. Respiratory: Airway is patent Respiratory effort is even, unlabored, Respiratory pattern is regular, symmetrical. GI: Abdomen is. GI: Abdomen is round Reports nausea. Historical: - Allergies: 05:50 No Known Allergies; ea - Home Meds: 05:50 amlodipine 10 mg tab once daily [Active]; lisinopril 5 mg Oral tab once daily [Active]; ea Coreg 3.125 mg Oral tab 2 times per day [Active]; Lasix 40 mg Oral cp24 1 tab once daily [Active]; Auryxia 210 mg iron Oral tab 4 tabs with meals [Active]; - PMHx: 05:50 Asthma; Dialysis; High Cholesterol; Hypertension; Hypothyroidism; kidney failure; ea - Immunization history:: Adult Immunizations up to date. - Social history:: Smoking status: Patient/guardian denies using tobacco. - Ebola Screening: : No symptoms or risks identified at this time. Screenin:51 Abuse screen: Denies threats or abuse. Nutritional screening: No deficits noted. ea Tuberculosis screening: No symptoms or risk factors identified. Fall Risk None identified. Assessment: 07:28 Reassessment: Patient appears in no apparent distress at this time. Patient and/or jl7 family updated on plan of care and expected duration. Pain level reassessed. Patient is alert, oriented x 3, equal unlabored respirations, skin warm/dry/pink. Patient states feeling better. Patient states symptoms have improved. GI: Patient currently denies nausea. 08:30 Reassessment: Patient appears in no apparent distress at this time. No changes from [facility] previously documented assessment. Patient and/or family updated on plan of care and expected duration. Pain level reassessed. Patient is alert, oriented x 3, equal unlabored respirations, skin warm/dry/pink. 09:30 Reassessment: Patient appears in no apparent distress at this time. Patient and/or jl7 family updated on plan of care and expected duration. Pain level reassessed. Patient is alert, oriented x 3, equal unlabored respirations, skin warm/dry/pink. 10:30 Reassessment: Patient appears in no apparent distress at this time. Patient and/or jl7 family updated on plan of care and expected duration. Pain level reassessed. Patient is alert, oriented x 3, equal unlabored respirations, skin warm/dry/pink. Vital Signs: 05:46 BP 141 / 91; Pulse 94; Resp 18; Temp 97.6(TE); Pulse Ox 100% on R/A; Weight 130.18 kg; ea Height 5 ft. 10 in. (177.80 cm); 07:28 BP 148 / 86; Pulse 89; Resp 16 S; Pulse Ox 98% on R/A; Pain 0/10; jl7 08:06 BP 135 / 76; Pulse 94; Resp 16 S; Pulse Ox 98% on R/A; jl7 09:30 BP 149 / 50; Pulse 105; Resp 16 S; Pulse Ox 100% on R/A; jl7 10:30 BP 129 / 57; Pulse 115; Resp 15 S; Pulse Ox 98% on R/A; jl7 05:46 Body Mass Index 41.18 (130.18 kg, 177.80 cm) ea ED Course: 05:45 Patient arrived in ED. ea 05:49 Triage completed. ea 05:51 Patient has correct armband on for positive identification. Bed in low position. Call ea light in reach. Side rails up X2. 05:51 Arm band placed on right wrist. Patient placed in an exam room, on a stretcher, on ea pulse oximetry. 06:07 Robert Jimenez NP is PHCP. pm1 06:07 Isaac Bernal MD is Attending Physician. pm1 06:24 Isi Mejia RN is Primary Nurse. ea 06:48 CT Head C Spine In Process Unspecified. EDMS 08:17 Vlad Mcintosh DO is Hospitalizing Provider. pm1 09:00 Inserted saline lock: 22 gauge in right hand, using aseptic technique. jl7 10:48 No provider procedures requiring assistance completed. Patient admitted, IV remains in jl7 place. intact, No redness/swelling at site. Administered Medications: 06:41 Drug: Zofran 4 mg Route: IVP; Site: right antecubital; ea 06:57 Follow up: Response: No adverse reaction; Nausea is decreased ea 09:05 Drug: Calcium Gluconate 1 grams {Note: Administering over 30 min per anna Collier NP.} Route: IVPB; Infused Over: 60 mins; Site: right antecubital; 09:35 Follow up: Response: No adverse reaction; IV Status: Completed infusion jl7 09:10 Drug: D50W 50 ml Route: IVP; Site: right hand; jl7 10:03 Follow up: Response: No adverse reaction jl7 09:20 Drug: Insulin Regular Human 10 units {Co-Signature: ph (Augustina Rivera RN).} Route: IVP; jl7 Site: right hand; 10:03 Follow up: Response: No adverse reaction jl7 09:27 Drug: Kayexalate 30 grams Route: PO; jl7 10:03 Follow up: Response: No adverse reaction 7 09:28 Drug: Albuterol 7.5 mg Route: Inhalation; jl7 10:03 Follow up: Response: No adverse reaction jl7 09:35 Drug: NS 0.9% 1000 ml Route: IV; Rate: 1000 ml; Site: right hand; jl7 10:50 Follow up: IV Status: Completed infusion; IV Intake: 1000ml jl7 09:35 Drug: Lasix 40 mg Route: IVP; Site: right hand; 7 10:04 Follow up: Response: No adverse reaction jl7 Intake: 10:50 IV: 1000ml; Total: 1000ml. jl7 Outcome: 08:17 Decision to Hospitalize by Provider. pm1 10:49 Admitted to Tele accompanied by tech, via wheelchair, room 228, with chart, Report jl7 called to EVETTE Montgomery 10:49 Condition: stable 10:49 Discharge instructions given to patient, family, Instructed on the need for admit, Demonstrated understanding of instructions. 10:56 Patient left the ED. Signatures: Dispatcher [employer] Zarina De La Cruz RN RN ss Hall, Patricia RN RN Robert Mcintyre, JUANIS AOC DIRECTOR INTELLIGENCE OFFICER pm1 Olvin Johnston RN RN jl7 Isi Mejia RN RN ea Patricia Hall RN ph Corrections: (The following items were deleted from the chart) 10:49 07:45 Reassessment: ph jl7
[2019-01-28] MEDS ORDERED: FUROSEMIDE 40 MG/4 ML VIAL ONE (08:22)
[2019-01-28] MEDS ORDERED: NA CHLORIDE 0.9% 1,000 ML ONE (08:22)
--- NOTE | 2019-01-28 08:31 | EKG ---
Test Date: 2019-01-28 Test Time: 06:47:42 Trolley Worker: BRIAN MEASUREMENT RESULTS: Intervals: Rate: 83 ND: 188 QRSD: 98 QT: 374 QTc: 439 [place]: P: 22 ND: 188 QRS: 20 T: 41 INTERPRETIVE STATEMENTS: Normal sinus rhythm Normal ECG Compared to ECG 12/03/2018 12:09:34 Sinus tachycardia no longer present Right-axis deviation no longer present Electronically Signed On 01-28-19 08:30:19 CDT by Noe Andersen
[2019-01-28 08:43] LABS: Urine Blood TRACE (NEG); Urine Glucose TRACE (NEG); Urine Protein 3+ (NEG); Urine pH 8.5 (5.0-7.0)
--- NOTE | 2019-01-28 09:32 | P.HP ---
Certification for Inpatient Patient admitted to: Observation With expected LOS: <2 Midnights Patient will require the following post-hospital care: None Practitioner: I am a practitioner with admitting privileges, knowledge of patient current condition, hospital course, and medical plan of care. Services: Services provided to patient in accordance with Admission requirements found in Title 42 Section 412.3 of the Code of Federal Regulations Patient History Date of Service: 01/28/19 Primary Care Provider: Dr. Rome Reason for admission: Nausea, vomiting History of Present Illness: 28-year-old male with history of end-stage renal disease on peritoneal dialysis and hypertension. Patient presented to the emergency room with nausea, vomiting and fatigue. Patient has been feeling nauseated over the past several days. Increased nausea and vomiting noted. He reported some fatigue. Patient is on peritoneal dialysis. He recently met with a dietitian to adjust dietary changes that he has not made a complete change in his diet. He was sent to the ER for further evaluation. In the ER potassium was elevated at 6.5, sodium 136. BUN of 104, creatinine 23 with a GFR of 2. Glucose 84. White count 8.3, hemoglobin 9.9. Due to the elevation in his potassium level patient was given treatment. Patient admitted for further evaluation. When I saw the patient in the ER, he appeared stable. Less nausea vomiting noted. ER discussed case with nephrology. Allergies No Known Allergies Allergy (Verified 08/06/17 09:16) Home medications list reviewed: Yes Home Medications: Calcitrol [Rocaltrol*] 0.25 mcg PO Q48H #15 cap 04/18/18 Ciprofloxacin HCl [Cipro 250 MG Tablet*] 250 mg PO DAILY #7 tab 05/15/18 Tramadol HCl [Ultram] 50 mg PO BID PRN #10 tablet 05/15/18 metroNIDAZOLE [Flagyl] 500 mg PO Q8H #21 tablet 05/15/18 - Past Medical/Surgical History Diabetic: No -: End-stage renal disease on peritoneal dialysis -: HTN -: Asthma -: Hypothyroidism -: Hyperlipidemia -: Obesity -: kidney biopsy Psychosocial/ Personal History: Patient is . Lives at home. - Family History Father -: Heart disease, Diabetes Notes: Heavy smoker Mother -: Lung disease Notes: COPD - Social History Smoking Status: Never smoker Alcohol use: No CD- Drugs: No Caffeine use: No Place of Residence: Home Review of Systems General: Weakness, Malaise, As per HPI Eyes: Unremarkable ENT: Unremarkable Respiratory: Unremarkable Cardiovascular: Unremarkable Gastrointestinal: Nausea, Vomiting, Unremarkable Genitourinary: Unremarkable Musculoskeletal: Unremarkable Integumentary: Unremarkable Neurological: Unremarkable Lymphatics: Unremarkable Physical Examination - Physical Exam General: Alert, In no apparent distress, Oriented x3, Cooperative HEENT: Atraumatic, Normocephalic, PERRLA, Mucous membr. moist/pink Neck: Supple, No Thyromegaly Respiratory: Clear to auscultation bilaterally, Normal air movement Cardiovascular: Normal pulses, Regular rate/rhythm Gastrointestinal: Normal bowel sounds, Soft and benign, Non-distended, No tenderness, No masses, No rebound, No guarding Musculoskeletal: No erythema, No tenderness, No warmth Integumentary: No tenderness/swelling, No erythema, No warmth, No cyanosis Neurological: Normal speech, Normal strength at 5/5 x4 extr, Normal tone, Normal affect - Studies Laboratory Data (last 24 hrs) 01/28/19 06:00: WBC 8.3, Hgb 9.9 L, Hct 28.3 L, Plt Count 205 01/28/19 06:00: Sodium 136, Potassium 6.5 H*, BUN 104 H, Creatinine 23.00 H*, Glucose 84, Total Bilirubin 0.3, AST 12 L, ALT 30, Alkaline Phosphatase 56 Microbiology Data (last 24 hrs): 01/28/19 06:50 Nasopharnyx Influenza Type A Antigen Screen - Final 01/28/19 06:50 Nasopharnyx Influenza Type B Antigen Screen - Final 01/28/19 06:50 Throat Group A Streptococcus Rapid Screen - Final Assessment and Plan - Plan Impression: Nausea, vomiting, fatigue secondary to hyperkalemia with end-stage renal disease on peritoneal dialysis Hypertension Hyperlipidemia Hypothyroidism Anemia of chronic disease Obesity Plan: Nausea, vomiting, fatigue secondary to hyperkalemia with end-stage renal disease on peritoneal dialysis: Patient will be admitted for further evaluation and treatment. Patient will be given treatment for hyperkalemia. Case discussed at length with nephrology who was been consulted. Nephrology plans to adjust settings of his peritoneal dialysis machine. is to bring his dialysis machine. Once the setting has been adjusted he will begin peritoneal dialysis. Will recheck potassium level 6 hr after initiation of peritoneal dialysis. If potassium level improved and symptoms improved then possible discharge later today or tomorrow. Will continue to monitor closely. Will have dietary address dietary changes for renal diet. Will place on DVT prophylaxis-heparin. Hypertension: Will hold lisinopril at this time. Continue Norvasc and carvedilol. Hyperlipidemia: Obtain and restart home medication. Hypothyroidism: Obtain and restart home medication. Anemia of chronic disease: Overall stable. Continue to monitor closely. Obesity: Will address lifestyle modification education. Will check BMI. Discharge Plan: Home Plan to discharge in: 24 Hours - Advance Directives Does patient have a Living Will: No Does patient have a Durable POA for Healthcare: No - Code Status/Comfort Care Code Status Assessed: Yes (Patient is full code) Time Spent Managing Pts Care (In Minutes): 55
--- NOTE | 2019-01-28 10:23 | RAD REPORT ---
EXAM DESCRIPTION: CT - Head C Spine Mpr Wo Con - 01/28/2019 7:05 am CLINICAL HISTORY: The patient is 28 years old and is Male; fall TECHNIQUE: Axial computed tomography images of the head/brain and cervical spine without intravenous contrast. Sagittal and coronal reformatted images were created and reviewed. This CT exam was pe rformed using one or more of the following dose reduction techniques: automated exposure control, a djustment of the mA and/or kV according to patient size, and/or use of iterative reconstruction techn ique. COMPARISON: No relevant prior studies available. FINDINGS: BRAIN: Unremarkable. No hemorrhage. No significant white matter disease. No edema. VENTRICLES: Unremarkable. No ventriculomegaly. SKULL: No acute fracture. SINUSES: Unremarkable as visualized. No acute sinusitis. MASTOID AIR CELLS: Unremarkable as visualized. No mastoid effusion. VERTEBRAE: The vertebral body heights and alignment are maintained. No acute fracture. DISCS/SPINAL CANAL/NEURAL FORAMINA: The intervertebral disc spaces are maintained. No spinal can al stenosis. SOFT TISSUES: The soft tissues are normal. LUNG APICES: Unremarkable as visualized. IMPRESSION: Normal head/brain and cervical spine CT. Electronically signed by: Mavis Yadav MD 01/28/2019 6:56 AM CDT Due to temporary technical issues with the PACS/Fluency reporting system, reports are being signed by the in house radiologist as a courtesy to ensure prompt reporting. The interpreting radiologist is f ully responsible for the content of the report.
[2019-01-28] MEDS ORDERED: ACETAMINOPHEN 500 MG TAB PO PRN (11:06)
[2019-01-28] MEDS ORDERED: FUROSEMIDE 40 MG/4 ML VIAL IV ONE (13:05)
[2019-01-28] MEDS ORDERED: NA CHLORIDE 0.9% 1,000 ML IV ONE (13:05)
[2019-01-28 14:59] LABS: Urine Appearance CLEAR; Urine Bilirubin NEGATIVE (NEG); Urine Blood TRACE (NEG); Urine Color YELLOW; Urine Glucose 1+ (NEG); Urine Protein 2+ (NEG); Urine Urobilinogen 0.2 mg/dL (0.2-1.0); Urine pH 7.5 (5.0-7.0)
--- NOTE | 2019-01-28 15:04 | CON ---
Date of Consultation: 01/28/2019 Reason For Consultation: Hyperkalemia, end-stage renal disease. History Of Present Illness: This is a pleasant 28-year-old gentleman with significant past medical h istory of diabetes complicated with neuropathy, IgA nephropathy with segmental sclerosis, hyperlipide heidi, secondary hyperparathyroidism. Patient used to be on hemodialysis started this year, switched t o PD starting December on cycler. Apparently, patient started feeling weak with nausea and vomiting in the last few days. Patient had single episode of fever, no chills. For that reason, patient rep orted to the hospital. In the ER, found to have hyperkalemia, potassium 6.5. For that reason, nazia cho was admitted. Patient received cocktail including calcium gluconate, IV fluid, albuterol, and D50 with insulin. Patient waiting for his cycler to resume his PD. Past Medical History: 1.Diabetes. 2.Hypertension. 3.Hyperlipidemia. 4.IgA nephropathy. Family History: Positive for diabetes and hypertension. Social History: Denies smoking. Denies drinking. Denies drug abuse. Allergies: NO KNOWN DRUG ALLERGIES. Past Surgical History: PermCath placement, kidney biopsy. Review of Systems: Head and Neck: No red eye. No ear pain. GI: No abdominal pain. Has nausea and vomiting. : No polyuria. No dysuria. No hematuria. HORSE STUD MANAGER: Not applicable. Respiratory: No shortness of breath. Cardiovascular: No chest pain. Endocrine: No polydipsia. Skin: No rash. Neuro: Has neuropathy. Musculoskeletal: No joint pain. Physical Examination: General: When I saw the patient, the patient lying in bed, comfortable, not in any distress. Vital Signs: Blood pressure 129/57, pulse of 115. Chest: Clear to auscultation. Heart: S1, S2 regular. Abdomen: Soft, nontender. Extremities: No edema. Laboratory Data: H and H of 9.9/28.3. Sodium 136, potassium 6.5, bicarb 23, BUN 104, creatinine 23, calcium 8.8. Assessment And Plan: 1.End-stage renal disease with hyperkalemia. We will bolus the patient with another liter of normal saline and we will diurese. We will start PD again and dialyze him on low-potassium bath. We will follow up. 2.Hypertension, controlled, optimal. Continue current medication. 3.Anemia of chronic kidney disease, stable. 4.Hyperkalemia. Patient is going to be dialyzed on low-potassium bath. Patient is going to receive insulin, albuterol, and D50 with insulin. I will give him 1 L of normal saline and bolus him with L asix for more potassium diuresis and we will follow up. 5.Diabetes as by primary. ALONZO/STACIA Voice ID: [id number] Report ID: [id number]
[2019-01-28 15:15] LABS: Urine Microscopic Reflex ORDER UMIC
[2019-01-28] MEDS: CARVEDILOL 3.125 MG TAB PO SCH (15:43)
[2019-01-28 15:45] LABS: Urine Bacteria <20 /HPF (NONE SEEN); Urine Culture Reflex Order NOT NEEDED; Urine RBC <5 /HPF (NONE SEEN)
[2019-01-28] MEDS ORDERED: SEVELAMER CARBONATE 800 MG TABLET PO PRN (16:05)
[2019-01-28] MEDS ORDERED: SEVELAMER CARBONATE 800 MG TABLET PO SCH (17:00)
[2019-01-28] MEDS: HEPARIN 5000 UNIT/ML 1 ML VIAL SQ SCH (20:51)
[2019-01-28] MEDS: HYDRALAZINE HCL 25 MG TABLET PO SCH (20:51)
[2019-01-28 22:35] LABS: Magnesium 1.8 mg/dL (1.8-2.4)
[2019-01-28 22:38] LABS: Potassium 5.9 mmol/L (3.5-5.1)
--- NOTE | 2019-01-29 00:01 | P.PN ---
Date of Service: 01/28/19 Potassium still elevated; will add kayexylate to meds in AM if 0500 potassium remains elevated
[2019-01-29] MEDS: ONDANSETRON 4 MG/2 ML VIAL IV PRN ×3 (01:06→23:56)
[2019-01-29] MEDS ORDERED: MAGNESIUM SULFATE 1 gm IVPB 1 GM/100 ML BAG IV ONE (01:18)
[2019-01-29] MEDS: CARVEDILOL 3.125 MG TAB PO SCH ×2 (05:42→18:25)
[2019-01-29 06:07] LABS: Absolute Lymphocytes (CBC) 1.8 K/uL (0.7-4.9); Basophils % 0.7 % (0-1.3); Hematocrit 25.5 % (39.6-49.0); Lymphocytes % 27.8 % (15.3-44.8); MPV 7.7 fL (7.6-11.3); RBC Red Blood Cell Count 2.94 M/uL (4.33-5.43)
[2019-01-29 06:28] LABS: Magnesium 2.1 mg/dL (1.8-2.4)
[2019-01-29 06:31] LABS: Potassium 6.2 mmol/L (3.5-5.1)
[2019-01-29] MEDS: HEPARIN 5000 UNIT/ML 1 ML VIAL SQ SCH ×2 (08:49→20:35)
[2019-01-29] MEDS: AMLODIPINE 10 MG TAB PO SCH (08:50)
[2019-01-29] MEDS: HYDRALAZINE HCL 25 MG TABLET PO SCH ×2 (08:50→20:35)
[2019-01-29] MEDS ORDERED: FUROSEMIDE 40 MG TABLET PO SCH (09:00)
[2019-01-29] MEDS ORDERED: D50W 25 GM/50 ML SYRINGE IV ONE (09:28)
[2019-01-29] MEDS ORDERED: D50W 25 GM/50 ML SYRINGE IV PRN (09:30)
[2019-01-29] MEDS ORDERED: INSULIN -REGULAR HUMAN 50 UNIT/0.5 ML ML IV ONE (09:30)
[2019-01-29] MEDS ORDERED: GLUCAGON 1 MG/VIAL IM PRN (09:30)
[2019-01-29] MEDS ORDERED: ALBUTEROL 2.5 MG/3 ML NEB SOL NEB ONE (09:31)
[2019-01-29] MEDS ORDERED: FUROSEMIDE 40 MG/4 ML VIAL IV ONE (09:32)
[2019-01-29] MEDS ORDERED: NA CHLORIDE 0.9% 1,000 ML IV ONE (09:32)
[2019-01-29] MEDS ORDERED: EPOETIN ALFA-EPBX 4,000 UNIT/ML VIAL SQ SCH (12:00)
[2019-01-29] MEDS ORDERED: SEVELAMER CARBONATE 800 MG TABLET PO PRN (15:00)
--- NOTE | 2019-01-29 15:20 | P.PN ---
Subjective Date of Service: 01/29/19 Primary Care Provider: Dr. Rome Chief Complaint: Nausea, vomiting Subjective: Improving Physical Examination - Vital Signs Temperature: 97.7 F Blood Pressure: 153/77 Pulse: 98 Respirations: 16 Pulse Ox (%): 100 - Physical Exam General: Alert, In no apparent distress, Oriented x3, Cooperative HEENT: Atraumatic Neck: Supple Respiratory: Clear to auscultation bilaterally, Normal air movement Cardiovascular: Normal pulses, Regular rate/rhythm Gastrointestinal: Normal bowel sounds, Soft and benign, Non-distended, No tenderness, No masses, No rebound, No guarding Neurological: Normal speech, Normal strength at 5/5 x4 extr, Normal tone, Normal affect - Studies Medications List Reviewed: Yes Assessment & Plan Discharge Plan: Home Plan to discharge in: 24 Hours Physician Review Additional Text: Impression: Nausea, vomiting, fatigue secondary to hyperkalemia with end-stage renal disease on peritoneal dialysis Hypertension Hyperlipidemia Anemia of chronic disease Obesity Plan: Nausea, vomiting, fatigue secondary to hyperkalemia with end-stage renal disease on peritoneal dialysis: Patient still had elevated potassium. Dialysis machine setting adjusted. Patient will receive dialysis again today. Recheck potassium after dialysis. If potassium less than 5.5 then will plan to discharge home. Case discussed at length with nephrology. Hypertension: Continue with meds. Hyperlipidemia: Continue with meds Anemia of chronic disease: Overall stable. Continue to monitor closely. Obesity BMI 42: Address lifestyle modification education. Time Spent Managing Pts Care (In Minutes): 55
--- NOTE | 2019-01-29 16:23 | PN ---
Date of Progress Note: 01/29/2019 Subjective: The patient was admitted with hyperkalemia. Patient poor compliant with low K diet. Ap parently yesterday supposed the patient to receive extra treatment on the PD, but patient only done t he short treatment, repeated potassium today still elevated. Physical Examination: Vital Signs: Blood pressure 140/70, pulse of 95, afebrile. Chest: Clear to auscultation. Heart: S1, S2. Regular. Abdomen: Soft. No tenderness. PD catheter in place, dry side. Extremities: Trace edema. Laboratory Data: WBC 6.5, H and H 9/25.5. Sodium 137, potassium 6.2, bicarb 21, BUN 107, creatinine 22, calcium 8.5. Magnesium 2.1. Current Medications: The patient on its include amlodipine 10 mg, carvedilol, hydralazine 50 t.i.d., Lasix 80 daily, Renvela. Assessment And Plan: 1.End-stage renal disease. Looked to me slightly under dialyze with hyperkalemia and elevated BUN. I am going to go ahead and do extra treatment of 5-hour today and we will increase his Lasix to 40 b .i.d. 2.Hyperkalemia secondary to under dialyzed and compliant with diet, reinforce low K diet. We will s tart the patient on albuterol, D50 with insulin, bolus the patient with IV fluid, and give him extra Lasix and we will do extra treatment today and repeat chemistry in the evening. As I mentioned, we w ill increase the volume for the patient. 3.Hypertension, controlled, optimal. Increase Lasix. 4.Anemia of chronic kidney disease. We will give the patient SAMARA and we will follow up the patient. 5.Diabetes as by primary. ALONZO/MODL Voice ID: [id number] Report ID: [id number]
[2019-01-29] MEDS: FUROSEMIDE 40 MG TABLET PO SCH (20:34)
[2019-01-30] MEDS: CARVEDILOL 3.125 MG TAB PO SCH (05:38)
[2019-01-30 06:03] VITALS: BMI 41.7
[2019-01-30 08:31] VITALS: BP 144/90; TEMP 97.6
[2019-01-30] MEDS: HEPARIN 5000 UNIT/ML 1 ML VIAL SQ SCH (08:46)
[2019-01-30] MEDS: FUROSEMIDE 40 MG TABLET PO SCH (08:46)
[2019-01-30] MEDS: HYDRALAZINE HCL 25 MG TABLET PO SCH (08:47)
[2019-01-30] MEDS: AMLODIPINE 10 MG TAB PO SCH (08:47)
--- NOTE | 2019-01-30 08:59 | P.DS ---
Admission Date: 01/30/19 Discharge Date: 01/30/19 Primary Care Provider: Dr. Rome Disposition: ROUTINE DISCHARGE Discharge Condition: GOOD Reason for Admission: Nausea, vomiting Consultations: Nephrology-Dr. Rome Procedures: CT Brain: FINDINGS: BRAIN: Unremarkable. No hemorrhage. No significant white matter disease. No edema. VENTRICLES: Unremarkable. No ventriculomegaly. SKULL: No acute fracture. SINUSES: Unremarkable as visualized. No acute sinusitis. MASTOID AIR CELLS: Unremarkable as visualized. No mastoid effusion. VERTEBRAE: The vertebral body heights and alignment are maintained. No acute fracture. DISCS/SPINAL CANAL/NEURAL FORAMINA: The intervertebral disc spaces are maintained. No spinal canal stenosis. SOFT TISSUES: The soft tissues are normal. LUNG APICES: Unremarkable as visualized. IMPRESSION: Normal head/brain and cervical spine CT. Medical Problem List: Nausea, vomiting, fatigue secondary to hyperkalemia with end-stage renal disease on peritoneal dialysis Hypertension Anemia of chronic disease Obesity, BMI greater than 40 Brief History of Present Illness: 28-year-old male with history of end-stage renal disease on peritoneal dialysis and hypertension. Patient presented to the emergency room with nausea, vomiting and fatigue. Patient has been feeling nauseated over the past several days. Increased nausea and vomiting noted. He reported some fatigue. Patient is on peritoneal dialysis. He recently met with a dietitian to adjust dietary changes that he has not made a complete change in his diet. He was sent to the ER for further evaluation. In the ER potassium was elevated at 6.5, sodium 136. BUN of 104, creatinine 23 with a GFR of 2. Glucose 84. White count 8.3, hemoglobin 9.9. Due to the elevation in his potassium level patient was given treatment. Patient admitted for further evaluation. When I saw the patient in the ER, he appeared stable. Less nausea vomiting noted. ER discussed case with nephrology. Hospital Course: Patient presented with nausea, vomiting and fatigue. Patient found to be hyperkalemia. Patient with end-stage renal disease on peritoneal dialysis. Initial CT head unremarkable. Patient was given treatment for hyperkalemia. Nephrology was consulted. Adjustment to his dialysis machine was done. During the course of his stay he continued with peritoneal dialysis with improvement. At discharge potassium level within normal range. Patient will be discharged home. He will continue with current adjusted settings of his peritoneal dialysis machine. Adjustment to his hypertensive medications also performed. Patient will no longer take lisinopril. At discharge he will continue with Sevelamer 800 mg as directed, hydralazine 50 mg 1 pill twice daily, Norvasc 10 mg daily, carvedilol 6.25 mg 1 pill twice daily, and Lasix 80 mg daily. Patient will continue with the renal diet. Recommend to recheck lab-BMP within 1 week. Recommend follow up with nephrology in 1 week. Further adjustment in his dialysis machine will be provided by nephrology. Patient with hypertension. Medication adjustments have been made. Patient no longer taking lisinopril. Carvedilol was adjusted for better blood pressure control. At discharge he will continue with hydralazine 50 mg 1 pill twice daily, Norvasc 10 mg daily, and carvedilol 6.25 mg 1 pill twice daily. Recommend to maintain blood pressures less 150/80. Further adjustment can be done by nephrology. Patient with anemia of chronic disease. This has remained stable. Further monitoring will be done by nephrology. Lifestyle modification education will be provided. BMI 42.0. Vital Signs/Physical Exam: Temp Pulse Resp BP Pulse Ox 97.6 F 98 H 15 144/90 H 99 01/30/19 08:00 01/30/19 08:00 01/30/19 08:00 01/30/19 08:00 01/30/19 08:00 General: Alert, In no apparent distress, Oriented x3, Cooperative HEENT: Atraumatic Neck: Supple Respiratory: Clear to auscultation bilaterally, Normal air movement Cardiovascular: Normal pulses, Regular rate/rhythm Gastrointestinal: Normal bowel sounds, Soft and benign, Non-distended, No tenderness, No masses, No rebound, No guarding Neurological: Normal speech, Normal strength at 5/5 x4 extr, Normal tone, Normal affect Laboratory Data at Discharge: WBC 6.5 K/uL (4.3-10.9) D 01/29/19 05:39 Hgb 9.0 g/dL (13.6-17.9) L 01/29/19 05:39 Hct 25.5 % (39.6-49.0) L 01/29/19 05:39 Plt Count 164 K/uL (152-406) 01/29/19 05:39 Sodium 137 mmol/L (136-145) 01/29/19 05:39 Potassium 5.0 mmol/L (3.5-5.1) 01/29/19 18:45 BUN 107 mg/dL (7-18) H 01/29/19 05:39 Creatinine 22.70 mg/dL (0.55-1.3) H* 01/29/19 05:39 Glucose 81 mg/dL (74-106) 01/29/19 05:39 Magnesium 2.1 mg/dL (1.8-2.4) 01/29/19 05:39 Total Bilirubin 0.3 mg/dL (0.2-1.0) 01/28/19 06:00 AST 12 U/L (15-37) L 01/28/19 06:00 ALT 30 U/L (12-78) 01/28/19 06:00 Alkaline Phosphatase 56 U/L (45-117) 01/28/19 06:00 Home Medications: Amlodipine [Norvasc*] 10 mg PO DAILY 01/28/19 Ciprofloxacin HCl [Cipro 250 MG Tablet*] 250 mg PO BID 01/28/19 Furosemide 80 mg PO DAILY 01/28/19 Hydralazine [Apresoline*] 50 mg PO BID 01/28/19 Sevelamer Carbonate 2 tab PO SEECOM 01/28/19 Carvedilol [Coreg*] 6.25 mg PO BID #60 tab 01/30/19 New Medications: Carvedilol [Coreg*] 6.25 mg PO BID #60 tab Patient Discharge Instructions: 1. Recommend follow up with nephrology within 1 week to follow up this hospitalization. 2. Patient presented with nausea, vomiting and fatigue. Patient found to be hyperkalemia. Patient with end- stage renal disease on peritoneal dialysis. Initial CT head unremarkable. Patient was given treatment for hyperkalemia. Nephrology was consulted. Adjustment to his dialysis machine was done. During the course of his stay he continued with peritoneal dialysis with improvement. At discharge potassium level within normal range. Patient will be discharged home. He will continue with current adjusted settings of his peritoneal dialysis machine. Adjustment to his hypertensive medications also performed. Patient will no longer take lisinopril. At discharge he will continue with Sevelamer 800 mg as directed, hydralazine 50 mg 1 pill twice daily, Norvasc 10 mg daily, carvedilol 6.25 mg 1 pill twice daily, and Lasix 80 mg daily. Patient will continue with the renal diet. Recommend to recheck lab-BMP within 1 week. Recommend follow up with nephrology in 1 week. Further adjustment in his dialysis machine will be provided by nephrology. 3. Patient with hypertension. Medication adjustments have been made. Patient no longer taking lisinopril. Carvedilol was adjusted for better blood pressure control. At discharge he will continue with hydralazine 50 mg 1 pill twice daily, Norvasc 10 mg daily, and carvedilol 6.25 mg 1 pill twice daily. Recommend to maintain blood pressures less 150/80. Further adjustment can be done by nephrology. 4. Patient with anemia of chronic disease. This has remained stable. Further monitoring will be done by nephrology. 5. Lifestyle modification education will be provided. BMI 42.0. Diet: Renal Activity: Fall precautions Followup: Sandie Rome MD [Primary Care Provider] - Time spent managing pt's care (in minutes): 55
[2019-01-30 10:33] VITALS: O2SAT 99
== END 2019-01-30 09:55 | disposition home or self-care (01) | DRG 640 ==
LOC: ER 05:28 → ERHOLD 09:18 → 2ND 10:48 → OBSVTOIN 01-30 07:11
PROVIDERS: ADMIT Family Medicine; ATTEND Family Medicine
DX: E87.5 Hyperkalemia (principal); N18.6 End stage renal disease; I12.0 Hypertensive chronic kidney disease with stage 5 chronic kidney disease or end stage renal disease; Z68.41 Body mass index [BMI] 40.0-44.9, adult; Z99.2 Dependence on renal dialysis; E03.9 Hypothyroidism, unspecified; E78.5 Hyperlipidemia, unspecified; D63.1 Anemia in chronic kidney disease; E66.9 Obesity, unspecified
CPT/HCPCS: 36415; 70450; 72125; 80048; 80076; 81003; 81015; 82947; 83735; 84132; 84439; 84443; 85025; 87070; 87081; 87804; 93005; 96361; 96365; 96375; 99285; G0378; J0610; J1644; J1940; J2405; J3475; J7030

== ENCOUNTER 2019-02-18 19:37 | Emergency (ER) | payer OTHER ==
[2019-02-18 21:17] LABS: Absolute Lymphocytes (CBC) 1.1 K/uL (0.7-4.9); Basophils % 0.6 % (0-1.3); Hematocrit 24.7 % (39.6-49.0); Lymphocytes % 16.5 % (15.3-44.8); MPV 6.8 fL (7.6-11.3); RBC Red Blood Cell Count 2.87 M/uL (4.33-5.43)
[2019-02-18 21:38] LABS: Potassium 4.5 mmol/L (3.5-5.1)
--- NOTE | 2019-02-18 21:59 | ER ---
Nurse's Notes [facility] Name: Melvin Maguire Age: 28 yrs Sex: Male : 1990 Arrival Date: 02/18/2019 Time: 19:47 Bed 27 Private MD: Diagnosis: Anemia in chronic kidney disease Presentation: 02/18 20:09 Presenting complaint: Patient states: "I just got out of the hospital, when I was aj1 discharged I was told I had low hemoglobin, today Im just having all the symptoms of that I lost my appetite, Im really tired, dizziness." Patient reports that was admitted to have his peritoneal dialysis catheter adjusted. Denies pain. Transition of care: patient was not received from another setting of care. Onset of symptoms was February 18, 2019. Risk Assessment: Do you want to hurt yourself or someone else? Patient reports no desire to harm self or others. Initial Sepsis Screen: Does the patient meet any 2 criteria? No. Patient's initial sepsis screen is negative. Does the patient have a suspected source of infection? No. Patient's initial sepsis screen is negative. Care prior to arrival: None. 20:09 Method Of Arrival: Ambulatory aj1 20:09 Acuity: SAKSHI 3 aj1 Triage Assessment: 20:13 General: Appears in no apparent distress. comfortable, Behavior is calm, cooperative, aj1 appropriate for age. Pain: Denies pain. Neuro: Level of Consciousness is awake, alert, obeys commands. Cardiovascular: Patient's skin is warm and dry. Respiratory: Reports shortness of breath at rest Airway is patent Respiratory effort is even, unlabored, Respiratory pattern is regular, symmetrical. 22:29 Respiratory: Onset: The symptoms/episode began/occurred gradually, tr5 Historical: - Allergies: 20:13 No Known Allergies; aj1 - Home Meds: 20:13 hydralazine 20 mg Oral tab 1 tab 2 times per day [Active]; pantoprazole 40 mg oral TbEC aj1 1 tab once daily [Active]; Lasix 80 mg oral tab 1 tab once daily [Active]; amlodipine 10 mg tab once daily [Active]; Coreg 6.25 mg oral tab 2 times per day [Active]; Auryxia 210 mg iron Oral tab 4 tabs with meals [Active]; sevelamer HCl oral 800 mg oral 3 times per day [Active]; - PMHx: 20:13 Asthma; Dialysis; High Cholesterol; Hypertension; Hypothyroidism; kidney failure; aj1 - Immunization history:: Flu vaccine is up to date. - Social history:: Smoking status: Patient/guardian denies using tobacco. - Ebola Screening: : Patient denies travel to an Ebola-affected area in the 21 days before illness onset. Screenin:50 Abuse screen: Denies threats or abuse. Nutritional screening: No deficits noted. tr5 Tuberculosis screening: No symptoms or risk factors identified. Fall Risk None identified. Assessment: 20:50 General: Appears in no apparent distress. Behavior is calm, cooperative, appropriate tr5 for age. Pain: Denies pain. Neuro: Level of Consciousness is awake, alert, obeys commands, Oriented to person, place, time, Regional Sales Manager are equal bilaterally Moves all extremities. Cardiovascular: Heart tones present Capillary refill < 3 seconds Pulses are all present. Edema is absent. Rhythm is regular. Respiratory: Airway is patent Respiratory effort is even, unlabored, Respiratory pattern is regular, symmetrical, Breath sounds are clear bilaterally. GI: No signs and/or symptoms were reported involving the gastrointestinal system. : No signs and/or symptoms were reported regarding the genitourinary system. EENT: No signs and/or symptoms were reported regarding the EENT system. Derm: No signs and/or symptoms reported regarding the dermatologic system. Musculoskeletal: No signs and/or symptoms reported regarding the musculoskeletal system. Vital Signs: 20:13 BP 138 / 89; Pulse 96; Resp 18; Temp 98.5(O); Pulse Ox 99% on R/A; Weight 97.07 kg; aj1 Height 5 ft. 10 in. (177.80 cm) (R); Pain 0/10; 20:13 Body Mass Index 30.71 (97.07 kg, 177.80 cm) aj1 ED Course: 19:47 Patient arrived in ED. cf2 20:11 Triage completed. aj1 20:13 Arm band placed on Patient placed in waiting room, Patient notified of wait time. aj1 20:25 Macario Thompson, EVETTE is Primary Nurse. tr5 20:35 Pierre Saravia PA is PHCP. jr8 20:35 Rob Thompson MD is Attending Physician. jr8 20:50 Fall risk band placed. Placed in gown. Bed in low position. tr5 20:50 Initial lab(s) drawn, by me, sent to lab. Inserted saline lock: 22 gauge in right tr5 antecubital area, using aseptic technique. 21:30 XRAY Chest (1 view) In Process Unspecified. EDMS 21:59 Sandie Rome MD is Referral Physician. jr8 22:28 No provider procedures requiring assistance completed. IV discontinued. tr5 Administered Medications: No medications were administered Outcome: 21:59 Discharge ordered by . jr8 22:28 Discharged to home ambulatory. tr5 22:28 Condition: stable 22:28 Discharge instructions given to patient, family, Instructed on discharge instructions, follow up and referral plans. medication usage, Demonstrated understanding of instructions, follow-up care. 22:29 Patient left the ED. tr5 Signatures: Dispatcher [employer] EDME Cecy Baig RN RN aj1 Pierre Saravia PA PA jr8 Macario Thompson RN RN tr5 Xiao Vega cf2
--- NOTE | 2019-02-18 22:00 | EDPHYS ---
Physician Documentation [facility] Name: Melvin Maguire Age: 28 yrs Sex: Male : 1990 Arrival Date: 02/18/2019 Time: 19:47 Bed 27 Private MD: ED Physician Rob Thompson HPI: 02/18 21:08 This 28 yrs old Male presents to ER via Ambulatory with complaints of jr8 Breathing Difficulty. 21:08 The patient has shortness of breath with light activity. Onset: The symptoms/episode jr8 began/occurred gradually, 2 day(s) ago. Duration: The symptoms are continuous. The patient's shortness of breath is aggravated by exertion, light activity, walking. Associated signs and symptoms: Pertinent positives: dizziness. Severity of symptoms: At their worst the symptoms were moderate in the emergency department the symptoms are unchanged. The patient has not experienced similar symptoms in the past. The patient has been recently seen by a physician:. Patient stated that he had recent blood work completed before being d/c'd from [facility] after having peritoneal dialysis catheter adjustment. Stated that he was anemic but did not need transfusion at that time. Stated that he is not having shortness of breath, weakness, fatigue and is worried that his hemoglobin has dropped . Historical: - Allergies: 20:13 No Known Allergies; aj1 - Home Meds: 20:13 hydralazine 20 mg Oral tab 1 tab 2 times per day [Active]; pantoprazole 40 mg oral TbEC aj1 1 tab once daily [Active]; Lasix 80 mg oral tab 1 tab once daily [Active]; amlodipine 10 mg tab once daily [Active]; Coreg 6.25 mg oral tab 2 times per day [Active]; Auryxia 210 mg iron Oral tab 4 tabs with meals [Active]; sevelamer HCl oral 800 mg oral 3 times per day [Active]; - PMHx: 20:13 Asthma; Dialysis; High Cholesterol; Hypertension; Hypothyroidism; kidney failure; aj1 - Immunization history:: Flu vaccine is up to date. - Social history:: Smoking status: Patient/guardian denies using tobacco. - Ebola Screening: : Patient denies travel to an Ebola-affected area in the 21 days before illness onset. ROS: 21:08 Eyes: Negative for injury, pain, redness, and discharge, ENT: Negative for injury, jr8 pain, and discharge, Neck: Negative for injury, pain, and swelling, Cardiovascular: Negative for chest pain, palpitations, and edema, Abdomen/GI: Negative for abdominal pain, nausea, vomiting, diarrhea, and constipation, Back: Negative for injury and pain, MS/Extremity: Negative for injury and deformity, Skin: Negative for injury, rash, and discoloration. 21:08 Respiratory: Positive for dyspnea on exertion, shortness of breath. 21:08 Neuro: Positive for dizziness, weakness. Exam: 21:08 Eyes: Pupils equal round and reactive to light, extra-ocular motions intact. Lids and jr8 lashes normal. Conjunctiva and sclera are non-icteric and not injected. Cornea within normal limits. Periorbital areas with no swelling, redness, or edema. ENT: Nares patent. No nasal discharge, no septal abnormalities noted. Tympanic membranes are normal and external auditory canals are clear. Oropharynx with no redness, swelling, or masses, exudates, or evidence of obstruction, uvula midline. Mucous membranes moist. Neck: Trachea midline, no thyromegaly or masses palpated, and no cervical lymphadenopathy. Supple, full range of motion without nuchal rigidity, or vertebral point tenderness. No Meningismus. Cardiovascular: Regular rate and rhythm with a normal S1 and S2. No gallops, murmurs, or rubs. Normal PMI, no JVD. No pulse deficits. Respiratory: Lungs have equal breath sounds bilaterally, clear to auscultation and percussion. No rales, rhonchi or wheezes noted. No increased work of breathing, no retractions or nasal flaring. Abdomen/GI: Soft, non-tender, with normal bowel sounds. No distension or tympany. No guarding or rebound. No evidence of tenderness throughout. No signs of infection around dialysis site Back: No spinal tenderness. No costovertebral tenderness. Full range of motion. Skin: Warm, dry with normal turgor. Normal color with no rashes, no lesions, and no evidence of cellulitis. MS/ Extremity: Pulses equal, no cyanosis. Neurovascular intact. Full, normal range of motion. Neuro: Awake and alert, GCS 15, oriented to person, place, time, and situation. Cranial nerves II-XII grossly intact. Motor strength 5/5 in all extremities. Sensory grossly intact. Cerebellar exam normal. Normal gait. Vital Signs: 20:13 BP 138 / 89; Pulse 96; Resp 18; Temp 98.5(O); Pulse Ox 99% on R/A; Weight 97.07 kg; aj1 Height 5 ft. 10 in. (177.80 cm) (R); Pain 0/10; 20:13 Body Mass Index 30.71 (97.07 kg, 177.80 cm) aj1 MDM: 20:43 Patient medically screened. [facility] 21:57 Data reviewed: vital signs, nurses notes, lab test result(s), EKG, radiologic studies, [facility] plain films, and as a result, I will discharge patient. Data interpreted: Pulse oximetry: on room air is 98 %. Interpretation: normal. Counseling: I had a detailed discussion with the patient and/or guardian regarding: the historical points, exam findings, and any diagnostic results supporting the discharge/admit diagnosis, lab results, radiology results, the need for outpatient follow up, a family practitioner, Nephrology . ED course: Discussed with patient that there is no acute change in his renal function. No electrolyte abnormality. Hemoglobin 8.4 which is low but not to the point where he needs transfusion. CXR without acute findings. Recommend f/u with both FM and nephrology in next 24-48 hours. To come back if anything were to worsen. Patient good with this and will f/u . 02/18 20:42 Order name: CBC with Diff; Complete Time: 21:26 [facility] 02/18 20:42 Order name: Basic Metabolic Panel; Complete Time: 21:52 [facility] 02/18 20:42 Order name: XRAY Chest (1 view) [facility] 02/18 20:42 Order name: T\T\S [facility] 02/18 20:42 Order name: IV; Complete Time: 21:10 [facility] 02/18 20:42 Order name: EKG - Nurse/Tech; Complete Time: 21:42 [facility] Administered Medications: No medications were administered Disposition: 02/18/19 21:59 Discharged to Home. Impression: Anemia in chronic kidney disease. - Condition is Stable. - Discharge Instructions: Anemia, Nonspecific, Blood Transfusion, Adult. - Medication Reconciliation Form, Thank You Letter, Antibiotic Education, Prescription Opioid Use form. - Follow up: Sandie Rome MD; When: 24 Hours; Reason: Recheck today's complaints, Continuance of care, Re-evaluation by your physician. - Problem is new. - Symptoms have improved. Addendum: 02/20/2019 13:49 Co-signature as Attending Physician, Rob Thompson MD I agree with the assessment and c roche plan of care. Signatures: Dispatcher [employer] EDCecy Vergara RN RN aj1 Rob Thompson MD MD cha Roszak, Josh, PA PA jr8 Macario Thompson RN RN tr5 Corrections: (The following items were deleted from the chart) 02/18 22:29 21:59 02/18/2019 21:59 Discharged to Home. Impression: Anemia in chronic kidney tr5 disease. Condition is Stable. Forms are Medication Reconciliation Form, Thank You Letter, Antibiotic Education, Prescription Opioid Use. Follow up: Sandie Rome; When: 24 Hours; Reason: Recheck today's complaints, Continuance of care, Re-evaluation by your physician. Problem is new. Symptoms have improved. jr8
--- NOTE | 2019-02-19 08:07 | RAD REPORT ---
EXAM DESCRIPTION: Eduardo Single View02/18/2019 9:30 pm CLINICAL HISTORY: Shortness of breath COMPARISON: November 2018 FINDINGS: The lungs appear clear of acute infiltrate. The heart is normal size IMPRESSION: No acute abnormalities displayed
--- NOTE | 2019-02-19 08:17 | EKG ---
Test Date: 2019-02-18 Test Time: 21:39:44 Security Escort: TR MEASUREMENT RESULTS: Intervals: Rate: 86 AR: 210 QRSD: 86 QT: 376 QTc: 449 [place]: P: 37 AR: 210 QRS: 54 T: 30 INTERPRETIVE STATEMENTS: Sinus rhythm with 1st degree AV block Otherwise normal ECG Compared to ECG 01/28/2019 06:47:42 First degree AV block now present Electronically Signed On 02-19-19 08:15:51 WORKERS COMPENSATION CLAIMS ANALYST by Francesco Carias
[2019-02-19 09:01] VITALS: BP 138/89; TEMP 98.5; O2SAT 99
== END 2019-02-18 22:29 | disposition home or self-care (01) ==
LOC: ER 19:37
DX: N18.9 Chronic kidney disease, unspecified (principal); D63.1 Anemia in chronic kidney disease; E78.00 Pure hypercholesterolemia, unspecified; I10 Essential (primary) hypertension; E03.9 Hypothyroidism, unspecified; Z79.4 Long term (current) use of insulin
CPT/HCPCS: 36415; 71045; 80048; 85025; 86850; 86900; 86901; 93005; 99283

== ENCOUNTER 2019-02-27 17:13 | Emergency (ER) | payer OTHER ==
[2019-02-27 17:43] LABS: Absolute Lymphocytes (CBC) 0.9 K/uL (0.7-4.9); Basophils % 0.7 % (0-1.3); Hematocrit 23.9 % (39.6-49.0); MPV 7.3 fL (7.6-11.3); RBC Red Blood Cell Count 2.74 M/uL (4.33-5.43)
[2019-02-27 17:44] LABS: Protime INR 0.96
[2019-02-27 18:02] LABS: ALT/SGPT 11 U/L (12-78); AST/SGOT 10 U/L (15-37); Albumin 3.3 g/dL (3.4-5.0); Alkaline Phosphatase 42 U/L (45-117); BUN Blood Urea Nitrogen 102 mg/dL (7-18); Bicarbonate 23 mmol/L (21-32); Bilirubin Direct < 0.1 mg/dL (0-0.2); Bilirubin Total 0.3 mg/dL (0.2-1.0); Glucose Level 100 mg/dL (74-106); Magnesium 1.9 mg/dL (1.8-2.4); NT PRO-BNP 8995 pg/mL (<125); Potassium 4.8 mmol/L (3.5-5.1); Protein, Total 6.3 g/dL (6.4-8.2); Sodium Level 145 mmol/L (136-145); Troponin (Emerg Dept Use Only) < 0.02 ng/mL (0.0-0.045)
--- NOTE | 2019-02-27 19:05 | RAD REPORT ---
EXAM DESCRIPTION: RAD - Chest Single View - 02/27/2019 5:44 pm CLINICAL HISTORY: Chest pain COMPARISON: February 18 TECHNIQUE: AP portable chest image was obtained 1728 hours . FINDINGS: No peripheral mass or consolidation. Interstitial pattern is similar or less prominent carolyn n prior imaging. Heart size is prominent but stable. Trachea is midline. No measurable pleural effusi on and no pneumothorax. No acute bony abnormality seen. No acute aortic findings suspected. IMPRESSION: No acute cardiopulmonary process. Chest findings are similar or less prominent than comparison.
--- NOTE | 2019-02-27 19:35 | RAD REPORT ---
EXAM DESCRIPTION: CT - Abdomen Pelvis Wo Contrast - 02/27/2019 7:18 pm CLINICAL HISTORY: ABD PAIN COMPARISON: [facility] Protocol dated 01/11/2019. TECHNIQUE: Axial [address] imaging of the abdomen and pelvis was performed without IV contrast. No IV contrast was given because of allergy, abnormal renal function, patient refusal or physician re quest. Oral contrast was given. All CT scans are performed using dose optimization technique as appropriate and may include automated exposure control or mA/KV adjustment according to patient size. FINDINGS: No suspicious findings in the lung bases. The liver, spleen and pancreas show no suspicious findings on non-contrast imaging. Gallbladder is co ntracted. No biliary tree dilatation. Both kidneys are small. This is not unexpected given the dialysis history. No hydronephrosis. No acut e renal parenchymal mass. Urinary bladder is fully contracted. No significant adrenal finding. Isode nse renal masses and pyelonephritis cannot be excluded in the absence of IV contrast. Delete select No gastric dilatation or gastric wall thickening. No dilated large or small bowel loops. Acute append icitis is not suspected. Peritoneal dialysis catheter is in place. Small quantity of free intraperito [place] fluid is present not unusual and peritoneal dialysis patient has. No free air or pneumatosis. No inflammatory stranding. No mass or bulky lymphadenopathy. Soft tissue stranding in the supraumbilical fatty tissues noted. This is slightly more prominent than prior imaging. Patient has a supraumbilical ventral hernia. Size has not changed. The hernia current ly contains loops of small bowel. No small bowel wall thickening or edema. No suspicious bony findings. IMPRESSION: Small amount of free intraperitoneal fluid not unexpected in a peritoneal dialysis patie nt. No acute GI process seen. Supraumbilical hernia has not changed in size but now contains loops of small bowel. No wall thickeni ng or edema of the herniated loops. The neck of the hernia is almost as wide as the hernia itself. En trapment of bowel is not likely. At the inferior margin of the hernia there is soft tissue stranding and nodularity that is increased from prior imaging. This may be reactive scar tissue. More aggressive mass is unlikely but can be mon itored on subsequent imaging. Full assessment is limited is the absence of IV contrast.
--- NOTE | 2019-02-27 19:49 | ER ---
Nurse's Notes [facility] Name: Melvin Maguire Age: 28 yrs Sex: Male : 1990 Arrival Date: 02/27/2019 Time: 17:14 Bed 14 Private MD: Diagnosis: Abdominal and pelvic pain Presentation: 02/27 17:14 Presenting complaint: EMS states: chest pain that started this morning at 1030 that em comes and goes, described as sharp, also reports nausea, given Zofran 4 mg IV, sinus rhythm on monitor, 18 G RAC. Transition of care: patient was not received from another setting of care. Onset of symptoms was February 27, 2019. Risk Assessment: Do you want to hurt yourself or someone else? Patient reports no desire to harm self or others. Initial Sepsis Screen: Does the patient meet any 2 criteria? No. Patient's initial sepsis screen is negative. Does the patient have a suspected source of infection? No. Patient's initial sepsis screen is negative. Care prior to arrival: Medication(s) given: zofran 4 mg. 17:14 Method Of Arrival: EMS: [facility] em 17:21 Acuity: SAKSHI 3 ss Historical: - Allergies: 17:18 No Known Allergies; em - Home Meds: 17:18 amlodipine 10 mg tab once daily [Active]; Auryxia 210 mg iron Oral tab 4 tabs with em meals [Active]; Coreg 6.25 mg Oral tab 2 times per day [Active]; hydralazine 20 mg Oral tab 1 tab 2 times per day [Active]; Lasix 80 mg Oral tab 1 tab once daily [Active]; pantoprazole 40 mg Oral TbEC 1 tab once daily [Active]; sevelamer HCl 800 mg Oral 3 times per day [Active]; - PMHx: 17:18 Asthma; Dialysis; High Cholesterol; Hypertension; Hypothyroidism; kidney failure; em - PSHx: 17:18 Hernia repair; em - Immunization history:: Adult Immunizations up to date. - Social history:: Smoking status: Patient/guardian denies using tobacco. - Ebola Screening: : Patient negative for fever greater than or equal to 101.5 degrees Fahrenheit, and additional compatible Ebola Virus Disease symptoms Patient denies exposure to infectious person Patient denies travel to an Ebola-affected area in the 21 days before illness onset No symptoms or risks identified at this time. Screenin:19 Abuse screen: Denies threats or abuse. Nutritional screening: No deficits noted. em Tuberculosis screening: No symptoms or risk factors identified. Fall Risk None identified. Assessment: 17:21 General: Appears in no apparent distress. comfortable, Behavior is calm, cooperative, ca1 appropriate for age. Pain: Complains of pain in chest Pain does not radiate. Pain currently is 6 out of 10 on a pain scale. Quality of pain is described as sharp, Pain began this morning Is intermittent. Neuro: Level of Consciousness is awake, alert, obeys commands, Oriented to person, place, time, situation, Appropriate for age. Cardiovascular: Heart tones S1 S2 present Capillary refill < 3 seconds Patient's skin is warm and dry. Respiratory: Airway is patent Respiratory effort is even, unlabored, Respiratory pattern is regular, symmetrical, Breath sounds are clear bilaterally. GI: Abdomen is round non-distended, Peritoneal dialysis catheter capped. Site is clean and dry. Bowel sounds present X 4 quads. Abd is soft and non tender X 4 quads. Reports nausea. : No signs and/or symptoms were reported regarding the genitourinary system. EENT: No deficits noted. No signs and/or symptoms were reported regarding the EENT system. Derm: Skin is intact, is healthy with good turgor, Skin is pink, warm \T\ dry. Musculoskeletal: Circulation, motion, and sensation intact. Capillary refill < 3 seconds, Range of motion: intact in all extremities. 18:30 Reassessment: Patient appears in no apparent distress at this time. Patient and/or ca1 family updated on plan of care and expected duration. Pain level reassessed. Patient is alert, oriented x 3, equal unlabored respirations, skin warm/dry/pink. 19:45 Reassessment: Patient appears in no apparent distress at this time. Patient and/or ca1 family updated on plan of care and expected duration. Pain level reassessed. Patient is alert, oriented x 3, equal unlabored respirations, skin warm/dry/pink. Vital Signs: 17:18 BP 160 / 98; Pulse 100; Resp 18; Temp 98.4(O); Pulse Ox 100% on R/A; Weight 129.27 kg; em Height 5 ft. 10 in. (177.80 cm); Pain 5/10; 17:48 BP 182 / 107; Pulse 101; Resp 19 S; Pulse Ox 100% on R/A; ca1 18:18 BP 182 / 107; Pulse 95; Resp 18; Pulse Ox 99% on R/A; mh5 19:45 BP 164 / 102; Pulse 95; Resp 19 S; Pulse Ox 100% on R/A; ca1 17:18 Body Mass Index 40.89 (129.27 kg, 177.80 cm) em ED Course: 17:14 Patient arrived in ED. em 17:18 Arm band placed on. em 17:19 Patient has correct armband on for positive identification. Placed in gown. Bed in low em position. Call light in reach. Side rails up X2. Adult w/ patient. security monitor on. Pulse ox on. NIBP on. 17:19 Maintain EMS IV. Dressing intact. Good blood return noted. Site clean \T\ dry. Gauge \T\ em site: 18 G RAC. Patient maintains SpO2 saturation greater than 95% on room air. 17:20 Danita Ashby, EVETTE is Primary Nurse. ca1 17:20 Warm blanket given. ca1 17:21 Triage completed. 17:23 Sari Hodge FNP is PHCP. ct 17:23 Austin Muñoz MD is Attending Physician. nh 17:26 EKG done, by building services technician. reviewed by Austin Muñoz MD. sm3 17:33 Initial lab(s) drawn, by nv, sent to lab. ca1 17:44 XRAY Chest (1 view) In Process Unspecified. EDMS 19:17 CT Abd/Pelvis - Without Contrast In Process Unspecified. EDMS 20:01 No provider procedures requiring assistance completed. IV discontinued, intact, ca1 bleeding controlled, No redness/swelling at site. Pressure dressing applied. Administered Medications: No medications were administered Outcome: 19:48 Discharge ordered by . nh 20:01 Discharged to home ambulatory, with friend. ca1 20:01 Condition: stable 20:01 Discharge instructions given to patient, Instructed on discharge instructions, follow up and referral plans. Demonstrated understanding of instructions, follow-up care. 20:02 Patient left the ED. ca1 Signatures: Dispatcher [employer] EDMS Sari Hodge FNP POWER PRESS SUPERVISOR ct Garcia Morrow, [employer] SERVICE OFFICER [employer] OFFICER em Zarina Bailey RN RN ss Diana [address] [place] sm3 Isma, Danita, RN RN ca1
--- NOTE | 2019-02-27 19:49 | EDPHYS ---
Physician Documentation [facility] Name: Melvin Maguire Age: 28 yrs Sex: Male : 1990 Arrival Date: 02/27/2019 Time: 17:14 Bed 14 Private MD: ED Physician Austin Muñoz HPI: 02/27 18:39 This 28 yrs old Male presents to ER via EMS with complaints of Chest Pain. nh 18:39 Onset: The symptoms/episode began/occurred acutely, this morning. Associated signs and nh symptoms: Pertinent positives: vomiting. Modifying factors: The patient symptoms are alleviated by nothing, the patient symptoms are aggravated by. The patient has not experienced similar symptoms in the past. The patient has not recently seen a physician. Patient reports that he has had issues with elevated potassium in the past and felt like that was happening. He had chest pain and vomited once. Historical: - Allergies: 17:18 No Known Allergies; em - Home Meds: 17:18 amlodipine 10 mg tab once daily [Active]; Auryxia 210 mg iron Oral tab 4 tabs with em meals [Active]; Coreg 6.25 mg Oral tab 2 times per day [Active]; hydralazine 20 mg Oral tab 1 tab 2 times per day [Active]; Lasix 80 mg Oral tab 1 tab once daily [Active]; pantoprazole 40 mg Oral TbEC 1 tab once daily [Active]; sevelamer HCl 800 mg Oral 3 times per day [Active]; - PMHx: 17:18 Asthma; Dialysis; High Cholesterol; Hypertension; Hypothyroidism; kidney failure; em - PSHx: 17:18 Hernia repair; em - Immunization history:: Adult Immunizations up to date. - Social history:: Smoking status: Patient/guardian denies using tobacco. - Ebola Screening: : Patient negative for fever greater than or equal to 101.5 degrees Fahrenheit, and additional compatible Ebola Virus Disease symptoms Patient denies exposure to infectious person Patient denies travel to an Ebola-affected area in the 21 days before illness onset No symptoms or risks identified at this time. ROS: 18:39 Constitutional: Negative for fever, chills, and weight loss, Eyes: Negative for injury, nh pain, redness, and discharge, ENT: Negative for injury, pain, and discharge, Neck: Negative for injury, pain, and swelling, Respiratory: Negative for shortness of breath, cough, wheezing, and pleuritic chest pain, Back: Negative for injury and pain, MS/Extremity: Negative for injury and deformity, Skin: Negative for injury, rash, and discoloration, Neuro: Negative for headache, weakness, numbness, tingling, and seizure. 18:39 Cardiovascular: Positive for chest pain, Negative for edema, orthopnea, palpitations, paroxysmal nocturnal dyspnea. 18:39 Abdomen/GI: Positive for abdominal pain, vomiting, Negative for nausea and vomiting, nausea, vomiting, and diarrhea. Exam: 18:39 Constitutional: This is a well developed, well nourished patient who is awake, alert, nh and in no acute distress. Head/Face: Normocephalic, atraumatic. Eyes: Pupils equal round and reactive to light, extra-ocular motions intact. Lids and lashes normal. Conjunctiva and sclera are non-icteric and not injected. Cornea within normal limits. Periorbital areas with no swelling, redness, or edema. ENT: Nares patent. No nasal discharge, no septal abnormalities noted. Tympanic membranes are normal and external auditory canals are clear. Oropharynx with no redness, swelling, or masses, exudates, or evidence of obstruction, uvula midline. Mucous membranes moist. Neck: Trachea midline, no thyromegaly or masses palpated, and no cervical lymphadenopathy. Supple, full range of motion without nuchal rigidity, or vertebral point tenderness. No Meningismus. Chest/axilla: Normal chest wall appearance and motion. Nontender with no deformity. No lesions are appreciated. Cardiovascular: Regular rate and rhythm with a normal S1 and S2. No gallops, murmurs, or rubs. Normal PMI, no JVD. No pulse deficits. Respiratory: Lungs have equal breath sounds bilaterally, clear to auscultation and percussion. No rales, rhonchi or wheezes noted. No increased work of breathing, no retractions or nasal flaring. Abdomen/GI: Soft, non-tender, with normal bowel sounds. No distension or tympany. No guarding or rebound. No evidence of tenderness throughout. Back: No spinal tenderness. No costovertebral tenderness. Full range of motion. Skin: Warm, dry with normal turgor. Normal color with no rashes, no lesions, and no evidence of cellulitis. MS/ Extremity: Pulses equal, no cyanosis. Neurovascular intact. Full, normal range of motion. Vital Signs: 17:18 BP 160 / 98; Pulse 100; Resp 18; Temp 98.4(O); Pulse Ox 100% on R/A; Weight 129.27 kg; em Height 5 ft. 10 in. (177.80 cm); Pain 5/10; 17:48 BP 182 / 107; Pulse 101; Resp 19 S; Pulse Ox 100% on R/A; ca1 18:18 BP 182 / 107; Pulse 95; Resp 18; Pulse Ox 99% on R/A; mh5 19:45 BP 164 / 102; Pulse 95; Resp 19 S; Pulse Ox 100% on R/A; ca1 17:18 Body Mass Index 40.89 (129.27 kg, 177.80 cm) em MDM: 17:23 Patient medically screened. nh 19:48 Data reviewed: vital signs, nurses notes, lab test result(s), radiologic studies, I nh have discussed the patient's presentation/case with the attending Emergency Department Physician; and as a result, I will discharge patient. Counseling: I had a detailed discussion with the patient and/or guardian regarding: the historical points, exam findings, and any diagnostic results supporting the discharge/admit diagnosis, lab results, radiology results, the need for outpatient follow up, to return to the emergency department if symptoms worsen or persist or if there are any questions or concerns that arise at home. 02/27 17:21 Order name: Basic Metabolic Panel; Complete Time: 18:07 ca1 02/27 17:21 Order name: CBC with Diff; Complete Time: 17:47 ca1 02/27 17:21 Order name: LFT's; Complete Time: 18:07 ca1 02/27 17:21 Order name: Magnesium; Complete Time: 18:07 ca1 02/27 17:21 Order name: NT PRO-BNP; Complete Time: 18:07 ca1 02/27 17:21 Order name: PT-INR; Complete Time: 17:47 ca1 02/27 17:21 Order name: Troponin (emerg Dept Use Only); Complete Time: 18:07 ca1 02/27 17:21 Order name: XRAY Chest (1 view); Complete Time: 19:47 ca1 02/27 17:21 Order name: EKG; Complete Time: 17:21 ca1 02/27 17:21 Order name: Cardiac monitoring; Complete Time: 17: ca1 02/27 17:21 Order name: EKG - Nurse/Tech; Complete Time: 17:21 ca1 02/27 17:21 Order name: IV Saline Lock; Complete Time: 17:21 ca1 02/27 17:21 Order name: Labs collected and sent; Complete Time: 17:21 ca1 02/27 18:47 Order name: CT Abd/Pelvis - Without Contrast; Complete Time: 19:47 nh 02/27 17:21 Order name: O2 Per Protocol; Complete Time: 17: ca1 02/27 17:21 Order name: O2 Sat Monitoring; Complete Time: 17: ca1 Administered Medications: No medications were administered Disposition: 02/28 07:24 Co-signature as Attending Physician, Austin Muñoz MD I agree with the assessment and kdr plan of care. Disposition: 02/27/19 19:48 Discharged to Home. Impression: Abdominal and pelvic pain. - Condition is Stable. - Discharge Instructions: Abdominal Pain, Adult. - Medication Reconciliation Form, Thank You Letter, Antibiotic Education, Prescription Opioid Use form. - Follow up: Private Physician; When: 2 - 3 days; Reason: Recheck today's complaints. - Problem is new. - Symptoms are unchanged. Signatures: Dispatcher [employer] EDAustin Macedo MD MD [facility] Sari Hodge, COAT JOINER LOCKSTITCH COAT JOINER LOCKSTITCH sd Garcia Morrow, EXTRACTIVE METALLURGIST EXTRACTIVE METALLURGIST em Isma, Danita, RN RN ca1 Corrections: (The following items were deleted from the chart) 02/27 20:02 19:48 02/27/2019 19:48 Discharged to Home. Impression: Abdominal and pelvic pain. ca1 Condition is Stable. Forms are Medication Reconciliation Form, Thank You Letter, Antibiotic Education, Prescription Opioid Use. Follow up: Private Physician; When: 2 - 3 days; Reason: Recheck today's complaints. Problem is new. Symptoms are unchanged. nh
[2019-02-27 21:43] VITALS: TEMP 98.4
[2019-02-27 21:48] VITALS: BP 164/102; O2SAT 100
--- NOTE | 2019-02-28 14:21 | EKG ---
Test Date: 2019-02-27 Test Time: 17:17:19 Director Smb Sales: JACOB MEASUREMENT RESULTS: Intervals: Rate: 98 ME: 184 QRSD: 86 QT: 360 QTc: 459 [place]: P: 48 ME: 184 QRS: 31 T: 45 INTERPRETIVE STATEMENTS: Normal sinus rhythm Normal ECG Compared to ECG 02/18/2019 21:39:44 First degree AV block no longer present Electronically Signed On 02-28-19 14:19:22 IT TECHNICIAN by Francesco Carias
== END 2019-02-27 20:02 | disposition home or self-care (01) ==
LOC: ER 17:13
DX: R10.2 Pelvic and perineal pain (principal); I12.0 Hypertensive chronic kidney disease with stage 5 chronic kidney disease or end stage renal disease; N18.6 End stage renal disease; E78.00 Pure hypercholesterolemia, unspecified
CPT/HCPCS: 36415; 71045; 74176; 80048; 80076; 83735; 83880; 84484; 85025; 85610; 93005; 99285

== ENCOUNTER 2019-03-01 13:58 | Inpatient (IN) | payer OTHER ==
[2019-03-01 14:48] LABS: Absolute Lymphocytes (CBC) 0.7 K/uL (0.7-4.9); Basophils % 0.5 % (0-1.3); Hematocrit 22.5 % (39.6-49.0); Lymphocytes % 8.7 % (15.3-44.8); MPV 7.3 fL (7.6-11.3); RBC Red Blood Cell Count 2.62 M/uL (4.33-5.43)
[2019-03-01] MEDS ORDERED: FUROSEMIDE 100 MG/10 ML VIAL IV ONE (14:50)
[2019-03-01 14:52] LABS: Protime INR 1.04
--- NOTE | 2019-03-01 14:59 | ER ---
Nurse's Notes [facility] Name: Melvin Maguire Age: 28 yrs Sex: Male : 1990 Arrival Date: 03/01/2019 Time: 14:08 Bed 15 Private MD: Diagnosis: Shortness of breath;Volume overload;Chronic kidney disease, stage 5-peritoneal dialysis Presentation: 03/01 14:09 Presenting complaint: EMS states: pt c/o SOB since this morning, reported pink tinged ca1 phlegm. Pt was here 2 days ago for chest pain. He is on peritoneal dialysis, last treatment is last night. Reports he normally gets 2L fluid out, but last night he only had 1L and he reported running out of dialysis solution that his home health nurse usually brings him. Denies any pain other than when coughing. Breath sounds are clear and VS WNL. Transition of care: patient was not received from another setting of care. Onset of symptoms was March 01, 2019. Risk Assessment: Do you want to hurt yourself or someone else? Patient reports no desire to harm self or others. Initial Sepsis Screen: Does the patient meet any 2 criteria? No. Patient's initial sepsis screen is negative. Does the patient have a suspected source of infection? No. Patient's initial sepsis screen is negative. Care prior to arrival: IV initiated. 18 GA, in the right antecubital area. 14:09 Method Of Arrival: EMS: [facility] ca1 14:09 Acuity: SAKSHI 3 ca1 14:17 Note PT requested 02. Pt SPO2 99% at ROM. Breathing equal and unlabored. O2 given at ca1 1LPM. Triage Assessment: 14:15 General: Appears in no apparent distress. comfortable, Behavior is calm, cooperative, ca1 appropriate for age. Pain: Denies pain. EENT: No deficits noted. No signs and/or symptoms were reported regarding the EENT system. Neuro: Level of Consciousness is awake, alert, obeys commands, Oriented to person, place, time, situation. Cardiovascular: Heart tones S1 S2 present Capillary refill < 3 seconds Patient's skin is warm and dry. Pulses are all present. Respiratory: Reports shortness of breath at rest cough that is productive, Airway is patent Respiratory effort is even, unlabored, Respiratory pattern is regular, symmetrical, Breath sounds are clear bilaterally. Onset: The symptoms/episode began/occurred this morning, the patient has mild shortness of breath. GI: Abdomen is round non-distended, Peritoneal dialysis catheter capped. Site is clean and dry. Bowel sounds present X 4 quads. Abd is soft and non tender X 4 quads. : No deficits noted. No signs and/or symptoms were reported regarding the genitourinary system. Derm: Skin is intact, is healthy with good turgor, Skin is pink, warm \T\ dry. Musculoskeletal: Circulation, motion, and sensation intact. Capillary refill < 3 seconds, Range of motion: intact in all extremities. Historical: - Allergies: 14:15 No Known Allergies; ca1 - Home Meds: 14:15 amlodipine 10 mg tab once daily [Active]; Auryxia 210 mg iron Oral tab 4 tabs with ca1 meals [Active]; Coreg 6.25 mg Oral tab 2 times per day [Active]; hydralazine 20 mg Oral tab 1 tab 2 times per day [Active]; Lasix 80 mg Oral tab 1 tab once daily [Active]; pantoprazole 40 mg Oral TbEC 1 tab once daily [Active]; sevelamer HCl 800 mg Oral 3 times per day [Active]; - PMHx: 14:15 Asthma; Dialysis; High Cholesterol; Hypertension; Hypothyroidism; kidney failure; ca1 - PSHx: 14:15 Hernia repair; ca1 - Immunization history:: Adult Immunizations up to date, Flu vaccine is up to date. - Social history:: Smoking status: Patient/guardian denies using tobacco. - Ebola Screening: : Patient negative for fever greater than or equal to 101.5 degrees Fahrenheit, and additional compatible Ebola Virus Disease symptoms Patient denies exposure to infectious person Patient denies travel to an Ebola-affected area in the 21 days before illness onset No symptoms or risks identified at this time. Screenin:19 Abuse screen: Denies threats or abuse. Denies injuries from another. Nutritional ca1 screening: No deficits noted. Tuberculosis screening: No symptoms or risk factors identified. Fall Risk IV access (20 points). Assessment: 14:20 Reassessment: SEE TRIAGE ASSESSMENT. ca1 14:30 Cardiovascular: Heart tones S1 S2 Capillary refill < 3 seconds Patient's skin is warm ca1 and dry. Rhythm is sinus tachycardia. 15:53 Reassessment: Patient appears in no apparent distress at this time. Patient and/or ca1 family updated on plan of care and expected duration. Pain level reassessed. Patient is alert, oriented x 3, equal unlabored respirations, skin warm/dry/pink. Vital Signs: 14:15 BP 173 / 111; Pulse 104; Resp 19 S; Temp 98.9(O); Pulse Ox 99% on R/A; Weight 128.37 kg ca1 (R); Height 5 ft. 10 in. (177.80 cm) (R); Pain 0/10; 15:19 BP 173 / 115; Pulse 96; Resp 20; Pulse Ox 96% ; mh5 15:53 BP 159 / 92; Pulse 105; Resp 20 S; Pulse Ox 96% on R/A; ca1 14:15 Body Mass Index 40.61 (128.37 kg, 177.80 cm) ca1 ED Course: 14:08 Patient arrived in ED. ca1 14:13 Triage completed. ca1 14:15 Robert Jimenez NP is PHCP. pm1 14:15 Austin Muñoz MD is Attending Physician. pm1 14:15 Arm band placed on right wrist. ca1 14:19 Patient has correct armband on for positive identification. Placed in gown. Bed in low ca1 position. Call light in reach. Side rails up X 1. Pulse ox on. NIBP on. Warm blanket given. 14:19 No provider procedures requiring assistance completed. Maintain EMS IV. Dressing ca1 intact. Good blood return noted. Site clean \T\ dry. Gauge \T\ site: G18 RAC. 14:25 Danita Ashby RN is Primary Nurse. ca1 14:56 Vlad Mcintosh DO is Hospitalizing Provider. pm1 15:54 Patient admitted, IV remains in place. ca1 Administered Medications: 14:56 Drug: Lasix 100 mg Route: IVP; Site: right antecubital; iw 16:07 Follow up: Urine output 70 ml; Response: No adverse reaction ca1 Output: 15:53 Urine: 70ml (Voided); Total: 70ml. ca1 16:07 Urine: 70ml; Total: 140ml. ca1 Outcome: 14:58 Decision to Hospitalize by Provider. pm1 16:06 Admitted to Med/surg accompanied by tech, via wheelchair, room 206, with oxygen, with ca1 chart, Report called to EVETTE Robbins 16:06 Condition: stable 16:06 Instructed on the need for admit. 16:34 Patient left the ED. sv Signatures: Faina Hanna, RN RN Ira Estrada RN RN iw Marinas, Patrick, TEACHER DRAMA TEACHER DRAMA pm1 [address] [facility] Danita Ashby RN RN ca1
--- NOTE | 2019-03-01 14:59 | EDPHYS ---
Physician Documentation [facility] Name: Melvin Maguire Age: 28 yrs Sex: Male : 1990 Arrival Date: 03/01/2019 Time: 14:08 Bed 15 Private MD: ED Physician Austin Muñoz HPI: 03/01 14:25 This 28 yrs old Male presents to ER via EMS with complaints of Shortness Of pm1 Breath. 14:25 The patient has shortness of breath at rest. Onset: The symptoms/episode began/occurred pm1 this morning. Duration: The symptoms are continuous. The patient's shortness of breath is aggravated by exertion, is alleviated by rest. Associated signs and symptoms: Pertinent positives: productive cough, Chest pain with deep breathing, Pertinent negatives: fever, nausea, vomiting. Severity of symptoms: in the emergency department the symptoms are unchanged. The patient has been recently seen at the [facility] Emergency Department, two days ago for chest pain and was discharged home. peritoneal dialysis patient. For the past three days he has been using only one bag of his dialysis treatment. He is supposed to use two different bags. He no longer wants to have peritoneal dialysis treatment and wants to go back to hemodialysis . Historical: - Allergies: 14:15 No Known Allergies; ca1 - Home Meds: 14:15 amlodipine 10 mg tab once daily [Active]; Auryxia 210 mg iron Oral tab 4 tabs with ca1 meals [Active]; Coreg 6.25 mg Oral tab 2 times per day [Active]; hydralazine 20 mg Oral tab 1 tab 2 times per day [Active]; Lasix 80 mg Oral tab 1 tab once daily [Active]; pantoprazole 40 mg Oral TbEC 1 tab once daily [Active]; sevelamer HCl 800 mg Oral 3 times per day [Active]; - PMHx: 14:15 Asthma; Dialysis; High Cholesterol; Hypertension; Hypothyroidism; kidney failure; ca1 - PSHx: 14:15 Hernia repair; ca1 - Immunization history:: Adult Immunizations up to date, Flu vaccine is up to date. - Social history:: Smoking status: Patient/guardian denies using tobacco. - Ebola Screening: : Patient negative for fever greater than or equal to 101.5 degrees Fahrenheit, and additional compatible Ebola Virus Disease symptoms Patient denies exposure to infectious person Patient denies travel to an Ebola-affected area in the 21 days before illness onset No symptoms or risks identified at this time. ROS: 14:25 Constitutional: Negative for fever, chills, and weight loss, Eyes: Negative for injury, pm1 pain, redness, and discharge, ENT: Negative for injury, pain, and discharge, Neck: Negative for injury, pain, and swelling, Cardiovascular: Negative for chest pain, palpitations, and edema. 14:25 Abdomen/GI: Negative for abdominal pain, nausea, vomiting, diarrhea, and constipation, Back: Negative for injury and pain, MS/Extremity: Negative for injury and deformity, Skin: Negative for injury, rash, and discoloration, Neuro: Negative for headache, weakness, numbness, tingling, and seizure. 14:25 Respiratory: Positive for cough, shortness of breath, Negative for wheezing. Exam: 14:25 Constitutional: This is a well developed, well nourished patient who is awake, alert, pm1 and in no acute distress. Head/Face: Normocephalic, atraumatic. Neck: Trachea midline, no thyromegaly or masses palpated, and no cervical lymphadenopathy. Supple, full range of motion without nuchal rigidity, or vertebral point tenderness. No Meningismus. Chest/axilla: Normal chest wall appearance and motion. Nontender with no deformity. No lesions are appreciated. Cardiovascular: Regular rate and rhythm with a normal S1 and S2. No gallops, murmurs, or rubs. Normal PMI, no JVD. No pulse deficits. Respiratory: Lungs have equal breath sounds bilaterally, clear to auscultation and percussion. No rales, rhonchi or wheezes noted. No increased work of breathing, no retractions or nasal flaring. Abdomen/GI: Soft, non-tender, with normal bowel sounds. No distension or tympany. No guarding or rebound. No evidence of tenderness throughout. Back: No spinal tenderness. No costovertebral tenderness. Full range of motion. Skin: Warm, dry with normal turgor. Normal color with no rashes, no lesions, and no evidence of cellulitis. MS/ Extremity: Pulses equal, no cyanosis. Neurovascular intact. Full, normal range of motion. 14:25 Neuro: Orientation: is normal, Motor: is normal, moves all fours. Vital Signs: 14:15 BP 173 / 111; Pulse 104; Resp 19 S; Temp 98.9(O); Pulse Ox 99% on R/A; Weight 128.37 kg ca1 (R); Height 5 ft. 10 in. (177.80 cm) (R); Pain 0/10; 15:19 BP 173 / 115; Pulse 96; Resp 20; Pulse Ox 96% ; mh5 15:53 BP 159 / 92; Pulse 105; Resp 20 S; Pulse Ox 96% on R/A; ca1 14:15 Body Mass Index 40.61 (128.37 kg, 177.80 cm) ca1 MDM: 14:16 Patient medically screened. pm1 14:22 Data reviewed: vital signs. Data interpreted: Pulse oximetry: on room air is 99 %. pm1 Interpretation: normal. 14:23 Physician consultation: Sandie Rome MD would like admission per Dr. Vlad Mcintosh DO pm1 would like medications started, Lasix 100 mg IV, in the emergency department to see patient at 14:23. 14:55 Counseling: I had a detailed discussion with the patient and/or guardian regarding: the pm1 historical points, exam findings, and any diagnostic results supporting the discharge/admit diagnosis, lab results, radiology results, the need for further work-up and treatment in the hospital. 14:56 Physician consultation: Vlad Mcintosh DO regarding admission, patient's condition, in pm1 the emergency department to see patient at 14:56. 03/01 14:27 Order name: Basic Metabolic Panel; Complete Time: 15:38 pm1 03/01 14:27 Order name: CBC with Diff; Complete Time: 15:38 pm1 03/01 14:27 Order name: LFT's; Complete Time: 15:38 pm1 03/01 14:27 Order name: Magnesium; Complete Time: 15:38 pm1 03/01 14:27 Order name: NT PRO-BNP; Complete Time: 15:38 pm1 03/01 14:27 Order name: PT-INR; Complete Time: 15:38 pm1 03/01 14:27 Order name: Troponin (emerg Dept Use Only); Complete Time: 15:38 pm1 03/01 14:27 Order name: XRAY Chest (1 view) pm1 03/01 14:27 Order name: EKG; Complete Time: 14:29 pm1 03/01 14:27 Order name: Cardiac monitoring; Complete Time: 14:26 pm1 03/01 14:27 Order name: EKG - Nurse/Tech; Complete Time: 15:17 pm1 03/01 14:27 Order name: IV Saline Lock; Complete Time: 14:26 pm1 03/01 16:23 Order name: RAD; Complete Time: 17:09 EDME 03/01 14:27 Order name: Labs collected and sent; Complete Time: 14:35 pm1 03/01 14:27 Order name: O2 Per Protocol; Complete Time: 14:26 pm1 03/01 14:27 Order name: O2 Sat Monitoring; Complete Time: 14:27 pm1 Administered Medications: 14:56 Drug: Lasix 100 mg Route: IVP; Site: right antecubital; 16:07 Follow up: Urine output 70 ml; Response: No adverse reaction ca1 Disposition: 03/02 07:52 Co-signature as Attending Physician, Austin Muñoz MD I agree with the assessment and kdr plan of care. Disposition: 03/01/19 14:58 Hospitalization ordered by Vlad Mcintosh for Inpatient Admission. Preliminary diagnosis are Chronic kidney disease, stage 5 - peritoneal dialysis, Shortness of breath, Volume overload. - Bed requested for Telemetry/MedSurg (Inpatient). - Status is Inpatient Admission. sv - Condition is Stable. - Problem is new. - Symptoms have improved. UTI on Admission? No Signatures: Dispatcher [employer] [facility] Faina Hanna RN RN Austin Muñoz MD MD [facility] Ira Campo RN RN Robert Jimenez NP CABLE REPAIRER pm1 Paul Bae RN RN ja1 Danita Ashby, EVETTE RN ca1 Corrections: (The following items were deleted from the chart) 03/01 15:47 14:58 Hospitalization Ordered by Vlad Mcintosh DO for Inpatient Admission. Preliminary [facility] diagnosis is Chronic kidney disease, stage 5 - peritoneal dialysisShortness of breath; Volume overload. Bed requested for Telemetry/MedSurg (Inpatient). Status is Inpatient Admission. Condition is Stable. Problem is new. Symptoms have improved. UTI on Admission? No. pm1 16:34 15:47 03/01/2019 14:58 Hospitalization Ordered by Vlad Mcintosh DO for Inpatient sv Admission. Preliminary diagnosis is Chronic kidney disease, stage 5 - peritoneal dialysisShortness of breath; Volume overload. Bed requested for Telemetry/MedSurg (Inpatient). Status is Inpatient Admission. Condition is Stable. Problem is new. Symptoms have improved. UTI on Admission? No. ja1
--- NOTE | 2019-03-01 15:16 | P.HP ---
Certification for Inpatient Patient admitted to: Inpatient With expected LOS: >2 Midnights Patient will require the following post-hospital care: None Practitioner: I am a practitioner with admitting privileges, knowledge of patient current condition, hospital course, and medical plan of care. Services: Services provided to patient in accordance with Admission requirements found in Title 42 Section 412.3 of the Code of Federal Regulations Patient History Date of Service: 03/01/19 Primary Care Provider: Nephrology-Dr. Rome Reason for admission: Shortness of breath History of Present Illness: 28-year-old male with history of end-stage renal disease on peritoneal dialysis, hypertension, GERD. Patient reported increasing shortness of breath and edema to the lower extremity. Patient has been having difficulty with his peritoneal dialysis. He feels that he cannot get to sleep with the machine on overnight. He is not able to get an adequate amount of fluid off his body. Patient denied fever, chills. Some nausea noted. Patient previously on hemodialysis. Patient prefers to get back on hemodialysis. Patient evaluated in the emergency room. Blood pressure is elevated. Patient on nasal cannula. Chest x-ray showed volume overload. Lab pending at this time. Patient admitted for further evaluation and treatment. Case discussed with nephrology. Plan of care will include transition to hemodialysis. Allergies No Known Allergies Allergy (Verified 08/06/17 09:16) Home medications list reviewed: Yes Home Medications: Amlodipine [Norvasc*] 10 mg PO DAILY 01/28/19 Ciprofloxacin HCl [Cipro 250 MG Tablet*] 250 mg PO BID 01/28/19 Furosemide 80 mg PO DAILY 01/28/19 Hydralazine [Apresoline*] 50 mg PO BID 01/28/19 Sevelamer Carbonate 2 tab PO SEECOM 01/28/19 carvediloL [Coreg*] 6.25 mg PO BID #60 tab 01/30/19 - Past Medical/Surgical History Diabetic: No -: End-stage renal disease on peritoneal dialysis -: HTN -: GERD -: Obesity -: kidney biopsy -: access dialysis sx/ catheter exchange -: hernia repair may 2018 -: december peritoneal dialysis access Psychosocial/ Personal History: Patient is . Lives at home. Patient is disabled. - Family History Father -: Heart disease, Diabetes Notes: Heavy smoker Mother -: Lung disease Notes: COPD - Social History Smoking Status: Never smoker Alcohol use: No CD- Drugs: No Caffeine use: No Place of Residence: Home Review of Systems General: Weakness, Malaise, As per HPI Eyes: Unremarkable ENT: Unremarkable Respiratory: Shortness of Breath, SOB with Excertion, As per HPI Cardiovascular: Edema, As per HPI Gastrointestinal: Nausea, As per HPI Genitourinary: Unremarkable Musculoskeletal: Pedal edema, As per HPI Integumentary: Unremarkable Neurological: Unremarkable Lymphatics: Unremarkable Physical Examination - Physical Exam General: Alert, In no apparent distress, Oriented x3, Cooperative HEENT: Atraumatic, Normocephalic, PERRLA, Mucous membr. moist/pink Neck: Supple, No Thyromegaly Respiratory: Crackles/rales (Crackles to the bases) Cardiovascular: Normal pulses, Regular rate/rhythm Gastrointestinal: Normal bowel sounds, Soft and benign, Non-distended, No ascites, No tenderness, No masses, No rebound, No guarding, Other (Peritoneal dialysis catheter in place. No erythema noted, no significant abdominal distention) Musculoskeletal: No erythema, No tenderness, No warmth Integumentary: No erythema, No warmth, No cyanosis, Tenderness/swelling (Edema to the lower extremities noted) Neurological: Normal speech, Normal strength at 5/5 x4 extr, Normal tone, Normal affect - Studies Laboratory Data (last 24 hrs) 03/01/19 14:36: PT 12.2, INR 1.04 03/01/19 14:36: WBC 8.2 D, Hgb 7.9 L*, Hct 22.5 L, Plt Count 121 L D Assessment and Plan - Plan Impression: Shortness of breath, edema to the lower extremities secondary to pulmonary edema related to end-stage renal disease on hemodialysis Hypertension, uncontrolled Anemia of chronic disease GERD Obesity Plan: Shortness of breath, edema to the lower extremities secondary to pulmonary edema related to end-stage renal disease on hemodialysis: Patient will be admitted for further evaluation and treatment. Case discussed with nephrology. Patient will receive IV Lasix in the emergency room. Patient will continue with peritoneal dialysis tonight. Patient will transition to hemodialysis during this hospitalization due to poor control of end-stage renal disease and pulmonary edema. Patient previously on hemodialysis prior to peritoneal dialysis in the past. Will continue monitor lab closely. Will maintain a 1500 cc per day fluid restriction. Will keep the patient NPO after midnight in preparation for dialysis tunneled catheter placement to initiate hemodialysis. Will consult surgery to further address. Will have social media marketer consulted to help in preparation for outpatient dialysis. Anticipate home once outpatient dialysis is arranged likely in the next 2-3 days Hypertension, uncontrolled: Continue with dialysis. Restart home medication. Will monitor and adjust appropriately. Anemia of chronic disease: Will monitor hemoglobin. Patient may require transfusion. Will check iron and B12 studies. GERD: Continue with home medication. Obesity: Will address lifestyle modification education. Discharge Plan: Home Plan to discharge in: Greater than 2 days - Advance Directives Does patient have a Living Will: No Does patient have a Durable POA for Healthcare: No - Code Status/Comfort Care Code Status Assessed: Yes (Patient is full code) Time Spent Managing Pts Care (In Minutes): 55
[2019-03-01 15:19] LABS: ALT/SGPT 11 U/L (12-78); AST/SGOT 11 U/L (15-37); Albumin 3.4 g/dL (3.4-5.0); Alkaline Phosphatase 41 U/L (45-117); BUN Blood Urea Nitrogen 102 mg/dL (7-18); Bicarbonate 22 mmol/L (21-32); Bilirubin Direct 0.2 mg/dL (0-0.2); Bilirubin Total 0.6 mg/dL (0.2-1.0); Glucose Level 89 mg/dL (74-106); Magnesium 1.8 mg/dL (1.8-2.4); NT PRO-BNP 16901 pg/mL (<125); Potassium 4.8 mmol/L (3.5-5.1); Protein, Total 6.5 g/dL (6.4-8.2); Sodium Level 143 mmol/L (136-145); Troponin (Emerg Dept Use Only) < 0.02 ng/mL (0.0-0.045)
--- NOTE | 2019-03-01 16:22 | RAD REPORT ---
EXAM DESCRIPTION: RAD - Chest Single View - 03/01/2019 4:04 pm CLINICAL HISTORY: Shortness of breath COMPARISON: February 27 TECHNIQUE: AP portable chest image was obtained 1459 hours . FINDINGS: Minimal patchy opacification seen in the lower right lung field. Heart size remains promin ent. Central vasculature and lung markings are slightly increased. No measurable pleural effusion and no pneumothorax. No acute bony abnormality seen. No acute aortic findings suspected. IMPRESSION: Patchy lower right lung field opacification than increase in perihilar markings. Patient shows a mixed pattern. Mild volume overload is suspected. Patient may be developing early rig ht lower lobe pneumonia.
[2019-03-01] MEDS ORDERED: ONDANSETRON 4 MG/2 ML VIAL IV PRN (16:50)
[2019-03-01 17:05] VITALS: BMI 42.2
[2019-03-01] MEDS: SEVELAMER CARBONATE 800 MG TABLET PO SCH (17:38)
[2019-03-01] MEDS: HYDRALAZINE HCL 25 MG TABLET PO SCH (20:57)
[2019-03-01] MEDS: carvediloL 6.25 MG TAB PO SCH (20:57)
[2019-03-01] MEDS: HEPARIN 5000 UNIT/ML 1 ML VIAL SQ SCH (20:58)
[2019-03-02] MEDS: TEMAZEPAM 15 MG CAP PO PRN ×2 (01:34→21:16)
[2019-03-02 05:58] LABS: Absolute Lymphocytes (CBC) 0.7 K/uL (0.7-4.9); Basophils % 0.6 % (0-1.3); Hematocrit 21.2 % (39.6-49.0); Lymphocytes % 8.1 % (15.3-44.8); MPV 7.2 fL (7.6-11.3); RBC Red Blood Cell Count 2.42 M/uL (4.33-5.43)
[2019-03-02] MEDS: METOCLOPRAMIDE 10 MG/2mL INJ IV SCH (06:11)
[2019-03-02 06:21] LABS: Potassium 5.2 mmol/L (3.5-5.1)
[2019-03-02] MEDS: AMLODIPINE 10 MG TAB PO SCH (08:31)
[2019-03-02] MEDS: carvediloL 6.25 MG TAB PO SCH ×2 (08:32→20:25)
[2019-03-02] MEDS: PANTOPRAZOLE 40MG TABLET PO SCH (08:32)
[2019-03-02] MEDS: SEVELAMER CARBONATE 800 MG TABLET PO SCH ×3 (08:33→17:00)
[2019-03-02] MEDS: FUROSEMIDE 40 MG TABLET PO SCH (08:33)
[2019-03-02] MEDS: HEPARIN 5000 UNIT/ML 1 ML VIAL SQ SCH (08:33)
[2019-03-02] MEDS: HYDRALAZINE HCL 25 MG TABLET PO SCH ×2 (09:20→20:25)
[2019-03-02 09:33] LABS: Urine Appearance CLEAR; Urine Bilirubin NEGATIVE (NEG); Urine Blood 1+ (NEG); Urine Color YELLOW; Urine Glucose 1+ (NEG); Urine Protein 3+ (NEG); Urine Specific Gravity 1.015 (1.005-1.030); Urine Urobilinogen 0.2 mg/dL (0.2-1.0)
--- NOTE | 2019-03-02 09:36 | EKG ---
Test Date: 2019-03-01 Test Time: 15:13:34 Satellite Tv Technician: RUBINAT MEASUREMENT RESULTS: Intervals: Rate: 103 FL: 176 QRSD: 84 QT: 342 QTc: 448 [place]: P: 49 FL: 176 QRS: 21 T: 38 INTERPRETIVE STATEMENTS: Sinus tachycardia Otherwise normal ECG Compared to ECG 02/27/2019 17:17:19 Sinus rhythm no longer present Electronically Signed On 03-02-19 09:35:29 [employer] by Noe Andersen
[2019-03-02 09:47] LABS: Urine Microscopic Reflex ORDER UMIC
[2019-03-02 10:08] LABS: Urine Bacteria <20 /HPF (NONE SEEN); Urine Culture Reflex Order NOT NEEDED
--- NOTE | 2019-03-02 10:12 | CON ---
Date of Consultation: 03/01/2019 Reason For Consultation: Elevated BUN and creatinine. History Of Present Illness: This is a pleasant 28-year-old gentleman, well- known to me from dialysis with significant past medical history of diabetes, complicated with neuropathy and nephropathy, hypertension, hyperlipidemia, end- stage renal disease, used to be on hemodialysis, switch to PD back in December 2018. Patient has been on PD the last few days, patient apparently his machine was alarming. For that reason, he was not getting good dialysis. The patient was complaining of some abdominal pain. Patient came to the hospital couple of days ago complaining of some shortness of breath. We adjusted the treatment, but patient is still feeling weak, difficulty sleeping because of difficulty drain on the machine. Patient today started complaining of cough with hemoptysis. For that reason, reported to the emergency room. In the emergency room, the patient was found to be over volume. After long discussion with the patient, the patient decided he that cannot keep up with peritoneal dialysis and want to switch back to hemodialysis. Past Medical History: 1. End-stage renal disease, on treatment. 2. Hypertension. 3. Hyperlipidemia. 4. Diabetes complicated with neuropathy and nephropathy. Past Surgical History: PermCath placement, PD catheter placement. Family History: Positive for hypertension and diabetes. Social History: Lives with . Denied smoking, denied drinking, denied drugs abuse. Home Medications: Reviewed. Review of Systems: Head and neck: No red eye. No ear pain. GI: No nausea, no vomiting. : No polyuria, no dysuria, no hematuria. FREIGHT AIR BRAKE FITTER: Not applicable. Respiratory: Has shortness of breath. Has cough, has hemoptysis. Endocrine: No polydipsia. Skin: No rash. Cardiovascular: No chest pain. Neuro: Has neuropathy. Musculoskeletal: Generalized fatigue. Physical Examination: General: When I saw the patient, blood pressure 165/70, pulse of 88. Chest: Crackles bilateral base. Heart: S1, S2. Regular. Abdomen: Soft, nontender. Extremity: +1 edema. Neurological: Alert and oriented x3. No focal. Laboratory Data: Still pending lab data couple of days ago and in the ER showing elevation in BUN and creatinine. No hyperkalemia, no acidosis. Chest x -ray has over volume. Assessment And Plan: End-stage renal disease with over volume, dialyzed on PD. Patient relapsed, switch to hemodialysis. We will go ahead and consult surgeon for removal of PD catheter and placement of tunneled hemodialysis catheter. We will do PD reducing 2.5 fluid today and we will monitor the patient and get the patient 100 mg of Lasix for today. 1. Hypertension, controlled, optimally localize blood pressure to establish with volume control, Lasix 100 mg today. We will dialyze the patient on 2.5 concentration. We will followup, resume home medications . 2. Anemia of chronic kidney disease is stable. 3. Diabetes as by primary. Thank you, Dr. Mcintosh, for allowing us to participate in the care of your patient. ANIBAL Voice ID: [id number] Report ID: [id number] SHEN
[2019-03-02] MEDS ORDERED: EPOETIN ALFA 10,000 UNIT/ML VIAL IV SCH (10:15)
[2019-03-02 11:45] LABS: Ferritin 357.9 ng/mL (26-388)
[2019-03-02] MEDS ORDERED: NS 0.9% VIAL 10 ML ONE (12:13)
[2019-03-02] MEDS ORDERED: LIDOCAINE 1% MPF 30 ML VIAL ONE (12:13)
[2019-03-02] MEDS ORDERED: HEPARIN 5000 UNIT/ML 1 ML VIAL ONE (12:13)
[2019-03-02] MEDS ORDERED: NA CHLORIDE 0.9% 100 ML IV ONE (12:13)
[2019-03-02] MEDS ORDERED: NA CHLORIDE 0.9% 500 ML ONE (12:31)
[2019-03-02] MEDS ORDERED: CEFAZOLIN/SWI 1gm 0 GM/0 ML SYR ONE (12:32)
[2019-03-02] MEDS ORDERED: CEFAZOLIN SODIUM 1 GM/VIAL ONE (12:33)
[2019-03-02] MEDS ORDERED: CEFAZOLIN/SWI 1gm 1 GM/10 ML SYR ONE (12:52)
[2019-03-02] MEDS ORDERED: MIDAZOLAM HCL 2 MG/2 ML INJ ONE (13:03)
[2019-03-02] MEDS ORDERED: FENTANYL CITR 100 MCG/2 ML ONE ×2 (13:03→13:39)
[2019-03-02] MEDS ORDERED: LIDOCAINE 2% MPF 5 ML VIAL ONE (13:03)
[2019-03-02] MEDS ORDERED: PROPOFOL 200 MG/20 ML VIAL IV ONE (13:03)
[2019-03-02] MEDS ORDERED: Phenylephrine HCl 10 MG/ML 1 ML VIAL ONE (13:52)
[2019-03-02] MEDS ORDERED: EPHEDRINE SULF 50 MG/ML VIAL ONE (14:02)
--- NOTE | 2019-03-02 14:09 | P.PN ---
Subjective Date of Service: 03/02/19 Primary Care Provider: Nephrology-Dr. Rome Chief Complaint: Shortness of breath Subjective: Doing well, Other (Patient with slight nausea today.) Physical Examination - Vital Signs Temperature: 99.4 F Blood Pressure: 137/87 Pulse: 103 Respirations: 20 Pulse Ox (%): 96 - Physical Exam General: Alert, In no apparent distress, Oriented x3, Cooperative HEENT: Atraumatic Neck: Supple Respiratory: Clear to auscultation bilaterally, Normal air movement Cardiovascular: Normal pulses, Regular rate/rhythm Gastrointestinal: Normal bowel sounds, Soft and benign, Non-distended, No tenderness, No masses, No rebound, No guarding Musculoskeletal: No erythema, No tenderness, No warmth Integumentary: No erythema, No warmth, No cyanosis Neurological: Normal speech, Normal strength at 5/5 x4 extr, Normal tone, Normal affect - Studies Laboratory Data (last 24 hrs) 03/01/19 14:36: PT 12.2, INR 1.04 03/01/19 14:36: WBC 8.2 D, Hgb 7.9 L*, Hct 22.5 L, Plt Count 121 L D 03/01/19 14:36: Sodium 143, Potassium 4.8, BUN 102 H, Creatinine 25.90 H* D, Glucose 89, Magnesium 1.8, Total Bilirubin 0.6, AST 11 L, ALT 11 L, Alkaline Phosphatase 41 L Medications List Reviewed: Yes Assessment & Plan Discharge Plan: Home Plan to discharge in: Greater than 2 days Physician Review Additional Text: Impression: Shortness of breath, edema to the lower extremities secondary to pulmonary edema related to end-stage renal disease on hemodialysis Hypertension, uncontrolled Anemia of chronic disease GERD Obesity Plan: Shortness of breath, edema to the lower extremities secondary to pulmonary edema related to end-stage renal disease on hemodialysis: Patient continued with peritoneal dialysis last night. Case discussed with nephrology. Patient will have tunneled dialysis catheter placed today. Case discussed with surgery. Patient will continue with hemodialysis thereafter. Will consult forensic social worker to help arrange for outpatient dialysis set up. Continue to monitor closely. Continue with Nephrology recommendations. I will turn the service over to Dr. Fitch tomorrow. I will go over the plan of care with her. Anticipate discharge once outpatient hemodialysis is arranged. Hypertension, uncontrolled: Continue with dialysis. Continue home medication. Will monitor and adjust appropriately. Anemia of chronic disease with B12 deficiency: Will monitor hemoglobin. Patient may require transfusion if hemoglobin remains below 7. Continue B12 supplementation. GERD: Continue with home medication. Obesity: BMI 42. Address lifestyle modification education. Time Spent Managing Pts Care (In Minutes): 55
[2019-03-02] MEDS ORDERED: FERRIC CITRATE PO SCH (14:15)
--- NOTE | 2019-03-02 14:24 | P.BOP ---
Preoperative diagnosis: ESRD Postoperative diagnosis: same Primary procedure: Placememt of Joon HD catheter under FLUROSCOPY right femoral Secondary procedure: Right neck ultrasound Other procedure(s): Right neck/jugular HD cath placement attempt Specimen: NONE Findings: see dictation Anesthesia: General Complications: None Transferred to: Recovery Room Condition: Good
[2019-03-02] MEDS: MORPHINE 4 MG/ML SYR ONE ×2 (14:55→15:00)
--- NOTE | 2019-03-02 15:05 | RAD REPORT ---
EXAM DESCRIPTION: RAD - Chest Single View - 03/02/2019 2:41 pm CLINICAL HISTORY: Right-sided hemodialysis catheter placement attempt COMPARISON: March 01 TECHNIQUE: AP portable chest image was obtained 1438 hours . FINDINGS: No pneumothorax. Hazy lung parenchymal opacification is probably volume overload. Cardiome letty is present with vascular engorgement. Trachea is midline. No measurable pleural effusion and no pneumothorax. No acute bony abnormality seen. No acute aortic findings suspected. IMPRESSION: No pneumothorax. CHF/ volume overload findings.
--- NOTE | 2019-03-02 15:06 | RAD REPORT ---
EXAM DESCRIPTION: RAD - Fluoroscopy <1 Hour - 03/02/2019 2:41 pm FINDINGS: There were 16 fluoroscopic images obtained during an unsuccessful placement of a right-starla ed hemodialysis catheter. Fluoro time was 1.7 minutes.
[2019-03-02] MEDS ORDERED: MEPERIDINE HCL 25 MG/0.5 ML ONE (15:14)
[2019-03-02] MEDS: ACETAMINOPHEN 500 MG TAB PO PRN (20:25)
[2019-03-02] MEDS ORDERED: SOD POLYSTYREN SUL 15 GM/60 ML UCUP PO ONE (21:47)
[2019-03-02] MEDS ORDERED: SOD FERRIC GLUC COMPLX/SUCROSE 125 MG in NA CHLORIDE 0.9% 100 ML IV SCH (22:00)
--- NOTE | 2019-03-02 23:12 | OP ---
Date of Procedure: 03/02/2019 Surgeon: Jack Block MD Preoperative Diagnoses: End-stage renal disease, diabetes, hypertension. Postoperative Diagnoses: End-stage renal disease, diabetes, hypertension. Procedures: 1.Placement of a Joon hemodialysis catheter on the right femoral vein. 2.Interpretation of fluoroscopy. 3.Right neck ultrasound for the catheter placement. 4.Attempted right neck/jugular hemodialysis catheter placement. Indications: This is the case of a 28-year-old patient, who comes to us with a need for hemodialysis catheter. Benefits, alternatives, and risks of placement were fully explained to the patient, which include, but are not limited to infection, bleeding, damage to adjacent structures, anesthesia compl ications, recurrence, DVTs pulmonary emboli, ID and even . He also understands this may not rel ieve any symptoms, he might need more than one surgical intervention. He understood, signed the cons ent. Description Of Procedure: Patient was brought to the operating room, placed in supine position. Ane sthesia was given without complications. Neck and chest area were prepped and draped in usual steril e fashion. Ultrasound of the neck was done, visualized the jugular vein that looked compressible. U sing the ultrasound technique, we proceeded to place a catheter in the right internal jugular vein at the first attempt, excellent backflow. When we pushed the catheter in the innominate vessel, the ca theter does not want to advance and at least few centimeters after the needle end, so we are in the v ein. We once again aspirate, looked like we are clear in the vein with excellent aspiration, still n ot passed. We addressed the issue by attempting that with the second term on the right side. Once a gain, we see in that area an innominate vessel. The guidewire was removed. Catheter was removed. W e have made the decision, if we going to the left subclavian and we have that kind of a blockage we m ight not be able to do this catheter placement, so I preferred the patient to have studies of the are a, so we understand the anatomy since patient has multiple catheters and we suspect stenosis of that area. For that reason, I went and placed a right femoral catheter. We prepped and draped the right femoral area in usual sterile fashion. After that, we placed an 18-gauge needle in the right femoral vein using ultrasound help. The guidewire was placed into the inferior vena using fluoroscopy wang nce. Needle was removed. Dilators were placed sequentially until we have a HemoSplit hemodialysis c atheter and the wire was removed. Excellent backflow and inflow. The line was secured in place with 3-0 nylon and covered with sterile dressings. The patient tolerated the procedure well. Patient wa s sent to recovery room in stable condition. We are still are going to do the chest x-ray since the right jugular catheter placement was attempted and then I discussed the case with Dr. Mcintosh this pat ient may need to go where they can provide him with a way to study those blood vessels for proper vinh cement and safer placement of catheters. MANUEL/STACIA Voice ID: [id number] Report ID: [id number]
--- NOTE | 2019-03-03 00:34 | PN ---
Date of Progress Note: 03/02/2019 Chief Complaint: End-stage renal disease, diabetic kidney disease, diabetic nephropathy, neuropathy, hypertension. History Of Present Illness: Patient is a 28-year-old man, is dialysis dependent. Recently, he switched from hemodialysis to peritoneal dialysis. Due to his personal preference, he wants to switch again to hemodialysis. Patient was apparently concerned that during the night time, it changes. He was sleep-deprived and wants to continue hemodialysis seen on an outpatient unit. Patient is awaiting for hemodialysis catheter placement. Review of Systems: Denies fever, chills. Physical Examination: Lungs: Clear to auscultation bilaterally. Heart: S1, S2. Abdomen: Soft, benign. Extremities: No edema. Impression And Plan: 1. End-stage renal disease. Patient is awaiting hemodialysis catheter placement. Plan is to continue hemodialysis 3 times per week. Patient has history of anemia. Continue erythropoiesis-stimulating agent for anemia due to chronic kidney disease. Monitor for any evidence of gastrointestinal bleeding. 2. Borderline hyperkalemia. Plan is to treat with Kayexalate and start dialysis as soon as patient has working access. 3. Hypertension. Monitor blood pressure closely. Adjust medication as needed. FRANSISCA/STACIA Voice ID: [id number] Report ID: [id number] SHEN
[2019-03-03] MEDS: ACETAMINOPHEN 500 MG TAB PO PRN ×3 (02:32→16:32)
[2019-03-03] MEDS: METOCLOPRAMIDE 10 MG/2mL INJ IV SCH (05:00)
[2019-03-03 05:51] LABS: Absolute Lymphocytes (CBC) 0.7 K/uL (0.7-4.9); Basophils % 0.5 % (0-1.3); Hematocrit 17.8 % (39.6-49.0); Lymphocytes % 12.1 % (15.3-44.8); MPV 7.4 fL (7.6-11.3); RBC Red Blood Cell Count 2.09 M/uL (4.33-5.43)
[2019-03-03 05:54] LABS: Magnesium 1.9 mg/dL (1.8-2.4); Potassium 4.3 mmol/L (3.5-5.1)
--- NOTE | 2019-03-03 07:38 | CON ---
Date of Consultation: 03/02/2019 Diagnosis: Renal failure. Surgery called for placement of a tunnel hemodialysis catheter. History Of Present Illness: This is a case of a 28-year-old patient with multiple medical problems i ncluding diabetes, nephropathy, hypertension, end-stage renal disease, on peritoneal dialysis. Comes right now with renal insufficiency and a renal doctor and but recently he was trying to u se the peritoneal dialysis technique. Past Medical History: As above. Past Surgical History: Hemodialysis catheters and also peritoneal dialysis catheters placement. Family History: Hypertension, diabetes. He does not smoke. He does not drink alcohol. Home Medications: Reviewed. Review of Systems: Ten points otherwise unremarkable. Physical Examination: Constitutional: Patient is awake and alert, in no distress. HEENT: Pupils anicteric. Chest: Bilateral breath sounds. Heart: S1, S2. Abdomen: Soft and depressible. Nontender, nondistended. Bowel sounds positive. Extremities: Good capillary refill. Neurological: Oriented x3. Abdominal: Peritoneal dialysis catheter history. Laboratory Data: Blood work shows WBC count of 8.2 with hemoglobin of 7.1, hematocrit 21.2 and plate lets of 110. INR is 1.04, creatinine is with a potassium of 5.2. Chest x-ray, interpreted by Dr. Goodwin as patchy lower opacification, mild volume overloa d. Assessment: This is a 28-year-old patient, on hemodialysis doctor and renal service asked for a hemodialysis tunneled catheter placement. The patient was explained with benefits, alternativ es, and risks including, but not limited to infection, bleeding, damage to adjacent structures as com plication. Pneumothorax, hemothorax, cardiac arrhythmias, pericardiac tamponade, DVT, pulmonary embo li, pneumothorax, GA, even . He also understands this may not relieve any symptoms. He may nee d more than one surgical intervention. Today, we are going to just place a hemodialysis catheter. _ properly and he is very stable clinically, then we will proceed with removal of a hemodialy sis catheter. HM/MODL Voice ID: [id number] Report ID: [id number]
[2019-03-03] MEDS ORDERED: FOLIC ACID 1 MG TABLET PO SCH (09:00)
[2019-03-03] MEDS ORDERED: SOD FERRIC GLUC COMPLX/SUCROSE 125 MG in NA CHLORIDE 0.9% 100 ML IV SCH (09:00)
[2019-03-03] MEDS: FUROSEMIDE 40 MG TABLET PO SCH (09:02)
[2019-03-03] MEDS: PANTOPRAZOLE 40MG TABLET PO SCH (09:02)
[2019-03-03] MEDS: SEVELAMER CARBONATE 800 MG TABLET PO SCH ×3 (09:02→16:30)
[2019-03-03] MEDS ORDERED: NA CHLORIDE 0.9% 250 ML IV SCH (15:00)
--- NOTE | 2019-03-03 15:24 | P.PN ---
Subjective Date of Service: 03/03/19 Primary Care Provider: Nephrology-Dr. Rome Chief Complaint: Shortness of breath Physical Examination - Vital Signs Temperature: 98.7 F Blood Pressure: 132/90 Pulse: 100 Respirations: 18 Pulse Ox (%): 95 - Studies Medications List Reviewed: Yes Assessment And Plan - Plan Assessment and plan Volume overload most likely secondary to end-stage renal disease -patient currently on peritoneal dialysis however will need to be started on hemodialysis -currently status post femoral hemodialysis catheter is patient was not able to get tunneled catheter due to extensive vascular disease -will start dialysis here in the hospital. -patient may need to be transferred to a higher level of care to get vascular surgery who to put in a permanent catheter. -nephrology consulted. Will follow up with further recommendations Hypertension, uncontrolled: -Continue with dialysis. Continue home medication. Will monitor and adjust appropriately. Anemia of chronic disease with B12 deficiency: -Will monitor hemoglobin. Patient may require transfusion if hemoglobin remains below 7. Continue B12 supplementation. -patient to receive 2 units of PRBC today with dialysis GERD: -Continue with home medication. Obesity: -BMI 42. Address lifestyle modification education. Disposition: Pending clinical improvement at this time. Will continue to get hemodialysis through temporary femoral line catheter. When patient is stable for volume overload and kidney standpoint patient then can be considered to be transferred to higher level of care for permanent HD catheter placement. Discharge Plan: Home Plan to discharge in: 72 Hours - Code Status/Comfort Care Code Status Assessed: Yes Critical Care: No
--- NOTE | 2019-03-03 15:56 | PN ---
Date of Progress Note: 03/03/2019 Subjective: Patient seen on dialysis, tolerating dialysis very well. Physical Examination: Vital Signs: Blood pressure 132/90, pulse of 100. Patient had good urine output of 2400. Chest: Clear to auscultation. Heart: S1, S2. Regular. Abdomen: Soft, nontender. Extremities: Trace edema. Laboratory Data: WBC 5.6, H and H 6.1/17.8, platelets of 105. Sodium 141, potassium 4.3, bicarb 28, BUN 71, creatinine 19, calcium 8.1, magnesium 1.9. TSAT 7.9, ferritin 357. Current Medications: The patient on include: 1.Heparin. 2.Epogen. 3.IV iron. 4.Carvedilol 6.25. 5.Amlodipine. 6.Hydralazine 50 b.i.d. 7.Temazepam. 8.Lasix 80 daily. 9.Renvela. 10.Folic acid. Assessment And Plan: 1.End-stage renal disease, used to be on peritoneal dialysis, switching to hemo. Unfortunately, we could not place PermCath. We place temporary femoral, which not going to allow him to be transferred to output hemodialysis center. We will go ahead and transfer the patient for placement of PermCath and we will follow up. 2.Hypertension, controlled, optimal. We will decrease hydralazine to 25 b.i.d. to help better blood pressure, to establish better volume control. 3.Iron-deficiency anemia. Anemia of chronic kidney disease. Continue Epogen and iron. 4.Diabetes, as by primary. 5.Secondary hyperparathyroidism, stable. Continue binder. ALONZO/STACIA Voice ID: [id number] Report ID: [id number]
[2019-03-03 16:30] VITALS: TEMP 98.4
[2019-03-03] MEDS: AMLODIPINE 10 MG TAB PO SCH (16:31)
[2019-03-03] MEDS: carvediloL 6.25 MG TAB PO SCH ×2 (16:31→21:20)
[2019-03-03 20:50] VITALS: O2SAT 96
[2019-03-03] MEDS ORDERED: HYDRALAZINE HCL 25 MG TABLET PO SCH (21:00)
[2019-03-03 21:22] VITALS: BP 127/80
[2019-03-06 05:50] LABS: HBsAG Nonreactive (Nonreactive)
--- NOTE | 2019-03-10 17:11 | P.DS ---
Admission Date: 03/01/19 Discharge Date: 03/10/19 Primary Care Provider: Nephrology-Dr. Rome Disposition: TRANSFER TO [facility] Discharge Condition: FAIR Reason for Admission: Shortness of breath Brief History of Present Illness: 28-year-old male with history of end-stage renal disease on peritoneal dialysis, hypertension, GERD. Patient reported increasing shortness of breath and edema to the lower extremity. Patient has been having difficulty with his peritoneal dialysis. He feels that he cannot get to sleep with the machine on overnight. He is not able to get an adequate amount of fluid off his body. Patient denied fever, chills. Some nausea noted. Patient previously on hemodialysis. Patient prefers to get back on hemodialysis. Patient evaluated in the emergency room. Blood pressure is elevated. Patient on nasal cannula. Chest x-ray showed volume overload. Lab pending at this time. Patient admitted for further evaluation and treatment. Case discussed with nephrology. Plan of care will include transition to hemodialysis. Hospital Course: Discharge Dx Volume overload most likely secondary to end-stage renal disease Hypertension, uncontrolled: Anemia of chronic disease with B12 deficiency: GERD: Obesity: Hospital Course Patient was initially admitted to the hospital for Volume overload most likely secondary to end-stage renal disease. Patient at home is on peritoneal dialysis. Nephrology was consulted who recommended patient get a hemodialysis catheter for permanent hemodialysis due to patient's recurrent admissions in volume overload issues. General surgery was consulted. Patient was unable to get some tunnel catheter due to extensive vascular disease at that time patient was transfer to higher level of care to get vascular surgery to put in a permanent hemodialysis catheter. Patient did have a temporary femoral hemodialysis catheter placed in form which he did get hemodialysis here in the hospital until he had a bed acceptance at the higher level of care. Once patient had a bed at the higher level of care he was transferred there for further care. Vital Signs/Physical Exam: Temp Pulse Resp BP Pulse Ox 98.4 F 104 H 17 127/80 98 03/03/19 16:00 03/03/19 21:20 03/03/19 16:00 03/03/19 21:20 03/03/19 16:00 General: Alert, In no apparent distress HEENT: Atraumatic, PERRLA, EOMI Neck: Supple, JVD not distended Respiratory: Clear to auscultation bilaterally, Normal air movement Cardiovascular: Regular rate/rhythm, Normal S1 S2 Gastrointestinal: Normal bowel sounds, No tenderness Musculoskeletal: No tenderness Integumentary: No rashes Neurological: Normal speech, Normal tone, Normal affect Lymphatics: No axilla or inguinal lymphadenopathy Laboratory Data at Discharge: WBC 5.6 K/uL (4.3-10.9) D 03/03/19 05:18 Hgb 6.1 g/dL (13.6-17.9) L* 03/03/19 05:18 Hct 17.8 % (39.6-49.0) L* D 03/03/19 05:18 Plt Count 105 K/uL (152-406) L 03/03/19 05:18 PT 12.2 SECONDS (9.5-12.5) 03/01/19 14:36 INR 1.04 03/01/19 14:36 Sodium 141 mmol/L (136-145) 03/03/19 05:18 Potassium 4.3 mmol/L (3.5-5.1) 03/03/19 05:18 BUN 71 mg/dL (7-18) H D 03/03/19 05:18 Creatinine 19.20 mg/dL (0.55-1.3) H* D 03/03/19 05:18 Glucose 102 mg/dL (74-106) 03/03/19 05:18 Magnesium 1.9 mg/dL (1.8-2.4) 03/03/19 05:18 Total Bilirubin 0.6 mg/dL (0.2-1.0) 03/01/19 14:36 AST 11 U/L (15-37) L 03/01/19 14:36 ALT 11 U/L (12-78) L 03/01/19 14:36 Alkaline Phosphatase 41 U/L (45-117) L 03/01/19 14:36 Home Medications: Amlodipine [Norvasc*] 1 tab PO DAILY 03/01/19 Ferric Citrate [Auryxia] 1 tab PO SEECOM 03/01/19 Furosemide 2 tab PO DAILY 03/01/19 Hydralazine [Apresoline*] 2 tab PO BID 03/01/19 Pantoprazole [Protonix Tab*] 1 tab PO DAILY 03/01/19 Sevelamer Carbonate 1 tab PO SEECOM 03/01/19 carvediloL [Carvedilol] 2 tab PO BID 03/01/19
== END 2019-03-03 21:40 | disposition short-term general hospital (02) | DRG 640 ==
LOC: ER 13:58 → ERHOLD 15:01 → 2ND 16:00
PROVIDERS: ADMIT Family Medicine; ATTEND Family Medicine
PROC: 0JHN3XZ Insertion of Tunneled Vascular Access Device into Right Lower Leg Subcutaneous Tissue and Fascia, Percutaneous Approach (ICD-10-PCS; principal; 2019-03-02 13:45)
PROC: 5A1D70Z Performance of Urinary Filtration, Intermittent, Less than 6 Hours Per Day (ICD-10-PCS; 2019-03-03)
DX: E87.70 Fluid overload, unspecified (principal); N18.6 End stage renal disease; J81.1 Chronic pulmonary edema; I12.0 Hypertensive chronic kidney disease with stage 5 chronic kidney disease or end stage renal disease; Z68.41 Body mass index [BMI] 40.0-44.9, adult; N25.81 Secondary hyperparathyroidism of renal origin; E11.22 Type 2 diabetes mellitus with diabetic chronic kidney disease; E11.21 Type 2 diabetes mellitus with diabetic nephropathy; E11.40 Type 2 diabetes mellitus with diabetic neuropathy, unspecified; D63.1 Anemia in chronic kidney disease; E66.9 Obesity, unspecified; K21.9 Gastro-esophageal reflux disease without esophagitis; E87.5 Hyperkalemia; E53.8 Deficiency of other specified B group vitamins; Z99.2 Dependence on renal dialysis
CPT/HCPCS: 36415; 36430; 71045; 74176; 76000; 80048; 80076; 81003; 81015; 82607; 82728; 83540; 83735; 83880; 84466; 84484; 85025; 85610; 86317; 86704; 86706; 86803; 86850; 86900; 86901; 87340; 90935; 93005; 96374; 99285; J0690; J1644; J2175; J2250; J2370; J2405; J2704; J2765; J2916; J3010; J7030; J7040; P9016

== ENCOUNTER 2023-06-06 11:11 | Day surgery (SDC) | payer OTHER ==
[2023-05-22 10:50] LABS: Potassium 4.4 mEq/L (3.5-5.1)
--- NOTE | 2023-05-23 14:41 | EKG ---
Test Date: 2023-05-22 Test Time: 11:19:49 [employer] Access[employer] Attacher: JOSÉ MEASUREMENT RESULTS: Intervals: Rate: 89 MD: 186 QRSD: 96 QT: 346 QTc: 420 [place]: P: 26 MD: 186 QRS: 75 T: 30 INTERPRETIVE STATEMENTS: Normal sinus rhythm Normal ECG Compared to ECG 07/18/2022 07:27:02 No significant changes Electronically Signed On 05-23-23 14:39:59 [employer] by Surinder Doty
[2023-06-06] MEDS ORDERED: NA CHLORIDE 0.9% 500 ML ONE (11:20)
[2023-06-06] MEDS ORDERED: dexAMETHasone 4 MG/ML VIAL ONE (13:02)
[2023-06-06] MEDS ORDERED: LIDOCAINE 1% MPF 5 ML VIAL ONE (13:02)
[2023-06-06] MEDS ORDERED: ONDANSETRON 4 MG/2 ML VIAL ONE (13:02)
[2023-06-06] MEDS ORDERED: propofoL 200 MG/20 ML VIAL IV ONE (13:02)
[2023-06-06] MEDS ORDERED: FENTANYL CITR 100 MCG/2 ML ONE (13:04)
[2023-06-06] MEDS ORDERED: MIDAZOLAM HCL 2 MG/2 ML INJ ONE (13:05)
[2023-06-06] MEDS ORDERED: ROCURONIUM 50 MG/5 ML VIAL IV ONE (13:05)
[2023-06-06] MEDS: CEFAZOLIN SODIUM 2 GM/VIAL ONE (13:19)
[2023-06-06] MEDS: BUPIVACAINE 0.25% PF 30 ML VIAL ONE (13:48)
--- NOTE | 2023-06-06 15:16 | P.OP ---
Preoperative diagnosis: Ventral Incisional Hernia Postoperative diagnosis: Ventral Incisional Hernia Primary procedure: Laparoscopic Ventral Incisional Hernia Repair Anesthesia: GETA + Local Estimated blood loss: <5cc Specimen: None Findings: ~ 8cm ventral incisional hernia Complications: None Implants: 15cm Bard Ventralite Mesh, Sorbafix x 75 Transferred to: Recovery Room Condition: Good
[2023-06-06] MEDS: HYDROMORPHONE HCL 1 MG/ML INJ ONE (15:40)
[2023-06-06] MEDS: HYDROCODONE/APAP 10/325 TAB ONE (16:05)
[2023-06-06 17:34] VITALS: BP 142/86; TEMP 97; O2SAT 100
--- NOTE | 2023-06-06 18:53 | OP ---
Date of Procedure: 06/06/2023 Surgeon: Luis Carlos Healy MD, Preoperative Diagnosis: Ventral incisional hernia. Postoperative Diagnosis: Ventral incisional hernia. Procedure: Laparoscopic ventral incisional repair with mesh. Anesthesia: General endotracheal plus local with 0.25% Marcaine. Estimated Blood Loss: Less than 5 cc. Specimen: None. Findings: Approximately 8 cm ventral incisional hernia with a Com[place] cheese type appearance with colo n and small bowel were contained within. Complications: None. Implants: [address] mesh with Echo Positioning System and SorbaFix absorbable fixation tacks x75. Disposition: The patient transferred to recovery room in good condition. Procedure In Detail: After informed consent was obtained, patient was brought to the operating room, prepped and draped in the usual sterile fashion after adequate anesthesia was achieved. I anestheti zed the area in the left upper quadrant down to subcutaneous tissue. A 5 mm 0-degree optical trocar was introduced in the abdomen without incident or complication. Insufflation was obtained to 15 mmHg , at this time. There was no injury to vital structures upon entry into the abdomen. Additional tro car was placed at the left lower quadrant, similarly anesthetized, and sharply incised. A 12 mm troc ar placed under direct visualization without incident or complication. I then placed 2 additional tr ocars in the right lower quadrant and left upper quadrant. Both of these were 5 mm trocars placed un roney direct visualization without incident or complication. The patient remained in neutral position throughout the procedure. I had low pneumoperitoneum at approximately 10 to 15 mmHg. I then proceed ed to dissect down, do an extensive adhesiolysis laparoscopically, removing portions of the colon fro m the hernia sac which was found to be a [place] cheese type appearance to the anterior abdominal wall from previous incision. Sutures remained in place in this area. I this with a combination of blunt dissection, sharp dissection, and LigaSure device. Once the intestinal contents returned t o the normal anatomic position, no evidence of injury to bowel. At this point, I then inspected the area and found to be good and adequate for placement of the mesh. The abdominal fascia was too weak to bring together using a primary abdominal closure using the 0 V-Loc suture which I usually use, and as such, I opted to decompress the abdomen partially, closed the defect with reduced pneumoperitoneu m and a gentle traction. I sized the mesh appropriately, found a [address] mesh with Echo Positioning System. A 15.2 cm was placed and deployed in the distal portion of the area after the balloon deployment system was used. I then secured to the anterior bowel wall with a single cachil dehe n of SorbaFix absorbable fixation tacks and then placed a double crown and almost a triple crown of S orbaFix absorbable fixation tacks with imbricating the hernia sac as much as possible using the Sorba Fix tacks to eliminate the space, at this point. The patient tolerated the procedure without in cident or complication. There was no hemostatic measures required, at this point. The patient posit ioned in the neutral position. Pneumoperitoneum was placed at 15 mmHg, at this time. Mesh was found to be good without any evidence of breakage, at this point and tacks were in good anatomic position without any free tacks found. At this point, I closed the 12 mm trocar site using a Andrez-Kingsley suture passer with 0 Vicryl in interrupted fashion with good approximation of tissues. The abdomen w as desufflated under direct visualization without incident or complication. All trocars were removed . All skin incisions were then copiously irrigated and closed with a 4-0 Monocryl in a running fashi on. Dermabond was placed over top. Patient tolerated the procedure without incident or complication . Transferred to PACU in good condition. All counts were correct at the end of the case. HANNY/STACIA Voice ID: [id number] Report ID: [id number]
== END 2023-06-06 17:15 | disposition home or self-care (01) ==
LOC: OR 11:11
PROVIDERS: ATTEND Surgery
PROC: 0WUF4JZ Supplement Abdominal Wall with Synthetic Substitute, Percutaneous Endoscopic Approach (ICD-10-PCS; principal; 2023-06-06 12:45)
DX: K43.2 Incisional hernia without obstruction or gangrene (principal)
CPT/HCPCS: 36415; 80048; 93005; J1100; J1170; J2001; J2250; J2405; J2704; J3010; J7040

== ENCOUNTER 2024-04-03 01:03 | Inpatient (IN) | payer OTHER ==
[2024-04-03] MEDS ORDERED: HYDROCODONE/APAP 5/325 MG TAB ONE ×2 (01:31→01:32)
[2024-04-03] MEDS ORDERED: DIAZEPAM 5 MG TABLET ONE (01:31)
[2024-04-03] MEDS ORDERED: cloNIDine HCL 0.1 MG TAB ONE (01:54)
[2024-04-03 01:57] LABS: Absolute Eosinophils 0.5 K/uL (0-0.5); Absolute Lymphocytes (CBC) 0.9 K/uL (0.7-4.9); Absolute Monocytes 0.4 K/uL (0.1-1.3); Basophils % 0.6 % (0-1.3); Eosinophils % 6.2 % (0-4.4); Hematocrit 24.5 % (39.6-49.0); Hemoglobin 8.1 g/dL (13.6-17.9); Lymphocytes % 10.9 % (15.3-44.8); MCH 30.1 pg (27.0-35.0); MCHC 33.1 g/dL (32.0-36.0); MCV 91.1 fL (80-100); MPV 6.9 fL (7.6-11.3); Monocytes % 5.4 % (3.3-12.3); Neutrophils % 76.9 % (41.7-73.7); PT Prothrombin Time 12.6 SECONDS (9.4-12.5); Platelets 176 thou/uL (152-406); Protime INR 1.13; RBC Red Blood Cell Count 2.69 M/uL (4.33-5.43); Red Cell Distribution Width 12.7 % (12.1-15.2)
[2024-04-03 02:33] LABS: Albumin 3.5 g/dL (3.4-5.0); Albumin/Globulin Ratio 0.9 (1.1-1.8); Alkaline Phosphatase 40 U/L (45-117); Anion Gap 13.6 mEq/L (5.0-15.0); BUN Blood Urea Nitrogen 67 mg/dL (7-18); Bicarbonate 24 mEq/L (21-32); Bilirubin Total 0.5 mg/dL (0.2-1.0); Globulin 3.8 g/dL (2.3-3.5); Glomerular Filtration Rate 4 ml/min (=/>90); Glucose Level 118 mg/dL (74-106); Magnesium 2.3 mg/dL (1.6-2.4); NT PRO-BNP 26863 pg/mL (<125); Potassium 5.6 mEq/L (3.5-5.1); Protein, Total 7.3 g/dL (6.4-8.2); Sodium Level 138 mEq/L (136-145)
[2024-04-03 02:35] LABS: ALT/SGPT < 14 U/L (16-61); AST/SGOT < 10 U/L (15-37); Bilirubin Direct < 0.2 mg/dL (0-0.2); Bilirubin Indirect, Calculated 0.3 mg/dL (0.2-0.8)
[2024-04-03] MEDS ORDERED: NITROGLYCERIN 1 GM PKT TD ONE (02:44)
[2024-04-03] MEDS ORDERED: MORPHINE 4 MG/ML SYR ONE (02:45)
--- NOTE | 2024-04-03 04:13 | ER ---
Nurse's Notes [facility] Name: Melvin Maguire Age: 33 yrs Sex: Male : 1990 Arrival Date: 04/03/2024 Time: 01:03 Bed 14 Private MD: Diagnosis: Acute pulmonary edema;End-stage renal disease on hemodialysis, acute volume overload, flash pulmonary edema, acute lower back pain Presentation: 04/03 01:12 Chief complaint: EMS states: shortness of breath. Coronavirus screen: Client denies kj2 travel out of the [place] in the last 14 days. Ebola Screen: No symptoms or risks identified at this time. Initial Sepsis Screen: Does the patient meet any 2 criteria? No. Patient's initial sepsis screen is negative. Does the patient have a suspected source of infection? No. Patient's initial sepsis screen is negative. Risk Assessment: Do you want to hurt yourself or someone else? Patient reports no desire to harm self or others. Onset of symptoms was April 02, 2024. 01:12 Method Of Arrival: EMS: [facility] kj2 01:12 Acuity: SAKSHI 3 kj2 Triage Assessment: 01:15 General: Appears uncomfortable, Behavior is calm, cooperative. Pain: Complains of pain kj2 in back Pain currently is 4 out of 10 on a pain scale. Neuro: Level of Consciousness is awake, alert, Oriented to person, place, time, situation. Cardiovascular: Patient's skin is warm and dry. Respiratory: Reports shortness of breath at rest. Respiratory: Onset: The symptoms/episode began/occurred yesterday, the patient has moderate shortness of breath. GI: No signs and/or symptoms were reported involving the gastrointestinal system. : Reports hemodialysis. Historical: - Allergies: 01:14 amlodipine; kj2 01:14 HYDRALAZINE; kj2 - PMHx: 01:14 Asthma; Dialysis; High Cholesterol; Hypertension; Hypothyroidism; kidney failure; kj2 - PSHx: 01:14 heria repair; kj2 - Immunization history:: Adult Immunizations unknown. - Infectious Disease History:: Denies. - Social history:: Smoking status: unknown. - Family history:: not pertinent. Screenin:17 [facility] ED Fall Risk Assessment (Adult) History of falling in the last 3 months, kj2 including since admission No falls in past 3 months (0 pts) Confusion or Disorientation No (0 pts) Intoxicated or Sedated No (0 pts) Impaired Gait No (0 pts) Mobility Assist Device Used No (0 pt) Altered Elimination Yes (1 pt) Score/Fall Risk Level 0 - 2 = Low Risk Maintained a safe environment, Hourly rounding (assess needs \T\ fall precautionary measures) done. Abuse screen: Denies threats or abuse. Denies injuries from another. Nutritional screening: No deficits noted. Tuberculosis screening: No symptoms or risk factors identified. Assessment: 01:17 General: see triage assessment. kj2 01:19 Respiratory: Airway is patent Respiratory effort is labored. kj2 02:20 Reassessment: Patient appears in no apparent distress at this time. Patient and/or kj2 family updated on plan of care and expected duration. Pain level reassessed. Patient is alert, oriented x 3, equal unlabored respirations, skin warm/dry/pink. 03:20 Reassessment: Patient appears in no apparent distress at this time. Patient and/or kj2 family updated on plan of care and expected duration. Pain level reassessed. Patient is alert, oriented x 3, equal unlabored respirations, skin warm/dry/pink. 04:20 Reassessment: Patient appears in no apparent distress at this time. Patient and/or kj2 family updated on plan of care and expected duration. Pain level reassessed. Patient is alert, oriented x 3, equal unlabored respirations, skin warm/dry/pink. 05:27 Reassessment: Patient appears in no apparent distress at this time. Patient and/or kj2 family updated on plan of care and expected duration. Pain level reassessed. Patient is alert, oriented x 3, equal unlabored respirations, skin warm/dry/pink. 05:27 Cardiovascular: Rhythm is sinus rhythm. Respiratory: Breath sounds with rhonchi kj2 bilaterally. Vital Signs: 01:12 BP 172 / 108; Pulse 94; Resp 20; Temp 98.2; Pulse Ox 98% on R/A; Weight 141.52 kg; kj2 Height 5 ft. 10 in. ; 02:20 BP 167 / 100; Pulse 92; Resp 20; Pulse Ox 94% on R/A; kj2 03:20 BP 150 / 94; Pulse 88; Resp 20; Pulse Ox 90% on R/A; kj2 04:24 BP 141 / 94 Sitting; Pulse 86; Pulse Ox 96% on 2 lpm NC; sa1 05:22 BP 131 / 87; Pulse 86; Resp 18; Temp 98.2; Pulse Ox 96% 2 lpm ; kj2 01:12 Body Mass Index 44.77 (141.52 kg, 177.8 cm) kj2 [place] Coma Score: 04:13 Eye Response: spontaneous(4). Motor Response: obeys commands(6). Verbal Response: sp4 oriented(5). Total: 15. ED Course: 01:11 Patient arrived in ED. lg3 01:12 Alysha Waddell, RN is Primary Nurse. kj2 01:13 Calvin Harper MD is Attending Physician. sp4 01:14 Triage completed. kj2 01:18 Patient has correct armband on for positive identification. Bed in low position. Call kj2 light in reach. Side rails up X 1. Provided Education on: call light. 01:19 No provider procedures requiring assistance completed. kj2 01:25 Arm band placed on Patient placed in an exam room, on oxygen. kj2 01:25 Inserted saline lock: 20 gauge in right antecubital area, using aseptic technique. sa1 Blood collected. Flushed with 10 mL NS. 01:25 Initial lab(s) drawn, by me, sent to lab. sa1 01:42 XRAY Chest (1 view) In Process Unspecified. EDMS 03:19 EKG done, by ED staff, reviewed by Calvin Harper MD. sa1 04:12 Flakito Conte MD is Hospitalizing Provider. sp4 05:28 Patient admitted, IV remains in place. kj2 Administered Medications: 01:37 Not Given (Other Intervention Used): [id number] mg PO once lg3 01:40 Drug: HYDROcodone-acetaminophen PO 5 mg-325 mg 2 tabs PO once Route: PO; kj2 03:00 Follow up: Response: No adverse reaction; Pain is decreased kj2 01:40 Drug: Diazepam PO 5 mg PO once Route: PO; kj2 03:00 Follow up: Response: No adverse reaction; Anxiety decreased kj2 01:56 Drug: cloNIDine PO 0.2 mg PO once Route: PO; kj2 03:00 Follow up: Response: No adverse reaction kj2 02:59 Drug: morphine IVP or IV 4 mg IVP once over 4 mins Route: IVP; Infused Over: 4 mins; kj2 Site: right antecubital; 03:21 Follow up: Response: No adverse reaction; Pain is decreased kj2 02:59 Drug: Nitroglycerin Transdermal Ointment 2 % 1 inches Transdermal once Route: kj2 Transdermal; Site: anterior chest wall; 03:21 Follow up: Response: No adverse reaction kj2 04:20 Drug: [place] PO 10 mg-325 mg 1 tabs PO once Route: PO; kj2 05:29 Follow up: Response: No adverse reaction kj2 04:20 Drug: Ondansetron PO 4 mg PO once Route: PO; kj2 05:29 Follow up: Response: No adverse reaction kj2 04:39 Drug: Dextromethorphan-Guaifenesin PO Liquid 10 mg-100 mg/5 mL 10 ml PO once Route: PO; kj2 05:29 Follow up: Response: No adverse reaction kj2 04:39 Drug: Kayexalate PO 30 grams PO once Route: PO; kj2 05:29 Follow up: Response: No adverse reaction kj2 04:39 Drug: Tums PO Chewable Tablet 800 mg PO once Route: PO; kj2 05:29 Follow up: Response: No adverse reaction kj2 Medication: 01:18 VIS not applicable for this client. kj2 Outcome: 04:12 Decision to Hospitalize by Provider. sp4 05:28 Admitted to Med/surg accompanied by tech, via wheelchair, room 222, kj2 05:28 Condition: stable 05:28 Instructed on the need for admit, Demonstrated understanding of instructions, 05:30 Patient left the ED. kj2 Signatures: Dispatcher [employer] EDKelli Miramontes RN RN lg3 Calvin Harper MD MD sp4 Sultan renard Chapman Krystal, RN RN kj2
--- NOTE | 2024-04-03 04:13 | EDPHYS ---
Physician Documentation [facility] Name: Melvin Maguire Age: 33 yrs Sex: Male : 1990 Arrival Date: 04/03/2024 Time: 01:03 Bed 14 Private MD: ED Physician Calvin Harper HPI: 04/03 01:15 This 33 yrs old Male presents to ER via EMS with complaints of Shortness Of sp4 Breath. 21:00 This is a 33-year-old male with history of end-stage renal disease with last dialysis sp4 on Saturday03/31/2024, patient presents with acute dyspnea EMS reported desaturation while in the route. Historical: - Allergies: 01:14 amlodipine; kj2 01:14 HYDRALAZINE; kj2 - PMHx: 01:14 Asthma; Dialysis; High Cholesterol; Hypertension; Hypothyroidism; kidney failure; kj2 - PSHx: 01:14 heria repair; kj2 - Immunization history:: Adult Immunizations unknown. - Infectious Disease History:: Denies. - Social history:: Smoking status: unknown. - Family history:: not pertinent. ROS: 21:00 Constitutional: Negative for fever, chills, and weight loss, positive dyspnea sp4 21:00 All other systems are negative, Exam: 04:13 Constitutional: This is a well developed, well nourished patient who is awake, alert, sp4 dyspneic male, left forearm dialysis fistula with palpable thrill Head/Face: Normocephalic, atraumatic. Eyes: Pupils equal round and reactive to light, extra-ocular motions intact. Lids and lashes normal. Conjunctiva and sclera are not injected. Cornea within normal limits. Periorbital areas with no swelling, redness, or edema. ENT: Nares patent. No nasal discharge, no septal abnormalities noted. Tympanic membranes are normal and external auditory canals are clear. Oropharynx with no redness, swelling, or masses, exudates, or evidence of obstruction, uvula midline. Mucous membranes moist. Neck: Trachea midline, no thyromegaly or masses palpated, and no cervical lymphadenopathy. Supple, full range of motion without nuchal rigidity, or vertebral point tenderness. Chest/axilla: Normal chest wall appearance and motion. Nontender with no deformity. No lesions are appreciated. Cardiovascular: Regular rate and rhythm with a normal S1 and S2. No gallops, murmurs, or rubs. Normal PMI, no JVD. No pulse deficits. Respiratory: Lungs have equal breath sounds bilaterally, clear to auscultation and percussion. No rales, rhonchi or wheezes noted. No increased work of breathing, no retractions or nasal flaring. Abdomen/GI: Soft, with normal bowel sounds. No distension or tympany. No guarding or rebound. No evidence of tenderness throughout. Back: No spinal tenderness. No costovertebral tenderness. Skin: Warm, dry with normal turgor. Normal color with no rashes, no lesions, and no evidence of cellulitis. MS/ Extremity: Pulses equal, no cyanosis. Neurovascular intact. Full, normal range of motion. Neuro: Awake and alert, GCS 15, oriented to person, place, time, and situation. Cranial nerves II-XII grossly intact. Motor strength 5/5 in all extremities. Sensory grossly intact. Psych: Awake, alert, with orientation to person, place and time. Behavior, mood, and affect are within normal limits 04:13 ECG was reviewed by the Attending Physician. EKG 0 314 sinus rhythm first-degree AV block 91 bpm. Right atrial enlargement Vital Signs: 01:12 BP 172 / 108; Pulse 94; Resp 20; Temp 98.2; Pulse Ox 98% on R/A; Weight 141.52 kg; kj2 Height 5 ft. 10 in. ; 02:20 BP 167 / 100; Pulse 92; Resp 20; Pulse Ox 94% on R/A; kj2 03:20 BP 150 / 94; Pulse 88; Resp 20; Pulse Ox 90% on R/A; kj2 04:24 BP 141 / 94 Sitting; Pulse 86; Pulse Ox 96% on 2 lpm NC; sa1 05:22 BP 131 / 87; Pulse 86; Resp 18; Temp 98.2; Pulse Ox 96% 2 lpm ; kj2 01:12 Body Mass Index 44.77 (141.52 kg, 177.8 cm) kj2 [place] Coma Score: 04:13 Eye Response: spontaneous(4). Motor Response: obeys commands(6). Verbal Response: sp4 oriented(5). Total: 15. MDM: 01:14 Medical Screening Exam initiated sp4 04:11 ED course: XR CHEST 1 VIEW CLINICAL INDICATION: Chest pain COMPARISON: No prior images sp4 available for comparison at time of interpretation. FINDINGS: SUPPORT DEVICES: None LUNGS/PLEURAL SPACES: Diffuse interstitial opacities throughout both lungs may represent interstitial edema, atelectasis and/or pneumonitis. No pleural effusion. No pneumothorax. HEART/MEDIASTINUM: Heart is enlarged. BONES/UPPER ABDOMEN/SOFT TISSUES: No acute findings. IMPRESSION: Diffuse interstitial opacities throughout both lungs may represent interstitial pulmonary edema, atelectasis and/or pneumonitis. . 21:00 Differential diagnosis: Anemia Bronchitis pneumonia, Pneumothorax Psychogenic pulmonary sp4 edema. Data reviewed: vital signs, nurses notes, EMS record, old medical records, lab test result(s), EKG, radiologic studies. ED course: Stable for admission. 04/03 01:13 Order name: Basic Metabolic Panel; Complete Time: 03:58 4 04/03 01:13 Order name: CBC with Diff; Complete Time: 02:26 [facility] 04/03 01:13 Order name: LFT's; Complete Time: 03:58 [facility] 04/03 01:13 Order name: Magnesium; Complete Time: 03:58 4 04/03 01:13 Order name: NT PRO-BNP; Complete Time: 03:58 sp4 04/03 01:13 Order name: PT-INR; Complete Time: 02:26 4 04/03 01:13 Order name: Troponin HS; Complete Time: 03:58 sp4 04/03 04:29 Order name: Urinalysis w/ reflexes [facility] 04/03 04:29 Order name: CBC with Automated Diff [facility] 04/03 04:29 Order name: CBC with Automated Diff [facility] 04/03 04:29 Order name: Comprehensive Metabolic Panel [facility] 04/03 04:29 Order name: Comprehensive Metabolic Panel [facility] 04/03 01:13 Order name: XRAY Chest (1 view) [facility] 04/03 01:13 Order name: Cardiac monitoring; Complete Time: 03:40 4 04/03 01:13 Order name: EKG - Nurse/Tech; Complete Time: 03:19 4 04/03 01:13 Order name: IV Saline Lock; Complete Time: 03:19 4 04/03 01:13 Order name: Labs collected and sent; Complete Time: 03:19 [facility] 04/03 01:13 Order name: O2 Per Protocol; Complete Time: 03:40 sp4 04/03 01:13 Order name: O2 Sat Monitoring; Complete Time: 03:20 sp4 EC:14 Rate is 91 beats/min. Rhythm is regular, Sinus Rhythm. QRS [place] is Normal. UT interval sp4 is prolonged. QRS interval is normal. QT interval is normal. No Q waves. T waves are Normal. No ST changes noted. Clinical impression: No evidence of ischemia. Interpreted by me. Reviewed by me. Administered Medications: 01:37 Not Given (Other Intervention Used): [id number] mg PO once lg3 01:40 Drug: HYDROcodone-acetaminophen PO 5 mg-325 mg 2 tabs PO once Route: PO; kj2 03:00 Follow up: Response: No adverse reaction; Pain is decreased kj2 01:40 Drug: Diazepam PO 5 mg PO once Route: PO; kj2 03:00 Follow up: Response: No adverse reaction; Anxiety decreased kj2 01:56 Drug: cloNIDine PO 0.2 mg PO once Route: PO; kj2 03:00 Follow up: Response: No adverse reaction kj2 02:59 Drug: morphine IVP or IV 4 mg IVP once over 4 mins Route: IVP; Infused Over: 4 mins; kj2 Site: right antecubital; 03:21 Follow up: Response: No adverse reaction; Pain is decreased kj2 02:59 Drug: Nitroglycerin Transdermal Ointment 2 % 1 inches Transdermal once Route: kj2 Transdermal; Site: anterior chest wall; 03:21 Follow up: Response: No adverse reaction kj2 04:20 Drug: [place] PO 10 mg-325 mg 1 tabs PO once Route: PO; kj2 05:29 Follow up: Response: No adverse reaction kj2 04:20 Drug: Ondansetron PO 4 mg PO once Route: PO; kj2 05:29 Follow up: Response: No adverse reaction kj2 04:39 Drug: Dextromethorphan-Guaifenesin PO Liquid 10 mg-100 mg/5 mL 10 ml PO once Route: PO; kj2 05:29 Follow up: Response: No adverse reaction kj2 04:39 Drug: Kayexalate PO 30 grams PO once Route: PO; kj2 05:29 Follow up: Response: No adverse reaction kj2 04:39 Drug: Tums PO Chewable Tablet 800 mg PO once Route: PO; kj2 05:29 Follow up: Response: No adverse reaction kj2 Disposition Summary: 04/03/24 04:12 Hospitalization Ordered Notes: Hospitalization Status: Observation sp4 Provider: Flakito Conte4 Location: Telemetry/MedSurg (observation) sp4 Condition: Fair sp4 Problem: new sp4 Symptoms: have improved sp4 Bed/Room Type: Standard sp4 Room Assignment: 222(04/03/24 04:35) lg3 Diagnosis - Acute pulmonary edema sp4 - End-stage renal disease on hemodialysis, acute volume overload, flash pulmonary sp4 edema, acute lower back pain Forms: - Medication Reconciliation Form sp4 - SBAR form sp4 - Leadership Thank You Letter sp4 Signatures: Dispatcher [employer] EDMS Kelli Ng RN RN lg3 Calvin Harper MD MD sp4 Alysha Waddell RN RN kj2 Corrections: (The following items were deleted from the chart) 01:13 01:13 BASIC METABOLIC PANEL+C.LAB.BRZ ordered. EDMS EDMS 01:13 01:13 CBC+H.LAB.BRZ ordered. EDMS EDMS 01:13 01:13 HEPATIC FUNCTION+C.LAB.BRZ ordered. EDMS EDMS 01:13 01:13 MAGNESIUM+C.LAB.BRZ ordered. EDMS EDMS 01:13 01:13 PROBNP+C.LAB.BRZ ordered. EDMS EDMS 01:13 01:13 PROTIME (+INR)+COAG.LAB.BRZ ordered. EDMS EDMS 01:13 01:13 Troponin High Sensitivity+C.LAB.BRZ ordered. EDMS EDMS 01:13 01:13 Chest Single View+RAD.RAD.BRZ ordered. EDMS EDMS 04:35 04:12 sp4 lg3
[2024-04-03] MEDS ORDERED: ONDANSETRON 4 MG (ODT) TAB ONE (04:15)
[2024-04-03] MEDS ORDERED: HYDROCODONE/APAP 10/325 TAB ONE (04:15)
[2024-04-03] MEDS: FUROSEMIDE 40 MG/4 ML VIAL IV SCH (04:27)
[2024-04-03] MEDS: SODIUM ZIRCONIUM CYCLOSILICATE 10 GM/PKT PO ONE (04:28)
[2024-04-03] MEDS ORDERED: CALCIUM CARBONATE CHEW 500MG TAB ONE (04:29)
--- NOTE | 2024-04-03 04:30 | P.HP ---
Certification for Inpatient Patient admitted to: Inpatient With expected LOS: >2 Midnights Practitioner: I am a practitioner with admitting privileges, knowledge of patient current condition, hospital course, and medical plan of care. Services: Services provided to patient in accordance with Admission requirements found in Title 42 Section 412.3 of the Code of Federal Regulations Patient History Date of Service: 04/03/24 Reason for admission: SOB History of Present Illness: 34-year-old male with past medical history of End-stage renal disease, hypertension, GERD, anemia, CKD, renal osteodystrophy, peritonitis , obesity, hypothyroidism, kidney biopsy, dialysis access procedure catheter exchange, hernia repair , h/o peritoneal dialysis , history of hernia repair brought to ER with shortness of breath and chest discomfort which was started 2 days ago and has been progressively worsening. Patient missed dialysis. Denies any fever or chills. No nausea vomiting or diarrhea. Patient was assessed in the ER and was admitted for pulmonary edema and fluid overload due to missed dialysis and also for hyperkalemia Allergies adhesive tape Allergy (Verified 06/06/23 12:17) Rash hydralazine Allergy (Verified 06/06/23 12:17) Rash Home medications list reviewed: Yes Home Medications: Cinacalcet HCl [Sensipar] 60 mg PO DAILY 05/22/23 Furosemide [Lasix] 40 mg PO BID 05/22/23 Lisinopril [Zestril] 40 mg PO PRN 05/22/23 Montelukast [Singulair] 10 mg PO PRN 05/22/23 Pantoprazole [Protonix Tab] 40 mg PO DAILY 05/22/23 Phentermine HCl 15 mg PO DAILY 05/22/23 carvediloL [Coreg] 25 mg PO BID 05/22/23 Acetaminophen with Codeine [Acetaminophen-Cod #3 Tablet] 2 tab PO Q6HR 10/28/23 Cephalexin [Keflex*] 500 mg PO Q8HR 10/28/23 Escitalopram [Lexapro*] 5 mg PO DAILY 10/28/23 Sulfameth/Trimethoprim [Bactrim Pedi Suspension*] 1 tab PO DAILY 10/28/23 Doxycycline Monohydrate 100 mg PO BID 7 Days #14 tab 11/02/23 Smz./Tmp. [Bactrim Ds 800 MG/160 MG] 1 tab PO BID 7 Days #14 tab 11/02/23 - Past Medical/Surgical History Diabetic: No Past Medical History: Reviewed- Non-Contributory -: End-stage renal disease on peritoneal dialysis -: HTN -: GERD -: Obesity -: Peritonitis, January 2019 -: Obesity -: Hypothyroidism Past Surgical History: Reviewed- Non-Contributory -: kidney biopsy -: access dialysis sx / catheter exchange -: hernia repair may 2018 -: december peritoneal dialysis access Psychosocial/ Personal History: Patient is . Lives at home. Patient is disabled. - Family History Family History: Reviewed- Non-Contributory - Family History Father -: Heart disease, Diabetes Notes: Heavy smoker Mother -: Lung disease Notes: COPD - Social History Smoking Status: Never smoker Alcohol use: No CD- Drugs: No Caffeine use: No Review of Systems 10-point ROS is otherwise unremarkable Physical Examination - Vital Signs Temperature: 98.2 F Blood Pressure: 162/72 Pulse: 78 Respirations: 20 Pulse Ox (%): 94 - Physical Exam General: Alert, Oriented x3, Mild distress HEENT: Atraumatic, Normocephalic Neck: Supple, No LAD Respiratory: Clear to auscultation bilaterally, Crackles/rales Cardiovascular: Regular rate/rhythm, Normal S1 S2, Edema Capillary refill: <2 Seconds Gastrointestinal: Soft and benign, W/out hepatosplenomegaly Musculoskeletal: No clubbing, No tenderness Integumentary: No rashes, No breakdown Neurological: Normal speech, Cranial nerves 3-12 intact Lymphatics: No axilla or inguinal lymphadenopathy - Studies Laboratory Data (last 24 hrs) 04/03/24 04/03/24 04/03/24 01:25 01:25 01:25 WBC 7.80 Hgb 8.1 L Hct 24.5 L Plt Count 176 PT 12.6 H INR 1.13 Sodium 138 Potassium 5.6 H BUN 67 H Creatinine 15.90 H Glucose 118 H Magnesium 2.3 Total Bilirubin 0.5 AST < 10 L ALT < 14 L Alkaline Phosphatase 40 L Assessment and Plan - Plan Fluid overload Pulmonary edema Missed dialysis. Aggressive diuresis Nephrology consulted May need dialysis set up Electrolytes monitor and replace accordingly Hyperkalemia Antihypercalcemic measures Will give Lokelma Monitor under telemetry Hypertension Antihypertensives titrated Continue home medications and titrate as needed Hyperlipidemia Continue statin Anemia of chronic disease Monitor H&H closely No overt bleeding at this time GI/DVT prophylaxis Advanced directive full code Discharge Plan: Home Plan to discharge in: 48 Hours - Advance Directives Does patient have a Living Will: No Does patient have a Durable POA for Healthcare: No - Code Status/Comfort Care Code Status: Full Code Time Spent Managing Pts Care (In Minutes): 48
[2024-04-03] MEDS ORDERED: SOD POLYSTYREN SUL 15 GM/60 ML UCUP ONE (04:32)
[2024-04-03] MEDS ORDERED: GUAIFENESIN/DM 5 ML UCUP ONE (04:32)
[2024-04-03] MEDS ORDERED: LABETALOL 20 MG/4ML SYRINGE IV PRN (05:35)
[2024-04-03] MEDS: CODEINE 30MG/APAP 300MG TAB PO SCH (06:00)
--- NOTE | 2024-04-03 06:14 | RAD REPORT ---
XR CHEST 1 VIEW CLINICAL INDICATION: Chest pain COMPARISON: No prior images available for comparison at time of interpretation. FINDINGS: SUPPORT DEVICES: None LUNGS/PLEURAL SPACES: Diffuse interstitial opacities throughout both lungs may represent interstitial edema, atelectasis and/or pneumonitis. No pleural effusion. No pneumothorax. HEART/MEDIASTINUM: Heart is enlarged. BONES/UPPER ABDOMEN/SOFT TISSUES: No acute findings. IMPRESSION: Diffuse interstitial opacities throughout both lungs may represent interstitial pulmonary edema, atel ectasis and/or pneumonitis. Electronically signed by: Robyn Castillo MD 04/03/2024 02:[address] [facility] Due to temporary technical issues with the PACS[employer] reporting system, reports are being guillermo d by the in-house radiologist without review as a courtesy to ensure prompt reporting the interpreting radiologist is fully responsible for the content of the report. Transcribed Date/Time: 04/03/2024 6:13 AM
[2024-04-03] MEDS ORDERED: CODEINE 30MG/APAP 300MG TAB PO PRN (07:20)
[2024-04-03] MEDS: lisinopriL 20 MG TAB PO SCH (07:59)
[2024-04-03] MEDS: ACETAMINOPHEN 325 MG TABLET PO PRN (07:59)
[2024-04-03] MEDS: CINACALCET HCL 30 MG TAB PO SCH (07:59)
[2024-04-03] MEDS: PANTOPRAZOLE 40MG TABLET PO SCH (08:00)
[2024-04-03] MEDS: carvediloL 25 MG TAB PO SCH (08:00)
[2024-04-03] MEDS: HEPARIN 5000 UNIT/ML 1 ML VIAL SQ SCH (08:01)
[2024-04-03] MEDS: MONTELUKAST 10 MG TAB PO SCH (08:02)
[2024-04-03] MEDS: ESCITALOPRAM 5 MG PO SCH (08:02)
[2024-04-03] MEDS: HYDROCODONE/APAP 5/325 MG TAB PO PRN (08:57)
[2024-04-03] MEDS: AMLODIPINE 5 MG TAB PO SCH (08:58)
[2024-04-03] MEDS ORDERED: MONTELUKAST 10 MG TAB PO PRN (09:00)
[2024-04-03] MEDS: DIPHENHYDRAMINE 25 MG TAB/CAP PO ONE (13:19)
--- NOTE | 2024-04-03 13:36 | EKG ---
Test Date: 2024-04-03 Test Time: 03:14:18 Gun Repair Clerk: MEASUREMENT RESULTS: Intervals: Rate: 91 MN: 236 QRSD: 90 QT: 372 QTc: 457 [place]: P: 7 MN: 236 QRS: 41 T: 48 INTERPRETIVE STATEMENTS: Sinus rhythm with 1st degree AV block Right atrial enlargement Anterior infarct, age undetermined Abnormal ECG Compared to ECG 10/25/2023 00:33:24 First degree AV block now present Atrial abnormality now present Myocardial infarct finding now present Sinus tachycardia no longer present Electronically Signed On 04-03-24 13:35:37 FLIGHT CONTROL MANAGER by Surinder Doty
[2024-04-03] MEDS: PHENOL 1.4% ORAL SPRAY 180ML MM PRN (21:28)
[2024-04-03] MEDS: guaiFENesin 100 MG/5 ML UCUP PO PRN (22:57)
--- NOTE | 2024-04-04 03:32 | CON ---
Date of Consultation: 04/03/2024 Chief Complaint: End-stage renal failure, dyspnea, pulmonary edema, hypoxemic respiratory failure, f luid overload. History Of Present Illness: The patient is a 33-year-old man with history of end-stage renal disease , on hemodialysis on Saturday, Saturday, Saturday, hypertension, hypertensive heart and kidney disease, GERD, anemia due to chronic kidney disease, renal osteodystrophy, history of peritonitis, hypothyroid ism. The patient has history of peritoneal dialysis, history of hernia repair. He was brought to [facility] emergency room because of severe shortness of breath, chest discomfort. He became short of breath 2 days prior to admission and was experiencing progressively worse shortness of breath. The patient missed 1 dialysis session in the recent week. He denies fever, chills. Denies nausea, vomiting, constance rrhea. Denies dysuria, hematuria. Denies syncope. The patient is admitted for severe pulmonary kunal ma and fluid overload due to missed dialysis. The patient was found to have hyperkalemia and receive d treatment with medication for hyperkalemia. Potassium remains elevated and urgent dialysis is orde red for treatment of fluid overload and hyperkalemia. Past Medical History: End-stage renal disease, hypertension, GERD, peritonitis in January 2019, obes ity, hypothyroidism. Past Surgical History: Kidney biopsy, access dialysis surgery, hernia repair, peritoneal dialysis ac cess procedures. Family History: Noncontributory. Father had heart disease, diabetes, and he was heavy smoker. Moth er, lung disease, COPD. Social History: Denies tobacco, alcohol. Denies drugs. Review of Systems: General: Denies fever, chills. Eyes: Denies vision changes. Ears, Nose, Mouth, and Throat: Denies sore throat, earache. Respiratory: Has shortness of breath with activities and at rest. Cardiovascular: Denies syncope. Denies chest pain, palpitation. GI: Denies nausea vomiting. : Denies dysuria, hematuria. All other systems reviewed and all are negative. Physical Examination: General: In mild respiratory distress. Neck: Supple. No JVD. No bruits. Lungs: Crackles bilaterally present. Heart: S1, S2. No pericardial friction rub. Abdomen: Soft, obese, nontender. No rebound, no guarding. Extremities: Edema present in upper and lower extremities. Neurologic: Cranial nerves intact. The patient is moving all extremities. Laboratory Data: Hemoglobin 8.1, WBC 7.8, platelet count 176,000. Sodium 138, potassium 3.6, BUN 66 , creatinine 15.9, glucose 118, magnesium 2.3, AST less than 10, ALT less than 14. Impression And Plan: 1.Severe fluid overload and urgent dialysis is ordered to control fluid overload and provide managem ent for congestive heart failure exacerbation. The patient has history of diastolic congestive heart failure and is on blood pressure medication to prevent hypertension. 2.Hyperkalemia. The patient received Lokelma. Urgent dialysis is scheduled to treat hyperkalemia. Provide metabolic clearance. 3.Hypertension. Continue current medication. 4.Hyperlipidemia. Continue statin. 5.Anemia of chronic kidney disease. Monitor H and H. 6.Renal osteodystrophy. Continue renal diet and binders. EB/MODL Voice ID: [id number] Report ID: [id number]
[2024-04-04 05:50] LABS: Absolute Basophils 0.1 K/uL (0-0.5); Absolute Eosinophils 0.5 K/uL (0-0.5); Absolute Monocytes 0.6 K/uL (0.1-1.3); Basophils % 0.8 % (0-1.3); Eosinophils % 6.7 % (0-4.4); Hematocrit 22.3 % (39.6-49.0); Hemoglobin 7.7 g/dL (13.6-17.9); Lymphocytes % 13.4 % (15.3-44.8); MCH 30.9 pg (27.0-35.0); MCHC 34.7 g/dL (32.0-36.0); MPV 6.5 fL (7.6-11.3); Monocytes % 8.7 % (3.3-12.3); Neutrophils % 70.4 % (41.7-73.7); Platelets 156 thou/uL (152-406); Red Cell Distribution Width 12.5 % (12.1-15.2)
[2024-04-04] MEDS: ALBUTEROL 2.5 MG/3 ML NEB SOL NEB PRN (06:05)
[2024-04-04 06:14] LABS: Albumin 3.2 g/dL (3.4-5.0); Albumin/Globulin Ratio 0.9 (1.1-1.8); Alkaline Phosphatase 40 U/L (45-117); Anion Gap 12.5 mEq/L (5.0-15.0); BUN Blood Urea Nitrogen 54 mg/dL (7-18); Bicarbonate 26 mEq/L (21-32); Bilirubin Total 0.7 mg/dL (0.2-1.0); Globulin 3.6 g/dL (2.3-3.5); Glomerular Filtration Rate 5 ml/min (=/>90); Glucose Level 84 mg/dL (74-106); Potassium 5.5 mEq/L (3.5-5.1); Protein, Total 6.8 g/dL (6.4-8.2); Sodium Level 133 mEq/L (136-145)
[2024-04-04 06:15] LABS: ALT/SGPT < 14 U/L (16-61); AST/SGOT < 10 U/L (15-37)
[2024-04-04] MEDS: SOD POLYSTYREN SUL 15 GM/60 ML UCUP PO ONE (08:06)
--- NOTE | 2024-04-04 10:56 | PN ---
Date of Progress Note: 04/04/2024 History: The patient was admitted to the hospital with over volume and hyperkalemia. The patient was dialyzed yesterday, managed to remove 3 L, tolerated, feeling lightheaded. The patient found to have also pneumonia. Physical Examination: Vital Signs: When I saw the patient, blood pressure 170/78, pulse of 95, afebrile. Chest: Mild wheezing, bilateral. Heart: S1, S2, systolic murmur. Abdomen: Soft, nontender. Extremities: +1 edema. Neurologic: Alert, no focality. Laboratory Data: Sodium 133, potassium 5.5, bicarb 26, BUN 54, creatinine 12.3, calcium 8.8, hemoglobin 7.7. Current Medications: The patient is on, it include, 1. Heparin. 2. Amlodipine 5 b.i.d. 3. Carvedilol 25 b.i.d. 4. Lisinopril 40. 5. Lasix 40 t.i.d. 6. Lokelma. 7. Zofran. 8. Pantoprazole. 9. Sensipar. 10. Singular. Assessment And Plan: 1. End-stage renal disease with hyperkalemia, over volume. I am going to go ahead and do another session of dialysis today. We will challenge the patient. The patient will be okay from the renal standpoint for DC after dialysis. We will follow up. 2. Hyperkalemia. The patient is going to be dialyzed on low potassium bath. 3. Anemia of chronic kidney disease. Continue SAMARA. 4. Secondary hyperparathyroid. Continue Sensipar and binder. 5. Respiratory failure secondary to flu and over volume. The patient is going to be challenged. The patient will be cleared from the Renal standpoint to be DC'd after dialysis. Time spent examining the patient [id number] reviewing data lab and radiology placing order discussing the case with the patient / family by bedside discussing the case with the team coordinator including hospitalist and nursing staff more than 55-minute ALONZO/STACIA Voice ID: [id number] Report ID: [id number] SHEN
[2024-04-04] MEDS ORDERED: ALBUTEROL 2.5 MG/3 ML NEB SOL NEB PRN (13:06)
[2024-04-04] MEDS: cloNIDine HCL 0.1 MG TAB PO ONE (13:08)
[2024-04-04] MEDS: EPOETIN ALFA 10,000 UNIT/ML VIAL IV SCH (14:00)
[2024-04-04] MEDS: ONDANSETRON 4 MG/2 ML VIAL IV PRN (14:41)
[2024-04-04] MEDS: HYDRALAZINE HCL 25 MG TABLET PO SCH (17:46)
--- NOTE | 2024-04-04 18:00 | P.DS ---
Admission Date: 04/03/24 Discharge Date: 04/04/24 Disposition: ROUTINE DISCHARGE Discharge Condition: FAIR Reason for Admission: SOB Brief History of Present Illness: 34-year-old male with past medical history of End-stage renal disease, hypertension, GERD, anemia, CKD, renal osteodystrophy, peritonitis , obesity, hypothyroidism, kidney biopsy, hernia repair , h/o peritoneal dialysis , history of hernia repair brought to ER with shortness of breath and chest discomfort. Patient missed dialysis. Patient was assessed in the ER, chest x-ray demonstrated pulmonary edema, blood work showed hyperkalemia. He was admitted for pulmonary edema and fluid overload due to missed dialysis and also for hyperkalemia. Hospital Course: Diagnosis End-stage renal disease on hemodialysis Pulmonary edema/volume overload Hyperkalemia Anemia of chronic kidney disease. Morbid obesity Patient was admitted to the medical floor, he was given Kayexalate later followed by Ac for hyperkalemia. He was seen and evaluated by nephrology Dr. Rome, patient underwent 2 consecutive days of hemodialysis. Hyperkalemia resolved, patient's shortness of breath also significantly i mproved. Patient blood pressure readings were significantly elevated. He was on amlodipine and lisinopril, clonidine later added for better blood pressure control. Patient evaluated by nephrology today and deemed stable for discharge. Vital Signs/Physical Exam: Temp Pulse Resp BP Pulse Ox 98.4 F 98 H 18 178/85 H 92 04/04/24 16:00 04/04/24 16:00 04/04/24 16:00 04/04/24 16:15 04/04/24 16:00 General: Alert, In no apparent distress, Oriented x3 HEENT: Mucous membr. moist/pink Neck: Supple, JVD not distended Respiratory: Clear to auscultation bilaterally, Normal air movement Cardiovascular: No edema, Regular rate/rhythm, Normal S1 S2 Gastrointestinal: Normal bowel sounds, Soft and benign, Non-distended, No tenderness Musculoskeletal: No swelling, No tenderness Integumentary: No rashes, No cyanosis Neurological: Normal speech, Normal strength at 5/5 x4 extr Lymphatics: No axilla or inguinal lymphadenopathy Laboratory Data at Discharge: WBC 7.20 thou/uL (4.3-10.9) 04/04/24 05:33 Hgb 7.7 g/dL (13.6-17.9) L 04/04/24 05:33 Hct 22.3 % (39.6-49.0) L 04/04/24 05:33 Plt Count 156 thou/uL (152-406) 04/04/24 05:33 PT 12.6 SECONDS (9.4-12.5) H 04/03/24 01:25 INR 1.13 04/03/24 01:25 Sodium 133 mEq/L (136-145) L 04/04/24 05:33 Potassium 3.7 mEq/L (3.5-5.1) D 04/04/24 16:45 BUN 54 mg/dL (7-18) H 04/04/24 05:33 Creatinine 12.30 mg/dL (0.70-1.30) H 04/04/24 05:33 Glucose 84 mg/dL (74-106) 04/04/24 05:33 Magnesium 2.3 mg/dL (1.6-2.4) 04/03/24 01:25 Total Bilirubin 0.7 mg/dL (0.2-1.0) 04/04/24 05:33 AST < 10 U/L (15-37) L 04/04/24 05:33 ALT < 14 U/L (16-61) L 04/04/24 05:33 Alkaline Phosphatase 40 U/L (45-117) L 04/04/24 05:33 Home Medications: Cinacalcet HCl [Sensipar] 60 mg PO DAILY 05/22/23 Furosemide [Lasix] 40 mg PO BID 05/22/23 Lisinopril [Zestril] 40 mg PO PRN 05/22/23 Montelukast [Singulair*] 10 mg PO PRN 05/22/23 Pantoprazole [Protonix Tab*] 40 mg PO DAILY 05/22/23 Phentermine HCl 15 mg PO DAILY 05/22/23 carvediloL [Coreg] 25 mg PO BID 05/22/23 Escitalopram [Lexapro*] 5 mg PO DAILY 10/28/23 Amlodipine [Norvasc*] 5 mg PO BID 04/03/24 Epoetin [Retacrit] 10,000 unit IV EVERY HD vial 04/04/24 guaiFENesin [Guaifenesin] 10 ml PO Q4H PRN #237 ml 04/04/24 lisinopriL [Prinivil*] 40 mg PO DAILY tab 04/04/24 New Medications: guaiFENesin [Guaifenesin] 10 ml PO Q4H PRN #237 ml PRN Reason: Cough Diet: Renal Activity: Ad yobany Followup: Sandie Rome MD [ACTIVE - CAN ADMIT] - 1-2 Weeks NONE,NONE [Primary Care Provider] - Time spent managing pt's care (in minutes): 34
[2024-04-04] MEDS: cloNIDine HCL 0.1 MG TAB PO SCH (18:18)
[2024-04-05 10:56] LABS: Anion Gap 12.2 mEq/L (5.0-15.0); Potassium 4.2 mEq/L (3.5-5.1)
[2024-04-05 11:09] LABS: SARS-CoV-2 Antigen CONTROL BLUE LINE VIS/BG OK; SARS-CoV-2 Antigen Rapid Res Negative (Negative)
[2024-04-05] MEDS ORDERED: LEVALBUTEROL 0.63 MG/3 ML NEB NEB PRN (12:41)
[2024-04-05] MEDS ORDERED: HYDRALAZINE HCL 20 MG/ML VIAL IV PRN (12:42)
--- NOTE | 2024-04-05 12:46 | P.PN ---
Subjective Date of Service: 04/05/24 Chief Complaint: SOB Subjective: No new changes Review of Systems 10-point ROS is otherwise unremarkable ENT: Nose Congestion Respiratory: Shortness of Breath, SOB with Excertion, Wheezing Physical Examination - Vital Signs Temperature: 98.6 F Blood Pressure: 178/84 Pulse: 92 Respirations: 24 Pulse Ox (%): 92 - Physical Exam General: Alert, In no apparent distress HEENT: Atraumatic, PERRLA, EOMI Neck: Supple, JVD not distended Respiratory: Clear to auscultation bilaterally, Diminished Cardiovascular: Regular rate/rhythm, Normal S1 S2 Gastrointestinal: Normal bowel sounds, No tenderness Musculoskeletal: No tenderness Integumentary: No rashes Neurological: Normal speech, Normal tone, Normal affect Lymphatics: No axilla or inguinal lymphadenopathy Assessment And Plan - Current Problems (Diagnosis) (1) Asthma exacerbation Current Visit: Yes Status: Acute Plan: Patient presented with URTI symptoms and sob. He has not missed any dialysis. The patient did not call the office. Sob walking to the bathroom. Will start him on steroids and breathing treatments. dc oxygen and telemetry Qualifiers: Asthma severity: moderate (2) End stage renal disease Onset Date: 05/16/18 Current Visit: No Status: Chronic Plan: dialysis per Dr. Mason (3) Hypertension Onset Date: 05/16/18 Current Visit: No Status: Chronic Plan: may be due to asthma. Treat with prn hydralazine Qualifiers: Hypertension type: primary hypertension Qualified Code(s): I10 - Essential (primary) hypertension (4) Hyperglycemia, unspecified Current Visit: Yes Status: Acute Plan: remote history of dm2 Will keep him on sliding scale and accuchecks Discharge Plan: Home Plan to discharge in: 24 Hours - Code Status/Comfort Care Code Status Assessed: No Critical Care: No Time Spent Managing PTS Care (In Minutes): 30
[2024-04-05] MEDS: SEVELAMER CARBONATE 800 MG TABLET PO SCH (16:14)
[2024-04-05] MEDS: dexAMETHasone 4 MG/ML VIAL IV SCH (16:14)
--- NOTE | 2024-04-05 19:59 | PN ---
Date of Progress Note: 04/05/2024 Subjective: The patient was admitted to the hospital with respiratory failure secondary to over volume and flu. Patient was dialyzed yesterday and day before. The patient is feeling better, but still has some shortness of breath. Physical Examination: Vital Signs: Blood pressure 130/78, pulse of 92, and earlier blood pressure was up to 178. Chest: Mild wheezing, bilateral. Heart: S1, S2, systolic murmur. Abdomen: Soft, nontender, Extremities: Trace edema. Neurologic: Alert, no focality. Laboratory Data: WBC 7.2, hemoglobin 7.7, sodium 136, potassium 4.2, bicarb 29, BUN 48, creatinine 11.4, calcium 9.4. Current Medications: The patient on. it Include, 1. Heparin. 2. Epogen. 3. Clonidine 0.2 t.i.d. 4. Lisinopril 40 daily. 5. Carvedilol. 6. Amlodipine 5 mg b.i.d. 7. Lasix. 8. Pantoprazole. 9. Hydrocodone. 10. Singulair. Assessment And Plan: 1. End-stage renal disease, over volume, status post daily dialysis. We will go ahead and back to his dialysis schedule as Saturday, Saturday, Saturday and we will follow up the patient ,. 2. Hypertension. We will continue to utilize blood pressure for more ultrafiltration. I am going to go ahead and increase clonidine to 0.3, and we will see the response for the patient. 3. Anemia of chronic kidney disease. Continue SAMARA. 4. Secondary hyperparathyroid. Continue binder. Time spent examining the patient [id number] reviewing data lab and radiology placing order discussing the case with the patient / family by bedside discussing the case with the operations team leader including hospitalist and nursing staff more than 55-minute ALONZO/STACIA Voice ID: [id number] Report ID: [id number] SHEN
[2024-04-05] MEDS: CLONIDINE HCL 0.3 MG TAB PO SCH (21:23)
[2024-04-06 04:08] VITALS: BMI 46.7
[2024-04-06 05:24] LABS: Albumin 3.3 g/dL (3.4-5.0); Anion Gap 14.9 mEq/L (5.0-15.0); Phosphorus 6.3 mg/dL (2.5-4.9); Potassium 4.9 mEq/L (3.5-5.1)
[2024-04-06 09:58] VITALS: O2SAT 92
--- NOTE | 2024-04-06 12:51 | P.DS ---
Admission Date: 04/03/24 Discharge Date: 04/06/24 Disposition: ROUTINE DISCHARGE Discharge Condition: FAIR Reason for Admission: SOB - Problems (1) Asthma exacerbation Current Visit: Yes Status: Acute Qualifiers: Asthma severity: moderate (2) End stage renal disease Onset Date: 05/16/18 Current Visit: No Status: Chronic (3) Hypertension Onset Date: 05/16/18 Current Visit: No Status: Chronic Qualifiers: Hypertension type: primary hypertension Qualified Code(s): I10 - Essential (primary) hypertension (4) Hyperglycemia, unspecified Current Visit: Yes Status: Acute Brief History of Present Illness: Patient came in with post nasal drip and shortness of breath. Was assumed to be due to insufficent dialysis. He was seen by Dr. Mason. Hospital Course: took over the patients care after a few days. he was still short of breath and had post nasal drip. The patient was started on steroids and breathing treatments. He is improving. Will discharge him on prednisone and albuterol. Thank you for allowing me to take part in her care. Vital Signs/Physical Exam: Temp Pulse Resp BP Pulse Ox 98.2 F 87 16 150/85 H 96 04/06/24 08:00 04/06/24 08:19 04/06/24 08:00 04/06/24 08:19 04/06/24 08:00 General: Alert, In no apparent distress HEENT: Atraumatic, PERRLA, EOMI Neck: Supple, JVD not distended Respiratory: Clear to auscultation bilaterally, Normal air movement Cardiovascular: Regular rate/rhythm, Normal S1 S2 Gastrointestinal: Normal bowel sounds, No tenderness Musculoskeletal: No tenderness Integumentary: No rashes Neurological: Normal speech, Normal tone, Normal affect Lymphatics: No axilla or inguinal lymphadenopathy Laboratory Data at Discharge: WBC 7.20 thou/uL (4.3-10.9) 04/04/24 05:33 Hgb 7.7 g/dL (13.6-17.9) L 04/04/24 05:33 Hct 22.3 % (39.6-49.0) L 04/04/24 05:33 Plt Count 156 thou/uL (152-406) 04/04/24 05:33 PT 12.6 SECONDS (9.4-12.5) H 04/03/24 01:25 INR 1.13 04/03/24 01:25 Sodium 134 mEq/L (136-145) L 04/06/24 04:11 Potassium 4.9 mEq/L (3.5-5.1) D 04/06/24 04:11 BUN 70 mg/dL (7-18) H 04/06/24 04:11 Creatinine 13.90 mg/dL (0.70-1.30) H 04/06/24 04:11 Glucose 156 mg/dL (74-106) H 04/06/24 04:11 Phosphorus 6.3 mg/dL (2.5-4.9) H 04/06/24 04:11 Magnesium 2.3 mg/dL (1.6-2.4) 04/03/24 01:25 Total Bilirubin 0.7 mg/dL (0.2-1.0) 04/04/24 05:33 AST < 10 U/L (15-37) L 04/04/24 05:33 ALT < 14 U/L (16-61) L 04/04/24 05:33 Alkaline Phosphatase 40 U/L (45-117) L 04/04/24 05:33 Home Medications: Cinacalcet HCl [Sensipar] 60 mg PO DAILY 05/22/23 Furosemide [Lasix] 40 mg PO BID 05/22/23 Lisinopril [Zestril] 40 mg PO PRN 05/22/23 Montelukast [Singulair*] 10 mg PO PRN 05/22/23 Pantoprazole [Protonix Tab*] 40 mg PO DAILY 05/22/23 Phentermine HCl 15 mg PO DAILY 05/22/23 carvediloL [Coreg] 25 mg PO BID 05/22/23 Escitalopram [Lexapro*] 5 mg PO DAILY 10/28/23 Amlodipine [Norvasc*] 5 mg PO BID 04/03/24 Epoetin [Retacrit] 10,000 unit IV EVERY HD vial 04/04/24 guaiFENesin [Guaifenesin] 10 ml PO Q4H PRN #237 ml 04/04/24 lisinopriL [Prinivil*] 40 mg PO DAILY tab 04/04/24 Albuterol Inhaler [Ventolin Inhaler*] 2 puff IH Q6H PRN 30 Days #1 in 04/06/24 Prednisone [Sterapred Ds] 10 mg PO BID 6AM 6PM 6 Days #9 tab 04/06/24 New Medications: guaiFENesin [Guaifenesin] 10 ml PO Q4H PRN #237 ml PRN Reason: Cough Prednisone [Sterapred Ds] 10 mg PO BID 6AM 6PM 6 Days #9 tab Albuterol Inhaler [Ventolin Inhaler*] 2 puff IH Q6H PRN 30 Days #1 in PRN Reason: Shortness Of Breath Diet: Renal Activity: Ad yobany Followup: Sandie Rome MD [ACTIVE - CAN ADMIT] - 1-2 Weeks Juan José Arnett MD [ACTIVE - CAN ADMIT] - 1 Week Physician Review: Patient Assessed, Agree with Above Assessment and Plan Time spent managing pt's care (in minutes): 30
[2024-04-06 13:43] VITALS: BP 155/86; TEMP 98.3
--- NOTE | 2024-04-07 00:02 | PN ---
Date of Progress Note: 04/06/2024 Chief Complaint: End-stage renal disease, dyspnea, pulmonary edema, hypoxemic respiratory failure, f luid overload. Subjective: The patient is a 33-year-old man with history of end-stage renal disease, on hemodialysi s Saturday, Saturday, Saturday; hypertensive heart and kidney disease; GERD; anemia due to chronic kidne y disease; renal osteodystrophy; history of peritonitis secondary to PD dialysis; hypothyroidism. Th e patient presented to the hospital because of shortness of breath and chest discomfort. He became s hort of breath 2 days prior to admission. He developed fluid overload and received dialysis for volu me control during this hospitalization. The patient is feeling better, although he has shortness of breath and is undergoing workup for possible asthma. Review of Systems: Denies chest pain, palpitation. Physical Examination: Lungs: Diminished breath sounds at bases. Heart: S1, S2. Abdomen: Soft, benign. Extremities: No edema. Impression And Plan: 1.Severe fluid overload and congestive heart failure exacerbation in the setting of fluid overload. The patient received urgent dialysis and daily dialysis for volume control. Volemia has improved. 2.Hyperkalemia. The patient received Lokelma and urgent dialysis was done to treat hyperkalemia. P otassium level improved. Continue to monitor. 3.Hypertension. Continue current medication. 4.Anemia due to chronic kidney disease. Monitor hemoglobin level. 5.Renal osteodystrophy. Continue renal diet and binders. EB/MODL Voice ID: [id number] Report ID: [id number]
== END 2024-04-06 17:15 | disposition home or self-care (01) | DRG 640 ==
LOC: ER 01:03 → 2ND 04:24
PROVIDERS: ADMIT Family Medicine; ATTEND Internal Medicine
PROC: 5A1D70Z Performance of Urinary Filtration, Intermittent, Less than 6 Hours Per Day (ICD-10-PCS; principal; 2024-04-03)
DX: E87.5 Hyperkalemia (principal); I50.33 Acute on chronic diastolic (congestive) heart failure; N18.6 End stage renal disease; J96.90 Respiratory failure, unspecified, unspecified whether with hypoxia or hypercapnia; J10.00 Influenza due to other identified influenza virus with unspecified type of pneumonia; I13.2 Hypertensive heart and chronic kidney disease with heart failure and with stage 5 chronic kidney disease, or end stage renal disease; Z68.41 Body mass index [BMI] 40.0-44.9, adult; J45.41 Moderate persistent asthma with (acute) exacerbation; E66.01 Morbid (severe) obesity due to excess calories; D63.1 Anemia in chronic kidney disease; E03.9 Hypothyroidism, unspecified; N25.0 Renal osteodystrophy; E78.00 Pure hypercholesterolemia, unspecified; K21.9 Gastro-esophageal reflux disease without esophagitis; R73.9 Hyperglycemia, unspecified; Z99.2 Dependence on renal dialysis; Z88.8 Allergy status to other drugs, medicaments and biological substances; Z11.52 Encounter for screening for COVID-19; Z79.02 Long term (current) use of antithrombotics/antiplatelets; Z79.899 Other long term (current) drug therapy; Z91.158 Patient's noncompliance with renal dialysis for other reason
CPT/HCPCS: 36415; 71045; 80048; 80053; 80069; 80076; 82947; 83036; 83735; 83880; 84132; 84484; 85025; 85610; 87804; 87811; 90935; 93005; 94640; 94760; 96374; 99285; J1100; J1644; J1940; J2405; J7613; Q0162

== ENCOUNTER 2024-04-20 10:05 | Inpatient (IN) | payer OTHER ==
--- NOTE | 2024-04-20 10:43 | RAD REPORT ---
Procedure: Chest Single View HISTORY: Shortness of breath COMPARISON: 2023 FINDINGS: Moderate bilateral pulmonary opacities mildly improved. No significant pleural effusion noted. Cardiomegaly IMPRESSION: Moderate bilateral interstitial lung opacities mildly improved since the prior exam may represent pul monary edema
[2024-04-20] MEDS ORDERED: IPRATROPIUM BROM 0.5MG/2.5ML ONE (10:46)
[2024-04-20] MEDS ORDERED: ALBUTEROL 2.5 MG/3 ML NEB SOL ONE (10:46)
[2024-04-20 10:56] LABS: Absolute Basophils 0.1 K/uL (0-0.5); Absolute Eosinophils 0.3 K/uL (0-0.5); Absolute Lymphocytes (CBC) 0.7 K/uL (0.7-4.9); Absolute Monocytes 0.5 K/uL (0.1-1.3); Absolute Neutrophil 6.2 K/uL (1.8-8.0); Basophils % 0.7 % (0-1.3); Eosinophils % 4.2 % (0-4.4); Hematocrit 19.5 % (39.6-49.0); Hemoglobin 6.8 g/dL (13.6-17.9); Lymphocytes % 8.5 % (15.3-44.8); MCHC 34.7 g/dL (32.0-36.0); MCV 89.2 fL (80-100); MPV 6.5 fL (7.6-11.3); Monocytes % 6.1 % (3.3-12.3); Neutrophils % 80.5 % (41.7-73.7); Platelets 155 thou/uL (152-406); RBC Red Blood Cell Count 2.19 M/uL (4.33-5.43); Red Cell Distribution Width 14.3 % (12.1-15.2)
[2024-04-20 11:07] LABS: PT Prothrombin Time 12.6 SECONDS (9.4-12.5); Protime INR 1.2
[2024-04-20 11:26] LABS: ALT/SGPT < 14 U/L (16-61); AST/SGOT < 10 U/L (15-37); Albumin 3.5 g/dL (3.4-5.0); Albumin/Globulin Ratio 0.9 (1.1-1.8); Alkaline Phosphatase 46 U/L (45-117); Anion Gap 11.4 mEq/L (5.0-15.0); BUN Blood Urea Nitrogen 29 mg/dL (7-18); Bicarbonate 26 mEq/L (21-32); Bilirubin Direct 0.2 mg/dL (0-0.2); Bilirubin Indirect, Calculated 0.8 mg/dL (0.2-0.8); Glomerular Filtration Rate 9 ml/min (=/>90); Glucose Level 81 mg/dL (74-106); Potassium 3.4 mEq/L (3.5-5.1); Protein, Total 7.5 g/dL (6.4-8.2); Sodium Level 136 mEq/L (136-145); Troponin High Sensitivity 32.8 pg/mL (<58.9)
[2024-04-20 11:36] LABS: NT PRO-BNP 42470 pg/mL (<125)
[2024-04-20] MEDS ORDERED: ACETAMINOPHEN 500 MG TAB ONE (11:59)
--- NOTE | 2024-04-20 12:06 | RAD REPORT ---
EXAM:Thorax Wo Con CLINICAL INDICATION: Shortness of breath TECHNIQUE: CT chest performed.. Axial, sagittal and coronal reconstructions were obtained. One or mor e of the following dose reduction techniques were used: Automated exposure control, adjustment of the mA and/or kV according to the patient size, and/or iterative reconstruction. Unless otherwise specified, incidental findings do not require dedicated imaging follow-up. [id number]. COMPARISON: October 2023 FINDINGS: Moderate bilateral pulmonary opacities which are a combination of interstitial and groundglass. Mild mediastinal and hilar lymphadenopathy probably reactive in nature. Small bilateral pleural effusions. Trace pericardial effusion. Mild to moderate cardiomegaly IMPRESSION: Moderate bilateral pulmonary opacities may represent pulmonary edema or infection.
--- NOTE | 2024-04-20 12:33 | EDPHYS ---
Physician Documentation [facility] Name: Melvin Maguire Age: 33 yrs Sex: Male : 1990 Arrival Date: 04/20/2024 Time: 10:05 Bed 19 Private MD: ED Physician Kosta Alvarez HPI: 04/20 10:25 This 33 yrs old Male presents to ER via Wheelchair with complaints of shortness of sb4 breath. 10:25 Patient reports shortness of breath x 1 week. States that he was admitted about 3 weeks sb4 ago for shortness of breath secondary to missing dialysis and supposed an asthma exacerbation. He improved with steroids and was discharged with p.o. steroids and an inhaler. He states that when he finished his steroids, his shortness of breath returned. States that he went to dialysis this morning and was completed normally. States that he has not yet followed up with Dr. Arnett. He also reports some chest pain that radiates to his back. Historical: - Allergies: 10:10 amlodipine; ld1 10:10 HYDRALAZINE; ld1 - PMHx: 10:10 Asthma; Dialysis; Hypertension; High Cholesterol; Hypothyroidism; kidney failure; ld1 - PSHx: 10:10 heria repair; ld1 - Immunization history:: Adult Immunizations up to date. - Infectious Disease History:: Denies. - Social history:: Smoking status: Patient denies any tobacco usage or history of. ROS: 10:25 Constitutional: Negative for fever, chills, and weight loss, sb4 10:25 Cardiovascular: Positive for chest pain, 10:25 Respiratory: Positive for shortness of breath, 10:25 All other systems are negative, Exam: 10:25 Head/Face: Normocephalic, atraumatic. Eyes: Extra-ocular motions intact. Periorbital sb4 areas with no swelling, redness, or edema. ENT: Mucous membranes moist. Cardiovascular: Regular rate and rhythm with a normal S1 and S2. Respiratory: No increased work of breathing, no retractions or nasal flaring. Skin: Warm, dry with normal turgor. Normal color with no rashes, no lesions, and no evidence of cellulitis. 10:25 Constitutional: The patient appears in no acute distress, alert, awake, obese, Vital Signs: 10:20 Weight 149.69 kg; Height 5 ft. 10 in. ; Pain 8/10; ld1 10:29 Pulse 102; Resp 19; Temp 98.1(TE); Pulse Ox 100% on R/A; ld1 10:55 BP 152 / 72 RA Sitting; bc6 10:57 Pulse 98; Resp 18; Pulse Ox 100% on R/A; ld1 10:20 Body Mass Index 47.35 (149.69 kg, 177.8 cm) ld1 10:20 Pain Scale: Adult ld1 MDM: 10:09 Medical Screening Exam initiated sb4 12:31 Data reviewed: vital signs, nurses notes, lab test result(s), EKG, radiologic studies, sb4 I have discussed the patient's presentation/case with the attending Emergency Department Physician; and as a result, I will admit patient. Consideration of Admission/Observation Patient was admitted/placed on observation. Care significantly affected by the following chronic conditions: Hypertension, Obesity, Chronic Kidney Disease. Counseling: I had a detailed discussion with the patient and/or guardian regarding the historical points, exam findings, and any diagnostic results supporting the discharge/admit diagnosis, the presence of at least one elevated blood pressure reading (>120/80) during this emergency department visit, lab results, radiology results, the need for further work-up and treatment in the hospital. 12:48 Management of patient was discussed with the following: Line O Scribe Operator: Dr. Rome, sb4 recommends admission, transfusing 1 unit PRBC now and 1 tomorrow with HD. Primary Care Provider: Dr. Arnett, agrees to admit. 04/20 10:16 Order name: Basic Metabolic Panel; Complete Time: 11:41 sb4 04/20 10:16 Order name: CBC with Diff; Complete Time: 10:59 sb4 04/20 10:16 Order name: LFT's; Complete Time: 11:41 sb4 04/20 10:16 Order name: Magnesium; Complete Time: 11:41 sb4 04/20 10:16 Order name: NT PRO-BNP; Complete Time: 11:41 sb4 04/20 10:16 Order name: PT-INR; Complete Time: 11:08 sb4 04/20 10:16 Order name: Troponin HS; Complete Time: 11:41 sb4 04/20 12:29 Order name: Bb Add On bd 04/20 12:30 Order name: Type And Screen bd 04/20 12:40 Order name: Retic Count EDNE 04/20 12:40 Order name: Transferrin Sat/Iron Binding EDNE 04/20 12:44 Order name: Haptoglobin EDNE 04/20 12:44 Order name: Lactic Dehydrogenase EDNE 04/20 10:16 Order name: XRAY Chest (1 view); Complete Time: 10:44 sb4 04/20 11:30 Order name: Chest Wo Con CT; Complete Time: 12:06 sb4 04/20 12:48 Order name: CONS Physician Consult EDNE 04/20 10:16 Order name: Cardiac monitoring; Complete Time: 10:20 sb4 04/20 10:16 Order name: EKG - Nurse/Tech; Complete Time: 10:20 sb4 04/20 10:16 Order name: IV Saline Lock; Complete Time: 10:57 sb4 04/20 10:16 Order name: Labs collected and sent; Complete Time: 10:57 sb4 04/20 10:16 Order name: O2 Per Protocol; Complete Time: 10:20 sb4 04/20 10:16 Order name: O2 Sat Monitoring; Complete Time: 10:20 sb4 EC:24 Rate is 101 beats/min. Rhythm is regular, Sinus tachycardia. MT interval is normal at sb4 194 msec. QRS interval is normal at 84 msec. QT interval is normal at 358 msec. No Q waves. T waves are Normal. No ST changes noted. Clinical impression: Sinus tachycardia. Interpreted by me. Reviewed by me. Administered Medications: 10:57 Drug: DuoNeb Nebulize (3:1) (2.5 mg - 0.5 mg) 3 ml Nebulizer once Route: Nebulizer; ld1 12:09 Follow up: Response: No adverse reaction ld1 12:09 Drug: Acetaminophen PO 1000 mg PO once Route: PO; ld1 12:45 Follow up: Response: No adverse reaction ld1 12:44 Not Given (Physician Discretion): fentanyl (pf)50 mcg IVP once sb4 12:53 Drug: HYDROmorphone IVP 0.5 mg IVP once Route: IVP; Site: right antecubital; ld1 Disposition: 12:47 Critical Care:. sb4 13:56 Co-signature as Attending Physician, Kosta Alvarez MD I reviewed the patient's care rn provided by the Advanced Practice Provider and agree with the diagnosis and treatment plan. Disposition Summary: 04/20/24 12:32 Hospitalization Ordered Notes: Hospitalization Status: Inpatient Admission sb4 Provider: Juan José Arnett Location: Telemetry/MedSurg (Inpatient) sb4 Condition: Fair sb4 Problem: new sb4 Symptoms: are unchanged sb4 Bed/Room Type: Standard sb4 Room Assignment: 212(04/20/24 12:50) bd Diagnosis - Dyspnea sb4 - Anemia in chronic kidney disease sb4 - End stage renal disease sb4 Forms: - Medication Reconciliation Form sb4 - SBAR form sb4 - Leadership Thank You Letter sb4 Critical care time excluding procedures: 12:47 Critical care time: Bedside Care: 10 minutes, Consultation: 25 minutes. Total time: 35 sb4 minutes Signatures: Dispatcher [employer] EDViktoriya Law Roman, MD MD rn Sims, Lauren, RN RN ld1 Faviola Sam PA-C PAJessica sb4 Corrections: (The following items were deleted from the chart) 10:16 10:16 BASIC METABOLIC PANEL+C.LAB.BRZ ordered. EDMS EDMS 10:16 10:16 CBC+H.LAB.BRZ ordered. EDMS EDMS 10:17 10:16 HEPATIC FUNCTION+C.LAB.BRZ ordered. EDMS EDMS 10:17 10:16 MAGNESIUM+C.LAB.BRZ ordered. EDMS EDMS 10:17 10:16 PROBNP+C.LAB.BRZ ordered. EDMS EDMS 10:17 10:16 PROTIME (+INR)+COAG.LAB.BRZ ordered. EDMS EDMS 10:17 10:16 Troponin High Sensitivity+C.LAB.BRZ ordered. EDMS EDMS 10:17 10:17 Chest Single View+RAD.RAD.BRZ ordered. EDMS EDMS 12:50 12:32 sb4 bd
--- NOTE | 2024-04-20 12:33 | ER ---
Nurse's Notes [facility] Name: Melvin Maguire Age: 33 yrs Sex: Male : 1990 Arrival Date: 04/20/2024 Time: 10:05 Bed 19 Private MD: Diagnosis: Dyspnea;Anemia in chronic kidney disease;End stage renal disease Presentation: 04/20 10:20 Chief complaint: Patient states: Chest pain and SOB X 2 days. Coronavirus screen: At ld1 this time, the client does not indicate any symptoms associated with coronavirus-19. Ebola Screen: No symptoms or risks identified at this time. Initial Sepsis Screen: Does the patient meet any 2 criteria? No. Patient's initial sepsis screen is negative. Does the patient have a suspected source of infection? No. Patient's initial sepsis screen is negative. Risk Assessment: Do you want to hurt yourself or someone else? Patient reports no desire to harm self or others. Onset of symptoms was April 20, 2024. 10:20 Method Of Arrival: Wheelchair ld1 10:20 Acuity: SAKSHI 3 ld1 Triage Assessment: 10:20 General: Appears in no apparent distress. comfortable, Behavior is calm, cooperative, ld1 appropriate for age. Pain: Complains of pain in chest Pain does not radiate. Pain currently is 8 out of 10 on a pain scale. Quality of pain is described as crampy, Pain began 2-3 days ago. Is continuous. EENT: No signs and/or symptoms were reported regarding the EENT system. Neuro: Level of Consciousness is awake, alert, obeys commands, Oriented to person, place, time, situation. Cardiovascular: Capillary refill < 3 seconds Patient's skin is warm and dry. Respiratory: Reports shortness of breath at rest on exertion Airway is patent Respiratory effort is even, unlabored, Onset: The symptoms/episode began/occurred suddenly, the patient has moderate shortness of breath. GI: Abdomen is round non-distended. : No signs and/or symptoms were reported regarding the genitourinary system. Derm: No signs and/or symptoms reported regarding the dermatologic system. Musculoskeletal: No signs and/or symptoms reported regarding the musculoskeletal system. Historical: - Allergies: 10:10 amlodipine; ld1 10:10 HYDRALAZINE; ld1 - PMHx: 10:10 Asthma; Dialysis; Hypertension; High Cholesterol; Hypothyroidism; kidney failure; ld1 - PSHx: 10:10 heria repair; ld1 - Immunization history:: Adult Immunizations up to date. - Infectious Disease History:: Denies. - Social history:: Smoking status: Patient denies any tobacco usage or history of. Screenin:22 [facility] ED Fall Risk Assessment (Adult) History of falling in the last 3 months, ld1 including since admission No falls in past 3 months (0 pts) Confusion or Disorientation No (0 pts) Intoxicated or Sedated No (0 pts) Impaired Gait No (0 pts) Mobility Assist Device Used No (0 pt) Altered Elimination No (0 pt) Score/Fall Risk Level 0 - 2 = Low Risk Oriented to surroundings, Maintained a safe environment, Educated pt \T\ family on fall prevention, incl call for assistance when getting out of bed, Assessed \T\ reinforced patient's understanding of fall precautions, Provided non-skid footwear, Hourly rounding (assess needs \T\ fall precautionary measures) done, Used ambulatory aids as needed (educated on \T\ assisted with), Used gait belt as appropriate. Abuse screen: Denies threats or abuse. Denies injuries from another. Nutritional screening: No deficits noted. Tuberculosis screening: No symptoms or risk factors identified. Assessment: 10:22 Reassessment: See triage assessment. Cardiovascular: Capillary refill < 3 seconds ld1 Patient's skin is warm and dry. Rhythm is regular. Respiratory: Airway is patent Respiratory effort is even, unlabored, Breath sounds are clear bilaterally. Vital Signs: 10:20 Weight 149.69 kg; Height 5 ft. 10 in. ; Pain 8/10; ld1 10:29 Pulse 102; Resp 19; Temp 98.1(TE); Pulse Ox 100% on R/A; ld1 10:55 BP 152 / 72 RA Sitting; bc6 10:57 Pulse 98; Resp 18; Pulse Ox 100% on R/A; ld1 10:20 Body Mass Index 47.35 (149.69 kg, 177.8 cm) ld1 10:20 Pain Scale: Adult ld1 ED Course: 10:07 Patient arrived in ED. ra3 10:09 Faviola Sam PA-C is PHCP. sb4 10:09 Kosta Alvarez MD is Attending Physician. sb4 10:10 Syeda Edwards, RN is Primary Nurse. ld1 10:20 Arm band placed on right wrist. EKG completed in triage. Results shown to MD. ld1 10:21 Triage completed. ld1 10:22 Patient has correct armband on for positive identification. Placed in gown. Bed in low ld1 position. Call light in reach. Side rails up X2. color television console monitor on. Pulse ox on. NIBP on. Door closed. Noise minimized. Warm blanket given. 10:22 No provider procedures requiring assistance completed. ld1 10:34 XRAY Chest (1 view) In Process Unspecified. EDMS 10:57 Inserted saline lock: 20 gauge in right antecubital area, using aseptic technique. ld1 Blood collected. Flushed with 10 mL NS. 11:[address] In Process Unspecified. EDMS 12:31 Juan José Arnett MD is Hospitalizing Provider. sb4 12:45 Type And Screen Sent. ld1 12:45 Bb Add On Sent. ld1 Administered Medications: 10:57 Drug: DuoNeb Nebulize (3:1) (2.5 mg - 0.5 mg) 3 ml Nebulizer once Route: Nebulizer; ld1 12:09 Follow up: Response: No adverse reaction ld1 12:09 Drug: Acetaminophen PO 1000 mg PO once Route: PO; ld1 12:45 Follow up: Response: No adverse reaction ld1 12:44 Not Given (Physician Discretion): fentanyl (pf)50 mcg IVP once sb4 12:53 Drug: HYDROmorphone IVP 0.5 mg IVP once Route: IVP; Site: right antecubital; ld1 Outcome: 12:32 Decision to Hospitalize by Provider. sb4 13:22 Patient left the ED. ld1 Signatures: Dispatcher [employer] EDMS Syeda Edwards, EVETTE RN ld1 Faviola Sam PA-C PA-C sb4 Jo [place] Ruby ra3
[2024-04-20] MEDS ORDERED: DICLOFENAC SOD D.R. 75 MG TAB PO PRN (12:43)
[2024-04-20] MEDS ORDERED: HYDROMORPHONE HCL 0.5 MG/0.5 ML INJ ONE (12:49)
--- NOTE | 2024-04-20 13:44 | P.HP ---
Certification for Inpatient Patient admitted to: Inpatient With expected LOS: >2 Midnights Patient will require the following post-hospital care: None Practitioner: I am a practitioner with admitting privileges, knowledge of patient current condition, hospital course, and medical plan of care. Services: Services provided to patient in accordance with Admission requirements found in Title 42 Section 412.3 of the Code of Federal Regulations Patient History Date of Service: 04/20/24 Primary Care Provider: Melquiades Reason for admission: Anemia, ESRD History of Present Illness: patient is an office patient of [employer]. He has a history of ESRD, HTN, derpression/anxiety and GERD He was feeling tired the last few days. Went to his dialysis this morning. Was found to have a hb of 6.8 A drop of one unit in the last 14 days. Was then sent to the ER for admission. He has no reported Melena or coffee ground emesis. No recent reflux. no hematuria. Allergies adhesive tape Allergy (Verified 06/06/23 12:17) Rash hydralazine Allergy (Verified 06/06/23 12:17) Rash Home Medications: Furosemide [Lasix] 40 mg PO BID 05/22/23 Pantoprazole [Protonix Tab*] 40 mg PO DAILY 05/22/23 carvediloL [Coreg] 25 mg PO BID 05/22/23 Escitalopram [Lexapro*] 5 mg PO DAILY 10/28/23 Amlodipine [Norvasc*] 5 mg PO BID 04/03/24 lisinopriL [Prinivil*] 40 mg PO DAILY tab 04/04/24 Albuterol Inhaler [Ventolin Inhaler*] 2 puff IH Q6H PRN 30 Days #1 in 04/06/24 Cinacalcet HCl [Sensipar] 60 mg PO ,,S 04/20/24 - Past Medical/Surgical History Has patient received pneumonia vaccine in the past: No Diabetic: No -: End-stage renal disease on peritoneal dialysis -: HTN -: GERD -: Obesity -: Peritonitis, January 2019 -: Obesity -: Hypothyroidism -: kidney biopsy -: access dialysis sx / catheter exchange -: hernia repair may 2018 -: december peritoneal dialysis access Psychosocial/ Personal History: Patient is . Lives at home. Patient is disabled. - Family History Father -: Heart disease, Diabetes Notes: Heavy smoker Mother -: Lung disease Notes: COPD - Social History Alcohol use: No CD- Drugs: No Caffeine use: Yes Review of Systems 10-point ROS is otherwise unremarkable General: Weakness Physical Examination - Vital Signs Temperature: 98.1 F Blood Pressure: 152/72 Pulse: 98 Respirations: 18 - Physical Exam General: Alert, In no apparent distress HEENT: Atraumatic, PERRLA, Mucous membr. moist/pink, EOMI, Scleral icterus (mild) Neck: Supple, 2+ carotid pulse no bruit, No LAD, Without JVD or thyroid abnormality Respiratory: Clear to auscultation bilaterally, Normal air movement Cardiovascular: Regular rate/rhythm, Normal S1 S2 Gastrointestinal: Normal bowel sounds, No tenderness Musculoskeletal: No tenderness Integumentary: No rashes Neurological: Normal gait, Normal speech, Normal strength at 5/5 x4 extr, Normal tone, Normal affect Lymphatics: No axilla or inguinal lymphadenopathy - Studies Laboratory Data (last 24 hrs) 04/20/24 04/20/24 04/20/24 10:45 10:45 10:45 WBC 7.70 Hgb 6.8 L Hct 19.5 L Plt Count 155 PT 12.6 H INR 1.20 Sodium 136 Potassium 3.4 L BUN 29 H Creatinine 7.47 H Glucose 81 Magnesium 2.0 Total Bilirubin 1.0 AST < 10 L ALT < 14 L Alkaline Phosphatase 46 Assessment and Plan - Problems (Diagnosis) (1) Anemia Current Visit: Yes Status: Acute Plan: will transfuse him a unit. Check for signs of hemolytic anemia or iron def icency. Not very likely He may need an increase of epo. Qualifiers: Anemia type: unspecified type Qualified Code(s): D64.9 - Anemia, unspecif ied (2) End stage renal disease Onset Date: 05/16/18 Current Visit: No Status: Chronic Plan: consult to Dr. Mason (3) Hypertension Onset Date: 05/16/18 Current Visit: No Status: Chronic Plan: restart his home medications Qualifiers: Hypertension type: primary hypertension - Advance Directives Does patient have a Living Will: No Does patient have a Durable POA for Healthcare: No - Code Status/Comfort Care Code Status Assessed: Yes Code Status: Full Code Physician Review: Patient Assessed, Agree with Above Assessment and Plan Critical Care: No Time Spent Managing Pts Care (In Minutes): 45
[2024-04-20] MEDS: ACETAMINOPHEN 500 MG TAB PO SCH (14:21)
[2024-04-20] MEDS: NA CHLORIDE 0.9% 250 ML ONE (15:27)
[2024-04-20] MEDS: carvediloL 25 MG TAB PO SCH (17:10)
[2024-04-20] MEDS: HYDROMORPHONE HCL 0.5 MG/0.5 ML INJ IV PRN (17:55)
[2024-04-20 19:26] LABS: Hematocrit 21.6 % (39.6-49.0); Hemoglobin 7.4 g/dL (13.6-17.9)
[2024-04-20 19:28] LABS: Percent Reticulocyte Count 1.97 % (0.4-2.05); RBC Red Blood Cell Count 2.4 M/uL (4.33-5.43)
[2024-04-20] MEDS: guaiFENesin 100 MG/5 ML UCUP PO PRN (23:06)
--- NOTE | 2024-04-21 01:23 | CON ---
Date of Consultation: 04/20/2024 Chief Complaint: Shortness of breath, end-stage renal disease, anemia. History Of Present Illness: The patient is dialysis dependent. He has end-stage renal disease. He has been dialyzed 3 times per week on Saturday, Saturday, and Saturday. He was complaining of shortness of breath and went to his PCP office today. Blood work revealed hemoglobin of 6.8 and patient was r eferred to the emergency room for symptomatic anemia. He has history of hypertension, hypertensive h eart and kidney disease, renal osteodystrophy, and anemia due to chronic kidney disease. The patient denies melena, hematemesis. He denies any hematuria. Review of Systems: Constitutional: Denies fevers, chills. Eyes: Denies vision changes. Ears, Nose, Mouth, and Throat: Denies sore throat, earache. Respiratory: Denies PND, orthopnea. Has shortness of breath with activities and progressively worse dyspnea on exertion over last few days. GI: Denies melena, hematemesis. : Denies dysuria, hematuria. All other systems reviewed and all are negative. Past Medical History: End-stage renal disease, hypertension, GERD, obesity, hypertensive heart and k idney disease, peritonitis, hypothyroidism, kidney biopsy, dialysis access procedure, hernia repair i n 2019, peritoneal dialysis access placement and removal. Family History: Father, heart disease, diabetes and mother lung disease, COPD. Social History: Denies tobacco, alcohol, drugs. Denies drugs. Physical Examination: General: The patient is alert, oriented, not in acute distress. Eyes: Anicteric sclerae. EOMI. Ears, Nose, Mouth, and Throat: Oral mucosa moist. No pallor. Neck: Supple. No bruits. Lungs: No crackles. No rhonchi. Heart: S1, S2. No pericardial friction rub. Abdomen: Soft, benign, nontender. No rebound, no guarding. Extremities: Minimal peripheral edema. Neurologic: Moving extremities. Cranial nerves intact. Laboratory Work: Hemoglobin 6.8, WBC 7.7, platelet count 155,000. Sodium 146, potassium 3.4, BUN 29 , creatinine 7.07, glucose 81. Magnesium 2.0. Total bilirubin 1.0, AP 46. Impression And Plan: 1.Anemia, acute on chronic. The patient will have lab work checked on iron deficiency. Continue ES A and continue iron according to lab results. 2.Dyspnea. The patient has hypertensive heart and kidney disease. Continue dialysis with daily daisy atment to obtain ultrafiltration and to treat fluid overload. 3.Hypertension. Continue blood pressure medication. 4.Renal osteodystrophy. Continue renal diet and binders. 5.Hypertensive heart and kidney disease. Workup was initiated to rule out acute coronary syndrome. 6.Anemia, acute. The patient will require GI workup to evaluate for possible GI bleeding. EB/MODL Voice ID: [id number] Report ID: [id number]
[2024-04-21 06:23] LABS: Anion Gap 11.7 mEq/L (5.0-15.0); Ferritin 1221.8 ng/mL (26-388); Potassium 4.7 mEq/L (3.5-5.1)
[2024-04-21] MEDS: ESCITALOPRAM 20 MG TAB PO SCH (08:52)
[2024-04-21] MEDS: FOLIC ACID 1 MG TABLET PO SCH (08:52)
[2024-04-21] MEDS: CINACALCET HCL 30 MG TAB PO SCH (08:53)
[2024-04-21] MEDS: lisinopriL 20 MG TAB PO SCH (08:53)
[2024-04-21] MEDS: PANTOPRAZOLE 40MG TABLET PO SCH (08:54)
[2024-04-21] MEDS: NA CHLORIDE 0.9% 250 ML ONE (12:01)
[2024-04-21] MEDS: EPOETIN ALFA 10,000 UNIT/ML VIAL IV SCH (13:06)
--- NOTE | 2024-04-21 13:32 | P.DS ---
Admission Date: 04/20/24 Discharge Date: 04/21/24 Primary Care Provider: Melquiades Disposition: ROUTINE DISCHARGE Discharge Condition: GOOD Reason for Admission: Anemia, ESRD - Problems (1) Anemia Current Visit: Yes Status: Acute Qualifiers: Anemia type: unspecified type Qualified Code(s): D64.9 - Anemia, unspecified (2) End stage renal disease Onset Date: 05/16/18 Current Visit: No Status: Chronic (3) Hypertension Onset Date: 05/16/18 Current Visit: No Status: Chronic Qualifiers: Hypertension type: primary hypertension Brief History of Present Illness: patient is an office patient of [employer]. He has a history of ESRD, HTN, derpression/anxiety and GERD He was feeling tired the last few days. Went to his dialysis this morning. Was found to have a hb of 6.8 A drop of one unit in the last 14 days. Was then sent to the ER for admission. He has no reported Melena or coffee ground emesis. No recent reflux. no hematuria. Hospital Course: received 2 units, 1 during dialysis. The patient complained of some back pain and abdominal pain. Have him follow up with me and refer to GI for endoscopy. This may be the reason for his anemia(PUD) Vital Signs/Physical Exam: Temp Pulse Resp BP Pulse Ox 97.7 F 86 18 147/83 H 95 04/21/24 08:00 04/21/24 08:53 04/21/24 10:18 04/21/24 08:53 04/21/24 10:18 General: Alert, In no apparent distress HEENT: Atraumatic, PERRLA, EOMI Neck: Supple, JVD not distended Respiratory: Clear to auscultation bilaterally, Normal air movement Cardiovascular: Regular rate/rhythm, Normal S1 S2 Gastrointestinal: Normal bowel sounds, No tenderness Musculoskeletal: No tenderness Integumentary: No rashes Neurological: Normal speech, Normal tone, Normal affect Lymphatics: No axilla or inguinal lymphadenopathy Laboratory Data at Discharge: WBC 7.70 thou/uL (4.3-10.9) 04/20/24 10:45 Hgb 7.4 g/dL (13.6-17.9) L D 04/20/24 19:05 Hct 21.6 % (39.6-49.0) L 04/20/24 19:05 Plt Count 155 thou/uL (152-406) 04/20/24 10:45 PT 12.6 SECONDS (9.4-12.5) H 04/20/24 10:45 INR 1.20 04/20/24 10:45 Sodium 136 mEq/L (136-145) 04/21/24 04:17 Potassium 4.7 mEq/L (3.5-5.1) D 04/21/24 04:17 BUN 44 mg/dL (7-18) H 04/21/24 04:17 Creatinine 11.30 mg/dL (0.70-1.30) H 04/21/24 04:17 Glucose 106 mg/dL (74-106) 04/21/24 04:17 Magnesium 2.0 mg/dL (1.6-2.4) 04/20/24 10:45 Total Bilirubin 1.0 mg/dL (0.2-1.0) 04/20/24 10:45 AST < 10 U/L (15-37) L 04/20/24 10:45 ALT < 14 U/L (16-61) L 04/20/24 10:45 Alkaline Phosphatase 46 U/L (45-117) 04/20/24 10:45 Home Medications: Furosemide [Lasix] 40 mg PO BID 05/22/23 Pantoprazole [Protonix Tab*] 40 mg PO DAILY 05/22/23 carvediloL [Coreg] 25 mg PO BID 05/22/23 Escitalopram [Lexapro*] 5 mg PO DAILY 10/28/23 Amlodipine [Norvasc*] 5 mg PO BID 04/03/24 lisinopriL [Prinivil*] 40 mg PO DAILY tab 04/04/24 Albuterol Inhaler [Ventolin Inhaler*] 2 puff IH Q6H PRN 30 Days #1 in 04/06/24 Cinacalcet HCl [Sensipar] 60 mg PO T,,S 04/20/24 Diet: Renal Activity: Ad yobany Followup: Juan José Arnett MD [Primary Care Provider] - 1 Week Sandie Rome MD [ACTIVE - CAN ADMIT] - 2-3 Days Time spent managing pt's care (in minutes): 30
[2024-04-21 16:15] LABS: Hepatitis B Surface Ab - Quant 225.34 mIU/mL (<8.0); Hepatitis B surface AG Interp. Nonreactive (Nonreactive)
[2024-04-21 16:16] LABS: HBsAG Nonreactive Report Report
[2024-04-21 16:49] VITALS: BP 159/82; TEMP 98.3; BMI 45.9
[2024-04-21 17:05] LABS: Hematocrit 23.4 % (39.6-49.0); Hemoglobin 8.2 g/dL (13.6-17.9)
[2024-04-21 19:04] LABS: ALT/SGPT 15 U/L (16-61); Albumin 3.2 g/dL (3.4-5.0); Albumin/Globulin Ratio 0.8 (1.1-1.8); Alkaline Phosphatase 45 U/L (45-117); Bilirubin Direct 0.2 mg/dL (0-0.2); Bilirubin Indirect, Calculated 0.7 mg/dL (0.2-0.8); Bilirubin Total 0.9 mg/dL (0.2-1.0); Protein, Total 7.2 g/dL (6.4-8.2)
[2024-04-21 19:11] LABS: AST/SGOT < 10 U/L (15-37)
--- NOTE | 2024-04-21 21:47 | PN ---
Date of Progress Note: 04/21/2024 Subjective: The patient was admitted to the hospital with symptomatic anemia, pneumonia. The patien t had transfusion yesterday. The patient is planned for transfusion with dialysis today. Physical Examination: Vital Signs: When I saw the patient, blood pressure was 159/82, pulse of 106, afebrile. Chest: Crackles bilateral. Heart: S1, S2. Systolic murmur. Abdomen: Soft, nontender. Extremities: Plus edema. Neurologic: Alert. No focality. Laboratory Data: Hemoglobin 7.4. Sodium 136, potassium 4.7, bicarb 26, BUN 44, creatinine 11.3, ca lcium 9.7. Iron saturation 21, ferritin 1221. Current Medications: The patient is on include Epogen, citalopram, Tylenol, pantoprazole. Assessment And Plan: 1.End-stage renal disease, overvolume. We will continue dialysis today. We will challenge the jimmy ent and transfuse with dialysis. 2.Secondary hyperparathyroid, stable. Continue binder. 3.Anemia of chronic kidney disease, questionable gastrointestinal bleed. Waiting for another transf usion with dialysis today. The patient will need Gastroenterology evaluation. Continue SAMARA. 4.Hypertension. Utilize blood pressure for more ultrafiltration. ALONZO/STACIA Voice ID: [id number] Report ID: [id number]
--- NOTE | 2024-04-23 12:04 | EKG ---
Test Date: 2024-04-20 Test Time: 10:16:42 Photo Finisher: Ama DUTTA MEASUREMENT RESULTS: Intervals: Rate: 101 SC: 194 QRSD: 84 QT: 358 QTc: 464 [place]: P: 42 SC: 194 QRS: 69 T: 29 INTERPRETIVE STATEMENTS: Sinus tachycardia Otherwise normal ECG Compared to ECG 04/03/2024 03:14:18 Sinus rhythm no longer present First degree AV block no longer present Atrial abnormality no longer present Myocardial infarct finding no longer present Electronically Signed On 04-23-24 12:01:27 SENIOR PROGRAM ANALYST by Salvador Coy
[2024-04-24 01:10] VITALS: O2SAT 90
== END 2024-04-21 21:15 | disposition home or self-care (01) | DRG 682 ==
LOC: ER 10:05 → ERHOLD 12:44 → 2ND 13:02
PROVIDERS: ADMIT Internal Medicine; ATTEND Internal Medicine
PROC: 5A1D70Z Performance of Urinary Filtration, Intermittent, Less than 6 Hours Per Day (ICD-10-PCS; principal; 2024-04-20)
PROC: 5A1D70Z Performance of Urinary Filtration, Intermittent, Less than 6 Hours Per Day (ICD-10-PCS; 2024-04-20)
PROC: 30243P1 Transfusion of Nonautologous Frozen Red Cells into Central Vein, Percutaneous Approach (ICD-10-PCS; 2024-04-20)
PROC: 5A1D70Z Performance of Urinary Filtration, Intermittent, Less than 6 Hours Per Day (ICD-10-PCS; 2024-04-20)
DX: I12.0 Hypertensive chronic kidney disease with stage 5 chronic kidney disease or end stage renal disease (principal); N18.6 End stage renal disease; Z68.42 Body mass index [BMI] 45.0-49.9, adult; D63.1 Anemia in chronic kidney disease; Z99.2 Dependence on renal dialysis; J45.909 Unspecified asthma, uncomplicated; E03.9 Hypothyroidism, unspecified; F41.8 Other specified anxiety disorders; E66.9 Obesity, unspecified; E21.3 Hyperparathyroidism, unspecified
CPT/HCPCS: 36415; 71045; 71250; 80048; 80076; 82728; 83010; 83540; 83615; 83690; 83735; 83880; 84466; 84484; 85014; 85018; 85025; 85044; 85610; 86706; 86850; 86900; 86901; 86920; 87340; 93005; 96374; 99285; J1171; J7050; J7613; J7644; P9016

== ENCOUNTER 2024-04-21 21:16 | Inpatient (IN) | payer OTHER ==
--- NOTE | 2024-04-21 22:21 | RAD REPORT ---
Procedure: Chest Single View HISTORY: Chest pain COMPARISON: April 20, 2024 FINDINGS: Moderate bilateral pulmonary opacities unchanged Small bilateral pleural effusions The heart is mildly to moderately enlarged.. IMPRESSION: No significant change in moderate bilateral pulmonary opacities which may represent pulmonary edema o r infection
[2024-04-21 22:26] LABS: Protime INR 1.24
[2024-04-21 22:30] LABS: Absolute Basophils 0.1 K/uL (0-0.5); Absolute Eosinophils 0.4 K/uL (0-0.5); Absolute Lymphocytes (CBC) 0.9 K/uL (0.7-4.9); Absolute Monocytes 0.7 K/uL (0.1-1.3); Absolute Neutrophil 6.7 K/uL (1.8-8.0); Basophils % 1.4 % (0-1.3); Eosinophils % 4.1 % (0-4.4); Hematocrit 23.8 % (39.6-49.0); Hemoglobin 8.2 g/dL (13.6-17.9); Lymphocytes % 9.8 % (15.3-44.8); MCH 30.7 pg (27.0-35.0); MCHC 34.5 g/dL (32.0-36.0); MPV 6.6 fL (7.6-11.3); Monocytes % 7.8 % (3.3-12.3); Neutrophils % 76.9 % (41.7-73.7); Nucleated Red Blood Cells % 0.2 % (0-0); Platelets 179 thou/uL (152-406); RBC Red Blood Cell Count 2.68 M/uL (4.33-5.43); Red Cell Distribution Width 14.2 % (12.1-15.2)
[2024-04-21 22:59] LABS: ALT/SGPT 15 U/L (16-61); Albumin 3.3 g/dL (3.4-5.0); Albumin/Globulin Ratio 0.8 (1.1-1.8); Alkaline Phosphatase 44 U/L (45-117); Anion Gap 9.8 mEq/L (5.0-15.0); BUN Blood Urea Nitrogen 42 mg/dL (7-18); Bicarbonate 29 mEq/L (21-32); Bilirubin Direct 0.2 mg/dL (0-0.2); Bilirubin Indirect, Calculated 0.8 mg/dL (0.2-0.8); Globulin 4.1 g/dL (2.3-3.5); Glucose Level 102 mg/dL (74-106); Potassium 3.8 mEq/L (3.5-5.1); Protein, Total 7.4 g/dL (6.4-8.2); Sodium Level 137 mEq/L (136-145); Troponin High Sensitivity 37.3 pg/mL (<58.9)
[2024-04-21 23:02] LABS: SARS-CoV-2 Antigen CONTROL BLUE LINE VIS/BG OK; SARS-CoV-2 Antigen Rapid Res Negative (Negative)
[2024-04-21 23:03] LABS: AST/SGOT < 10 U/L (15-37); Glomerular Filtration Rate 7 ml/min (=/>90); NT PRO-BNP 45648 pg/mL (<125)
[2024-04-21 23:26] LABS: Arterial Blood Carboxyhemoglob 2.7 % (0-1.5); Blood Gas Oxyhemoglobin 86.2 % (94-97); Blood Gas THB 7.8 g/dl (12-18); Blood O2 Saturation 90.5 % (92-98.5)
[2024-04-21] MEDS ORDERED: methocarbamoL 500 MG TAB ONE (23:31)
[2024-04-21] MEDS ORDERED: ONDANSETRON 4 MG (ODT) TAB ONE (23:32)
[2024-04-21] MEDS ORDERED: HYDROCODONE/APAP 10/325 TAB ONE (23:32)
--- NOTE | 2024-04-21 23:52 | ER ---
Nurse's Notes [facility] Name: Melvin Maguire Age: 33 yrs Sex: Male : 1990 Arrival Date: 04/21/2024 Time: 21:16 Bed 7 Private MD: Diagnosis: Acute pulmonary edema;ESRD on Hemodialysis , Hypoxemia, Dyspnea On exertion , Volume Overload Presentation: 04/21 21:36 Chief complaint: Patient states: d/c from the hospital 30 minutes ago and back in the cm10 ER because he continues to have chest pain, back pain, and shortness of breath. Pt states, "I was sent home without any medication for my pain." Pt presents with PIV in Right AC. Respirations even and unlabored in triage. Coronavirus screen: Client denies travel out of the [place] in the last 14 days. Ebola Screen: Patient denies travel to an Ebola-affected area in the 21 days before illness onset. Initial Sepsis Screen: Does the patient meet any 2 criteria? No. Patient's initial sepsis screen is negative. Does the patient have a suspected source of infection? No. Patient's initial sepsis screen is negative. Risk Assessment: Do you want to hurt yourself or someone else? Patient reports no desire to harm self or others. Onset of symptoms was April 21, 2024. 21:36 Method Of Arrival: Wheelchair cm10 21:36 Acuity: SAKSHI 3 cm10 Triage Assessment: 21:38 General: Appears in no apparent distress. comfortable, Behavior is calm, cooperative. cm10 Neuro: No deficits noted. Level of Consciousness is awake, alert, obeys commands, Oriented to person, place, time, situation, Appropriate for age. Respiratory: No deficits noted. Airway is patent Respiratory effort is even, unlabored, Respiratory pattern is regular, symmetrical. Historical: - Allergies: 21:38 HYDRALAZINE; cm10 - PMHx: 21:38 Asthma; Dialysis; High Cholesterol; Hypertension; Hypothyroidism; kidney failure; cm10 - PSHx: 21:38 heria repair; cm10 - Immunization history:: Adult Immunizations up to date. - Infectious Disease History:: Denies. - Social history:: Smoking status: unknown. - Family history:: not pertinent. Screenin:00 [facility] ED Fall Risk Assessment (Adult) History of falling in the last 3 months, jb4 including since admission No falls in past 3 months (0 pts) Confusion or Disorientation No (0 pts) Intoxicated or Sedated No (0 pts) Impaired Gait No (0 pts) Mobility Assist Device Used No (0 pt) Altered Elimination No (0 pt) Score/Fall Risk Level 0 - 2 = Low Risk Oriented to surroundings, Maintained a safe environment. Abuse screen: Denies threats or abuse. Nutritional screening: No deficits noted. Tuberculosis screening: No symptoms or risk factors identified. Assessment: 22:00 General: Appears in no apparent distress. uncomfortable, Behavior is calm, cooperative, jb4 appropriate for age. Pain: Complains of pain in thoracic area Pain does not radiate. Pain currently is 8 out of 10 on a pain scale. Neuro: Level of Consciousness is awake, alert, obeys commands, Oriented to person, place, time, situation. Cardiovascular: Patient's skin is warm and dry. Respiratory: Reports shortness of breath at rest on exertion Airway is patent Respiratory effort is Respiratory pattern is regular, symmetrical. Derm: Skin is intact, Skin is pink, warm \\T\\ dry. Musculoskeletal: Circulation, motion, and sensation intact. Range of motion: intact in all extremities. 22:00 Cardiovascular: Rhythm is sinus rhythm. jb4 23:41 Reassessment: Patient appears in no apparent distress at this time. Patient and/or jb4 family updated on plan of care and expected duration. Pain level reassessed. Patient is alert, oriented x 3, equal unlabored respirations, skin warm/dry/pink. Vital Signs: 21:36 BP 172 / 107; Pulse 96; Resp 19; Temp 99(TE); Pulse Ox 94% on R/A; Weight 145.15 kg; cm10 Height 5 ft. 10 in. ; Pain 8/10; 23:43 BP 163 / 95; Pulse 92; Resp 13; Pulse Ox 96% ; jb4 04/22 01:00 BP 148 / 87; Pulse 88; Resp 16; Pulse Ox 98% on R/A; jb4 02:00 BP 158 / 92; Pulse 83; Resp 24; Pulse Ox 94% on 2 lpm NC; jb4 04/21 21:36 Body Mass Index 45.91 (145.15 kg, 177.8 cm) cm10 04/21 21:36 Pain Scale: Adult cm10 [place] Coma Score: 06:15 Eye Response: spontaneous(4). Motor Response: obeys commands(6). Verbal Response: sp4 oriented(5). Total: 15. ED Course: 04/21 21:21 Patient arrived in ED. gm2 21:23 Calvin Harper MD is Attending Physician. sp4 21:38 Triage completed. cm10 21:38 Arm band placed on right wrist. Patient placed in waiting room. cm10 21:59 Suman Dc, EVETTE is Primary Nurse. jb4 22:00 Patient has correct armband on for positive identification. Bed in low position. Call jb4 light in reach. Side rails up X 1. Provided Education on: plan of care. 22:06 Basic Metabolic Panel Sent. vk 22:06 CBC with Diff Sent. vk 22:06 Troponin HS Sent. vk 22:06 PT-INR Sent. vk 22:06 NT PRO-BNP Sent. vk 22:06 Magnesium Sent. vk 22:06 LFT's Sent. vk 22:06 Influenza Screen (a \\T\\ B) Sent. vk 22:06 SARS RAPID Sent. vk 22:06 Initial lab(s) drawn, by me, sent to lab. COVID swab sent to lab. Flu and/or RSV swab vk sent to lab. 22:16 XRAY Chest (1 view) In Process Unspecified. EDMS 23:50 Flakito Conte MD is Hospitalizing Provider. sp4 04/22 03:08 No provider procedures requiring assistance completed. Patient admitted, IV remains in jb4 place. Administered Medications: 04/21 23:35 Drug: HYDROcodone-acetaminophen PO 5 mg-325 mg 2 tabs PO once Route: PO; ay 04/22 03:10 Follow up: Response: No adverse reaction; Marked relief of symptoms jb4 04/21 23:35 Drug: Methocarbamol PO 1500 mg PO once Route: PO; ay 04/22 03:09 Follow up: Response: No adverse reaction; Marked relief of symptoms jb4 04/21 23:35 Drug: Ondansetron PO 4 mg PO once Route: PO; ay 04/22 03:09 Follow up: Response: No adverse reaction; Marked relief of symptoms jb4 Outcome: 04/21 23:52 Decision to Hospitalize by Provider. sp4 04/22 03:09 Admitted to Tele accompanied by nurse, via wheelchair, room 404, with chart, jb4 Condition: stable Discharge instructions given to patient, Instructed on the need for admit, Demonstrated understanding of instructions, 03:10 Patient left the ED. jb4 Signatures: Dispatcher [employer] Suman Hoffman, RN RN jb4 Calvin Harper MD MD sp4 iMli Block RN RN cm10 Melva Askew 2 Brianna Gates Awudu RN EVETTE ay Corrections: (The following items were deleted from the chart) 04/21 21:38 21:38 Allergies: amlodipine; cm10 cm10 21:40 21:36 Chief complaint: Patient states: d/c charged from the hospital 30 minutes ago and cm10 back in the ER because he continues to have chest pain, back pain, and shortness of breath. Pt states, "I was sent home without any medication for my pain." Pt presents with PIV in Right AC. Respirations even and unlabored in triage. cm10
--- NOTE | 2024-04-21 23:52 | EDPHYS ---
Physician Documentation [facility] Name: Melvin Maguire Age: 33 yrs Sex: Male : 1990 Arrival Date: 04/21/2024 Time: 21:16 Bed 7 Private MD: ED Physician Calvin Harper HPI: 04/21 21:23 This 33 yrs old Male presents to ER via Unassigned with complaints of Cough, sp4 Shortness Of Breath, Back Pain. 04/22 06:15 33-year-old male with history of end-stage renal disease, asthma, dialysis dependent, sp4 hypothyroidism , hypercholesterolemia, hypertension, presents with worsening dyspnea, chest pain, congestion, feeling unwell overall. Patient was just discharged from the hospital floor, but checks back to the emergency room because he is still feeling unwell. Patient has just prior to his primary care physician secondary to reported difference in opinion. 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 Historical: - Allergies: 04/21 21:38 HYDRALAZINE; cm10 - PMHx: 21:38 Asthma; Dialysis; High Cholesterol; Hypertension; Hypothyroidism; kidney failure; cm10 - PSHx: 21:38 heria repair; cm10 - Immunization history:: Adult Immunizations up to date. - Infectious Disease History:: Denies. - Social history:: Smoking status: unknown. - Family history:: not pertinent. ROS: 04/22 06:15 Constitutional: Negative for fever, chills, and weight loss, Positive dyspnea , sp4 positive orthopnea, Positive chest pain , Positive nonproductive cough All other systems are negative, Exam: 06:15 Constitutional: This is a well developed, well nourished patient who is awake, alert, sp4 and in no acute distress. Head/Face: Normocephalic, atraumatic. Eyes: Pupils equal round and reactive to light, extra-ocular motions intact. Lids and lashes normal. Conjunctiva and sclera are not injected. Cornea within normal limits. Periorbital areas with no swelling, redness, or edema. ENT: Nares patent. No nasal discharge, no septal abnormalities noted. Tympanic membranes are normal and external auditory canals are clear. Oropharynx with no redness, swelling, or masses, exudates, or evidence of obstruction, uvula midline. Mucous membranes moist. Neck: Trachea midline, no thyromegaly or masses palpated, and no cervical lymphadenopathy. Supple, full range of motion without nuchal rigidity, or vertebral point tenderness. Chest/axilla: Normal chest wall appearance and motion. Nontender with no deformity. No lesions are appreciated. Cardiovascular: Regular rate and rhythm with a normal S1 and S2. No gallops, murmurs, or rubs. Normal PMI, no JVD. No pulse deficits. Positive left forearm dialysis fistula with palpable thrill Respiratory: Lungs have equal breath sounds bilaterally, clear to auscultation and percussion. No rales, rhonchi or wheezes noted. No increased work of breathing, no retractions or nasal flaring. Abdomen/GI: Soft, with normal bowel sounds. No distension or tympany. No guarding or rebound. No evidence of tenderness throughout. Back: No spinal tenderness. No costovertebral tenderness. Skin: Warm, dry with normal turgor. Normal color with no rashes, no lesions, and no evidence of cellulitis. MS/ Extremity: Pulses equal, no cyanosis. Neurovascular intact. Full, normal range of motion. Neuro: Awake and alert, GCS 15, oriented to person, place, time, and situation. Cranial nerves II-XII grossly intact. Motor strength 5/5 in all extremities. Sensory grossly intact. Psych: Awake, alert, with orientation to person, place and time. Behavior, mood, and affect are within normal limits 06:15 ECG was reviewed by the Attending Physician. EKG at 2217 normal sinus rhythm rate 93 otherwise normal Vital Signs: 04/21 21:36 BP 172 / 107; Pulse 96; Resp 19; Temp 99(TE); Pulse Ox 94% on R/A; Weight 145.15 kg; cm10 Height 5 ft. 10 in. ; Pain 8/10; 23:43 BP 163 / 95; Pulse 92; Resp 13; Pulse Ox 96% ; jb4 04/22 01:00 BP 148 / 87; Pulse 88; Resp 16; Pulse Ox 98% on R/A; jb4 02:00 BP 158 / 92; Pulse 83; Resp 24; Pulse Ox 94% on 2 lpm NC; jb4 04/21 21:36 Body Mass Index 45.91 (145.15 kg, 177.8 cm) cm10 04/21 21:36 Pain Scale: Adult cm10 [place] Coma Score: 06:15 Eye Response: spontaneous(4). Motor Response: obeys commands(6). Verbal Response: sp4 oriented(5). Total: 15. MDM: 04/21 21:38 Medical Screening Exam initiated sp4 22:17 Differential Diagnosis: Obstructed Airway Bronchitis Influenza Upper Respiratory sp4 Infection Viral Syndrome Pneumonia. Data reviewed: vital signs, nurses notes, old medical records, lab test result(s), EKG, radiologic studies, plain films. Consideration of Admission/Observation Escalation of care including admission/observation considered. ED course: Patient at this time being admitted to hospitalist for pulmonary edema.. 23:41 ED course: EXAM:Thorax Wo Con from 04/20/2024 CLINICAL INDICATION: Shortness of breath sp4 TECHNIQUE: CT chest performed.. Axial, sagittal and coronal reconstructions were obtained. One or more of the following dose reduction techniques were used: Automated exposure control, adjustment of the mA and/or kV according to the patient size, and/or iterative reconstruction. Unless otherwise specified, incidental findings do not require dedicated imaging follow-up. [id number]. COMPARISON: October 2023 FINDINGS: Moderate bilateral pulmonary opacities which are a combination of interstitial and ground glass. Mild mediastinal and hilar lymphadenopathy probably reactive in nature. Small bilateral pleural effusions. Trace pericardial effusion. Mild to moderate cardiomegaly IMPRESSION: Moderate bilateral pulmonary opacities may represent pulmonary edema or infection. . ED course: Procedure: Chest Single View HISTORY: Chest pain COMPARISON: April 20, 2024 FINDINGS: Moderate bilateral pulmonary opacities unchanged Small bilateral pleural effusions The heart is mildly to moderately enlarged.. IMPRESSION: No significant change in moderate bilateral pulmonary opacities which may represent pulmonary edema or infection . 04/21 21:36 Order name: Basic Metabolic Panel; Complete Time: 23:04 sp4 04/21 21:36 Order name: CBC with Diff; Complete Time: 23:02 sp4 04/21 21:36 Order name: LFT's; Complete Time: 23:04 sp4 04/21 21:36 Order name: Magnesium; Complete Time: 23:04 sp4 04/21 21:36 Order name: NT PRO-BNP; Complete Time: 23:04 4 04/21 21:36 Order name: PT-INR; Complete Time: 23:02 4 04/21 21:36 Order name: Troponin HS; Complete Time: 23:04 4 04/21 21:36 Order name: Influenza Screen (a \T\ B); Complete Time: 23:02 4 04/21 21:36 Order name: SARS RAPID; Complete Time: 23:02 4 04/21 23:07 Order name: Troponin High Sensitivity [facility] 04/21 23:10 Order name: ABG; Complete Time: 23:41 sp4 04/22 00:36 Order name: Urinalysis w/ reflexes EDMS 04/22 00:36 Order name: CBC with Automated Diff EDMS 04/22 00:36 Order name: CBC with Automated Diff EDMS 04/22 00:36 Order name: Comprehensive Metabolic Panel EDPA 04/22 00:36 Order name: Comprehensive Metabolic Panel EDPA 04/21 21:36 Order name: XRAY Chest (1 view); Complete Time: 23:02 4 04/22 00:38 Order name: CONS Physician Consult EDPA 04/21 21:36 Order name: Cardiac monitoring; Complete Time: 22:19 4 04/21 21:36 Order name: EKG - Nurse/Tech; Complete Time: 22:19 4 04/21 21:36 Order name: IV Saline Lock; Complete Time: 22:06 4 04/21 21:36 Order name: Labs collected and sent; Complete Time: 22:06 [facility] 04/21 21:36 Order name: O2 Per Protocol; Complete Time: 22:06 4 04/21 21:36 Order name: O2 Sat Monitoring; Complete Time: 22:06 sp4 EC:17 Rate is 93 beats/min. Rhythm is regular, Normal Sinus Rhythm. QRS [place] is Normal. CO sp4 interval is normal. QRS interval is normal. QT interval is prolonged. No Q waves. T waves are Normal. No ST changes noted. Clinical impression: No evidence of ischemia. Interpreted by me. Reviewed by me. Administered Medications: 23:35 Drug: HYDROcodone-acetaminophen PO 5 mg-325 mg 2 tabs PO once Route: PO; ay 04/22 03:10 Follow up: Response: No adverse reaction; Marked relief of symptoms [facility] 04/21 23:35 Drug: Methocarbamol PO 1500 mg PO once Route: PO; ay 04/22 03:09 Follow up: Response: No adverse reaction; Marked relief of symptoms jb4 04/21 23:35 Drug: Ondansetron PO 4 mg PO once Route: PO; ay 04/22 03:09 Follow up: Response: No adverse reaction; Marked relief of symptoms jb4 Disposition: 06:20 Chart complete. sp4 Disposition Summary: 04/21/24 23:52 Hospitalization Ordered Notes: Hospitalization Status: Inpatient Admission sp4 Provider: Flakito Conte sp4 Location: Telemetry/MedSurg (Inpatient) sp4 Condition: Fair sp4 Problem: new sp4 Symptoms: have improved sp4 Bed/Room Type: Standard sp4 Room Assignment: 404(04/22/24 00:55) vc1 Diagnosis - Acute pulmonary edema sp4 - ESRD on Hemodialysis , Hypoxemia, Dyspnea On exertion , Volume Overload sp4 Forms: - Medication Reconciliation Form sp4 - SBAR form sp4 - Leadership Thank You Letter sp4 Signatures: Dispatcher [employer] Mellisa Antunez RN RN vc1 Calvin Harper MD MD sp4 Mili Block RN RN cm10 Ryne Naylor RN RN ay Bryson, James RN jb4 Corrections: (The following items were deleted from the chart) 04/21 21:38 21:38 Allergies: amlodipine; cm10 cm10 04/22 00:55 04/21 23:52 sp4 vc1
[2024-04-22] MEDS ORDERED: ALBUTEROL 2.5 MG/3 ML NEB SOL NEB PRN (00:31)
[2024-04-22] MEDS ORDERED: ONDANSETRON 4 MG/2 ML VIAL IV PRN (00:31)
--- NOTE | 2024-04-22 00:31 | P.HP ---
Certification for Inpatient Patient admitted to: Inpatient With expected LOS: >2 Midnights Practitioner: I am a practitioner with admitting privileges, knowledge of patient current condition, hospital course, and medical plan of care. Services: Services provided to patient in accordance with Admission requirements found in Title 42 Section 412.3 of the Code of Federal Regulations Patient History Date of Service: 04/22/24 Reason for admission: SOB History of Present Illness: 33 yrs old Male with past medical history of asthma, hypertension, hyperlipidemia, hypothyroidism, ESRD on dialysis who had dialysis yesterday brought to ER with shortness of breath cough and back pain which has been going on for the last 2 days and has been progressively getting worse. Denies any chest pain. No fever or chills. No nausea vomiting or diarrhea. Patient was assessed in the ER and was found to have fluid overload and was admitted for further management. Allergies adhesive tape Allergy (Verified 06/06/23 12:17) Rash hydralazine Allergy (Verified 06/06/23 12:17) Rash Home medications list reviewed: Yes Home Medications: Furosemide [Lasix] 40 mg PO BID 05/22/23 Pantoprazole [Protonix Tab*] 40 mg PO DAILY 05/22/23 carvediloL [Coreg] 25 mg PO BID 05/22/23 Escitalopram [Lexapro*] 5 mg PO DAILY 10/28/23 Amlodipine [Norvasc*] 5 mg PO BID 04/03/24 lisinopriL [Prinivil*] 40 mg PO DAILY tab 04/04/24 Albuterol Inhaler [Ventolin Inhaler*] 2 puff IH Q6H PRN 30 Days #1 in 04/06/24 Cinacalcet HCl [Sensipar] 60 mg PO T,,S 04/20/24 - Past Medical/Surgical History Diabetic: No Past Medical History: Reviewed- Non-Contributory -: End-stage renal disease on peritoneal dialysis -: HTN -: GERD -: Obesity -: Peritonitis, January 2019 -: Obesity -: Hypothyroidism Past Surgical History: Reviewed- Non-Contributory -: kidney biopsy -: access dialysis sx / catheter exchange -: hernia repair may 2018 -: december peritoneal dialysis access Psychosocial/ Personal History: Patient is . Lives at home. Patient is disabled. - Family History Father -: Heart disease, Diabetes Notes: Heavy smoker Mother -: Lung disease Notes: COPD - Social History Smoking Status: Never smoker Alcohol use: No CD- Drugs: No Caffeine use: Yes Review of Systems 10-point ROS is otherwise unremarkable Physical Examination - Vital Signs Temperature: 97.7 F Blood Pressure: 166/88 Pulse: 76 Respirations: 18 Pulse Ox (%): 94 - Physical Exam General: Alert, In no apparent distress, Oriented x3 HEENT: Atraumatic, Normocephalic Neck: Supple Respiratory: Clear to auscultation bilaterally, Crackles/rales Cardiovascular: Regular rate/rhythm, Normal S1 S2 Capillary refill: <2 Seconds Gastrointestinal: Soft and benign, W/out hepatosplenomegaly Musculoskeletal: No clubbing, No swelling Integumentary: No rashes Neurological: Normal speech, Normal strength at 5/5 x4 extr, Cranial nerves 3-12 intact, Normal reflexes 2+ - Studies Laboratory Data (last 24 hrs) 04/21/24 04/21/24 04/21/24 22:02 22:02 22:02 WBC 8.70 Hgb 8.2 L Hct 23.8 L Plt Count 179 PT 13.0 H INR 1.24 Sodium 137 Potassium 3.8 D BUN 42 H Creatinine 9.85 H Glucose 102 Magnesium 2.0 Total Bilirubin 1.0 AST < 10 L ALT 15 L Alkaline Phosphatase 44 L Microbiology Data (last 24 hrs): 04/21/24 22:02 Nasopharnyx Influenza Type A Antigen Screen - Final 04/21/24 22:02 Nasopharnyx Influenza Type B Antigen Screen - Final Assessment and Plan - Plan Fluid overload Pulmonary edema Started on IV Lasix Oxygen supplementation ESRD on dialysis Nephrology consulted Had dialysis yesterday Electrolytes monitor and replace accordingly Hypertension Antihypertensives titrated Continue home medications and titrate as needed Hyperlipidemia Continue statin Anemia of chronic disease Monitor H&H closely No overt bleeding at this time GI/DVT prophylaxis Advanced directive full code Discharge Plan: Home Plan to discharge in: 48 Hours - Advance Directives Does patient have a Living Will: No Does patient have a Durable POA for Healthcare: No - Code Status/Comfort Care Code Status: Full Code Time Spent Managing Pts Care (In Minutes): 48
[2024-04-22] MEDS ORDERED: DIPHENHYDRAMINE 50 MG/ML VIAL IV PRN (03:13)
[2024-04-22] MEDS: FUROSEMIDE 40 MG/4 ML VIAL IV SCH ×2 (03:23→20:09)
[2024-04-22] MEDS: DIPHENHYDRAMINE 25 MG TAB/CAP PO PRN (04:42)
[2024-04-22] MEDS: ACETAMINOPHEN 325 MG TABLET PO PRN (07:24)
[2024-04-22] MEDS: HEPARIN 5000 UNIT/ML 1 ML VIAL SQ SCH (10:01)
--- NOTE | 2024-04-22 11:47 | PN ---
Date of Progress Note: 04/22/2024 Reason For Consultation: Over volume, end-stage renal disease. Physical Examination: Vital Signs: When I saw the patient, blood pressure 121/74, pulse of 85. Chest: Crackles bilateral. Heart: S1, S2. Systolic murmur. Abdomen: Soft, nontender. Extremities: No edema. Neurologic: Alert. No focality. Laboratory Data: Hemoglobin 8.2. Sodium 137, potassium 3.8, bicarb 29, BUN 42, creatinine 9.8, calc ium 9.3. Current Medications: The patient is on include heparin, albuterol, Lasix. Assessment And Plan: 1.End-stage renal disease, over volume. I am going to do dialysis today and we will follow up the p atient. We will challenge the patient. 2.Hypertension. We will utilize blood pressure for more ultrafiltration and diuresis. 3.Anemia of chronic kidney disease, status post transfusion. We will continue to monitor. 4.Secondary hyperparathyroidism. Continue Renvela. 5.Congestive heart failure with exacerbation as above. 6.Chest pain as by primary. ALONZO/STACIA Voice ID: [id number] Report ID: [id number]
[2024-04-22] MEDS: SEVELAMER CARBONATE 800 MG TABLET PO SCH (12:00)
[2024-04-22] MEDS: HYDROCODONE/APAP 5/325 MG TAB PO PRN (14:46)
[2024-04-22] MEDS: EPOETIN ALFA 10,000 UNIT/ML VIAL IV SCH (18:15)
--- NOTE | 2024-04-22 18:59 | P.DS ---
Admission Date: 04/22/24 Discharge Date: 04/22/24 Reason for Admission: SOB Brief History of Present Illness: 33 yrs old Male with past medical history of asthma, hypertension, hyperlipidemia, hypothyroidism, ESRD on dialysis who had dialysis yesterday brought to ER with shortness of breath cough and back pain which has been going on for 2 days and has been progressively getting worse. Patient was assessed in the ER and was found to have elevated BNP, his chest x- ray did show bilateral infiltrates which is unchanged from previous chest x-ray. Patient was admitted for further management. <deysi dubon - Last Filed: 04/22/24 18:54> Admission Date: 04/23/24 Discharge Date: 04/24/24 Hospital Course: 33-year-old male with history of ESRD on hemodialysis T/, admitted for volume overload. Chest x-ray positive for CHF. Of note, SBP in the 200s. Received hemodialysis for 3 consecutive days. Resumed on BP meds lisinopril carvedilol, amlodipine. Imdur added to regimen to optimize control. No hydralazine due to documented allergy. Clinically improved, not hypoxic prior to discharge. SBP in the 150s. After mentioned blood pressure meds prescribed which reveals at time of discharge. <Woody Don - Last Filed: 04/24/24 15:57> Disposition: ROUTINE DISCHARGE Discharge Condition: FAIR Vital Signs/Physical Exam: Temp Pulse Resp BP Pulse Ox 98.1 F 81 18 162/90 H 98 04/22/24 12:00 04/22/24 12:00 04/22/24 12:00 04/22/24 12:00 04/22/24 12:00 Laboratory Data at Discharge: WBC 8.70 thou/uL (4.3-10.9) 04/21/24 22:02 Hgb 8.2 g/dL (13.6-17.9) L 04/21/24 22:02 Hct 23.8 % (39.6-49.0) L 04/21/24 22:02 Plt Count 179 thou/uL (152-406) 04/21/24 22:02 PT 13.0 SECONDS (9.4-12.5) H 04/21/24 22:02 INR 1.24 04/21/24 22:02 Sodium 137 mEq/L (136-145) 04/21/24 22:02 Potassium 3.8 mEq/L (3.5-5.1) D 04/21/24 22:02 BUN 42 mg/dL (7-18) H 04/21/24 22:02 Creatinine 9.85 mg/dL (0.70-1.30) H 04/21/24 22:02 Glucose 102 mg/dL (74-106) 04/21/24 22:02 Magnesium 2.0 mg/dL (1.6-2.4) 04/21/24 22:02 Total Bilirubin 1.0 mg/dL (0.2-1.0) 04/21/24 22:02 AST < 10 U/L (15-37) L 04/21/24 22:02 ALT 15 U/L (16-61) L 04/21/24 22:02 Alkaline Phosphatase 44 U/L (45-117) L 04/21/24 22:02 <deysi dubon - Last Filed: 04/22/24 18:54> Vital Signs/Physical Exam: Temp Pulse Resp BP Pulse Ox 98.0 F 81 16 155/95 H 99 04/24/24 12:00 04/24/24 12:00 04/24/24 12:00 04/24/24 12:00 04/24/24 12:00 General: Oriented x3 HEENT: Atraumatic Neck: Supple Respiratory: Clear to auscultation bilaterally Cardiovascular: No edema Gastrointestinal: Normal bowel sounds Musculoskeletal: No clubbing Integumentary: No rashes Neurological: Normal gait, Normal speech External genitalia: No edema Rectal: Normal Laboratory Data at Discharge: WBC 7.90 thou/uL (4.3-10.9) 04/23/24 18:14 Hgb 8.6 g/dL (13.6-17.9) L 04/23/24 18:14 Hct 24.5 % (39.6-49.0) L 04/23/24 18:14 Plt Count 211 thou/uL (152-406) D 04/23/24 18:14 PT 13.0 SECONDS (9.4-12.5) H 04/21/24 22:02 INR 1.24 04/21/24 22:02 Sodium 137 mEq/L (136-145) 04/24/24 06:45 Potassium 3.8 mEq/L (3.5-5.1) D 04/24/24 06:45 BUN 34 mg/dL (7-18) H 04/24/24 06:45 Creatinine 9.77 mg/dL (0.70-1.30) H 04/24/24 06:45 Glucose 93 mg/dL (74-106) 04/24/24 06:45 Phosphorus 5.3 mg/dL (2.5-4.9) H 04/24/24 06:45 Magnesium 2.0 mg/dL (1.6-2.4) 04/21/24 22:02 Total Bilirubin 1.1 mg/dL (0.2-1.0) H 04/23/24 06:20 AST < 10 U/L (15-37) L 04/23/24 06:20 ALT < 14 U/L (16-61) L 04/23/24 06:20 Alkaline Phosphatase 46 U/L (45-117) 04/23/24 06:20 <Woody Don - Last Filed: 04/24/24 15:57> Diet: Renal Activity: Ad yobany <deysi dubon - Last Filed: 04/22/24 18:54> <Woody Don - Last Filed: 04/24/24 15:57> Home Medications: Furosemide [Lasix] 40 mg PO BID 05/22/23 Pantoprazole [Protonix Tab*] 40 mg PO DAILY 05/22/23 carvediloL [Coreg] 25 mg PO BID 05/22/23 Escitalopram [Lexapro*] 5 mg PO DAILY 10/28/23 Amlodipine [Norvasc*] 5 mg PO BID 04/03/24 Albuterol Inhaler [Ventolin Inhaler*] 2 puff IH Q6H PRN 30 Days #1 in 04/06/24 Cinacalcet HCl [Sensipar] 60 mg PO SEECOM 04/20/24 Hydrocodone 5/APAP 325 [[place] 5/325*] 1 tab PO Q6H PRN #12 tab 04/22/24 Sevelamer Carbonate [Renvela*] 800 mg PO TIDWM 04/22/24 Amlodipine [Norvasc*] 5 mg PO BID 2 Days #60 tab 04/24/24 Isosorbide Mononitrate [Isosorbide Mononitrate ER] 60 mg PO DAILY 60 Days #60 04/24/24 carvediloL [Coreg*] 25 mg PO BID 30 Days #60 tab 04/24/24 lisinopriL [Prinivil*] 40 mg PO DAILY 60 Days #60 tab 04/24/24 New Medications: carvediloL [Coreg*] 25 mg PO BID 30 Days #60 tab Isosorbide Mononitrate [Isosorbide Mononitrate ER] 60 mg PO DAILY 60 Days #60 Hydrocodone 5/APAP 325 [[place] 5/325*] 1 tab PO Q6H PRN #12 tab PRN Reason: Pain Scale 5-7 (Moderate) Amlodipine [Norvasc*] 5 mg PO BID 2 Days #60 tab lisinopriL [Prinivil*] 40 mg PO DAILY 60 Days #60 tab Physician Discharge Instructions: Follow up with PCP within 1 week post discharge Followup: Sandie Rome MD [ACTIVE - CAN ADMIT] - 1-2 Weeks NONE,NONE [Primary Care Provider] -
--- NOTE | 2024-04-22 19:04 | P.PN ---
Date of Service: 04/22/24 Patient seen and examined. He is complaining of back pain and shortness of breath. Patient with end-stage renal disease and pulmonary infiltrates. He is scheduled for hemodialysis today. Analgesics for pain as needed. Of note troponin trended negative. Patient may need GI evaluation for GERD/PUD. Nephrology Dr. Rome is planning consecutive days of hemodialysis.
[2024-04-23 06:32] LABS: Absolute Basophils 0.1 K/uL (0-0.5); Absolute Eosinophils 0.4 K/uL (0-0.5); Absolute Lymphocytes (CBC) 0.8 K/uL (0.7-4.9); Absolute Monocytes 0.6 K/uL (0.1-1.3); Absolute Neutrophil 5.1 K/uL (1.8-8.0); Basophils % 0.8 % (0-1.3); Eosinophils % 6.2 % (0-4.4); Hematocrit 23.6 % (39.6-49.0); Hemoglobin 8.2 g/dL (13.6-17.9); Lymphocytes % 11.2 % (15.3-44.8); MCH 30.8 pg (27.0-35.0); MCHC 34.8 g/dL (32.0-36.0); MCV 88.5 fL (80-100); MPV 6.4 fL (7.6-11.3); Monocytes % 9.1 % (3.3-12.3); Neutrophils % 72.7 % (41.7-73.7); Nucleated Red Blood Cells % 0.1 % (0-0); Platelets 147 thou/uL (152-406); RBC Red Blood Cell Count 2.67 M/uL (4.33-5.43); Red Cell Distribution Width 13.9 % (12.1-15.2)
[2024-04-23 06:52] LABS: Albumin 3.1 g/dL (3.4-5.0); Albumin/Globulin Ratio 0.8 (1.1-1.8); Alkaline Phosphatase 46 U/L (45-117); Anion Gap 12.3 mEq/L (5.0-15.0); BUN Blood Urea Nitrogen 40 mg/dL (7-18); Bicarbonate 28 mEq/L (21-32); Bilirubin Total 1.1 mg/dL (0.2-1.0); Globulin 4.1 g/dL (2.3-3.5); Glomerular Filtration Rate 6 ml/min (=/>90); Glucose Level 95 mg/dL (74-106); Phosphorus 5.8 mg/dL (2.5-4.9); Potassium 4.3 mEq/L (3.5-5.1); Protein, Total 7.2 g/dL (6.4-8.2); Sodium Level 138 mEq/L (136-145)
[2024-04-23 06:55] LABS: ALT/SGPT < 14 U/L (16-61); AST/SGOT < 10 U/L (15-37)
[2024-04-23] MEDS: GUAIFENESIN/CODEINE 5ML UCUP PO PRN (08:49)
[2024-04-23] MEDS: lisinopriL 20 MG TAB PO SCH (11:19)
[2024-04-23] MEDS: AMLODIPINE 5 MG TAB PO SCH (11:19)
--- NOTE | 2024-04-23 11:54 | EKG ---
Test Date: 2024-04-21 Test Time: 22:17:18 Casino Floor Runner: FELIX MEASUREMENT RESULTS: Intervals: Rate: 93 AK: 202 QRSD: 92 QT: 390 QTc: 484 [place]: P: 27 AK: 202 QRS: 51 T: 50 INTERPRETIVE STATEMENTS: Normal sinus rhythm Prolonged QT Abnormal ECG Compared to ECG 04/21/2024 22:14:32 Prolonged QT interval now present Electronically Signed On 04-23-24 11:53:08 MER[employer]ILL UTILITY WORKER by Salvador Coy
--- NOTE | 2024-04-23 11:54 | EKG ---
Test Date: 2024-04-21 Test Time: 22:14:32 Change Analyst: FELIX MEASUREMENT RESULTS: Intervals: Rate: 0 LA: QRSD: 0 QT: 0 QTc: 0 [place]: P: LA: QRS: 0 T: 0 INTERPRETIVE STATEMENTS: No QRS complexes found, no ECG analysis possible Compared to ECG 04/20/2024 10:16:42 Sinus tachycardia no longer present Electronically Signed On 04-23-24 11:53:12 BICYCLE SERVICE TECHNICIAN by Salvador Coy
--- NOTE | 2024-04-23 13:31 | P.PN ---
Subjective Date of Service: 04/23/24 Chief Complaint: SOB Subjective: No new changes (No complaints) Review of Systems General: Unremarkable Eyes: Unremarkable Respiratory: Unremarkable Cardiovascular: Unremarkable Gastrointestinal: Unremarkable Genitourinary: Unremarkable Physical Examination - Vital Signs Temperature: 98.1 F Blood Pressure: 177/93 Pulse: 96 Respirations: 18 Pulse Ox (%): 93 - Physical Exam General: Oriented x3 HEENT: Atraumatic Neck: Supple Respiratory: Clear to auscultation bilaterally Cardiovascular: Regular rate/rhythm Gastrointestinal: Normal bowel sounds Musculoskeletal: No clubbing, No tenderness, Swelling Neurological: Normal gait Assessment And Plan - Plan 1. Shortness of breath secondary to the acute diastolic CHF -2D echo from 2019 showed LVEF of 67% -Clinically improved post hemodialysis -Will receive additional hemodialysis today -Discharge home today if his blood pressure controlled 2. Hypertensive urgency - SBP in the 190s -Resumed home BP meds: Lisinopril and amlodipine at home dose 3. Anemia of chronic renal disease -Hemoglobin currently stable at 8.2 4. DVT prophylaxis -SCDs 5 disposition:. Will discharge home today if SBP controlled Discharge Plan: Home Plan to discharge in: 24 Hours
[2024-04-23] MEDS: HYDRALAZINE HCL 25 MG TABLET PO SCH (16:05)
[2024-04-23] MEDS: EPOETIN ALFA 10,000 UNIT/ML VIAL IV SCH (16:30)
--- NOTE | 2024-04-23 17:41 | PN ---
Date of Progress Note: 04/23/2024 Subjective: The patient was admitted to the hospital with overvolume and chest pain. The patient wa s dialyzed yesterday. We managed to remove 3 L. The patient still has some shortness of breath. Objective: Vital Signs: Blood pressure 177/93, pulse of 96. Chest: Crackles, bilateral base. Heart: S1, S2. Systolic murmur. Abdomen: Soft, nontender. Extremities: Trace edema. Neurologic: Alert. No focality. Laboratory Data: Hemoglobin 8.2, sodium 138, potassium 4.3, bicarb 28, BUN 40, creatinine 10.3, calc ium 9.3, phosphorus 5.8. Current Medications: The patient on, it includes: 1.Albuterol. 2.Heparin. 3.Epogen. 4.Lisinopril 40. 5.Lasix 40 b.i.d. 6.Renvela 1600 with each meal. Assessment And Plan: 1.End-stage renal disease, overvolume. I am going to arrange for another session of dialysis today, and we will follow up. 2.Hypertension, controlled, optimal. We will utilize blood pressure for more ultrafiltration and we will follow up. 3.Anemia of chronic kidney disease. Continue Retacrit. 4.Congestive heart failure with exacerbation as above. We will optimize the fluid status. 5.Secondary hyperparathyroidism. Continue Renvela. ALONZO/STACIA Voice ID: [id number] Report ID: [id number]
[2024-04-23 18:57] LABS: Absolute Basophils 0.1 K/uL (0-0.5); Absolute Eosinophils 0.5 K/uL (0-0.5); Absolute Monocytes 0.6 K/uL (0.1-1.3); Absolute Neutrophil 5.7 K/uL (1.8-8.0); Basophils % 0.8 % (0-1.3); Eosinophils % 6.7 % (0-4.4); Hematocrit 24.5 % (39.6-49.0); Hemoglobin 8.6 g/dL (13.6-17.9); Lymphocytes % 13.2 % (15.3-44.8); MCH 30.9 pg (27.0-35.0); MCHC 35.1 g/dL (32.0-36.0); MPV 6.7 fL (7.6-11.3); Monocytes % 7.2 % (3.3-12.3); Neutrophils % 72.1 % (41.7-73.7); Nucleated Red Blood Cells % 0.1 % (0-0); Platelets 211 thou/uL (152-406); RBC Red Blood Cell Count 2.78 M/uL (4.33-5.43); Red Cell Distribution Width 14.1 % (12.1-15.2)
[2024-04-23 19:37] LABS: Anion Gap 11.3 mEq/L (5.0-15.0); Potassium 3.3 mEq/L (3.5-5.1)
[2024-04-23] MEDS: carvediloL 25 MG TAB PO SCH (20:06)
[2024-04-23] MEDS ORDERED: lisinopriL 5 MG TAB PO SCH (21:00)
[2024-04-24 01:54] VITALS: BMI 45.9
[2024-04-24 07:24] LABS: Albumin 3.1 g/dL (3.4-5.0); Anion Gap 9.8 mEq/L (5.0-15.0); Phosphorus 5.3 mg/dL (2.5-4.9); Potassium 3.8 mEq/L (3.5-5.1)
[2024-04-24] MEDS ORDERED: SEVELAMER CARBONATE 800 MG TABLET PO SCH (08:00)
[2024-04-24] MEDS ORDERED: lisinopriL 20 MG TAB PO SCH (09:00)
[2024-04-24] MEDS: ISOSORBIDE MONO SR 30 MG TAB PO SCH (09:05)
[2024-04-24 10:11] VITALS: TEMP 98
[2024-04-24 10:51] VITALS: O2SAT 99
[2024-04-24 12:50] VITALS: BP 155/95
--- NOTE | 2024-04-24 23:11 | PN ---
Subjective: No overnight events. Seen and examined during dialysis. Tolerated dialysis with no com plication. The patient can be discharged after dialysis from Nephrology point of view. Objective: Vital Signs: Temperature 98, pulse rate 81, blood pressure 155/95. General: Awake and alert. Oriented x3. Not in distress. Neck: Supple. No elevated JVD. Heart: Regular rate and rhythm. Normal S1, S2. Chest: Clear to auscultation bilaterally. No rales or wheezes. Abdomen: Soft, nontender. Extremities: No edema. Laboratory Data: White count 7.9, hemoglobin 8.6. Sodium 137, potassium 3.8. Assessment And Plan: 1.End-stage renal disease. Continue dialysis. The patient had dialysis yesterday and today. The p atient can be discharged after dialysis from Nephrology point of view. 2.Acute diastolic congestive heart failure. Continue daily dialysis. Can be discharged after dialy sis today to resume his dialysis tomorrow. Fluid restriction. Low-salt diet. 3.Hypertension urgency. Continue blood pressure control. Continue effort as tolerated b y his blood pressure. 4.Anemia of chronic kidney disease. Continue Epogen. Monitor hemoglobin and hematocrit. Thanks for allowing me to participate in the patient's care. Total time spent 55 minutes including d ocumentation, reviewing labs, and placing orders. MCKINLEY/STACIA Voice ID: [id number] Report ID: [id number]
== END 2024-04-24 18:28 | disposition home or self-care (01) | DRG 291 ==
LOC: ER 21:16 → ERHOLD 04-22 00:31 → INTOOBSV 04-22 00:31 → 4TH 04-22 02:33 → OBSVTOIN 04-23 19:35
PROVIDERS: ADMIT Family Medicine; ATTEND Internal Medicine
PROC: 4A033R1 Measurement of Arterial Saturation, Peripheral, Percutaneous Approach (ICD-10-PCS; principal; 2024-04-21)
PROC: 5A1D70Z Performance of Urinary Filtration, Intermittent, Less than 6 Hours Per Day (ICD-10-PCS; 2024-04-22)
DX: I13.2 Hypertensive heart and chronic kidney disease with heart failure and with stage 5 chronic kidney disease, or end stage renal disease (principal); I50.33 Acute on chronic diastolic (congestive) heart failure; N18.6 End stage renal disease; Z68.42 Body mass index [BMI] 45.0-49.9, adult; N25.81 Secondary hyperparathyroidism of renal origin; E66.9 Obesity, unspecified; D63.1 Anemia in chronic kidney disease; I16.0 Hypertensive urgency; E03.9 Hypothyroidism, unspecified; K21.9 Gastro-esophageal reflux disease without esophagitis; E78.00 Pure hypercholesterolemia, unspecified; J45.909 Unspecified asthma, uncomplicated; Z99.2 Dependence on renal dialysis; Z11.52 Encounter for screening for COVID-19; Z88.8 Allergy status to other drugs, medicaments and biological substances; Z79.02 Long term (current) use of antithrombotics/antiplatelets; Z79.899 Other long term (current) drug therapy
CPT/HCPCS: 36415; 36600; 71045; 80048; 80053; 80069; 80076; 82805; 83735; 83880; 84484; 85025; 85610; 87804; 87811; 90935; 93005; 94760; 99285; G0378; J1644; J1940; Q0162